=== PATIENT | male | born 1955 | race Caucasian/White ===

== ENCOUNTER 2022-10-03 19:47 | Inpatient (IN) | payer OTHER, SELFPAY ==
[2022-10-03 19:56] VITALS: BP 156/91; PULSE 114; RESP 16; TEMP 36.4; O2SAT 98; BMI 34.2
--- NOTE | 2022-10-03 20:37 | PC.NURSE ---
RN into room to attempt to retrieve urine sample from pt. Pt tries but is unable to urinate. PSA states that pt has been talking to himself and behaving strangely as if someone were with him. Pt appears anxious at this time and mumbling.
--- NOTE | 2022-10-03 20:58 | ED.C_ITS ---
HPI - Psych General: Chief Complaint: Psychiatric Symptoms Stated Complaint: wants stress unit Time Seen by Provider: 10/03/22 20:15 History of Present Illness: Patient presents to the ER with complaints of wanting admitted to our stress unit. I also wanting his leg wound looked at. Patient admits he is homeless and unable to handle the stressors of his normal daily life. Patient wants to go to the stress unit. Patient denies homicidal or suicidal ideation patient calm and cooperative during his exam. Patient does admit to chronic alcohol use as well as methamphetamine use. Patient admits to using methamphetamines approximately 3 to 4 hours prior to arrival. Review of Systems General: Reports: 10 or more systems reviewed and unremarkable except in HPI and below PFSH ED PFSH: Medical History (Updated 10/04/22 @ 18:13 by Florencio Blunt MD) Coronary artery disease Hypertension (Unknown) Surgical History History of surgery on lower extremity Family History (Updated 10/04/22 @ 18:13 by Florencio Blunt MD) Other Depression Social History Smoking and tobacco status: current every day smoker Physical Exam Const: COMMON NORMALS: no acute distress, average body habitus, patient oriented x3, healthy appearing, alert and well nourished HENMT: COMMON NORMALS: normocephalic, atraumatic, hearing grossly normal bilaterally, external ears normal, Normal external nose present and moist oral mucous membranes HEAD & SCALP: normocephalic and atraumatic NOSE: Normal external nose present EXTERNAL EAR: Yes external ears normal Neck/C-Spine: COMMON NORMALS: full ROM, no lymphadenopathy, supple, no meningeal signs, no JVD and Thyroid normal THYROID: Thyroid normal Chest: COMMONS NORMALS: normal inspection of the chest and normal palpation of entire chest wall Resp: COMMON NORMALS: normal respiratory effort, No retractions, No use of accessory muscles and clear to auscultation bilaterally AUSCULTATION: clear to auscultation bilaterally Cardio: COMMON NORMALS: no JVD, regular rhythm, S1 normal heart sound present, S2 normal heart sound present, No gallops present (Cardio), No clicks present (Cardio), No murmurs present (Cardio) and No rub (Cardio); negative for regular rate (Patient is tachycardic) RATE: abnormal rate (Patient is tachycardic) RHYTHM: regular rhythm HEART SOUNDS: S1 normal heart sound present and S2 normal heart sound present GI: COMMON NORMALS: Normal to inspection, nondistended, normoactive bowel sounds present, Soft to palpation, non-tender, No hepatosplenomegaly present and no masses PALPATION: Yes Soft to palpation and Yes No hepatosplenomegaly present : COMMON NORMALS: Yes no CVA tenderness BLADDER/KIDNEY EXAM: Yes no CVA tenderness Back/Pelvis: COMMON NORMALS: no CVA tenderness Extremity: NARRATIVE EXTREMITY EXAM: Patient has multiple postsurgical healed wounds on his left lower extremity. There is 1 wound in the process of healing on his left medial thigh that has good granulation tissue good serosanguineous discharge no erythema purulent drainage or odor noted. Neuro: COMMON NORMALS: patient oriented x3 SENSORIUM/ORIENTATION: Yes alert MENINGEAL SIGNS: Yes no meningeal signs Course Vital Signs: Vital signs: Vital Signs Temperature 98.2 F 10/04/22 21:36 Pulse Rate 74 10/04/22 21:36 Respiratory Rate 15 10/04/22 21:36 Blood Pressure 111/68 10/04/22 21:36 Pulse Oximetry 94 10/04/22 21:36 Oxygen Delivery Me thod Room Air 10/04/22 21:36 [facility] - Psych Medical Decision Making Patient was checked out to Dr. Abrams at shift change for further workup and treatment. Differential Diagnosis Unlikely acute psychosis, chronic schizophrenia, suicidal ideation, bipolar disorder, depression, drug-induced psychotic disorder or acute anxiety Medical Records I reviewed the patient's medical records. Lab Data I reviewed the patient's lab results. 10/03/22 21:00 10/03/22 21:00 Radiology Impressions Chest X-Ray 10/03/22 21:03 IMPRESSION: Negative for infiltrate. Laboratory Results WBC 13.3 10^3/uL (4.0-10.0) H 10/03/22 21:00 RBC 6.18 10^6/uL (4.1-5.3) H 10/03/22 21:00 Hgb 15.9 g/dL (11.7-16.6) 10/03/22 21:00 Hct 50.2 % (42.0-52.0) 10/03/22 21:00 MCV 81.2 fl (80-94) 10/03/22 21:00 MCH 25.7 pg (28.0-34.0) L 10/03/22 21:00 MCHC 31.7 g/dL (30.0-36.0) 10/03/22 21:00 RDW 15.1 % (12.1-15.1) 10/03/22 21:00 Plt Count 356 10^3/cmm (130-400) 10/03/22 21:00 MPV 9.6 fL (7.4-10.4) 10/03/22 21:00 Neut % (Auto) 64.2 % 10/03/22 21:00 Lymph % (Auto) 23.8 % 10/03/22 21:00 [place] % (Auto) 9.0 % 10/03/22 21:00 Eos % (Auto) 2.1 % 10/03/22 21:00 Baso % (Auto) 0.5 % 10/03/22 21:00 Neut # (Auto) 8.54 10^3/uL (1.8-7.7) H 10/03/22 21:00 Lymph # (Auto) 3.2 10^3/uL (0.8-4.8) 10/03/22 21:00 [place] # (Auto) 1.2 10^3/uL (0.2-0.9) H 10/03/22 21:00 Eos # (Auto) 0.3 10^3/uL (0.0-0.8) 10/03/22 21:00 Baso # (Auto) 0.1 10^3/uL (0.0-0.1) 10/03/22 21:00 Nucleated RBC % (auto) 0 % 10/03/22 21:00 Nucleated RBCs # 0.0 /100WBC 10/03/22 21:00 D-Dimer 0.64 ug/mIFEU (0-0.59) H 10/04/22 09:20 Sodium 139 mmol/L (136-145) 10/03/22 21:00 Potassium 4.7 mmol/L (3.5-5.1) 10/03/22 21:00 Chloride 101 mmol/L (98-107) 10/03/22 21:00 Carbon Dioxide 24 mmol/L (22-29) 10/03/22 21:00 Anion Gap 18.7 (5-19) 10/03/22 21:00 BUN 20 mg/dL (8-23) 10/03/22 21:00 Creatinine 1.8 mg/dL (0.7-1.2) H 10/03/22 21:00 GFR Calculation 37.9 mL/min (90-130) L 10/03/22 21:00 Glucose 126 mg/dL (65-115) H 10/03/22 21:00 POC Glucose 136 mg/dL (70-110) H 10/04/22 18:16 Estimat Average Glucose 128 10/04/22 09:20 Hemoglobin A1c 6.1 % (4.0-6.0) H 10/04/22 09:20 Calculated Osmolality 292 mOsm/kg (285-295) 10/03/22 21:00 Calcium 10.0 mg/dL (8.5-10.5) 10/03/22 21:00 Total Bilirubin 0.2 mg/dL (0.15-1.2) 10/03/22 21:00 AST 19 U/L (0-40) 10/03/22 21:00 ALT 17 U/L (0-41) 10/03/22 21:00 Alkaline Phosphatase 123 U/L (40-130) 10/03/22 21:00 Troponin T Baseline 29 ng/L (0-15) H 10/03/22 21:53 Troponin T 120 Minute 28.25 ng/L (0-15) H 10/03/22 23:48 Delta Troponin T -0.75 ABS# (0-10) L 10/03/22 23:48 C-Reactive Protein 3.7 mg/L (0.0-4.9) 10/04/22 09:20 NT-Pro-B Natriuret Pep 595 pg/mL (0-125) H 10/04/22 09:20 Total Protein 7.4 g/dL (6.6-8.7) 10/03/22 21:00 Albumin 5.0 g/dL (3.5-5.2) 10/03/22 21:00 Globulin 2.4 g/dL (1.3-4.6) 10/03/22 21:00 Procalcitonin 0.05 ng/mL (0-0.5) 10/04/22 09:20 TSH 0.60 uIU/mL (0.27-4.20) 10/04/22 09:20 Urine Color Yellow (Yellow) 10/03/22 22:35 Urine Appearance Hazy (CLEAR) A 10/03/22 22:35 Urine pH 5 (5-7) 10/03/22 22:35 Ur Specific [place] 1.025 (1.005-1.030) 10/03/22 22:35 Urine Protein 3+ (Negative) H 10/03/22 22:35 Urine Glucose (UA) Trace (Normal) H 10/03/22 22:35 Urine Ketones Negative (Negative) 10/03/22 22:35 Urine Blood Neg (Negative) 10/03/22 22:35 Urine Nitrate Negative (Negative) 10/03/22 22:35 Urine Bilirubin Neg (Negative) 10/03/22 22:35 Urine Urobilinogen Norm mg/dL (Negative) 10/03/22 22:35 Ur Leukocyte Esterase Trace (Negative) H 10/03/22 22:35 Urine RBC 0-4 /hpf (0-2) H 10/03/22 22:35 Urine WBC 15-25 /hpf (0-5) H 10/03/22 22:35 Ur Squamous Epith Cells 10-15 /hpf (0-5) H 10/03/22 22:35 Amorphous Sediment Trace /hpf 10/03/22 22:35 Urine Bacteria Trace /hpf (NONE) 10/03/22 22:35 Hyaline Casts 0-4 /lpf H 10/03/22 22:35 Fine Granular Casts 0-4 /lpf H 10/03/22 22:35 Salicylates < 0.3 mg/dL (3-10) L 10/03/22 21:00 Urine Opiates Screen Negative ng/mL (Negative) 10/03/22 22:35 Acetaminophen < 5.0 ug/mL (10-30) L 10/03/22 21:00 Ur Barbiturates Screen Negative ng/mL (Negative) 10/03/22 22:35 Ur Phencyclidine Scrn Negative ng/mL (Negative) 10/03/22 22:35 Ur Amphetamines Screen Positive ng/mL (Negative) H 10/03/22 22:35 U Benzodiazepines Scrn Negative ng/mL (Negative) 10/03/22 22:35 Urine Cocaine Screen Negative ng/mL (Negative) 10/03/22 22:35 U Marijuana (THC) Screen Positive ng/mL (Negative) H 10/03/22 22:35 Ethyl Alcohol < 10 mg/dL (0-10) 10/03/22 21:00 Hepatitis A IgM Ab Non-reactive (Nonreactive) 10/04/22 09:20 Hep Bs Antigen Non-reactive (Nonreactive) 10/04/22 09:20 Hep B Core IgM Ab Non-reactive (Nonreactive) 10/04/22 09:20 Hepatitis C Antibody Reactive (Nonreactive) H 10/04/22 09:20 HIV 1&2 Ab & HIV 1 Ag Non-reactive (Non-Reactiv) 10/04/22 09:20 HIV 1&2 Antibody Non-reactive (Non-Reactiv) 10/04/22 09:20 SARS-CoV-2 Ag (Rapid) negative (Negative) 10/03/22 21:15 EKG Data EKG 1: I personally reviewed and interpreted this EKG as follows: EKG interpretation date: 10/03/22 EKG interpretation time: 21:15 Prior EKG tracings: available for review Interpretation: EKG showed rate 111 beats a minute, TN interval 181, QRS 110, QTc 438, sinus tachycardia with left anterior fascicular block, EKG read by computer showed acute AL with Q waves in 1 aVL V3 through V6. Patient was having no chest pain during this time and admitted to using methamphetamine. Dr. Prado was sent a picture of the EKG and agreed that this did not appear to be acute AL. Discharge Plan Discharge Patient Disposition: Placed in Observation Admit Provider: Florencio Blunt Clinical Impression: Methamphetamine abuse, Depression, Homelessness Coding Level of Care Code ED Exterior Door Installer for Chg Sivan
--- NOTE | 2022-10-03 21:03 | XRR_ITS ---
PROCEDURE INFORMATION: Exam: XR Chest Exam date and time: 10/03/2022 9:17 PM Age: 67 years old Clinical indication: Other: Tachycardia TECHNIQUE: Imaging protocol: Radiologic exam of the chest. Views: 1 view. COMPARISON: CR XR chest 1V [id number] 01/13/2019 9:14 AM FINDINGS: Lungs: Scattered calcified benign granulomas. Pleural spaces: Unremarkable. No pleural effusion. No pneumothorax. Heart/Mediastinum: Unremarkable. No cardiomegaly. Bones/joints: Unremarkable. XR/XR chest 1V portable [id number] IMPRESSION: Negative for infiltrate.
--- NOTE | 2022-10-03 21:03 | ECG_ITS ---
[facility] Test Date: 2022-10-03 Pat Name: Theo Tipton Department: Room: Gender: Male Make Up Operator: : 1955 Requested By: Cristobal Rosenberg Order Number: [id number] Zoe MD: Armaan Camarena M.D. Measurements Intervals [place] Rate: 111 P: 19 [place]: 181 QRS: -77 QRSD: 110 T: 59 QT: 321 QTc: 438 Interpretive Statements SINUS TACHYCARDIA LEFT ANTERIOR FASCICULAR BLOCK [QRS AXIS <= -45, QR IN I, RS IN II] ANTEROLATERAL MYOCARDIAL INFARCTION , AGE INDETERMINATE[40+ ms Q WAVE IN I/aVL/V3-V6] Compared to ECG 01/13/2019 11:09:37 Sinus rhythm no longer present T-wave abnormality no longer present Possible ischemia no longer present Myocardial infarct finding still present Electronically Signed On 10-03-2022 22:58:40 CDT by Armaan Camarena M.D. [id number]
[2022-10-03 21:08] LABS: Basophils # 0.1 10^3/uL (0.0-0.1); Basophils % 0.5 %; Eosinophils # 0.3 10^3/uL (0.0-0.8); Eosinophils % 2.1 %; Hematocrit 50.2 % (42.0-52.0); Hemoglobin 15.9 g/dL (11.7-16.6); Lymphocytes # 3.2 10^3/uL (0.8-4.8); Lymphocytes % 23.8 %; Mean Corpuscular HGB Conc 31.7 g/dL (30.0-36.0); Mean Corpuscular Hemoglobin 25.7 pg (28.0-34.0); Mean Corpuscular Volume 81.2 fl (80-94); Mean Platelet Volume 9.6 fL (7.4-10.4); Monocytes # 1.2 10^3/uL (0.2-0.9); Neutrophils # 8.54 10^3/uL (1.8-7.7); Neutrophils % 64.2 %; Nucleated Red Blood Cells % 0 %; Platelet Count 356 10^3/cmm (130-400); Red Blood Count 6.18 10^6/uL (4.1-5.3); Red Cell Distribution Width 15.1 % (12.1-15.1); White Blood Count 13.3 10^3/uL (4.0-10.0)
--- NOTE | 2022-10-03 21:25 | ECG_ITS ---
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 Measurements Intervals [place] Rate: 101 P: -1 [place]: 176 QRS: -76 QRSD: 125 T: 48 QT: 341 QTc: 442 Interpretive Statements SINUS TACHYCARDIA INFERIOR MYOCARDIAL INFARCTION , OF INDETERMINATE AGE [40+ ms Q WAVE AND/OR ST/T ABNORMALITY IN II/aVF] ANTEROLATERAL MYOCARDIAL INFARCTION ,AGE INDETERMINATE Compared to ECG 10/03/2022 21:15:36 Left anterior fascicular block no longer present Myocardial infarct finding still present Electronically Signed On 10-04-2022 6:57:57 CDT by Armaan Camarena M.D. [id number]
[2022-10-03 21:35] LABS: Alanine Aminotransferase 17 U/L (0-41); Alkaline Phosphatase 123 U/L (40-130); Aspartate Amino Transferase 19 U/L (0-40); Blood Urea Nitrogen 20 mg/dL (8-23); Carbon Dioxide 24 mmol/L (22-29); Chloride 101 mmol/L (98-107); Globulin 2.4 g/dL (1.3-4.6); Glomerular Filtration Rate 37.9 mL/min (90-130); Glucose 126 mg/dL (65-115); Osmolality Calculated 292 mOsm/kg (285-295); Sodium 139 mmol/L (136-145); Thyroid Stimulating Hormone 0.72 uIU/mL (0.27-4.20); Total Bilirubin 0.2 mg/dL (0.15-1.2); Total Protein 7.4 g/dL (6.6-8.7)
[2022-10-03 21:37] LABS: Acetaminophen < 5.0 ug/mL (10-30); Salicylate < 0.3 mg/dL (3-10)
[2022-10-03 21:38] LABS: Alcohol Level < 10 mg/dL (0-10); Anion Gap 18.7 (5-19); Potassium 4.7 mmol/L (3.5-5.1)
[2022-10-03 21:48] LABS: SARS Covid-2 Antigen negative (Negative)
[2022-10-03 22:22] LABS: Troponin(5th) Baseline 29 ng/L (0-15)
[2022-10-03 23:04] LABS: Amphetamines Screen Urine Positive (Negative); Barbiturates Screen Urine Negative (Negative); Benzodiazepines Screen Urine Negative (Negative); Cocaine Screen Urine Negative (Negative); Opiate Screen Urine Negative (Negative); PCP Screen Urine Negative (Negative); THC Screen Urine Positive (Negative)
--- NOTE | 2022-10-03 23:10 | ECG_ITS ---
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 Measurements Intervals [place] Rate: 91 P: 0 [place]: 0 QRS: -82 QRSD: 110 T: 22 QT: 344 QTc: 424 Interpretive Statements SINUS RHYTHM INFERIOR MYOCARDIAL INFARCTION , PROBABLY OLD [40+ ms Q WAVE AND/OR ST/T ABNORMALITY IN II/aVF] ANTEROLATERAL MYOCARDIAL INFARCTION , OF INDETERMINATE AGE [40+ ms Q WAVE IN I/aVL/V3-V6] Compared to ECG 10/03/2022 21:15:36 Supraventricular rhythm now present Sinus tachycardia no longer present Left anterior fascicular block no longer present Myocardial infarct finding still present Electronically Signed On 10-04-2022 7:00:13 CDT by Armaan Camarena M.D. [id number]
[2022-10-03 23:13] LABS: Add Urine Microscopic? YES; Bilirubin Urine Neg (Negative); Blood Urine Neg (Negative); Glucose Urine UA Trace (Normal); Ketones Urine Negative (Negative); Leukocyte Esterase Urine Trace (Negative); Nitrate Urine Negative (Negative); Protein Urine 3+ (Negative); Specific Gravity, Urine 1.025 (1.005-1.030); Urine Appearance Hazy (CLEAR); Urine Color Yellow (Yellow); Urobilinogen Urine Norm (Negative); pH Urine 5 (5-7)
[2022-10-03 23:14] LABS: Amorphous Sediment Urine TRACE /hpf; Bacteria Urine TRACE /hpf; Fine Granular Casts Urine 0-4 /lpf; RBC Urine 0-4 /hpf (0-2); WBC Urine 15-25 /hpf (0-5)
[2022-10-03 23:15] LABS: Add Urine Culture? No; Hyaline Casts Urine 0-4 /lpf
[2022-10-03 23:40] VITALS: BP 170/115; PULSE 97; RESP 16; O2SAT 96
--- NOTE | 2022-10-03 23:41 | PC.NURSE ---
RN into room to assess pt. Pt is currently sitting quietly and calmly facing the sink on the bed. Pt is nodding along and saying yep occasionally with the tv dialogue.
[2022-10-04] VITALS (7 sets, daily range): BP systolic 111–196; BP diastolic 67–115; PULSE 53–100; RESP 15–20; TEMP 36.4–36.9; O2SAT 94–97; BMI 34.2
[2022-10-04 00:16] LABS: Troponin 5 2HR 28.25 ng/L (0-15)
[2022-10-04 00:28] LABS: Troponin 5 2HR Delta -0.75 ABS# (0-10)
[2022-10-04] MEDS: OLANZapine 10 mg ODT PO (01:40)
--- NOTE | 2022-10-04 04:22 | PC.NURSE ---
PT WAS BROUGHT FROM THE ED AFTER REPORT WAS CALLED. AFTER THE ARRIVAL OF THE PT RN CAME BACK TO NPU TO GIVE STAFF PT PAPERWORK. AT THAT TIME ED RN LET STAFF KNOW SHE FORGOT TO MENTION THE LARGE LEG WOUND ON THE PTS THIGH. RN STATED PT WAS UNABLE TO TELL ED DOCTOR WHAT HAPPENED OR WHERE THE WOUND CAME FROM BUT THE WOUND HAD BEEN CLEANED AND DRESSED. AFTER PATIENT WAS ADMITTED THIS PERFORATOR AND SANDRINE John DRESSED PT OUT INTO GREEN SCRUBS. AT THAT TIME I ASKED THE PATIENT ABOUT THE WOUND. PT STATED THEY DID NOT CLEAN WOUND OR CHANGE DRESSING THAT HE HAD PLACED THAT DRESSING ON YESTERDAY. DRESSING WAS FALLING OFF PATIENTS LEG AT THE TIME. PT HAD BILATERAL PITTING EDEMA IN BOTH LOWER EXTREMITIES. PTS BLOOD PRESSURE WAS ALSO HIGH UPON ARRIVAL TO THE UNIT. PTS BLOOD PRESSURE HAD BEEN ELEVATED WHILE IN THE ED. THIS PERFORATOR NOTIFIED TRIMMER LOADER AND DR. MANLEY. DR. MANLEY ORDERED A HOSPITAL CONSULT. AT THAT TIME I CALLED DR. BOBO AND SPOKE WITH HIM OVER THE PHONE. PT UPDATE WAS GIVEN AND HE STATED HE WOULD REVIEW THE PT CHART AND SEE HIM. PT WAS CALM AND COOPERATIVE THROUGH ADMISSION BUT WAS PARANOID ABOUT PEOPLE TALKING ABOUT HIM. PT ALSO ENDORSED AVH.
--- NOTE | 2022-10-04 06:31 | PM.CONSULT ---
Providers/Reason For Consult Consulting Physician/Specialty*: Hospitalist Reason for Consult*: Hypertension and lower extremity edema Attending Physician: Florencio Blunt MD History of Present Illness History of Present Illness Theo Tipton is a 67 year old male with history of coronary disease status post stents in the past, hypertension, diabetes admitted to the Neuropsych Unit for psychiatric symptoms related to his active social stressors, currently he is homeless and he is not able to handle the social stressors. Patient is stating that he is compliant with his medications, he is admitting to use of chronic alcohol and methamphetamine. Hospitalist service was consulted for management of hypertension and lower extremity edema. At the time of my evaluation patient is laying supine No active complaints He is able to mention above HPI At the time of admission EKG showed tachycardia, patient took methamphetamine 4 to 5 hours prior to his admission no signs of PA, left anterior fascicular block Review of Systems Narrative: No fever or lethargy No chills No active chest pain No shortness of breath Chronic skin rash Abdomen soft No vision change Positive leg pain no Back pain No productive cough No diarrhea No allergies Medications/Allergies Home Medications Medication Instructions Recorded Confirmed Last Taken Type No Known Home Medications 10/04/22 10/04/22 Unknown History Allergies Allergy/AdvReac Type Severity Reaction Status Date / Time morphine Allergy Intermediate put me in Verified 11/09/20 10:13 the hospital PFSH Acute PFSH: Medical History Coronary artery disease Hypertension Surgical History History of surgery on lower extremity Vitals/I&O/Wt Last Vital Signs Temp 97.5 F L 10/04/22 01:43 Pulse 97 10/04/22 01:43 Resp 16 10/04/22 01:43 BP 179/110 10/04/22 01:45 Pulse Ox 96 10/04/22 01:43 O2 Del Method Room Air 10/04/22 01:35 Weight last 48 hrs Weight 102.058 kg Weight 102.058 kg Physical Exam Narrative: Patient is laying supine Awake and alert Trace edema around ankles Chronic wound of legs noted Patient is laying supine without any active shortness of breath or chest pain S1, S2 do not appreciate any murmurs Currently on room air doing well Nonfocal neuroexam Data 10/03/22 21:00 10/03/22 21:00 A&P Assessment and plan (1) Methamphetamine abuse: (2) Depression: (3) Homelessness: (4) Hypertension: Plan Hypertensive urgency: I would add lisinopril, metoprolol and amlodipine for blood pressure, monitor heart rate EKG showing left anterior fascicular block This is likely related to use of methamphetamine Requested TSH Drug screen positive for methamphetamine and marijuana Compliance with medication is questionable as patient is homeless Lower extremity edema Clinically patient does not have typical heart failure symptoms he is laying supine without any shortness of breath I requested BNP Will request venous Doppler Requested D-dimer In case his BNP is high he will need an echo Chronic alcohol use: Add thiamine and folic acid Homeless Depression/social anxiety: Management as per psychiatrist Full code Cardiac diet Consult Attestations Medical Necessity Statement: As per psychiatry Diagnoses Methamphetamine abuse F15.10 Depression F32.A Homelessness Z59.00 Hypertension I10
--- NOTE | 2022-10-04 06:32 | USCV_ITS ---
Saeed Theo Age: 67 Gender: M : 1955 Exam Date: 10/04/2022 11:20 Ordering Phys: Julián Beard MD Technologist: JUAN [place] [facility] [place] Indication: H/O DVT. BLE SWELLING HISTORY: Lower extremity swelling. PROCEDURES: Venous duplex imaging was performed in bilateral lower extremities. The following venous structures were evaluated: common femoral vein, profunda vein, proximal portion of the greater saphenous vein, superficial femoral vein, and the popliteal vein. In addition, the posterior tibial and peroneal trunk were evaluated. Serial compression, augmentation maneuvers, and spectral Doppler flow evaluation were performed. FINDINGS: No evidence of DVT seen in any vessel visualized at this time. CONCLUSIONS No evidence of right lower extremity DVT. No evidence of left lower extremity DVT. Alpesh Perdomo MD (Electronically Signed) Final Date: 04 October 2022 12:38 S
[2022-10-04] MEDS: metoprolol tartrate 25 mg Tablet PO ×2 (08:54→21:23)
[2022-10-04] MEDS: amlodipine 10 mg Tablet PO (08:54)
[2022-10-04] MEDS: lisinopril 20 mg Tablet PO (08:54)
[2022-10-04] MEDS: thiamine 100 mg Tablet PO (08:54)
[2022-10-04] MEDS: aspirin 81 mg EC Tablet PO (08:54)
[2022-10-04] MEDS: folic acid 1 mg Tablet PO (08:54)
--- NOTE | 2022-10-04 08:55 | USCV_ITS ---
Saeed Theo Age: 67 Gender: M : 1955 Exam Date: 10/04/2022 11:33 Ordering Phys: Michael Gonzalez MD Technologist: JUAN [place] [facility] [place]ication: SHORTNESS OF BREATH BP: 174 / 94 HR: 50 Rhythm: Sinus Technical Quality: Adequate MEASUREMENTS (Male / Female) Normal Values 2D ECHO LVOT Diameter 2.0 cm LV Ejection Fraction MOD 2C 50.4 % LV Ejection Fraction 2C AL 49.0 % LA Diameter 3.5 cm LA Width 3.0 cm LA Height 5.0 cm RA Width 2.7 cm RA Height 4.6 cm Aorta at Sinotubular Diameter 2.4 cm IVC Diameter 1.9 cm M-MODE Aortic Annulus Diameter 2.6 cm LA Ao Ratio MM 1.3 MV E Point Septal Separation 1.2 cm DOPPLER AV Peak Velocity 140.0 cm/s LVOT Peak Velocity 83.0 cm/s AV Area Cont Eq vti 2.2 cm squared AV Area Cont Eq pk 1.9 cm squared MV Peak Velocity 69.0 cm/s MV Area PHT 2.4 cm squared Mitral E to A Ratio 0.7 MV E' Velocity 27.5 cm/s Mitral E to MV E' Ratio 9.3 Mitral E to LV E' Lateral Ratio 9.6 Mitral E to LV E' Septal Ratio 9.1 TR Peak Velocity 123.2 cm/s TR Peak Gradient 6.1 mmHg TR Mean Velocity 103.6 cm/s TR Mean Gradient 4.5 mmHg TR Velocity Time Integral 34.5 cm TV Peak E Velocity 35.0 cm/s Right Atrial Pressure 3.0 mmHg Pulmonary Artery Systolic Pressu 9.1 mmHg PV Peak Velocity 82.0 cm/s RV Acceleration Time 0.1 s RV Ejection Time 0.3 s RV AcT/ET 0.2 FINDINGS Left Ventricle Normal left ventricular size. Mildly decreased left ventricular systolic function. Left ventricular ejection fraction is estimated at 50-55 %. Mild global hypokinesis. Grade I diastolic dysfunction (abnormal relaxation filling pattern), normal to mildly elevated filling pressures. Right Ventricle Normal right ventricular size and systolic function. RVSP could not be calculated due to incomplete tricuspid regurgitation velocity profile. Right Atrium Normal right atrial size. Left Atrium Normal left atrial size. Mitral Valve Structurally normal mitral valve. No mitral valve stenosis. Aortic Valve Structurally normal trileaflet aortic valve. No aortic valve stenosis. No aortic valve regurgitation. Tricuspid Valve Structurally normal tricuspid valve. No tricuspid valve regurgitation. Pulmonic Valve Structurally normal pulmonic valve. No pulmonary valve stenosis. Trace pulmonary valve regurgitation. Pericardium No pericardial effusion. Aorta Normal size aortic root and proximal ascending aorta. IVC Inferior vena cava not visualized. CONCLUSIONS 1. Normal left ventricular size. Mildly decreased left ventricular systolic function. Left ventricular ejection fraction is estimated at 50-55 %. Mild global hypokinesis. Grade I diastolic dysfunction (abnormal relaxation filling pattern), normal to mildly elevated filling pressures. 2. Normal right ventricular size and systolic function. 3. When compared to previous study dated 03/12/2018 left ventricular systolic function seems to have improved. Shayna Monique MD (Electronically Signed) Final Date: 04 October 2022 15:11 S
[2022-10-04 09:52] LABS: D Dimer 0.64 ug/mIFEU (0-0.59)
[2022-10-04 10:00] LABS: Estmated Average Glucose 128; Hemoglobin A1C 6.1 % (4.0-6.0)
[2022-10-04] MEDS: cloNIDine 0.1 mg Tablet PO (10:18)
[2022-10-04 10:33] LABS: Procalcitonin 0.05 ng/mL (0-0.5)
[2022-10-04 10:34] LABS: NT Pro B Type Natriuretic Pept 595 pg/mL (0-125)
[2022-10-04 10:45] LABS: C Reactive Protein 3.7 mg/L (0.0-4.9)
[2022-10-04 13:15] LABS: Glucose Point of Care 102 mg/dL (70-110)
[2022-10-04 13:55] LABS: Hepatitis A Antibody IgM Non-Reactive (Nonreactive); Hepatitis B Core IgM Non-Reactive (Nonreactive); Hepatitis B Surface Antigen Non-Reactive (Nonreactive)
[2022-10-04 14:22] LABS: Hepatitis C Virus Antibody Reactive (Nonreactive)
[2022-10-04 14:45] LABS: HIV 1 & 2 Antibody Non-Reactive (Non-Reactiv); HIV 1 & 2 Antigen Non-Reactive (Non-Reactiv)
--- NOTE | 2022-10-04 15:23 | PM.PN ---
Subjective Subjective: Patient was seen this morning, nursing staff at bedside, he tells me that he has had CAD, with a couple stents placed, 2 years ago at outside hospital he is not exactly sure which hospital, denies a history of kidney disease, he denies any methamphetamine use, no history of HIV no history of hepatitis C, denies any shortness of breath, no history of heart failure, no history of strokes, he does report lower extremity edema Vitals/I&O/Wt Last Vital Signs Temp 97.5 F L 10/04/22 06:00 Pulse 53 L 10/04/22 14:00 Resp 16 10/04/22 14:00 BP 114/67 10/04/22 14:00 Pulse Ox 94 10/04/22 14:00 O2 Del Method Room Air 10/04/22 06:00 Weight last 48 hrs Weight 102.058 kg Weight 102.058 kg Physical Exam Const: COMMON NORMALS: no acute distress and patient oriented x3 Resp: COMMON NORMALS: normal respiratory effort, No retractions, No use of accessory muscles and clear to auscultation bilaterally AUSCULTATION: clear to auscultation bilaterally Cardio: COMMON NORMALS: regular rate, regular rhythm, S1 normal heart sound present and S2 normal heart sound present RATE: regular rate RHYTHM: regular rhythm HEART SOUNDS: S1 normal heart sound present and S2 normal heart sound present GI: COMMON NORMALS: Normal to inspection, nondistended, normoactive bowel sounds present and non-tender Extremity: NARRATIVE EXTREMITY EXAM: 1+ nonpitting edema Neuro: COMMON NORMALS: patient oriented x3 Psych: COMMON NORMALS: mental status grossly normal Data 10/03/22 21:00 10/03/22 21:00 A&P Assessment and plan (1) Methamphetamine abuse: (2) Depression: (3) Homelessness: (4) Hypertension: (5) NSTEMI (non-ST elevated myocardial infarction): (6) Hepatitis C: (7) CKD (chronic kidney disease): Plan Hypertensive urgency: Continue lisinopril, metoprolol and amlodipine for blood pressure, monitor heart rate EKG showing left anterior fascicular block This is likely related to use of methamphetamine TSH within normal limits Drug screen positive for methamphetamine and marijuana Compliance with medication is questionable as patient is homeless Lower extremity edema Clinically patient does not have typical heart failure symptoms he is laying supine without any shortness of breath BNP slightly elevated Venous ultrasound negative for DVT Will consider diuretics NSTEMI -Baseline troponin 29 -No chest pain complaints -EKG shows Q waves in anterior leads -Cardiac echo 1. Normal left ventricular size.? Mildly decreased left ?ventricular systolic function. Left ventricular ejection ?fraction is estimated at 50-55 %.? Mild global hypokinesis. ?Grade I diastolic dysfunction (abnormal relaxation filling ?pattern), normal to mildly elevated filling pressures. ?2. Normal right ventricular size and systolic function. ?3. When compared to previous study dated 03/12/2018 left ?ventricular systolic function seems to have improved. -Continue aspirin, statin, beta-yolanda -Elevated troponins likely secondary to hypertensive urgency however cannot rule out underlying cardiac etiology, will consider stress testing as outpatient Hepatitis C antibody positive, follow-up RNA CKD, creatinine 1.8, patient has chronic kidney disease, likely second to hypertension Chronic alcohol use: Add thiamine and folic acid Homeless Depression/social anxiety: Management as per psychiatrist Full code Cardiac diet Attestations Medical Necessity Statement*: Patient requires hospitalization for hypertensive urgency, lower extremity edema, NSTEMI, hepatitis C, CKD Coding Level of Care Code Acute Code for g Fwd Diagnoses Methamphetamine abuse F15.10 Depression F32.A Homelessness Z59.00 Hypertension I10 NSTEMI (non-ST elevated myocardial infarction) I21.4 Hepatitis C B19.20 CKD (chronic kidney disease) N18.9
--- NOTE | 2022-10-04 17:58 | W.PM.NPUH&PS ---
Providers/Chief Complaint Admitting Physician: Florencio Blunt MD Chief Complaint: wants stress unit, foot infection HPI NPU History of Present Illness Theo Tipton is a 67 year old male with a history of methamphetamine abuse and depression who presented to the emergency department stating that he wanted his leg examined. The patient was admitted to the psychiatric unit for further evaluation and treatment. He presents completely noncompliant on interview. He was unable to provide any meaningful history as he stated that he was too tired to talk at this time. Patient had acknowledged the use of methamphetamine. He endorsed having been depressed and reported feeling tired with disturbance in sleep and irritable mood. He had reported that he had been without his medications. He had endorsed a past history of depression. He had endorsed a past history of auditory hallucinations. He did endorse some feelings of hopelessness and endorsed that he had bad anxiety. He had also complained of pain issues. Past psychiatric history: He had reported a past history of inpatient hospitalizations and a past history of having been treated on outpatient basis for depression and PTSD along with bipolar disorder. Allergies: Morphine Surgical history: Unknown Medical history: Chronic kidney disease, hepatitis C, NSTEMI, hypertension, COPD Current medications: Amlodipine 10 mg daily, Eliquis, aspirin, spironolactone, oxycodone, atorvastatin Drug and alcohol history: History of methamphetamine use, history of alcohol use chronically. He had reported history of alcohol withdrawal symptoms. Legal history: Unknown Family psychiatric history: Per previous records bipolar disorder depression and schizophrenia Social history: He is homeless and is on disability. Previous records indicate the patient had obtained his GED as he had dropped out of school. He reports having no social supports. He had reported having 8 children from 5 different mothers and reported that he had been living in [place] for approximately 15 to 20 years. Meds NPU Home Medications Medication Instructions Recorded Confirmed Last Taken Type No Known Home Medications 10/04/22 10/04/22 Unknown History Allergies Allergy/AdvReac Type Severity Reaction Status Date / Time morphine Allergy Intermediate put me in Verified 11/09/20 10:13 [facility] PFS NPU PFS: Medical History (Updated 10/04/22 @ 18:13 by Florencio Blunt MD) Coronary artery disease Hypertension (Unknown) Surgical History History of surgery on lower extremity Family History (Updated 10/04/22 @ 18:13 by Florencio Blunt MD) Other Depression Social History Smoking and tobacco status: current every day smoker Mental Status Exam MSE Comments: Patient was lying in bed in difficult to awaken despite repeatedly attempting to awaken him with prompting verbally. He was alert but not oriented to place or time. He is malodorous with a disheveled appearance. His gait was not tested. There was no evidence of any abnormal involuntary motor movements tics or tremors appreciated. His speech was slurred and slowed and decreased in volume. His thought process appeared nonlinear. His thought content showed evidence of vague suicidal ideation with no active plan. He denied any homicidal ideation. He did at times appear to be responding to internal stimuli. His recent and remote memory appears impaired. His insight is feeble. His judgment is impaired. His impulse control appeared limited at best. Vitals/I&O/Wt Last Vital Signs Temp 97.5 F L 10/04/22 06:00 Pulse 53 L 10/04/22 14:00 Resp 16 10/04/22 14:00 BP 114/67 10/04/22 14:00 Pulse Ox 94 10/04/22 14:00 O2 Del Method Room Air 10/04/22 06:00 Weight last 48 hrs Weight 102.058 kg Weight 102.058 kg Data NPU 10/03/22 21:00 10/03/22 21:00 A&P Assessment and plan (1) Psychosis: (2) Depression: (3) Methamphetamine abuse: Plan 67-year-old white male with multiple medical problems admitted with vague suicidal ideation who does appear to be psychotic oral and likely withdrawing off of methamphetamine. He would likely benefit from acute inpatient psychiatric stay at this time. ?1. Encourage individual, group and milieu therapy. ?2.Recommend sober living treatment at the highest level of care to which the patient is willing to commit. 3.Continue q-15 minute checks for safety.? 4 Restart previous medications. Involuntary Hold Information 96 Hour Hold: 96 Hour Involuntary Admission: No Attestations NPU Medical Necessity Statement*: Inpatient hospitalization is medically necessary and deemed to ?be ?the clinically appropriate intervention ?at this time.? We will monitor/initiate medications and make changes as indicated.? The patient will be in the hospital for over 2 midnights.? The patient?s likely length of stay 7-10 days. Coding Level of Care Code Acute Code for Chg Fwd Diagnoses Psychosis F29 Depression F32.A Methamphetamine abuse F15.10
[2022-10-04 18:19] LABS: Glucose Point of Care 136 mg/dL (70-110)
[2022-10-04] MEDS: apixaban 5 mg Tablet PO (21:23)
[2022-10-04] MEDS: trazodone 50 mg Tablet PO (21:23)
[2022-10-04] MEDS: atorvastatin 40 mg Tablet PO (21:23)
[2022-10-04 21:27] LABS: Glucose Point of Care 157 mg/dL (70-110)
--- NOTE | 2022-10-04 23:45 | PC.NURSE ---
PT REQUESTS MEDICATION TO ASSIST HIM WITH SLEEPING. PT WAS GIVEN TRAZODONE 50 MG PO ORDERED. PT HAS BEEN RESTING WITH EYES CLOSED SINCE APPROXIMATELY 2200. NO DISTRESS NOTED.
[2022-10-05 06:00] VITALS: RESP 20
[2022-10-05 08:01] LABS: Glucose Point of Care 119 mg/dL (70-110)
[2022-10-05] MEDS: amlodipine 10 mg Tablet PO (08:12)
[2022-10-05] MEDS: spironolactone 25 mg Tablet 12.5 MG PO (08:12)
[2022-10-05] MEDS: folic acid 1 mg Tablet PO (08:12)
[2022-10-05] MEDS: metoprolol tartrate 25 mg Tablet PO ×2 (08:12→21:32)
[2022-10-05] MEDS: apixaban 5 mg Tablet PO ×2 (08:12→21:32)
[2022-10-05] MEDS: aspirin 81 mg EC Tablet PO (08:12)
[2022-10-05] MEDS: thiamine 100 mg Tablet PO (08:12)
[2022-10-05] MEDS: docusate sodium 100 mg Capsule PO (08:33)
[2022-10-05] MEDS: acetaminophen 325 mg Tablet 650 MG PO (08:33)
[2022-10-05 10:00] LABS: Anion Gap 13.4 (5-19); Blood Urea Nitrogen 24 mg/dL (8-23); Calcium 8.7 mg/dL (8.5-10.5); Carbon Dioxide 26 mmol/L (22-29); Chloride 106 mmol/L (98-107); Glomerular Filtration Rate 43.5 mL/min (90-130); Glucose 186 mg/dL (65-115); Osmolality Calculated 301 mOsm/kg (285-295); Potassium 4.4 mmol/L (3.5-5.1); Sodium 141 mmol/L (136-145)
[2022-10-05 10:46] LABS: NT Pro B Type Natriuretic Pept 123 pg/mL (0-125)
--- NOTE | 2022-10-05 12:02 | P.NPUPN_ITS ---
Subjective NPU Subjective: Patient presented today reportedly more communicative than yesterday. He was mostly difficult to understand but was able to get his point across of having recent drug use that has led to some of the challenges that he is experiencing. He reports that he does identify addiction as a problem and seem to be open to some possible interventions. He continues to be a little groggy and still tr clarke to get his bearings but clearly more functional than he was yesterday. We discussed taking her time and making sure we can assist him with housing as [place] already [place] [employer]. He reports he lost his license about 13 years ago and so he does not drive. He reports that yesterday was a really bad day. Mental Status Exam MSE Comments: This is an obese white male looking slightly older than his stated age in hospital scrubs with limited grooming/poor hygiene and limited eye contact. No abnormal movements except for psychomotor retardation. Cooperative with exam in mild to moderate distress. Speech was more spontaneous than previously reported and fairly normal rate with decreased volume and significant dysarthria. Mood described as a little better, affect subdued. Thought process more organized. Thought content: Patient denied suicidal or homicidal ideation, there are no delusions reported or noted, he denied any auditory or visual hallucinations. Attention and concentration were limited but improving, and memory appeared more reliable but none were formally tested. He was alert and oriented times person and place. Insight and judgment limited but improving and impulse control impaired. Vitals/I&O/Wt Last Vital Signs Temp 98.2 F 10/04/22 21:36 Pulse 74 10/04/22 21:36 Resp 20 H 10/05/22 06:00 BP 111/68 10/04/22 21:36 Pulse Ox 94 10/04/22 21:36 O2 Del Method Room Air 10/04/22 21:36 Weight last 48 hrs Weight 102.058 kg Weight 102.058 kg Data NPU 10/03/22 21:00 10/05/22 09:10 A&P Assessment and plan (1) Psychosis: (2) Depression: (3) Methamphetamine abuse: Plan 67-year-old white male with multiple medical problems admitted with vague suicidal ideation who does appear to be psychotic oral and likely withdrawing off of methamphetamine. He would likely benefit from acute inpatient psychiatric stay at this time. ?1. Encourage individual, group and milieu therapy. ?2.Recommend sober living treatment at the highest level of care to which the patient is willing to commit. 3.Continue q-15 minute checks for safety.? 4 Restart previous medications. Involuntary Hold Information 96 Hour Hold: 96 Hour Involuntary Admission: No Attestations NPU Medical Necessity Statement*: Inpatient hospitalization is medically necessary and deemed to ?be ?the clinically appropriate intervention ?at this time.? We will monitor/initiate medications and make changes as indicated. Likely length of stay 4-6 days. Coding Level of Care Code Acute Code for g Fwd Diagnoses Psychosis F29 Depression F32.A Methamphetamine abuse F15.10
[2022-10-05 12:16] LABS: Glucose Point of Care 131 mg/dL (70-110)
--- NOTE | 2022-10-05 13:46 | PM.PN ---
Subjective Subjective: Patient was seen this morning, he is much more alert and awake, following all commands he reports a history of DVT, for which she had a peripheral angioplasty, he tells he that they sucked out a lot of clots, that is why he is on Eliquis 5 mg twice daily, he has a chronic wound, on his left thigh which they are monitoring he tells me he denies a history of atrial fibrillation, denies any embolization he tells me he was blood clots they were on both sides, but he tells me that on the left side they were blocking his blood flow so he had to have surgery this was in [place], for his open wound, he was following up with his vascular surgeon in [place] but he is moved down to [place], so he has had no follow-up, he has not seen wound care, Vitals/I&O/Wt Last Vital Signs Temp 98.2 F 10/04/22 21:36 Pulse 74 10/04/22 21:36 Resp 20 H 10/05/22 06:00 BP 111/68 10/04/22 21:36 Pulse Ox 94 10/04/22 21:36 O2 Del Method Room Air 10/04/22 21:36 Weight last 48 hrs Weight 102.058 kg Weight 102.058 kg Physical Exam Const: COMMON NORMALS: no acute distress and patient oriented x3 Resp: COMMON NORMALS: normal respiratory effort, No retractions, No use of accessory muscles and clear to auscultation bilaterally AUSCULTATION: clear to auscultation bilaterally Cardio: COMMON NORMALS: regular rate, regular rhythm, S1 normal heart sound present and S2 normal heart sound present RATE: regular rate RHYTHM: regular rhythm HEART SOUNDS: S1 normal heart sound present and S2 normal heart sound present GI: COMMON NORMALS: Normal to inspection, nondistended, normoactive bowel sounds present and non-tender Extremity: COMMON NORMALS: no pedal edema Neuro: COMMON NORMALS: patient oriented x3 Psych: COMMON NORMALS: mental status grossly normal Skin: NARRATIVE SKIN EXAM: Left thigh, surgical site, from vascular surgery, looks clean and dry, measuring 10 cm long 1 cm wide, with good granulation tissue Data 10/03/22 21:00 10/05/22 09:10 A&P Assessment and plan (1) Methamphetamine abuse: (2) Depression: (3) Homelessness: (4) Hypertension: (5) NSTEMI (non-ST elevated myocardial infarction): (6) Hepatitis C: (7) CKD (chronic kidney disease): (8) DVT (deep venous thrombosis): (9) Surgical wound breakdown: Plan Hypertensive urgency: Continue lisinopril, metoprolol and amlodipine for blood pressure, monitor heart rate EKG showing left anterior fascicular block This is likely related to use of methamphetamine TSH within normal limits Drug screen positive for methamphetamine and marijuana Compliance with medication is questionable as patient is homeless Lower extremity edema Clinically patient does not have typical heart failure symptoms he is laying supine without any shortness of breath BNP slightly elevated Venous ultrasound negative for DVT Continue spironolactone History of DVT Continue Eliquis History of peripheral angioplasty with surgical site breakdown -Area looks clean and dry -No evidence of cellulitis -Continue wet-to-dry dressings -Will need to follow-up with wound care as outpatient NSTEMI -Baseline troponin 29 -No chest pain complaints -EKG shows Q waves in anterior leads -Cardiac echo 1. Normal left ventricular size.? Mildly decreased left ?ventricular systolic function. Left ventricular ejection ?fraction is estimated at 50-55 %.? Mild global hypokinesis. ?Grade I diastolic dysfunction (abnormal relaxation filling ?pattern), normal to mildly elevated filling pressures. ?2. Normal right ventricular size and systolic function. ?3. When compared to previous study dated 03/12/2018 left ?ventricular systolic function seems to have improved. -Continue aspirin, statin, beta-yolanda -Elevated troponins likely secondary to hypertensive urgency however cannot rule out underlying cardiac etiology, will consider stress testing as outpatient Hepatitis C antibody positive, follow-up RNA CKD, creatinine 1.6, patient has chronic kidney disease, likely second to hypertension Chronic alcohol use: Add thiamine and folic acid Homeless Depression/social anxiety: Management as per psychiatrist Full code Cardiac diet Attestations Medical Necessity Statement*: Patient requires hospitalization for hypertensive urgency, history of DVT, history of peripheral angioplasty, history of NSTEMI Diagnoses Methamphetamine abuse F15.10 Depression F32.A Homelessness Z59.00 Hypertension I10 NSTEMI (non-ST elevated myocardial infarction) I21.4 Hepatitis C B19.20 CKD (chronic kidney disease) N18.9 DVT (deep venous thrombosis) I82.409 Surgical wound breakdown T81.31XA
[2022-10-05 14:00] VITALS: BP 110/66; PULSE 63; RESP 17; TEMP 36.3; O2SAT 96
[2022-10-05 17:50] LABS: Glucose Point of Care 143 mg/dL (70-110)
[2022-10-05 21:32] VITALS: BP 137/74; PULSE 66; RESP 16; TEMP 37; O2SAT 94
[2022-10-05] MEDS: atorvastatin 40 mg Tablet PO (21:32)
[2022-10-05] MEDS: hyDROXYzine 25 mg Capsule 50 MG PO (21:32)
[2022-10-05] MEDS: trazodone 50 mg Tablet PO (21:32)
[2022-10-05 21:39] LABS: Glucose Point of Care 151 mg/dL (70-110)
[2022-10-05 22:35] LABS: HEP C RNA Viral Load Quant <1.18 NOT DETECTED Log IU/mL (NOT DETECTED); HEP C RNA Viral Load Quant <15 NOT DETECTED IU/mL (NOT DETECTED)
[2022-10-06 06:00] VITALS: BP 143/74; PULSE 63; RESP 15; TEMP 36.7; O2SAT 94
[2022-10-06 08:18] LABS: Glucose Point of Care 111 mg/dL (70-110)
--- NOTE | 2022-10-06 08:27 | PC.NURSE ---
PT IN ROOM, ASSESSMENT COMPLETED. PT APPEARS TO HAVE A FLAT AFFECT AND HAS BEEN WITHDRAWN. PT STATES HE WANTS TO EAT BEFORE THIS RN ASSESSES HIS LEFT THIGH WOUND. DENIES SI/HI AND AVH AT THIS TIME. REPORTS PAIN IN LEFT THIGH 10/05. PT STATES HE DOES NEED ANYTHING YOU CAN GIVE ME FOR ANXIETY AND PAIN. RN INFORMED PT THE MED NURSE WILL PULL HIM TYLENOL AND VISTARIL. PT STATES THAT TYLENOL DOESN'T WORK WORTH A SHIT, RN RECEIVED ORDERS FOR IBUPROFEN 600 MG PO Q 6 HOURS FOR PAIN. PT STATES HE WILL TAKE THE TYLENOL WHILE HE WAITS FOR THE IBUPROFEN ORDER TO START. PT CURRENTLY IN DAY ROOM EATING BREAKFAST. BLOOD GLUCOSE 111 THIS AM.
[2022-10-06] MEDS: thiamine 100 mg Tablet PO (08:47)
[2022-10-06] MEDS: hyDROXYzine 25 mg Capsule 50 MG PO (08:47)
[2022-10-06] MEDS: acetaminophen 325 mg Tablet 650 MG PO ×2 (08:47→17:44)
[2022-10-06] MEDS: amlodipine 10 mg Tablet PO (08:47)
[2022-10-06] MEDS: aspirin 81 mg EC Tablet PO (08:47)
[2022-10-06] MEDS: metoprolol tartrate 25 mg Tablet PO ×2 (08:48→20:02)
[2022-10-06] MEDS: folic acid 1 mg Tablet PO (08:48)
[2022-10-06] MEDS: apixaban 5 mg Tablet PO ×2 (08:48→20:02)
[2022-10-06] MEDS: spironolactone 25 mg Tablet 12.5 MG PO (08:48)
[2022-10-06 08:50] LABS: NT Pro B Type Natriuretic Pept 121 pg/mL (0-125)
--- NOTE | 2022-10-06 08:51 | PC.NURSE ---
Patient reporting anxiety 10/05 r/t being here at the unit. Administered 50mg Vistaril to patient
[2022-10-06 12:03] LABS: Glucose Point of Care 117 mg/dL (70-110)
--- NOTE | 2022-10-06 12:21 | PC.NURSE ---
WOUND TO LEFT INNER THIGH DRESSING CHANGED PER ORDER. DRESSING IS OBSERVED TO HAVE THICK HORTON/GREENISH DRAINAGE PRESENT AND IS ODIFEROUS WHEN DRESSING REMOVED. PT REPORTS 8/10 PAIN IN LEG, MEDICATED PRIOR TO DRESSING CHANGE. PT DOES REPORT HE TAKES OXYCODONE 1 0MG, WHEN RN CALLED [facility] IT WAS REPORTED THE LAST TIME HE RECEIVED OXYCODONE FROM THEM WAS IN JULY 2022, METFORMIN 1000MG WAS DISPENSED IN 2021. PT WAS ASKED AGAIN WHERE WE CAN GET A LIST OF HIS UPDATED MEDICATIONS, HE STATES SOMEWHERE IN [place]. PT WAS INFORMED THAT THIS RN WOULD LOOK INTO IT AND SEE IF THAT PHARMACY COULD BE FOUND. PT VERY APPRECIATIVE.
[2022-10-06 14:00] VITALS: BP 119/76; PULSE 64; RESP 18; TEMP 36.3; O2SAT 95
--- NOTE | 2022-10-06 15:54 | P.NPUPN_ITS ---
Subjective NPU Subjective: Patient presented today reporting that he is getting better slowly but surely. He endorsed the likelihood of staying through the weekend to continue his convalescence. We discussed the hospitalist consult for his medical comorbidities. Staff reports of greater clarity noted firsthand. He appears able to identify the impact of his addiction even if he is somewhat ambivalent about follow-up. We discussed plans for discharge likely the beginning of the week with appropriate aftercare established. Mental Status Exam MSE Comments: This is an obese white male looking slightly older than his stated age in hospital scrubs with limited grooming/poor hygiene and limited eye contact. No abnormal movements except for psychomotor retardation. Cooperative with exam in mild to moderate distress. Speech was more spontaneous than previously reported and fairly normal rate with decreased volume and significant dysarthria. Mood described as a little better, affect subdued. Thought process more organized. Thought content: Patient denied suicidal or homicidal ideation, there are no delusions reported or noted, he denied any auditory or visual hallucinations. Attention and concentration were limited but improving, and memory appeared more reliable but none were formally tested. He was alert and oriented times person and place. Insight and judgment limited but improving and impulse control impaired. Vitals/I&O/Wt Last Vital Signs Temp 97.3 F L 10/06/22 14:00 Pulse 64 10/06/22 14:00 Resp 18 10/06/22 14:00 BP 119/76 10/06/22 14:00 Pulse Ox 95 10/06/22 14:00 O2 Del Method Room Air 10/06/22 14:00 Data NPU 10/03/22 21:00 10/05/22 09:10 A&P Assessment and plan (1) Psychosis: (2) Depression: (3) Methamphetamine abuse: Plan 67-year-old white male with multiple medical problems admitted with vague suicid al ideation who does appear to be psychotic oral and likely withdrawing off of methamphetamine. He would likely benefit from acute inpatient psychiatric stay at this time. ?1. Encourage individual, group and milieu therapy. ?2. Recommend sober living treatment at the highest level of care to which the patient is willing to commit. 3. Continue q-15 minute checks for safety.? 4 Restarted previous medications. 5. Appreciate hospitalist consult. We will follow recommendations as indicated. Involuntary Hold Information 96 Hour Hold: 96 Hour Involuntary Admission: No Attestations NPU Medical Necessity Statement*: Inpatient hospitalization is medically necessary and deemed to ?be ?the clinically appropriate intervention ?at this time.? We will monitor/initiate medications and make changes as indicated. Likely length of stay 3-5 days. Coding Level of Care Code Acute Code for Chg Fwd Diagnoses Psychosis F29 Depression F32.A Methamphetamine abuse F15.10
--- NOTE | 2022-10-06 16:41 | PM.PN ---
Subjective Subjective: Patient was seen this afternoon, he complains of drainage around his surgical site, drainage from the dressing, yellow-green mucousy drainage, no fevers, no chillsHe tells me that he has had surgical site infections on that side before Vitals/I&O/Wt Last Vital Signs Temp 97.3 F L 10/06/22 14:00 Pulse 64 10/06/22 14:00 Resp 18 10/06/22 14:00 BP 119/76 10/06/22 14:00 Pulse Ox 95 10/06/22 14:00 O2 Del Method Room Air 10/06/22 06:00 Physical Exam Const: COMMON NORMALS: no acute distress and patient oriented x3 Resp: COMMON NORMALS: normal respiratory effort, No retractions, No use of accessory muscles and clear to auscultation bilaterally AUSCULTATION: clear to auscultation bilaterally Cardio: COMMON NORMALS: regular rate, regular rhythm, S1 normal heart sound present and S2 normal heart sound present RATE: regular rate RHYTHM: regular rhythm HEART SOUNDS: S1 normal heart sound present and S2 normal heart sound present GI: COMMON NORMALS: Normal to inspection, nondistended, normoactive bowel sounds present and non-tender Extremity: COMMON NORMALS: no pedal edema Neuro: COMMON NORMALS: patient oriented x3 Psych: COMMON NORMALS: mental status grossly normal Skin: NARRATIVE SKIN EXAM: Left thigh, surgical site with bandage on top, has serosanguineous drainage yellow-green, Data 10/03/22 21:00 10/05/22 09:10 A&P Assessment and plan (1) Methamphetamine abuse: (2) Depression: (3) Homelessness: (4) Hypertension: (5) NSTEMI (non-ST elevated myocardial infarction): (6) Hepatitis C: (7) CKD (chronic kidney disease): (8) DVT (deep venous thrombosis): (9) Surgical wound breakdown: (10) Cellulitis: (11) Surgical site infection: Plan Hypertensive urgency: Continue lisinopril, metoprolol and amlodipine for blood pressure, monitor heart rate EKG showing left anterior fascicular block This is likely related to use of methamphetamine TSH within normal limits Drug screen positive for methamphetamine and marijuana Compliance with medication is questionable as patient is homeless Lower extremity edema Clinically patient does not have typical heart failure symptoms he is laying supine without any shortness of breath BNP slightly elevated Venous ultrasound negative for DVT Continue spironolactone History of DVT Continue Eliquis History of peripheral angioplasty with surgical site breakdown, now with concern for surgical site infection and cellulitis -Has yellow-green serosanguineous drainage -Evidence of cellulitis -Continue wet-to-dry dressings -Continue doxycycline and Augmentin -MRSA nares PCR, surgical cultures -Will need to follow-up with wound care as outpatient NSTEMI -Baseline troponin 29 -No chest pain complaints -EKG shows Q waves in anterior leads -Cardiac echo 1. Normal left ventricular size.? Mildly decreased left ?ventricular systolic function. Left ventricular ejection ?fraction is estimated at 50-55 %.? Mild global hypokinesis. ?Grade I diastolic dysfunction (abnormal relaxation filling ?pattern), normal to mildly elevated filling pressures. ?2. Normal right ventricular size and systolic function. ?3. When compared to previous study dated 03/12/2018 left ?ventricular systolic function seems to have improved. -Continue aspirin, statin, beta-yolanda -Elevated troponins likely secondary to hypertensive urgency however cannot rule out underlying cardiac etiology, will consider stress testing as outpatient Hepatitis C antibody positive, RNA negative likely transient infection, advised against IV drug use CKD, creatinine 1.6, patient has chronic kidney disease, likely second to hypertension Chronic alcohol use: Add thiamine and folic acid Homeless Depression/social anxiety: Management as per psychiatrist Full code Cardiac diet Attestations Medical Necessity Statement*: Patient requires hospitalization for surgical site infection with cellulitis requiring antibiotic treatment, wound care Diagnoses Methamphetamine abuse F15.10 Depression F32.A Homelessness Z59.00 Hypertension I10 NSTEMI (non-ST elevated myocardial infarction) I21.4 Hepatitis C B19.20 CKD (chronic kidney disease) N18.9 DVT (deep venous thrombosis) I82.409 Surgical wound breakdown T81.31XA Cellulitis L03.90 Surgical site infection T81.49XA
[2022-10-06] MEDS: doxycycline 100 mg Tablet PO (16:52)
[2022-10-06] MEDS: amoxicillin-clav 875-125 mg Tablet 1 TAB PO (16:53)
[2022-10-06 17:46] LABS: Glucose Point of Care 152 mg/dL (70-110)
--- NOTE | 2022-10-06 17:47 | PC.NURSE ---
NOTIFIED DR. PEREIRA REGARDING PAIN MEDICATION AND RESTARTING METFORMIN. DR. PEREIRA INFORMED THIS RN HE WOULD WRITE AND ORDER FOR TRAMADOL. ALSO WANTED TO HOLD OFF ON STARTING THE METFORMIN DUE TO PTS CREATININE BEING 1.6 ON 10/04/22. DR WILL WRITE THE ORDERS FOR TRAMADOL. PT NOTIFIED OF NEW ORDERS. RN ALSO COLLECTED MRSA NARE SWAB AND WOUND CULTURE TO LEFT THIGH. CULTURE AND SWAB WALKED DOWN TO LAB.
[2022-10-06] MEDS: TRAMadol 50 mg Tablet PO (20:02)
[2022-10-06] MEDS: atorvastatin 40 mg Tablet PO (20:02)
[2022-10-06] MEDS: trazodone 50 mg Tablet PO (20:04)
[2022-10-06 20:52] LABS: Glucose Point of Care 147 mg/dL (70-110)
[2022-10-06 22:00] VITALS: BP 148/86; PULSE 65; RESP 16; O2SAT 94
[2022-10-07 06:00] VITALS: BP 176/77; PULSE 61; RESP 16; O2SAT 92
[2022-10-07 07:30] LABS: Glucose Point of Care 106 mg/dL (70-110)
[2022-10-07] MEDS: amoxicillin-clav 875-125 mg Tablet 1 TAB PO ×2 (08:48→17:15)
[2022-10-07] MEDS: apixaban 5 mg Tablet PO ×2 (08:48→20:14)
[2022-10-07] MEDS: TRAMadol 50 mg Tablet PO ×2 (08:48→17:25)
[2022-10-07] MEDS: spironolactone 25 mg Tablet 12.5 MG PO (08:48)
[2022-10-07] MEDS: amlodipine 10 mg Tablet PO (08:49)
[2022-10-07] MEDS: metoprolol tartrate 25 mg Tablet PO ×2 (08:49→20:14)
[2022-10-07] MEDS: aspirin 81 mg EC Tablet PO (08:49)
[2022-10-07] MEDS: folic acid 1 mg Tablet PO (08:49)
[2022-10-07] MEDS: doxycycline 100 mg Tablet PO ×2 (08:49→17:15)
[2022-10-07] MEDS: thiamine 100 mg Tablet PO (08:49)
[2022-10-07 09:04] LABS: NT Pro B Type Natriuretic Pept 318 pg/mL (0-125)
[2022-10-07] MEDS: chlorthalidone 25 mg Tablet PO (10:51)
[2022-10-07 11:44] LABS: Amphetamines Screen Urine Positive (Negative); Barbiturates Screen Urine Negative (Negative); Benzodiazepines Screen Urine Negative (Negative); Cocaine Screen Urine Negative (Negative); Opiate Screen Urine Negative (Negative); PCP Screen Urine Negative (Negative); THC Screen Urine Positive (Negative)
[2022-10-07 12:29] LABS: Glucose Point of Care 121 mg/dL (70-110)
[2022-10-07 14:00] VITALS: BP 136/73; PULSE 59; RESP 16; TEMP 36.6; O2SAT 96
--- NOTE | 2022-10-07 16:43 | PM.PN ---
Subjective Subjective: Patient was seen this morning, his surgical site was examined with nursing staff present, he has good granulation tissue continues to have serosanguineous drainage on dressing, he denies any fevers, no chills, no cough, no calf pain, no calf swelling Vitals/I&O/Wt Last Vital Signs Temp 98 F 10/07/22 14:00 Pulse 59 L 10/07/22 14:00 Resp 16 10/07/22 14:00 BP 136/73 10/07/22 14:00 Pulse Ox 96 10/07/22 14:00 O2 Del Method Room Air 10/07/22 06:00 Physical Exam Const: COMMON NORMALS: no acute distress and patient oriented x3 Resp: COMMON NORMALS: normal respiratory effort, No retractions, No use of accessory muscles and clear to auscultation bilaterally AUSCULTATION: clear to auscultation bilaterally Cardio: COMMON NORMALS: regular rate, regular rhythm, S1 normal heart sound present and S2 normal heart sound present RATE: regular rate RHYTHM: regular rhythm HEART SOUNDS: S1 normal heart sound present and S2 normal heart sound present GI: COMMON NORMALS: Normal to inspection, nondistended, normoactive bowel sounds present and non-tender Extremity: COMMON NORMALS: no pedal edema Neuro: COMMON NORMALS: patient oriented x3 Psych: COMMON NORMALS: mental status grossly normal Skin: NARRATIVE SKIN EXAM: Surgical site, linear 10 cm long, 2 cm close, good granulation tissues, dressing with serosanguineous drainage Data 10/03/22 21:00 10/05/22 09:10 Micro: Microbiology 10/06/22 17:20 Wound Culture - Preliminary Leg - #1 Gram Negative Rods 10/06/22 17:20 MRSA Culture - Final Nose A&P Assessment and plan (1) Methamphetamine abuse: (2) Depression: (3) Homelessness: (4) Hypertension: (5) NSTEMI (non-ST elevated myocardial infarction): (6) Hepatitis C: (7) CKD (chronic kidney disease): (8) DVT (deep venous thrombosis): (9) Surgical wound breakdown: (10) Cellulitis: (11) Surgical site infection: Plan Hypertensive urgency: Continue lisinopril, metoprolol and amlodipine for blood pressure, monitor heart rate EKG showing left anterior fascicular block This is likely related to use of methamphetamine TSH within normal limits Drug screen positive for methamphetamine and marijuana Compliance with medication is questionable as patient is homeless Lower extremity edema Clinically patient does not have typical heart failure symptoms he is laying supine without any shortness of breath BNP slightly elevated Venous ultrasound negative for DVT Continue spironolactone History of DVT Continue Eliquis History of peripheral angioplasty with surgical site breakdown, now with concern for surgical site infection and cellulitis -Has yellow-green serosanguineous drainage -Evidence of cellulitis -Continue wet-to-dry dressings -Continue doxycycline and Augmentin -MRSA nares PCR, surgical cultures -Will need to follow-up with wound care as outpatient NSTEMI -Baseline troponin 29 -No chest pain complaints -EKG shows Q waves in anterior leads -Cardiac echo 1. Normal left ventricular size.? Mildly decreased left ?ventricular systolic function. Left ventricular ejection ?fraction is estimated at 50-55 %.? Mild global hypokinesis. ?Grade I diastolic dysfunction (abnormal relaxation filling ?pattern), normal to mildly elevated filling pressures. ?2. Normal right ventricular size and systolic function. ?3. When compared to previous study dated 03/12/2018 left ?ventricular systolic function seems to have improved. -Continue aspirin, statin, beta-yolanda -Elevated troponins likely secondary to hypertensive urgency however cannot rule out underlying cardiac etiology, will consider stress testing as outpatient Hepatitis C antibody positive, RNA negative likely transient infection, advised against IV drug use CKD, creatinine 1.6, patient has chronic kidney disease, likely second to hypertension Chronic alcohol use: Add thiamine and folic acid Homeless Depression/social anxiety: Management as per psychiatrist Full code Cardiac diet Attestations Medical Necessity Statement*: Patient requires hospitalization for cellulitis, surgical site breakdown requiring antibiotic Diagnoses Methamphetamine abuse F15.10 Depression F32.A Homelessness Z59.00 Hypertension I10 NSTEMI (non-ST elevated myocardial infarction) I21.4 Hepatitis C B19.20 CKD (chronic kidney disease) N18.9 DVT (deep venous thrombosis) I82.409 Surgical wound breakdown T81.31XA Cellulitis L03.90 Surgical site infection T81.49XA
--- NOTE | 2022-10-07 18:21 | W.PM.NPUPNS ---
Subjective NPU Subjective: Patient presented today continuing to report slow but steady improvement. He continues to have advancing clarity but continues to have ambivalence about his addiction and what to do next. He denied any other issues that agreed that he would work with the social work team on Sunday as we tried to identify appropriate discharge planning. Mental Status Exam MSE Comments: This is an obese white male looking slightly older than his stated age in hospital scrubs with limited grooming/poor hygiene and limited eye contact. No abnormal movements except for psychomotor retardation. Cooperative with exam in mild distress. Speech was more spontaneous than previously reported and fairly normal rate with decreased volume and significant dysarthria. Mood described as a little better, affect subdued. Thought process more organized. Thought content: Patient denied suicidal or homicidal ideation, there are no delusions reported or noted, he denied any auditory or visual hallucinations. Attention and concentration were limited but improving, and memory appeared more reliable but none were formally tested. He was alert and oriented times person and place. Insight and judgment limited but improving and impulse control impaired. Vitals/I&O/Wt Last Vital Signs Temp 98.3 F 10/08/22 06:00 Pulse 67 10/08/22 06:00 Resp 15 10/08/22 06:00 BP 139/78 10/08/22 06:00 Pulse Ox 95 10/08/22 06:00 O2 Del Method Room Air 10/08/22 06:00 Weight last 48 hrs Weight 96.434 kg Data NPU 10/03/22 21:00 10/05/22 09:10 Micro: Microbiology 10/06/22 17:20 Gram Stain - Final Leg - #1 Wound Culture - Preliminary Gram Negative Rods 10/06/22 17:20 MRSA Culture - Final Nose Microbiology 10/06/22 17:20 Leg - #1 Gram Stain - Final 10/06/22 17:20 Leg - #1 Wound Culture - Preliminary Gram Negative Rods 10/06/22 17:20 Nose MRSA Culture - Final A&P Assessment and plan (1) Psychosis: (2) Depression: (3) Methamphetamine abuse: Plan 67-year-old white male with multiple medical problems admitted with vague suicidal ideation who does appear to be psychotic oral and likely withdrawing off of methamphetamine. He would likely benefit from acute inpatient psychiatric stay at this time. ?1. Encourage individual, group and milieu therapy. ?2. Recommend sober living treatment at the highest level of care to which the patient is willing to commit. 3. Continue q-15 minute checks for safety.? 4 Restarted previous medications. 5. Appreciate hospitalist consult. We will follow recommendations as indicated. Involuntary Hold Information 96 Hour Hold: 96 Hour Involuntary Admission: No Attestations NPU Medical Necessity Statement*: Inpatient hospitalization is medically necessary and deemed to ?be ?the clinically appropriate intervention ?at this time.? We will monitor/initiate medications and make changes as indicated. Likely length of stay 3-5 days. Coding Level of Care Code Acute Code for [facility] Fwd Diagnoses Psychosis F29 Depression F32.A Methamphetamine abuse F15.10
[2022-10-07 19:40] LABS: Glucose Point of Care 122 mg/dL (70-110)
[2022-10-07] MEDS: docusate sodium 100 mg Capsule PO (20:13)
[2022-10-07] MEDS: trazodone 50 mg Tablet PO ×2 (20:14→21:50)
[2022-10-07] MEDS: atorvastatin 40 mg Tablet PO (20:14)
[2022-10-07 20:21] VITALS: BP 151/88; PULSE 86; RESP 18; TEMP 36.9; O2SAT 94
[2022-10-07 20:31] LABS: Glucose Point of Care 224 mg/dL (70-110)
[2022-10-08 06:00] VITALS: BP 139/78; PULSE 67; RESP 15; TEMP 36.8; O2SAT 95
[2022-10-08 08:08] LABS: Glucose Point of Care 160 mg/dL (70-110)
[2022-10-08] MEDS: doxycycline 100 mg Tablet PO ×2 (09:05→17:24)
[2022-10-08] MEDS: amlodipine 10 mg Tablet PO (09:05)
[2022-10-08] MEDS: metoprolol tartrate 25 mg Tablet PO ×2 (09:05→19:58)
[2022-10-08] MEDS: apixaban 5 mg Tablet PO ×2 (09:05→19:58)
[2022-10-08] MEDS: thiamine 100 mg Tablet PO (09:05)
[2022-10-08] MEDS: chlorthalidone 25 mg Tablet PO (09:05)
[2022-10-08] MEDS: aspirin 81 mg EC Tablet PO (09:05)
[2022-10-08] MEDS: docusate sodium 100 mg Capsule PO ×2 (09:05→19:57)
[2022-10-08] MEDS: TRAMadol 50 mg Tablet PO ×2 (09:05→17:24)
[2022-10-08] MEDS: spironolactone 25 mg Tablet 12.5 MG PO (09:06)
[2022-10-08] MEDS: folic acid 1 mg Tablet PO (09:06)
[2022-10-08] MEDS: amoxicillin-clav 875-125 mg Tablet 1 TAB PO ×2 (10:03→17:24)
[2022-10-08 12:39] LABS: Glucose Point of Care 120 mg/dL (70-110)
[2022-10-08 14:00] VITALS: BP 116/61; PULSE 65; RESP 18; TEMP 36.4; O2SAT 92
--- NOTE | 2022-10-08 15:58 | P.NPUPN_ITS ---
Subjective NPU Subjective: Patient presented today reporting that he is feeling better day by day. He reports that he does not plan on using again but he seems fairly ambivalent about moving forward with any specific treatment. He endorsed being hopeful that he would be discharged tomorrow. We discussed working with the treatment team tomorrow for appropriate discharge planning which she was agreeable to and that we would consider discharge options then. Mental Status Exam MSE Comments: This is an obese white male looking slightly older than his stated age in hospital scrubs with limited grooming/poor hygiene and limited eye contact. No abnormal movements except for psychomotor retardation. Cooperative with exam in mild distress. Speech was more spontaneous than previously reported and fairly normal rate with decreased volume and significant dysarthria. Mood described as a little better, affect subdued. Thought process more organized. Thought content: Patient denied suicidal or homicidal ideation, there are no delusions reported or noted, he denied any auditory or visual hallucinations. Attention and concentration were limited but improving, and memory appeared more reliable but none were formally tested. He was alert and oriented times person and place. Insight and judgment limited but improving and impulse control impaired. Vitals/I&O/Wt Last Vital Signs Temp 97.5 F L 10/08/22 14:00 Pulse 65 10/08/22 14:00 Resp 18 10/08/22 14:00 BP 116/61 10/08/22 14:00 Pulse Ox 92 10/08/22 14:00 O2 Del Method Room Air 10/08/22 14:00 Weight last 48 hrs Weight 96.434 kg Data NPU 10/03/22 21:00 10/05/22 09:10 Micro: Microbiology 10/06/22 17:20 Gram Stain - Final Leg - #1 Wound Culture - Preliminary Proteus mirabilis Coag positive Staphylococcus Microbiology 10/06/22 17:20 Leg - #1 Gram Stain - Final 10/06/22 17:20 Leg - #1 Wound Culture - Preliminary Proteus mirabilis Coag positive Staphylococcus A&P Assessment and plan (1) Psychosis: (2) Depression: (3) Methamphetamine abuse: Plan 67-year-old white male with multiple medical problems admitted with vague suici maryjane ideation who does appear to be psychotic oral and likely withdrawing off of methamphetamine. He would likely benefit from acute inpatient psychiatric stay at this time. ?1. Encourage individual, group and milieu therapy. ?2. Recommend sober living treatment at the highest level of care to which the patient is willing to commit. 3. Continue q-15 minute checks for safety.? 4 Restarted previous medications. 5. Appreciate hospitalist consult. We will follow recommendations as indicated. Involuntary Hold Information 96 Hour Hold: 96 Hour Involuntary Admission: No Attestations NPU Medical Necessity Statement*: Inpatient hospitalization is medically necessary and deemed to ?be ?the clinically appropriate intervention ?at this time.? We will monitor/initiate medications and make changes as indicated. Likely length of stay 2-4 days. Coding Level of Care Code Acute Code for [facility] Fwd Diagnoses Psychosis F29 Depression F32.A Methamphetamine abuse F15.10
[2022-10-08 17:08] LABS: Glucose Point of Care 141 mg/dL (70-110)
[2022-10-08] MEDS: trazodone 50 mg Tablet PO ×2 (19:57→20:50)
[2022-10-08] MEDS: atorvastatin 40 mg Tablet PO (19:58)
[2022-10-08 20:24] VITALS: BP 145/74; PULSE 68; RESP 18; TEMP 37.1; O2SAT 92
[2022-10-08] MEDS: hyDROXYzine 25 mg Capsule 50 MG PO (20:52)
[2022-10-09 06:00] VITALS: BP 149/86; PULSE 68; RESP 18; TEMP 36.7; O2SAT 94
[2022-10-09] MEDS: doxycycline 100 mg Tablet PO (07:55)
[2022-10-09] MEDS: TRAMadol 50 mg Tablet PO (07:55)
[2022-10-09] MEDS: apixaban 5 mg Tablet PO (07:55)
[2022-10-09] MEDS: metoprolol tartrate 25 mg Tablet PO (07:56)
[2022-10-09] MEDS: amlodipine 10 mg Tablet PO (07:56)
[2022-10-09] MEDS: amoxicillin-clav 875-125 mg Tablet 1 TAB PO (07:56)
[2022-10-09] MEDS: thiamine 100 mg Tablet PO (07:56)
[2022-10-09] MEDS: spironolactone 25 mg Tablet 12.5 MG PO (07:56)
[2022-10-09] MEDS: chlorthalidone 25 mg Tablet PO (07:56)
[2022-10-09] MEDS: aspirin 81 mg EC Tablet PO (07:56)
[2022-10-09] MEDS: folic acid 1 mg Tablet PO (07:57)
[2022-10-09 08:00] LABS: Glucose Point of Care 112 mg/dL (70-110)
[2022-10-09 14:00] VITALS: BP 123/85; PULSE 70; RESP 17; TEMP 36.8; O2SAT 95
[2022-10-09 15:33] VITALS: BP 123/85; PULSE 70; RESP 17; TEMP 36.8; O2SAT 95
--- NOTE | 2022-10-09 16:14 | PC.NURSE ---
DISCHARGE MEDS CALLED INTO [facility], SPOKE TO ELDA GALLAGHER PHARMACIST. DISCHARGE MEDS FOLLOWS: AUGMENTIN 875/125 MG PO BID FOR 7 DAYS DOXYCYCLINE 100 MG PO BID FOR 7 DAYS ELIQUIS 5 MG PO BID LIPITOR 40 MG PO BEDTIME LOPRESSOR 25 MG PO BID NORVASC 10 MG PO DAILY ASPIRIN EC 81 MG PO DAILY THALITONE 25 MG PO DAILY FOLIC ACID 1 MG PO DAILY ALDACTONE 12.5 MG PO DAILY THIAMINE 100 MG PO DAILY ALL MEDS CALLED UNDER DR. MANLEY, 30 DAY SUPPLY WITH REFILL X1
--- NOTE | 2022-10-09 16:44 | W.PM.NPUDCS ---
Diagnoses at Discharge Discharge Diagnosis (1) Psychosis: Status: Resolved (2) Depression: Status: Acute (3) Methamphetamine abuse: Status: Acute Reason for Visit Reason for Visit: wants stress unit, foot infection Brief History: Theo Tipton is a 67 year old male with a history of methamphetamine abuse and depression who presented to the emergency department stating that he wanted his leg examined. The patient was admitted to the psychiatric unit for further evaluation and treatment. He presents completely noncompliant on interview. He was unable to provide any meaningful history as he stated that he was too tired to talk at this time. Patient had acknowledged the use of methamphetamine. He endorsed having been depressed and reported feeling tired with disturbance in sleep and irritable mood. He had reported that he had been without his medications. He had endorsed a past history of depression. He had endorsed a past history of auditory hallucinations. He did endorse some feelings of hopelessness and endorsed that he had bad anxiety. He had also complained of pain issues. Past psychiatric history: He had reported a past history of inpatient hospitalizations and a past history of having been treated on outpatient basis for depression and PTSD along with bipolar disorder. Allergies: Morphine Surgical history: Unknown Medical history: Chronic kidney disease, hepatitis C, NSTEMI, hypertension, COPD Current medications: Amlodipine 10 mg daily, Eliquis, aspirin, spironolactone, oxycodone, atorvastatin Drug and alcohol history: History of methamphetamine use, history of alcohol use chronically. He had reported history of alcohol withdrawal symptoms. Legal history: Unknown Family psychiatric history: Per previous records bipolar disorder depression and schizophrenia Social history: He is homeless and is on disability. Previous records indicate the patient had obtained his GED as he had dropped out of school. He reports having no social supports. He had reported having 8 children from 5 different mothers and reported that he had been living in [place] for approximately 15 to 20 years. Hospital Course Hospital Course He slowly acclimated to the individual, group and milieu therapies provided.? Patient had presented with methamphetamine use leading to altered mental status/psychosis. His medications were restarted as there was significant concern for nonadherence. He was monitored and showed slow but clear improvement the more he distanced himself from the methamphetamine exposure.? He was able to work with the social work team to identify outpatient/aftercare resources for [facility]. He had significant improvement and was able to contract for safety outside of the hospital prior to discharge.? During the hospitalization, patient had routine laboratory studies which were within normal limits except for few outliers.? Additionally there was a general medical evaluation which was also within normal limits and revealed no new acute processes except for those identified by the hospitalist. Any outliers or acute processes were managed by the hospitalist during the stay. At the time of discharge, he denied psychosis or lethality.? Mood and anxiety were well managed.? Patient endorsed a plan to avoid all drugs of abuse and follow-up with the aftercare recommendations of the treatment team.? Patient was evaluated and deemed to be absent credible lethality, and had achieved the maximum benefit from an inpatient hospitalization, so was discharged.?? Involuntary Hold Information 96 Hour Hold: 96 Hour Involuntary Admission: No Mental Status Exam MSE Comments: This is an obese white male looking slightly older than his stated age in hospital scrubs with limited grooming/poor hygiene and limited eye contact. No abnormal movements except for psychomotor retardation. Cooperative with exam in mild distress. Speech was more spontaneous than previously reported and fairly normal rate with decreased volume and significant dysarthria. Mood described as a little better, affect subdued. Thought process more organized. Thought content: Patient denied suicidal or homicidal ideation, there are no delusions reported or noted, he denied any auditory or visual hallucinations. Attention and concentration were limited but improving, and memory appeared more reliable but none were formally tested. He was alert and oriented times person and place. Insight and judgment limited but improving and impulse control impaired. Discharge Data Studies Completed and Pending: Completed Studies During Hospitalization Category Date Time Status XR chest 1V shakir ble [id number] Stat Exams 10/03/22 21:03 [place] [id number] Routin e Ultrasound 10/04/22 06:32 Completed CV. echo complete * [id number] Routine Ultrasound 10/04/22 08:55 Completed Radiology Impressions Chest X-Ray 10/03/22 21:03 IMPRESSION: Negative for infiltrate. Laboratory Results WBC 13.3 10^3/uL (4.0 -10.0) H 10/03/22 21:00 RBC 6.18 10^6/uL (4.1 -5.3) H 10/03/22 21:00 Hgb 15.9 g/dL (11.7-1 6.6) 10/03/22 21:00 Hct 50.2 % (42.0-52.0 ) 10/03/22 21:00 MCV 81.2 fl (80-94) 10/03/22 21:00 MCH 25.7 pg (28.0-34. 0) L 10/03/22 21:00 MCHC 31.7 g/dL (30.0-3 6.0) 10/03/22 21:00 RDW 15.1 % (12.1-15.1 ) 10/03/22 21:00 Plt Count 356 10^3/cmm (130 -400) 10/03/22 21:00 MPV 9.6 fL (7.4-10.4) 10/03/22 21:00 Neut % (Auto) 64.2 % 10/03/22 21:00 Lymph % (Auto) 23.8 % 10/03/22 21:00 [place] % (Auto) 9.0 % 10/03/22 21:00 Eos % (Auto) 2.1 % 10/03/22 21:00 Baso % (Auto) 0.5 % 10/03/22 21:00 Neut # (Auto) 8.54 10^3/uL (1.8 -7.7) H 10/03/22 21:00 Lymph # (Auto) 3.2 10^3/uL (0.8- 4.8) 10/03/22 21:00 [place] # (Auto) 1.2 10^3/uL (0.2- 0.9) H 10/03/22 21:00 Eos # (Auto) 0.3 10^3/uL (0.0- 0.8) 10/03/22 21:00 Baso # (Auto) 0.1 10^3/uL (0.0- 0.1) 10/03/22 21:00 Nucleated RBC % (a uto) 0 % 10/03/22 21:00 Nucleated RBCs # 0.0 /100WBC 10/03/22 21:00 D-Dimer 0.64 ug/mIFEU (0- 0.59) H 10/04/22 09:20 Sodium 141 mmol/L (136-1 45) 10/05/22 09:10 Potassium 4.4 mmol/L (3.5-5 .1) 10/05/22 09:10 Chloride 106 mmol/L (98-10 7) 10/05/22 09:10 Carbon Dioxide 26 mmol/L (22-29) 10/05/22 09:10 Anion Gap 13.4 (5-19) 10/05/22 09:10 BUN 24 mg/dL (8-23) H 10/05/22 09:10 Creatinine 1.6 mg/dL (0.7-1. 2) H 10/05/22 09:10 GFR Calculation 43.5 mL/min (90-1 30) L 10/05/22 09:10 Glucose 186 mg/dL (65-115 ) H 10/05/22 09:10 POC Glucose 112 mg/dL (70-110 ) H 10/09/22 07:57 Estimat Average Gl ucose 128 10/04/22 09:20 Hemoglobin A1c 6.1 % (4.0-6.0) H 10/04/22 09:20 Calculated Osmolal ity 301 mOsm/kg (285- 295) H 10/05/22 09:10 Calcium 8.7 mg/dL (8.5-10 .5) 10/05/22 09:10 Total Bilirubin 0.2 mg/dL (0.15-1 .2) 10/03/22 21:00 AST 19 U/L (0-40) 10/03/22 21:00 ALT 17 U/L (0-41) 10/03/22 21:00 Alkaline Phosphata se 123 U/L (40-130) 10/03/22 21:00 Troponin T Baselin e 29 ng/L (0-15) H 10/03/22 21:53 Troponin T 120 Min [place] 28.25 ng/L (0-15) H 10/03/22 23:48 Delta Troponin T -0.75 ABS# (0-10) L 10/03/22 23:48 C-Reactive Protein 3.7 mg/L (0.0-4.9 ) 10/04/22 09:20 NT-Pro-B Natriuret Pep 318 pg/mL (0-125) H 10/07/22 08:02 Total Protein 7.4 g/dL (6.6-8.7 ) 10/03/22 21:00 Albumin 5.0 g/dL (3.5-5.2 ) 10/03/22 21:00 Globulin 2.4 g/dL (1.3-4.6 ) 10/03/22 21:00 Procalcitonin 0.05 ng/mL (0-0.5 ) 10/04/22 09:20 TSH 0.60 uIU/mL (0.27 -4.20) 10/04/22 09:20 Urine Color Yellow (Yellow) 10/03/22 22:35 Urine Appearance Hazy (CLEAR) A 10/03/22 22:35 Urine pH 5 (5-7) 10/03/22 22:35 Ur Specific Gravit y 1.025 (1.005-1.0 30) 10/03/22 22:35 Urine Protein 3+ (Negative) H 10/03/22 22:35 Urine Glucose (UA) Trace (Normal) H 10/03/22 22:35 Urine Ketones Negative (Negati ve) 10/03/22 22:35 Urine Blood Neg (Negative) 10/03/22 22:35 Urine Nitrate Negative (Negati ve) 10/03/22 22:35 Urine Bilirubin Neg (Negative) 10/03/22 22:35 Urine Urobilinogen Norm mg/dL (Negat derrick) 10/03/22 22:35 Ur Leukocyte Giselle ase Trace (Negative) H 10/03/22 22:35 Urine RBC 0-4 /hpf (0-2) H 10/03/22 22:35 Urine WBC 15-25 /hpf (0-5) H 10/03/22 22:35 Ur Squamous Epith Cells 10-15 /hpf (0-5) H 10/03/22 22:35 Amorphous Sediment Trace /hpf 10/03/22 22:35 Urine Bacteria Trace /hpf (NONE) 10/03/22 22:35 Hyaline Casts 0-4 /lpf H 10/03/22 22:35 Fine Granular Cast s 0-4 /lpf H 10/03/22 22:35 Salicylates < 0.3 mg/dL (3-10 ) L 10/03/22 21:00 Urine Opiates Scre en Negative ng/mL (N egative) 10/07/22 08:25 Acetaminophen < 5.0 ug/mL (10-3 0) L 10/03/22 21:00 Ur Barbiturates Sc reen Negative ng/mL (N egative) 10/07/22 08:25 Ur Phencyclidine S crn Negative ng/mL (N egative) 10/07/22 08:25 Ur Amphetamines Sc reen Positive ng/mL (N egative) H 10/07/22 08:25 U Benzodiazepines Scrn Negative ng/mL (N egative) 10/07/22 08:25 Urine Cocaine Scre en Negative ng/mL (N egative) 10/07/22 08:25 U Marijuana (THC) Screen Positive ng/mL (N egative) H 10/07/22 08:25 Ethyl Alcohol < 10 mg/dL (0-10) 10/03/22 21:00 Hepatitis A IgM Ab Non-reactive (No nreactive) 10/04/22 09:20 Hep Bs Antigen Non-reactive (No nreactive) 10/04/22 09:20 Hep B Core IgM Ab Non-reactive (No nreactive) 10/04/22 09:20 Hepatitis C Antibo dy Reactive (Nonrea ctive) H 10/04/22 09:20 HCV RNA (PCR) IUs/ ml <1.18 not detecte d Log IU/mL (NOT D ETECTED) 10/04/22 14:22 HCV RNA (PCR) IU l og10 <15 not detected IU/mL (NOT DETECTE D) 10/04/22 14:22 HIV 1&2 Ab & HIV 1 Ag Non-reactive (No n-Reactiv) 10/04/22 09:20 HIV 1&2 Antibody Non-reactive (No n-Reactiv) 10/04/22 09:20 SARS-CoV-2 Ag (Rap id) negative (Negati ve) 10/03/22 21:15 Vitals: Last Vital Signs Temp 98.2 F 10/09/22 15:33 Pulse 70 10/09/22 15:33 Resp 17 10/09/22 15:33 BP 123/85 10/09/22 15:33 Pulse Ox 95 10/09/22 15:33 O2 Del Method Room Air 10/08/22 14:00 Discharge Plan Discharge Patient Disposition: Home Condition: Stable Prescriptions: New atorvastatin 40 mg Tablet 40 mg PO BEDTIME 30 Days Qty: 30 1RF chlorthalidone 25 mg Tablet 25 mg PO DAILY 30 Days Qty: 30 1RF aspirin 81 mg Tablet,Delayed Release (Dr/Ec) 81 mg PO DAILY 30 Days Qty: 30 1RF spironolactone 25 mg Tablet 12.5 mg PO DAILY 30 Days Qty: 30 1RF amlodipine 10 mg Tablet 10 mg PO DAILY 30 Days Qty: 30 1RF folic acid 1 mg Tablet 1 mg PO DAILY 30 Days Qty: 30 1RF metoprolol tartrate 25 mg Tablet 25 mg PO BID@0900,2100 30 Days Qty: 60 1RF Vitamin B-1 (mononitrate) 100 mg Tablet 100 mg PO DAILY 30 Days Qty: 30 1RF Eliquis 5 mg Tablet 5 mg PO BID@0900,2100 30 Days Qty: 60 1RF Discharge Orders: Discharge Order (Routine); Ordered 10/09/22 Ordered By: Jas Jenkins Referrals: Harvey Hernandez MD [Physician] - 10/17/22 9:30 am Shayna Monique MD [Physician] - 1-3 days [facility], [Staff Physician] - 1-3 days Discharge Diet: Regular and Cardiac Discharge Activity: Resume usual activity Patient Instructions: Depression (GEN), Methamphetamine Use Disorder (GEN), Help Prevent Suicide (GEN), Opioid Safety Activity Restrictions/Additional Instructions: - For your wound, please follow-up with wound clinic, your wound culture was positive for MRSA, take doxycycline 100 twice daily for 7 days, take Augmentin 875 twice daily for 7 days, Discharge Attestations NPU Time Spent in Discharge Care*: less than 30 min Specific Discharge Activities: Specific discharge activities: educating patient, discussing with child support case officer/social workers/dc planners, documenting/other paperwork and evaluating patient/reviewing data Coding Level of Care Code Acute g DC note Diagnoses Psychosis F29 Depression F32.A Methamphetamine abuse F15.10
--- NOTE | 2022-10-10 09:03 | DCPLANNER ---
IMM completed 10/10/22 @ 0856.
== END 2022-10-09 17:36 | disposition short-term general hospital (02) | DRG 896 ==
LOC: ER 10-04 01:09 → NP 10-04 01:19
PROVIDERS: Emergency Medicine; Family Medicine; Internal Medicine; Psychiatry & Neurology Psychiatry; Admitting Provider Psychiatry & Neurology Psychiatry; Emergency Provider Emergency Medicine; Visit Provider Psychiatry & Neurology Psychiatry
DX: F15.10 Other stimulant abuse, uncomplicated (principal); I21.4 Non-ST elevation (NSTEMI) myocardial infarction; T81.49XA Infection following a procedure, other surgical site, initial encounter; L03.116 Cellulitis of left lower limb; F10.10 Alcohol abuse, uncomplicated; Z59.00 Homelessness unspecified; B19.20 Unspecified viral hepatitis C without hepatic coma; I12.9 Hypertensive chronic kidney disease with stage 1 through stage 4 chronic kidney disease, or unspecified chronic kidney disease; N18.9 Chronic kidney disease, unspecified; Z79.01 Long term (current) use of anticoagulants; F32.A Depression, unspecified; Z86.718 Personal history of other venous thrombosis and embolism; A49.02 Methicillin resistant Staphylococcus aureus infection, unspecified site; A49.8 Other bacterial infections of unspecified site; Z81.8 Family history of other mental and behavioral disorders; F17.200 Nicotine dependence, unspecified, uncomplicated; Z79.82 Long term (current) use of aspirin; Z95.5 Presence of coronary angioplasty implant and graft; I16.0 Hypertensive urgency; F41.8 Other specified anxiety disorders; Z98.62 Peripheral vascular angioplasty status; Y84.0 Cardiac catheterization as the cause of abnormal reaction of the patient, or of later complication, without mention of misadventure at the time of the procedure
CPT/HCPCS: 36415; 36416; 71045; 80048; 80053; 80074; 80306; 80307; 81001; 82962; 83036; 83880; 84145; 84443; 84484; 85025; 85378; 86140; 87070; 87075; 87077; 87186; 87205; 87426; 87522; 87641; 87806; 93005; 93306; 93970; 97165; 99238; 99285; G0378

== ENCOUNTER 2022-11-20 12:28 | Emergency (ER) | payer OTHER, SELFPAY ==
[2022-11-20 12:34] VITALS: BP 128/74; PULSE 71; RESP 18; TEMP 36.4; O2SAT 98; BMI 31.6
--- NOTE | 2022-11-20 14:46 | USR_ITS ---
PROCEDURE INFORMATION: Exam: US Duplex Left Lower Extremity Arteries Or Arterial Bypass Grafts Exam date and time: 11/20/2022 3:19 PM Age: 67 years old Clinical indication: Pain; Leg, lower; Left; Prior surgery; Surgery date: 1-6 months; Surgery type: Lt art graft; Additional info: L foot numb - HX pad TECHNIQUE: Imaging protocol: Left Real-time duplex scan of the arteries or arterial bypass grafts of the left lower extremity with 2-D ragland scale, color Doppler flow and spectral waveform analysis. Images documented and saved. COMPARISON: US renal BI* [id number] 03/12/2018 6:04 AM FINDINGS: There appears to be complete occlusion of the left graft extending from the left iliac region into the infrapopliteal lower leg. A small amount of flow is seen in the posterior tibial artery with monophasic waveform. No other vascular flow is identified in the left lower extremity. US/[place] [id number] IMPRESSION: Extensive arterial occlusion as described above. THIS REPORT CONTAINS FINDINGS THAT MAY BE CRITICAL TO PATIENT CARE. The findings were verbally communicated via telephone conference with JULIAN ISSA at 3:53 PM CDT on 11/20/2022. The findings were acknowledged and understood.
[2022-11-20 14:50] VITALS: PULSE 65
--- NOTE | 2022-11-20 14:50 | W.ED.EXTPRO ---
HPI - Extremity Problem General: Chief complaint: Extremity Injury, Lower Stated complaint: LT foot numb Time Seen by Provider: 11/20/22 14:35 Source: patient Mode of arrival: ambulatory History of Present Illness: 67-year-old male presents emergency room complaining of left lower leg pain and cramping. Is been present for about 18 to 24 hours. Patient has a known history of peripheral artery disease he continues to smoke. Initially complained of left leg pain later in the visit he is complaining of bilateral leg pain. MD Complaint: extremity pain Onset (ago): hour(s) (18-24) Pain Consistency: constant Location: left and lower extremity Quality: aching Radiation: none Relieving factors: nothing Exacerbating factors: nothing Associated symptoms: Deny arthralgias, chest pain, fever(s), myalgias, rash or short of breath Review of Systems Const: Denies: fever(s) ENMT: Denies: throat pain, ear or mastoid pain, nasal discharge or nasal congestion Card: Denies: chest pain Resp: Denies: dyspnea, productive cough or non-productive cough GI: Denies: abdominal pain, nausea or vomiting : Denies: flank pain, dysuria, urinary frequency or urinary urgency Musc: Reports: extremity pain Skin/Breast: Denies: rash PFSH ED PFSH: Medical History Cellulitis Coronary artery disease History of bipolar disorder Hx of schizophrenia Hypertension (Unknown) Hypertensive kidney disease with CKD stage III Surgical History History of surgery on lower extremity Family History Other Depression Social History Smoking and tobacco status: current every day smoker Physical Exam Const: GENERAL APPEARANCE: cooperative and comfortable ORIENTATION/CONSCIOUSNESS: Yes awake, Yes oriented to person, Yes oriented to place and Yes oriented to time HENMT: COMMON NORMALS: normocephalic, atraumatic and hearing grossly normal bilaterally HEAD & SCALP: normocephalic and atraumatic Resp: COMMON NORMALS: normal respiratory effort, No retractions, No use of accessory muscles and clear to auscultation bilaterally AUSCULTATION: clear to auscultation bilaterally Cardio: COMMON NORMALS: regular rate, regular rhythm and No murmurs present (Cardio) RATE: regular rate RHYTHM: regular rhythm GI: COMMON NORMALS: Soft to palpation and No hepatosplenomegaly present AUSCULTATION: Yes normoactive bowel sounds PALPATION: Yes Soft to palpation, No Tenderness to palpation present (GI), No Guarding due to palpation present (GI) and Yes No hepatosplenomegaly present Extremity: OTHER: Left foot cool to the touch no palpable pulses. Right foot warm to touch weak dorsalis pedis pulse unable to palpate posterior tibialis pulse Neuro: SENSORIUM/ORIENTATION: Yes oriented to person, Yes oriented to place and Yes oriented to time Skin: COMMON NORMALS: no rashes or lesions noted GENERAL SKIN EXAM: no rashes or lesions noted Course Vital Signs: Vital signs: Vital Signs Temperature 97.6 F 11/20/22 12:34 Pulse Rate 59 L 11/20/22 18:19 Respiratory Rate 16 11/20/22 18:19 Blood Pressure 129/61 11/20/22 18:19 Pulse Oximetry 96 11/20/22 18:19 Oxygen Delivery Me thod Room Air 11/20/22 18:19 MDM - Extremity (Nontraumatic) Medical Decision Making Ultrasound shows occlusion on the left with significant reduction of flow on the right but there is reconstitution distally. Was started on heparin and transferred to vascular. Patient transferred via [facility] to [facility] discussed with receiving facility. On-call for his vascular physician excepts transfer. Medical Records I reviewed the patient's medical records. Lab Data I reviewed the patient's lab results. 11/20/22 15:05 11/20/22 15:05 Radiology Impressions Duplex Scan Lower Extremity Artery 11/20/22 16:06 IMPRESSION: No stenosis or occlusion. Laboratory Results WBC 8.21 10^3/uL (3.29-11.43) 11/20/22 15:05 RBC 5.24 10^6/uL (3.85-5.65) 11/20/22 15:05 Hgb 13.70 g/dL (11.27-16.99) 11/20/22 15:05 Hct 44.8 % (37-53) 11/20/22 15:05 MCV 85.5 fl (82-101) 11/20/22 15:05 MCH 26.1 pg (27-33) L 11/20/22 15:05 MCHC 30.6 g/dL (30-55) 11/20/22 15:05 RDW 17.2 % (12.1-15.1) H 11/20/22 15:05 Plt Count 268 10^3/cmm (157-399) 11/20/22 15:05 MPV 9.6 fL (7.4-10.4) 11/20/22 15:05 Neut % (Auto) 64.9 % 11/20/22 15:05 Lymph % (Auto) 21.7 % 11/20/22 15:05 [place] % (Auto) 10.4 % 11/20/22 15:05 Eos % (Auto) 1.9 % 11/20/22 15:05 Baso % (Auto) 0.9 % 11/20/22 15:05 Neut # (Auto) 5.33 10^3/uL (1.8-7.7) 11/20/22 15:05 Lymph # (Auto) 1.8 10^3/uL (0.8-4.8) 11/20/22 15:05 [place] # (Auto) 0.9 10^3/uL (0.2-0.9) 11/20/22 15:05 Eos # (Auto) 0.2 10^3/uL (0.0-0.8) 11/20/22 15:05 Baso # (Auto) 0.1 10^3/uL (0.0-0.1) 11/20/22 15:05 Nucleated RBC % (auto) 0 % 11/20/22 15:05 Nucleated RBCs # 0.0 /100WBC 11/20/22 15:05 PT 16.00 SECONDS (12.1-14.9) H 11/20/22 15:05 INR 1.24 (0.8-1.2) H 11/20/22 15:05 APTT 30.7 SECONDS (23.9-36.7) 11/20/22 15:05 Sodium 138 mmol/L (136-145) 11/20/22 15:05 Potassium 3.3 mmol/L (3.5-5.1) L 11/20/22 15:05 Chloride 101 mmol/L (98-107) 11/20/22 15:05 Carbon Dioxide 23 mmol/L (22-29) 11/20/22 15:05 Anion Gap 17.3 (5-19) 11/20/22 15:05 BUN 42 mg/dL (8-23) H 11/20/22 15:05 Creatinine 2.5 mg/dL (0.7-1.2) H 11/20/22 15:05 GFR Calculation 26.0 mL/min (90-130) L 11/20/22 15:05 Glucose 125 mg/dL (65-115) H 11/20/22 15:05 Calculated Osmolality 298 mOsm/kg (285-295) H 11/20/22 15:05 Calcium 8.7 mg/dL (8.5-10.5) 11/20/22 15:05 Total Bilirubin 0.2 mg/dL (0.15-1.2) 11/20/22 15:05 AST 19 U/L (0-40) 11/20/22 15:05 ALT 14 U/L (0-41) 11/20/22 15:05 Alkaline Phosphatase 89 U/L (40-130) 11/20/22 15:05 Total Protein 6.7 g/dL (6.6-8.7) 11/20/22 15:05 Albumin 4.1 g/dL (3.5-5.2) 11/20/22 15:05 Globulin 2.6 g/dL (1.3-4.6) 11/20/22 15:05 All radiology interpretation(s) finalized by discharge Discharge Plan Discharge Patient Disposition: Xfer Short-Term Hosp Clinical Impression: Critical limb ischemia of left lower extremity, Hypertensive kidney disease with CKD stage III, Hypertension, Hepatitis C, Peripheral arterial disease Condition: Stable Coding Level of Care Code ED Receptionist/Telephone Operator for Yehuda Finnegan
[2022-11-20 14:57] VITALS: BP 112/47; PULSE 58; RESP 17; O2SAT 95
[2022-11-20] MEDS: HYDROcodone-acetaminophen 5-325 mg Tablet 1 TAB PO (15:11)
[2022-11-20 15:12] LABS: Basophils # 0.1 10^3/uL (0.0-0.1); Basophils % 0.9 %; Eosinophils # 0.2 10^3/uL (0.0-0.8); Eosinophils % 1.9 %; Hematocrit 44.8 % (37-53); Lymphocytes # 1.8 10^3/uL (0.8-4.8); Lymphocytes % 21.7 %; Mean Corpuscular HGB Conc 30.6 g/dL (30-55); Mean Corpuscular Hemoglobin 26.1 pg (27-33); Mean Corpuscular Volume 85.5 fl (82-101); Mean Platelet Volume 9.6 fL (7.4-10.4); Monocytes # 0.9 10^3/uL (0.2-0.9); Monocytes % 10.4 %; Neutrophils # 5.33 10^3/uL (1.8-7.7); Neutrophils % 64.9 %; Nucleated Red Blood Cells % 0 %; Platelet Count 268 10^3/cmm (157-399); Red Blood Count 5.24 10^6/uL (3.85-5.65); Red Cell Distribution Width 17.2 % (12.1-15.1); White Blood Count 8.21 10^3/uL (3.29-11.43)
[2022-11-20 15:27] LABS: INR 1.24 (0.8-1.2)
--- NOTE | 2022-11-20 15:27 | ECG_ITS ---
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 Measurements Intervals [place] Rate: 63 P: 49 [place]: 234 QRS: -74 QRSD: 147 T: 61 QT: 403 QTc: 416 Interpretive Statements SINUS RHYTHM WITH FIRST DEGREE AV BLOCK INTRAVENTRICULAR CONDUCTION DELAY [130+ ms QRS DURATION] Compared to ECG 10/03/2022 23:10:33 First degree AV block now present Intraventricular conduction delay now present Myocardial infarct finding no longer present Electronically Signed On 11-20-2022 16:14:14 CDT by Armaan Camarena M.D. [id number]
[2022-11-20 15:28] LABS: Partial Thromboplastin Time 30.7 SECONDS (23.9-36.7)
[2022-11-20 15:32] LABS: Alanine Aminotransferase 14 U/L (0-41); Albumin Level 4.1 g/dL (3.5-5.2); Alkaline Phosphatase 89 U/L (40-130); Anion Gap 17.3 (5-19); Aspartate Amino Transferase 19 U/L (0-40); Blood Urea Nitrogen 42 mg/dL (8-23); Calcium 8.7 mg/dL (8.5-10.5); Carbon Dioxide 23 mmol/L (22-29); Chloride 101 mmol/L (98-107); Globulin 2.6 g/dL (1.3-4.6); Glucose 125 mg/dL (65-115); Osmolality Calculated 298 mOsm/kg (285-295); Potassium 3.3 mmol/L (3.5-5.1); Sodium 138 mmol/L (136-145); Total Bilirubin 0.2 mg/dL (0.15-1.2); Total Protein 6.7 g/dL (6.6-8.7)
[2022-11-20] MEDS: sodium chloride 0.9% 1,000 ML 999 ML IV (16:02)
[2022-11-20] MEDS: HYDROmorphone 1 mg/mL INJ 1 mL 0.5 MG IVP (16:03)
[2022-11-20] MEDS: heparin 5,000 unit/mL INJ 1 mL IV (16:04)
--- NOTE | 2022-11-20 16:06 | USR_ITS ---
PROCEDURE INFORMATION: Exam: US Duplex Right Lower Extremity Arteries Or Arterial Bypass Grafts Exam date and time: 11/20/2022 4:27 PM Age: 67 years old Clinical indication: Pain; Leg, lower; Right; Additional info: Pad TECHNIQUE: Imaging protocol: Right Real-time duplex scan of the arteries or arterial bypass grafts of the right lower extremity with 2-D ragland scale, color Doppler flow and spectral waveform analysis. Images documented and saved. COMPARISON: US renal BI* [id number] 03/12/2018 6:04 AM FINDINGS: Right common femoral artery: No occlusion or significant stenosis. Right superficial femoral artery: No occlusion or significant stenosis. Right popliteal artery: No occlusion or significant stenosis. Right calf/foot arteries: No occlusion or significant stenosis in the visualized arteries. Dorsalis pedis artery is patent. PSV measurements range from 81.8 cm/second in the common femoral artery to 13.5 cm/sec in the distal posterior tibial artery. Predominantly monophasic waveforms. Soft tissues: No hematoma or collection. US/[place] [id number] IMPRESSION: No stenosis or occlusion.
[2022-11-20] MEDS: heparin drip 25,000 UNIT/500 ML PREMIX 26.42 UNIT IV (16:15)
--- NOTE | 2022-11-20 18:18 | PC.NURSE ---
report called to Floyd DODSON to Saadia Duval @[phone]
[2022-11-20 18:19] VITALS: BP 129/61; PULSE 59; RESP 16; O2SAT 96
--- NOTE | 2022-11-20 18:43 | PC.NURSE ---
report given to [facility] @[phone]
== END 2022-11-20 19:06 | disposition short-term general hospital (02) ==
PROVIDERS: Emergency Provider Family Medicine
DX: I70.222 Atherosclerosis of native arteries of extremities with rest pain, left leg (principal); I12.9 Hypertensive chronic kidney disease with stage 1 through stage 4 chronic kidney disease, or unspecified chronic kidney disease; N18.30 Chronic kidney disease, stage 3 unspecified; B19.20 Unspecified viral hepatitis C without hepatic coma; I25.10 Atherosclerotic heart disease of native coronary artery without angina pectoris; F17.210 Nicotine dependence, cigarettes, uncomplicated
CPT/HCPCS: 80053; 85025; 85610; 85730; 93005; 93926; 96361; 96374; 96375; 99285; J1170; J1644; J7030

== ENCOUNTER 2022-12-01 07:26 | Inpatient (IN) | payer OTHER, SELFPAY ==
[2022-12-01] VITALS (13 sets, daily range): BP systolic 158–210; BP diastolic 76–109; PULSE 69–96; RESP 14–20; TEMP 36.4–36.8; O2SAT 91–98; BMI 31.6
--- NOTE | 2022-12-01 07:46 | ECG_ITS ---
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 Measurements Intervals [place] Rate: 72 P: 36 [place]: 196 QRS: -56 QRSD: 120 T: 1 QT: 407 QTc: 447 Interpretive Statements SINUS RHYTHM LEFT ANTERIOR FASCICULAR BLOCK [QRS AXIS <= -45, QR IN I, RS IN II] Compared to ECG 11/20/2022 15:38:45 Left anterior fascicular block now present First degree AV block no longer present Intraventricular conduction delay no longer present Electronically Signed On 12-01-2022 13:31:37 CDT by Shayna Monique M.D. [id number]
--- NOTE | 2022-12-01 07:56 | ED_ITS ---
HPI - Extremity Problem General: Chief complaint: Extremity Problem,Nontraumatic Stated complaint: leg pain Time Seen by Provider: 12/01/22 07:38 Source: patient Mode of arrival: EMS History of Present Illness: 67-year-old male presents to the emergency room with complaint of left lower leg pain. He was seen here recently and transferred to [facility] he had a osteomyelitis and peripheral vascular disease. They had advised him he should have a below the knee amputation on the left leg he left AMA. He comes in today complaining of increasingly painful and cold left lower leg he is unable to walk on it he can wiggle his toes a bit but that is about it. He does have some recent incisions including still having some nemesio in the left medial calf from attempts to revascularize but he is not able to tell me any specifics. Several years ago he had a revascularization procedure in [place] as well. Patient is not diabetic but he does smoke Eliquis is listed in his medication list. MD Complaint: extremity pain and cold extremity Onset (ago): day(s) Pain Consistency: constant Location: left and lower extremity Quality: aching Radiation: distal Relieving factors: nothing Associated symptoms: Deny chest pain, fever(s) or rash Review of Systems Const: Denies: fever(s), chills, fatigue or malaise Card: Denies: chest pain Resp: Denies: dyspnea, productive cough or non-productive cough GI: Denies: abdominal pain, nausea or vomiting : Denies: dysuria, urinary frequency or urinary urgency Musc: Reports: extremity pain; Denies: neck pain or back pain Skin/Breast: Denies: rash or pruritus PFSH ED PFSH: Medical History Cellulitis Coronary artery disease History of bipolar disorder Hx of schizophrenia Hyperlipidemia Hypertension (Unknown) Hypertensive kidney disease with CKD stage III Tobacco dependency Surgical History History of surgery on lower extremity Family History Other Depression Social History Smoking and tobacco status: current every day smoker Alcohol intake: never Substance/Drug Use: current Substance/Drug use type: Marijuana Physical Exam Const: GENERAL APPEARANCE: cooperative ORIENTATION/CONSCIOUSNESS: Yes chidi ke, Yes oriented to person, Yes oriented to place and Yes oriented to time HENMT: COMMON NORMALS: normocephalic, atraumatic and hearing grossly normal bilaterally HEAD & SCALP: normocephalic and atraumatic Resp: COMMON NORMALS: normal respiratory effort, No retractions, No use of accessory muscles and clear to auscultation bilaterally AUSCULTATION: clear to auscultation bilaterally Cardio: COMMON NORMALS: regular rate, regular rhythm and No murmurs present (Cardio) RATE: regular rate RHYTHM: regular rhythm GI: COMMON NORMALS: Soft to palpation and No hepatosplenomegaly present AUSCULTATION: Yes normoactive bowel sounds PALPATION: Yes Soft to palpation, No Tenderness to palpation present (GI), No Guarding due to palpation present (GI) and Yes No hepatosplenomegaly present Extremity: LEFT LOWER EXTREMITY: Yes lower leg (pain, cold to the touch) OTHER: Scarring in place on the upper leg medially is old. There are no incisions 1 at the level of the knee extending distally with nemesio in place no sign of infection. Neuro: SENSORIUM/ORIENTATION: Yes oriented to person, Yes oriented to place and Yes oriented to time Skin: COMMON NORMALS: no rashes or lesions noted GENERAL SKIN EXAM: no rashes or lesions noted Course Vital Signs: Vital signs: Vital Signs Temperature 98.2 F 12/01/22 07:34 Pulse Rate 73 12/01/22 09:44 Respiratory Rate 16 12/01/22 09:44 Blood Pressure 197/85 12/01/22 13:34 Pulse Oximetry 98 12/01/22 09:44 Oxygen Delivery Me thod Room Air 12/01/22 09:44 MDM - Extremity (Nontraumatic) Medical Decision Making Old records received from [facility]. Reviewing the records patient had a fem-tib bypass which subsequently occluded and he was advise it had failed and he should have a below the knee amputation. He also told us that he was told he had osteomyelitis. Records confirmed the femoral to bypass did not see mention of osteomyelitis. He does have occlusion of his graft today and a cold foot in his distal lower leg. Discussed Dr. Wayne's vascular surgery on-call he felt that if the patient was comfortable with going forward with amputation we could keep him here but he wanted to try to salvage the leg he would have to be transferred back to [facility]. Discussed with the patient he understands that at this point if he goes back to [facility] they are likely to tell him the same thing that told him recently and he does not wish to pursue that we will admit him for now we did start him on heparin until Dr. Wayne is able to see him also put him on vancomycin we will admit to the hospitalist and consult Dr. Wayne Medical Records I reviewed the patient's medical records. Lab Data I reviewed the patient's lab results. 12/01/22 08:00 12/01/22 08:00 Radiology Impressions Duplex Scan Lower Extremity Artery 12/01/22 08:01 IMPRESSION: There is some similar lack of luminal color flow at the reported bypass graft similar. There are mixed findings in the interval as there is some color Doppler activity demonstrated at the common femoral and popliteal [place] vessels along with incomplete color flow otherwise including the previously visualized infrapopliteal arteries. THIS REPORT CONTAINS FINDINGS THAT MAY BE CRITICAL TO PATIENT CARE. The findings were verbally communicated via telephone conference at 9:07 AM CDT on 12/01/2022 with KHARI WHITEHEAD. The findings were acknowledged and understood. Laboratory Results WBC 11.26 10^3/uL (3.29-11.43) 12/01/22 08:00 RBC 4.25 10^6/uL (3.85-5.65) 12/01/22 08:00 Hgb 11.20 g/dL (11.27-16.99) L 12/01/22 08:00 Hct 35.8 % (37-53) L 12/01/22 08:00 MCV 84.2 fl (82-101) 12/01/22 08:00 MCH 26.4 pg (27-33) L 12/01/22 08:00 MCHC 31.3 g/dL (30-55) 12/01/22 08:00 RDW 16.6 % (12.1-15.1) H 12/01/22 08:00 Plt Count 464 10^3/cmm (157-399) H 12/01/22 08:00 MPV 9.3 fL (7.4-10.4) 12/01/22 08:00 Neut % (Auto) 76.7 % 12/01/22 08:00 Lymph % (Auto) 11.8 % 12/01/22 08:00 [place] % (Auto) 7.9 % 12/01/22 08:00 Eos % (Auto) 2.3 % 12/01/22 08:00 Baso % (Auto) 0.5 % 12/01/22 08:00 Neut # (Auto) 8.63 10^3/uL (1.8-7.7) H 12/01/22 08:00 Lymph # (Auto) 1.3 10^3/uL (0.8-4.8) 12/01/22 08:00 [place] # (Auto) 0.9 10^3/uL (0.2-0.9) 12/01/22 08:00 Eos # (Auto) 0.3 10^3/uL (0.0-0.8) 12/01/22 08:00 Baso # (Auto) 0.1 10^3/uL (0.0-0.1) 12/01/22 08:00 Nucleated RBC % (auto) 0 % 12/01/22 08:00 Nucleated RBCs # 0.0 /100WBC 12/01/22 08:00 PT 14.10 SECONDS (12.1-14.9) 12/01/22 08:00 INR 1.06 (0.8-1.2) 12/01/22 08:00 APTT 30.7 SECONDS (23.9-36.7) 12/01/22 08:00 Sodium 138 mmol/L (136-145) 12/01/22 08:00 Potassium 2.8 mmol/L (3.5-5.1) L* 12/01/22 08:00 Chloride 99 mmol/L (98-107) 12/01/22 08:00 Carbon Dioxide 25 mmol/L (22-29) 12/01/22 08:00 Anion Gap 16.8 (5-19) 12/01/22 08:00 BUN 13 mg/dL (8-23) 12/01/22 08:00 Creatinine 1.4 mg/dL (0.7-1.2) H 12/01/22 08:00 GFR Calculation 50.7 mL/min (90-130) L 12/01/22 08:00 Glucose 135 mg/dL (65-115) H 12/01/22 08:00 Calculated Osmolality 288 mOsm/kg (285-295) 12/01/22 08:00 Lactic Acid 1.5 mmol/L (0.5-2.2) 12/01/22 08:00 Calcium 8.7 mg/dL (8.5-10.5) 12/01/22 08:00 Total Bilirubin 0.4 mg/dL (0.15-1.2) 12/01/22 08:00 AST 28 U/L (0-40) 12/01/22 08:00 ALT 40 U/L (0-41) 12/01/22 08:00 Alkaline Phosphatase 85 U/L (40-130) 12/01/22 08:00 Total Protein 6.6 g/dL (6.6-8.7) 12/01/22 08:00 Albumin 3.6 g/dL (3.5-5.2) 12/01/22 08:00 Globulin 3.0 g/dL (1.3-4.6) 12/01/22 08:00 All radiology interpretation(s) finalized by discharge Discharge Plan Discharge Admit Provider: Boom Monk Condition: Stable Coding Level of Care Code ED Mechanical Research Engineer for Yehuda Finnegan
--- NOTE | 2022-12-01 08:01 | USCV_ITS ---
Theo Tipton Age: 67 Gender: M : 1955 Exam Date: 12/01/2022 08:38 Ordering Phys: Khari Whitehead DO Technologist: CT Exam Location[place] [facility] [place]ication: PROCEDURES: Venous duplex imaging was performed in only the left lower extremity. In addition, the posterior tibial and peroneal trunk were evaluated. FINDINGS: PT CANNOT HANDLE COMPRESSION, NO DVT NOTED CONCLUSIONS No evidence of left lower extremity DVT. Alpesh Perdomo MD (Electronically Signed) Final Date: 01 December 2022 09:14 S
--- NOTE | 2022-12-01 08:01 | USR_ITS ---
PROCEDURE INFORMATION: Exam: US Duplex Left Lower Extremity Arteries Or Arterial Bypass Grafts Exam date and time: 12/01/2022 8:26 AM Age: 67 years old Clinical indication: Pain; Leg, upper and leg, lower; Left; Prior surgery; Surgery date: <1 month; Surgery type: Arterial graft; Additional info: Ischemic leg. History of arterial and graft occlusion.No history of trauma or recent surgery is provided. TECHNIQUE: Imaging protocol: Left Real-time duplex scan of the arteries or arterial bypass grafts of the left lower extremity with 2-D ragland scale, color Doppler flow and spectral waveform analysis. Images documented and saved. 378image(s) are provided. COMPARISON: [place] [id number] 11/20/2022 3:19 PM FINDINGS: Left common femoral artery: Left common femoral artery demonstrates some interval color flow at 57 cm/s with monophasic waveform. Left superficial femoral artery: The left superficial artery demonstrates no significant color flow similar overall. Left popliteal artery: The left popliteal artery demonstrates some interval color flow activity at 83 cm/s with monophasic turbulent waveform. Left calf/foot arteries: The left infrapopliteal arteries demonstrate no significant interval color flow or waveform activity. Other findings: Focused imaging at the femoropopliteal reported graft demonstrates similar interval lack of internal color Doppler activity. No other significant interval changes are appreciated. US/[place] [id number] IMPRESSION: There is some similar lack of luminal color flow at the reported bypass graft similar. There are mixed findings in the interval as there is some color Doppler activity demonstrated at the common femoral and popliteal [place] vessels along with incomplete color flow otherwise including the previously visualized infrapopliteal arteries. THIS REPORT CONTAINS FINDINGS THAT MAY BE CRITICAL TO PATIENT CARE. The findings were verbally communicated via telephone conference at 9:07 AM CDT on 12/01/2022 with JULIAN ISSA. The findings were acknowledged and understood.
[2022-12-01 08:09] LABS: Basophils # 0.1 10^3/uL (0.0-0.1); Basophils % 0.5 %; Eosinophils # 0.3 10^3/uL (0.0-0.8); Eosinophils % 2.3 %; Hematocrit 35.8 % (37-53); Lymphocytes # 1.3 10^3/uL (0.8-4.8); Lymphocytes % 11.8 %; Mean Corpuscular HGB Conc 31.3 g/dL (30-55); Mean Corpuscular Hemoglobin 26.4 pg (27-33); Mean Corpuscular Volume 84.2 fl (82-101); Mean Platelet Volume 9.3 fL (7.4-10.4); Monocytes # 0.9 10^3/uL (0.2-0.9); Monocytes % 7.9 %; Neutrophils # 8.63 10^3/uL (1.8-7.7); Neutrophils % 76.7 %; Nucleated Red Blood Cells % 0 %; Platelet Count 464 10^3/cmm (157-399); Red Blood Count 4.25 10^6/uL (3.85-5.65); Red Cell Distribution Width 16.6 % (12.1-15.1); White Blood Count 11.26 10^3/uL (3.29-11.43)
--- NOTE | 2022-12-01 08:20 | PC.NURSE ---
I faxed a signed medical record request to [facility] in [place], [place] per the doctors request. Fax was sent for those records at 08:12 am.
[2022-12-01 08:29] LABS: Lactic Sepsis W/Reflex 1.5 mmol/L (0.5-2.2)
[2022-12-01 08:30] LABS: Alanine Aminotransferase 40 U/L (0-41); Albumin Level 3.6 g/dL (3.5-5.2); Alkaline Phosphatase 85 U/L (40-130); Anion Gap 16.8 (5-19); Aspartate Amino Transferase 28 U/L (0-40); Blood Urea Nitrogen 13 mg/dL (8-23); Calcium 8.7 mg/dL (8.5-10.5); Carbon Dioxide 25 mmol/L (22-29); Chloride 99 mmol/L (98-107); Glomerular Filtration Rate 50.7 mL/min (90-130); Glucose 135 mg/dL (65-115); Osmolality Calculated 288 mOsm/kg (285-295); Sodium 138 mmol/L (136-145); Total Bilirubin 0.4 mg/dL (0.15-1.2); Total Protein 6.6 g/dL (6.6-8.7)
[2022-12-01 08:31] LABS: Potassium 2.8 mmol/L (3.5-5.1)
--- NOTE | 2022-12-01 08:33 | PC.PHAR ---
Addendum entered by She Mckeon 12/01/22 12:02: PT UNABLE TO VERIFY HOME MEDICATIONS- MEDICATIONS VERIFIED USING HOME MED LIST FROM [facility] LAST ADMITTING FAC[facility] Addendum entered by She Mckeon 12/01/22 09:10: [facility]- HAVE CALLED THREE OTHER [facility] LOOKING FOR PTS MED LIST- PT STATES HE FILLES WITH [facility] , [facility] HAS NOT FILLED FOR THIS PT SINCE DECEMBER 2021- PT ALSO STS HE FILLED LAST AT [facility] [phone] - WAITING ON A CALL FROM THEM Original Note: [facility]- FAXED AT 8:15 AM
[2022-12-01] MEDS: vancomycin 1,000 MG in sodium chloride 0.9% 250 ML 250 MG IV (09:24)
[2022-12-01] MEDS: potassium chloride premix 100 ML 25 MEQ IV ×2 (09:26→17:21)
[2022-12-01 10:59] LABS: INR 1.06 (0.8-1.2)
[2022-12-01 11:00] LABS: Partial Thromboplastin Time 30.7 SECONDS (23.9-36.7)
[2022-12-01] MEDS: heparin 5,000 unit/mL INJ 1 mL IV (11:12)
[2022-12-01] MEDS: heparin drip 25,000 UNIT/500 ML PREMIX 26.42 UNIT IV (11:16)
[2022-12-01] MEDS: diphenhydrAMINE 50 mg/mL SDV 1mL 25 MG IVP (12:50)
[2022-12-01] MEDS: morphine 4 mg/mL SDV 1 mL IVP ×2 (12:51→21:48)
--- NOTE | 2022-12-01 13:13 | PM.HP ---
Providers/Chief Complaint Admitting Physician: Boom Monk MD Chief Complaint: leg pain History of Present Illness Theo Tipton is a 67 year old male with peripheral vascular disease, diabetes, coronary disease, tobacco dependency who presents to the hospital with pain in his left leg. He was recently hospitalized earlier this month in [place] at [facility] and had a tib-fib bypass done. He has had multiple surgeries on his left leg for peripheral vascular disease. This failed, and it was recommended that he have a below the knee amputation. He went AGAINST MEDICAL ADVICE during that hospital stay, represented to the emergency department but did not stay the same day he went AGAINST MEDICAL ADVICE. He presents here for an opinion and definitive treatment. He is now open to the idea of getting an amputation. Possibly some chills, but no documented fever. Denies any significant drainage from the leg. No chest discomfort or shortness of breath. Review of Systems General: Reports: 10 or more systems reviewed and unremarkable except in HPI and below Card: Denies: chest pain Resp: Denies: dyspnea GI: Denies: abdominal pain Medications/Allergies Home Medications Medication Instructions Recorded Confirmed Last Taken Type atorvastatin 40 mg tablet 40 mg PO BEDTIME 30 days #30 tabs 10/09/22 12/01/22 Unknown Rx furosemide 20 mg tablet 20 mg PO DAILY 12/01/22 12/01/22 Unknown History lisinopril 10 mg tablet 10 mg PO DAILY 12/01/22 12/01/22 Unknown History metformin 500 mg tablet 500 mg PO BID 12/01/22 12/01/22 Unknown History rivaroxaban 15 mg tablet (Xarelto) 15 mg PO DAILY 12/01/22 12/01/22 Unknown History trazodone 100 mg tablet 100 mg PO DAILY 12/01/22 12/01/22 Unknown History Allergies Allergy/AdvReac Type Severity Reaction Status Date / Time morphine Allergy Intermediate put me in Verified 12/01/22 07:42 the hospital PFSH Acute PFSH: Medical History (Updated 12/01/22 @ 13:21 by Boom Monk MD) Cellulitis Coronary artery disease History of bipolar disorder Hx of schizophrenia Hyperlipidemia Hypertension (Unknown) Hypertensive kidney disease with CKD stage III Tobacco dependency Surgical History History of surgery on lower extremity Family History Other Depression Social History (Updated 12/01/22 @ 13:16 by Boom Monk MD) Smoking and tobacco status: current every day smoker Alcohol intake: never Substance/Drug Use: current Substance/Drug use type: Marijuana Vitals/I&O/Wt Last Vital Signs Temp 98.2 F 12/01/22 07:34 Pulse 73 12/01/22 09:44 Resp 16 12/01/22 09:44 BP 190/84 12/01/22 10:41 Pulse Ox 98 12/01/22 09:44 O2 Del Method Room Air 12/01/22 09:44 Weight last 48 hrs Weight 94.347 kg Physical Exam Narrative: General exam is a white male, reporting his left leg hurts. HEENT: Atraumatic and normocephalic. Oropharynx clear. Neck is supple no lymphadenopathy thyromegaly Cardiovascular regular rate and rhythm without murmur Lungs clear no wheezing or crackles Abdomen is soft. Nontender. exams deferred Extremities no cyanosis clubbing or edema of his right leg. His left with swelling. Incision site noted medially with nemesio. No significant erythema or drainage. Distal foot cool to the touch with impaired cap refill greater than 2 seconds dusky and cyanotic. Data 12/01/22 08:00 12/01/22 08:00 Other Labs: Blood cultures were obtained LFTs normal Lactic acid 1.5 Calcium and albumin are normal Venous duplex negative for DVT although limited exam Arterial duplex with no flow in his graft. EKG with sinus rhythm, left axis deviation, left anterior fascicular block by my read Echocardiogram in September demonstrated an EF of 50 to 55% 1/4 diastolic dysfunction I reviewed external records from his last hospital stay at [facility]. Micro: Microbiology 12/01/22 08:30 Blood Culture - Preliminary Blood SPECIMEN COLLECTED 12/01/22 08:00 Blood Culture - Preliminary Blood SPECIMEN COLLECTED A&P Assessment and plan (1) Critical limb ischemia of left lower extremity: Patient with critical limb ischemia, failed graft, with previous recommendations from outside hospital for below the knee amputation. Continue vancomycin IV for concern of possible infection. Vancomycin levels, close follow-up of renal function Heparin drip Vascular surgery consultation Patient is amenable to amputation if needed (2) Hypokalemia: Being supplemented IV in the emergency department Recheck potassium tomorrow (3) Coronary artery disease: Initiate low-dose aspirin. Continue statin. (4) Diabetes mellitus type 2 in nonobese: Consistent carb diet Sliding scale insulin Plan History of chronic kidney disease. Avoid renal toxic medication. Other medical problems as outlined in past medical history Full code Heparin will suffice for DVT prophylaxis Attestations Medical Necessity Statement*: Will require greater than 2 midnight stay for evaluation and treatment of critical limb ischemia, likely need for amputation Diagnoses Critical limb ischemia of left lower extremity I70.222 Hypokalemia E87.6 Coronary artery disease I25.10 Diabetes mellitus type 2 in nonobese E11.9 Time Spent (min) 46
--- NOTE | 2022-12-01 15:24 | P.CONIM_ITS ---
Providers/Reason For Consult Consulting Physician/Specialty*: Dr. Wayne/cardiothoracic surgery Reason for Consult*: Ongoing progressive ischemia left lower extremity status post multiple interventions at outside facility. Requesting Physician: Dr. Monk Attending Physician: Boom Monk MD History of Present Illness History of Present Illness Theo Tipton is a 67 year old male whom I been consulted concerning ongoing ischemia to the left lower extremity. He has a long history of peripheral vascular disease with initial surgical interventions beginning about a year ago in [place]. He had several interventions since that time and most recently what appears to be a femoral to distal bypass below the knee. He still has nemesio in place along the medial aspect of his left lower extremity. His left foot is cold up to the ankle with early discoloration though no shannan gangrene. He has mostly anesthetic to the foot and has substantial difficulty moving his great toe. He cannot move his other toes. Duplex ultrasound performed during his presentation to the emergency department today revealed absence of flow consistent with an occluded graft. He was seen by his surgical team in [place] last week and it was recommended that he consider amputation though he refused and apparently left AMA from that hospitalization. He presents today with ongoing pain and after brief conversation is agreeable to amputation. We did offer to consider transfer back to [place] for attempted further interventions though he declined. At my recommendation, we placed him on a heparin infusion to determine whether we can improve his distal flow though it appears this will most probably not be successful. He has substantial discomfort to the lower extremity though this is under control with analgesia. He has a long prior history of tobacco use. Review of Systems Const: Denies: fever(s), chills or fatigue Card: Denies: chest pain or palpitations Resp: Denies: dyspnea or productive cough GI: Denies: abdominal pain, nausea or vomiting Musc: Reports: extremity pain (Left lower extremity consistent with ongoing ischemia) Neuro: Reports: other (He is anesthetic to the left foot with minimal movement of the left great t) Psych: Denies: anxiety or depression Medications/Allergies Home Medications Medication Instructions Recorded Confirmed Last Taken Type atorvastatin 40 mg tablet 40 mg PO BEDTIME 30 days #30 tabs 10/09/22 12/01/22 Unknown Rx furosemide 20 mg tablet 20 mg PO DAILY 12/01/22 12/01/22 Unknown History lisinopril 10 mg tablet 10 mg PO DAILY 12/01/22 12/01/22 Unknown History metformin 500 mg tablet 500 mg PO BID 12/01/22 12/01/22 Unknown History rivaroxaban 15 mg tablet (Xarelto) 15 mg PO DAILY 12/01/22 12/01/22 Unknown History trazodone 100 mg tablet 100 mg PO DAILY 12/01/22 12/01/22 Unknown History Allergies Allergy/AdvReac Type Severity Reaction Status Date / Time morphine Allergy Intermediate put me in Verified 12/01/22 07:42 the hospital Current Medications Generic Name Dose Route Start Last Admin Trade Name Freq PRN Reason Stop Dose Admin Heparin Sodium (Porcine) 0 unit 12/01/22 10:29 12/01/22 11:12 Heparin 5,000 Unit/Ml Inj 1 Ml IV 12/01/22 23:59 4,700 unit PRN PRN Administration Heparin weight-base protocol Protocol Potassium Chloride 100 mls @ 25 mls/hr 12/01/22 09:00 12/01/22 13:28 K-Bud IV 12/01/22 16:59 Infused Q4H KARINA Infusion Heparin Sodium/Sodium Chloride 25,000 unit in 500 mls @ 0 mls/hr 12/01/22 10:30 12/01/22 11:16 Heparin Drip IV 14 unit/kg/hr .Q0M KARINA 26.42 mls/hr Administration Protocol Per Protocol PFSH Acute PFSH: Medical History Cellulitis Coronary artery disease History of bipolar disorder Hx of schizophrenia Hyperlipidemia Hypertension (Unknown) Hypertensive kidney disease with CKD stage III Tobacco dependency Surgical History History of surgery on lower extremity Family History Other Depression Social History Smoking and tobacco status: current every day smoker Alcohol intake: never Substance/Drug Use: current Substance/Drug use type: Marijuana Vitals/I&O/Wt Last Vital Signs Temp 97.6 F 12/01/22 15:02 Pulse 69 12/01/22 15:02 Resp 19 H 12/01/22 15:02 BP 192/77 12/01/22 15:02 Pulse Ox 98 12/01/22 15:02 O2 Del Method Room Air 12/01/22 15:02 12/01/22 12/01/22 12/01/22 06:59 14:59 22:59 Intake Total 350 / 350 Balance 350 / 350 Weight last 48 hrs Weight 208 lb Physical Exam Const: COMMON NORMALS: average body habitus, patient oriented x3 and alert OTHER: Moderate discomfort left lower extremity HENMT: COMMON NORMALS: normocephalic, atraumatic, hearing grossly normal bi laterally, external ears normal and Normal external nose present HEAD & SCALP: normocephalic and atraumatic NOSE: Normal external nose present EXTERNAL EAR: Yes external ears normal Eye: COMMON NORMALS: EOMs intact bilaterally Neck/C-Spine: COMMON NORMALS: full ROM, no lymphadenopathy and No carotid bruits Chest: COMMONS NORMALS: normal palpation of entire chest wall Resp: COMMON NORMALS: clear to auscultation bilaterally AUSCULTATION: clear to auscultation bilaterally Cardio: COMMON NORMALS: regular rate, regular rhythm, S1 normal heart sound present, No murmurs present (Cardio) and No rub (Cardio) RATE: regular rate RHYTHM: regular rhythm HEART SOUNDS: S1 normal heart sound present OTHER: No palpable pulses below the left groin distally. GI: COMMON NORMALS: Normal to inspection, nondistended, normoactive bowel sounds present Extremity: NARRATIVE EXTREMITY EXAM: Surgical nemesio in place on the proximal medial aspect of the left calf region consistent with recent surgical bypass. Discrete skin temperature change in distal left lower extremity just above the ankle extending down through the foot with early violaceous changes to the left foot. No shannan gangrenous tissue loss. Anesthetic through much of the left foot with minimal movement of the left great toe Neuro: COMMON NORMALS: patient oriented x3; negative for no sensory deficits noted SENSORIUM/ORIENTATION: Yes alert Data 12/01/22 08:00 12/01/22 08:00 Micro: Microbiology 12/01/22 08:30 Blood Culture - Preliminary Blood SPECIMEN COLLECTED 12/01/22 08:00 Blood Culture - Preliminary Blood SPECIMEN COLLECTED A&P Assessment and plan (1) Critical limb ischemia of left lower extremity: Critical limb ischemia of the left lower extremity status post multiple interventions with most recent recommendation from his vascular team in [place] for amputation. Mr. Tipton left AMA following that encounter but presents back to the emergency department today with worsening left lower extremity pain and after conversations and evaluation confirming minimal distal flow, he is now agreeable to amputation. I discussed very frankly with him that we would attempt to perform this below the knee though I cannot confirm that this would heal particular the like that we will have to cross a surgical incision line to perform this amputation. As well, this may require revision either acutely at the time of the original procedure or later to an above-knee amputation if we find evidence for failure to heal related to either ongoing infection or continued ischemia at the level of the amputation. Continue postoperative pain was also frankly discussed. General risk of the surgery such as , stroke, heart attack, major bleeding, infection, failure to heal, need for further procedures, and postoperative pain were very frankly discussed. He appears to have a clear understanding of this having been previously recommended for amputation last week from [place]. Appropriate consents will be provided for review and signature. I will continue heparin until midnight to hopefully allow for improved distal perfusion to the level of the planned amputation site with increased chances for appropriate healing. I would like to thank my hospitalist colleagues for their oversight and expertise. Consult Attestations Medical Necessity Statement: Critical limb ischemia left lower extremity with ongoing ischemic pain status post multiple interventions. Coding Level of Care Code Acute Code for Yehuda Finnegan Diagnoses Critical limb ischemia of left lower extremity I70.222
[2022-12-01] MEDS: amlodipine 10 mg Tablet PO (15:41)
[2022-12-01] MEDS: hyDRALAzine 20 mg/mL INJ 1 mL IVP (15:41)
[2022-12-01] MEDS: sodium chloride 0.9% 1,000 ML 75 ML IV (15:43)
[2022-12-01 16:41] LABS: Glucose Point of Care 123 mg/dL (70-110)
[2022-12-01] MEDS: docusate sodium 100 mg Capsule PO (17:00)
[2022-12-01] MEDS: oxyCODONE 5 mg IR Tab/Cap PO (19:30)
[2022-12-01] MEDS: trazodone 100 mg Tablet PO (20:36)
[2022-12-01] MEDS: atorvastatin 40 mg Tablet PO (20:36)
[2022-12-01] MEDS: metoprolol tartrate 25 mg Tablet PO (20:36)
[2022-12-01 20:51] LABS: Glucose Point of Care 124 mg/dL (70-110)
[2022-12-01 22:48] LABS: Partial Thromboplastin Time 20.1 SECONDS (23.9-36.7)
[2022-12-02] VITALS (23 sets, daily range): BP systolic 110–181; BP diastolic 60–81; PULSE 55–95; RESP 12–18; TEMP 36.3–37.8; O2SAT 90–98
[2022-12-02 00:05] LABS: Add Urine Culture? No; Add Urine Microscopic? YES; Bilirubin Urine Neg (Negative); Blood Urine Neg (Negative); Glucose Urine UA Norm (Normal); Ketones Urine Negative (Negative); Leukocyte Esterase Urine Negative (Negative); Nitrate Urine Negative (Negative); Protein Urine 1+ (Negative); Specific Gravity, Urine 1.005 (1.005-1.030); Urine Appearance Clear (CLEAR); Urine Color Yellow (Yellow); Urobilinogen Urine 4 mg/dL (Negative); WBC Urine RARE /hpf (0-5); pH Urine 7 (5-7)
[2022-12-02] MEDS: vancomycin 1,250 MG/250 ML PIGGYBACK 200 MG IV (02:21)
[2022-12-02] MEDS: oxyCODONE 5 mg IR Tab/Cap PO ×2 (02:42→17:16)
[2022-12-02 05:26] LABS: Basophils # 0.1 10^3/uL (0.0-0.1); Basophils % 0.5 %; Eosinophils # 0.3 10^3/uL (0.0-0.8); Eosinophils % 2.7 %; Hematocrit 31.7 % (37-53); Lymphocytes # 1.6 10^3/uL (0.8-4.8); Lymphocytes % 14.4 %; Mean Corpuscular Hemoglobin 26.1 pg (27-33); Mean Corpuscular Volume 87.1 fl (82-101); Mean Platelet Volume 9.4 fL (7.4-10.4); Monocytes % 8.8 %; Neutrophils # 8.17 10^3/uL (1.8-7.7); Neutrophils % 72.9 %; Nucleated Red Blood Cells % 0 %; Platelet Count 417 10^3/cmm (157-399); Red Blood Count 3.64 10^6/uL (3.85-5.65); Red Cell Distribution Width 16.6 % (12.1-15.1)
--- NOTE | 2022-12-02 05:48 | PM.PN ---
Subjective Subjective: Mr. Tipton did get some rest last night with use of analgesics. He still complains of left leg pain this morning though does not appear to be any worse than yesterday. His leg is warm to about the ankle. There appears to be no substantial skin changes since my original exam yesterday afternoon. I again discussed consideration for amputation and he wishes to proceed. He understands the disability that this may create in relation to ambulation and the need for rehabilitation and prosthetics. He stated understanding. Heparin infusion was discontinued at midnight in preparation for planned amputation this morning. Vitals/I&O/Wt Last Vital Signs Temp 98.1 F 12/02/22 03:18 Pulse 80 12/02/22 03:18 Resp 15 12/02/22 03:18 BP 181/78 12/02/22 03:18 Pulse Ox 94 12/02/22 03:18 O2 Del Method Room Air 12/02/22 03:18 12/01/22 12/01/22 12/02/22 14:59 22:59 06:59 Intake Total 350 / 350 1200 / 1550 596.907 / 2146.907 Output Total 1775 / 1775 500 / 2275 Balance 350 / 350 -575 / -225 96.907 / -128.093 Weight last 48 hrs Weight 208 lb Physical Exam Extremity: NARRATIVE EXTREMITY EXAM: Left leg is cool from the ankle distally. There is some small amount of drainage from the very lower portion of the leg with a bit bandage in place. The incision just below the knee remains intact with some ecchymosis and early skin edge necrosis beneath the nemesio. There is no drainage from this incision however. Data 12/02/22 04:11 12/01/22 08:00 Micro: Microbiology 12/01/22 08:30 Blood Culture - Preliminary Blood SPECIMEN COLLECTED 12/01/22 08:00 Blood Culture - Preliminary Blood SPECIMEN COLLECTED A&P Assessment and plan (1) Critical limb ischemia of left lower extremity: Mr. Tipton continues to have discomfort with the left lower extremity with known occlusion of his previous surgical graft. While his pain is modestly improved, he has been receiving analgesics and does wish to proceed with amputation. He is aware from previous discussions with the surgical team in [place], that no further reconstruction options are available. I again discussed amputations to include below the knee with the possibility of [id number] and he stated understanding. Proper consent was provided for review and signature. He is keenly aware of the disability created from amputation and the need for rehabilitation as well as future prosthesis. Related to his recent surgery and localized skin necrosis at a previous surgical wound site which will be at the level of amputation in order to preserve the knee, he has an increased risk for wound breakdown requiring continued care with the likelihood that his primary closure may fail. This may require further outpatient treatments including utilization of our [facility] wound care services center. He stated understanding of this. He currently lives in [place] but states he will be moving to the [facility]. We will plan to proceed with amputation, hopefully below the knee this morning. Attestations Medical Necessity Statement*: Ongoing critical limb ischemia with continued pain despite surgical revascularization with subsequent graft failure. Coding Level of Care Code Acute Code for Yehuda Fwd Diagnoses Critical limb ischemia of left lower extremity I70.222
[2022-12-02 06:02] LABS: Alanine Aminotransferase 29 U/L (0-41); Albumin Level 2.8 g/dL (3.5-5.2); Alkaline Phosphatase 72 U/L (40-130); Blood Urea Nitrogen 12 mg/dL (8-23); Calcium 8.2 mg/dL (8.5-10.5); Carbon Dioxide 22 mmol/L (22-29); Chloride 102 mmol/L (98-107); Globulin 2.3 g/dL (1.3-4.6); Glomerular Filtration Rate 74.8 mL/min (90-130); Glucose 106 mg/dL (65-115); Magnesium 1.9 mg/dL (1.7-2.3); Osmolality Calculated 280 mOsm/kg (285-295); Sodium 135 mmol/L (136-145); Total Bilirubin 0.3 mg/dL (0.15-1.2); Total Protein 5.1 g/dL (6.6-8.7)
[2022-12-02 06:04] LABS: Anion Gap 14.8 (5-19); Aspartate Amino Transferase 23 U/L (0-40); Potassium 3.8 mmol/L (3.5-5.1)
--- NOTE | 2022-12-02 06:32 | ANES.PREANE2 ---
Pre-Anesthetic Assessment Height/Weight: Height 1.73 m Weight 94.347 kg Temp Pulse Resp BP Pulse Ox O2 Del Method 98.1 F 62 15 181/78 94 Room Air 12/02/22 03:18 12/02/22 05:50 12/02/22 03:18 12/02/22 03:18 12/02/22 03:18 12/02/22 03:18 Operation Date: 12/02/22 07:00 Proposed Procedures p BKA (Below Knee Amputation)(Left) - Rodriguez Wayne MD Familial anesthetic complications: none Was Beta Ezequiel taken within 24 hours: N/A Was Clonidine taken within 24 hours: N/A Last intake: Intake Last Liquid Date 12/02/22 Last Liquid Time 00:00 Last Solid Date 12/01/22 Last Solid Time 23:45 Social Tobacco and No alcohol Exam alert, oriented x 3, clear to auscultation bilaterally and regular rate & rhythm Airway Mallampati: Class III Dentition: full CV/HEM Coronary Artery Disease, Deep Vein Thrombosis, Hypertension and Myocardial Infarction EF 50 to 55% Chronic Renal Insufficiency Hepatic Hepatitis C Metabolic Diabetes Mellitus Neuropsych Meth abuse, homeless Anesthetic Plan ASA status: 4 Anesthesia: General and Regional (specify below) Risk of > 500 ml blood loss (7ml/kg in children): No Medications/Allergies Home Medications Medication Instructions Recorded Confirmed Last Taken Type atorvastatin 40 mg tablet 40 mg PO BEDTIME 30 days #30 tabs 10/09/22 12/01/22 Unknown Rx furosemide 20 mg tablet 20 mg PO DAILY 12/01/22 12/01/22 Unknown History lisinopril 10 mg tablet 10 mg PO DAILY 12/01/22 12/01/22 Unknown History metformin 500 mg tablet 500 mg PO BID 12/01/22 12/01/22 Unknown History rivaroxaban 15 mg tablet (Xarelto) 15 mg PO DAILY 12/01/22 12/01/22 Unknown History trazodone 100 mg tablet 100 mg PO DAILY 12/01/22 12/01/22 Unknown History Allergies Allergy/AdvReac Type Severity Reaction Status Date / Time morphine Allergy Intermediate put me in Verified 12/01/22 07:42 the hospital Current Medications Generic Name Dose Route Start Last Admin Trade Name Freq PRN Reason Stop Dose Admin Atorvastatin Calcium 40 mg 12/01/22 21:00 12/01/22 20:36 Atorvastatin 40 Mg Tablet PO 40 mg BEDTIME KARINA Administration Docusate Sodium 100 mg 12/01/22 18:00 12/01/22 17:00 Docusate Sodium 100 Mg Capsule PO 100 mg BID KARINA Administration Heparin Sodium/Sodium Chloride 25,000 unit in 500 mls @ 0 mls/hr 12/01/22 10:30 12/02/22 00:12 Heparin Drip IV 0 unit/kg/hr .Q0M KARINA 0 mls/hr Titration Protocol Per Protocol Sodium Chloride 1,000 mls @ 75 mls/hr 12/01/22 14:44 12/02/22 05:57 Sodium Chloride 0.9% IV Infused .[id number] KARINA Infusion Vancomycin/PEG/NADA/Lysine/Water 1,250 mg in 250 mls @ 200 mls/hr 12/02/22 03:00 12/02/22 03:36 Vancocin IV Infused Q18H KARINA Infusion Insulin Human Lispro 0 unit 12/01/22 18:00 12/01/22 20:44 Insulin Lispro 100 Unit/1 Ml SUBCUT Not Given WM&BEDTIME KARINA Protocol Metoprolol Tartrate 25 mg 12/01/22 21:00 12/01/22 20:36 Metoprolol Tartrate 25 Mg Tablet PO 25 mg BID@0900,2100 KARINA Administration Morphine Sulfate 4 mg 12/01/22 14:44 12/01/22 21:48 Morphine 4 Mg/Ml Sdv 1 Ml IVP 4 mg Q4H PRN Administration SEVERE PAIN Oxycodone HCl 5 mg 12/01/22 14:44 12/02/22 02:42 Oxycodone 5 Mg Ir Tab/Cap PO 5 mg Q6H PRN Administration SEVERE PAIN Trazodone HCl 100 mg 12/01/22 21:00 12/01/22 20:36 Trazodone 100 Mg Tablet PO 100 mg BEDTIME KARINA Administration PFSH Anesthesia Medical History Cellulitis Coronary artery disease History of bipolar disorder Hx of schizophrenia Hyperlipidemia Hypertension (Unknown) Hypertensive kidney disease with CKD stage III Tobacco dependency Surgical History History of surgery on lower extremity Family History Other Depression Social History Smoking and tobacco status: current every day smoker Alcohol intake: never Substance/Drug Use: current Substance/Drug use type: Marijuana Data Anesthesia 12/02/22 04:11 12/02/22 04:11 Short CBC 12/01/22 12/02/22 Range/Units 08:00 04:11 WBC 11.26 11.20 (3.29-11.43) 10^3/uL Hgb 11.20 L 9.50 L (11.27-16.99) g/dL Hct 35.8 L 31.7 L (37-53) % MCV 84.2 87.1 (82-101) fl Plt Count 464 H 417 H (157-399) 10^3/cmm Neut % (Auto) 76.7 72.9 % Neut # (Auto) 8.63 H 8.17 H (1.8-7.7) 10^3/uL BMP 12/01/22 12/02/22 08:00 04:11 Sodium 138 135 L Potassium 2.8 L* 3.8 Chloride 99 102 Carbon Dioxide 25 22 BUN 13 12 Creatinine 1.4 H 1.0 Glucose 135 H 106 Calcium 8.7 8.2 L Liver Function 12/01/22 12/02/22 Range/Units 08:00 04:11 Total Bilirubin 0.4 0.3 (0.15-1.2) mg/dL AST 28 23 (0-40) U/L ALT 40 29 (0-41) U/L Alkaline Phosphatase 85 72 (40-130) U/L Albumin 3.6 2.8 L (3.5-5.2) g/dL Urine 12/01/22 Range/Units 23:30 Urine Color Yellow (Yellow) Urine Appearance Clear (CLEAR) Urine pH 7 (5-7) Ur Specific [place] 1.005 (1.005-1.030) Urine Protein 1+ H (Negative) Urine Glucose (UA) Norm (Normal) Urine Ketones Negative (Negative) Urine Nitrate Negative (Negative) Urine Bilirubin Neg (Negative) Ur Leukocyte Esterase Negative (Negative) Urine RBC None (0-2) /hpf Urine WBC Rare (0-5) /hpf Blood Bank 12/01/22 15:30 Blood Type A Positive Rho(D) Type Positive Antibody Screen Negative Coags 12/01/22 12/01/22 08:00 22:25 PT 14.10 INR 1.06 APTT 30.7 20.1 L Microbiology 12/01/22 08:30 Blood Culture - Preliminary Blood SPECIMEN COLLECTED 12/01/22 08:00 Blood Culture - Preliminary Blood SPECIMEN COLLECTED Cardiac Studies: Echocardiogram 10/04/22
--- NOTE | 2022-12-02 06:58 | ANES.PROC ---
Anesthesia Procedures Procedure/Date: 12/02/22 Nerve Block ^: Nerve Block 1: Main Anesthesia: general anesthesia Time Out Performed: Yes Consent: requested by attending/covering physician, from patient, from other, risks and benefits reviewed and patient agrees to proceed Nerve block location: popliteal (L) Anesthesia monitors applied: pulse oximetry, EKG, BP cuff and oxygen Nerve block position: supine Anesthetic Used: ropivicaine 0.5% (20 ml) and with decadron (3 mg) Ultrasound used to: recognize landmarks Nerve Stimulator Used?: No Interscalene/Femoral BLK: 4 stimuplex 21 g needle used for position and inplane approach, visualize local anesthetic spread and no vascular puncture identified Injection: neg aspiration of heme Patient Tolerated Procedure: well Complications: none Nerve Block 2: Main Anesthesia: general anesthesia Time Out Performed: Yes Consent: requested by attending/covering physician, from patient, from other, risks and benefits reviewed and patient agrees to proceed Nerve block location: adductor canal (L) Anesthesia monitors applied: pulse oximetry, EKG, BP cuff and oxygen Nerve block position: supine Anesthetic Used: ropivicaine 0.5% (10 ml) and with decadron (1 mg) Ultrasound used to: recognize landmarks Nerve Stimulator Used?: No Interscalene/Femoral BLK: 4 stimuplex 21 g needle used for position and inplane approach, visualize local anesthetic spread and no vascular puncture identified Injection: neg aspiration of heme Patient Tolerated Procedure: well Complications: none
[2022-12-02] MEDS: vancomycin 1,000 MG SDV 1000 MG IRRIGATION (08:21)
--- NOTE | 2022-12-02 09:52 | PM.OP ---
Operative Report Date of procedure: December 02, 2022 Pre-op diagnosis: Critical ischemia left lower extremity Post-op diagnosis: same Procedure done: Left below-knee amputation Specimens removed/disposition: Left leg Surgeon: Rodriguez Wayne Surgeon: Rodriguez Wayne MD Anesthesia: General and Nerve Block Condition: stable Disposition: PACU Brief History: Mr. Tipton is a 67-year-old gentleman whose had previous multiple interventions for peripheral vascular disease to his left lower extremity. He most recently had a distal bypass performed with subsequent graft closure. During evaluation last week in [place] he was recommended that he undergo left leg amputation due to ongoing ischemia and persistent pain. At that time he left AGAINST MEDICAL ADVICE and then subsidy presented to the emergency department at [facility]. He has a cool left leg to distal calf region with only movement of his left great toe. I discussed options to consider formal amputation and he now is in agreement. I informed him we would attempt left below-knee amputation though above-knee amputation may be required. He stated understanding. Details of risk of procedure were carefully reviewed appropriate consents have been reviewed and signed. Procedure: Mr. Tipton' entire left lower extremity was sterilely prepped and draped after having been appropriately marked. Timeout was completed by the OR staff and confirmed by all present. A previous medial incision in the proximal calf at the level of the previous attempted distal bypass dehisced officially with removal of nemesio prior to prepping. Marking pen was utilized to determine our lines of transection to include a generous posterior flap. #10 scalpel blade was utilized to incise the skin circumferentially along the previously placed planned line of transection. Saphenous vein was controlled medially and secured prior to division. This was continued down to the tibia where periosteal elevator was utilized to strip periosteum proximally. This was done circumferentially. Next, transection of the tibia was performed utilizing powered saw. Anterior surface of the tibia was beveled utilizing saw and rasp Scalpel blade was utilized continue further transection of musculature and fascia down to the fibula, which was also isolated and periosteum elevated proximally. Again, powered saw was utilized to perform transection proximally. Amputation was then completed utilizing amputation knife. 2 [place]-Roberto grafts which were occluded were noted medially and while we do not have the former operative reports, I suspect these are from 2 different previous attempts at distal bypass. Areas of bleeding were controlled utilizing careful case of cautery or suture ligature. Remaining bulk of musculature on the posterior flap was beveled to allow for appropriate closure with elevation to the anterior transection line. Wound was then irrigated with antibiotic solution and hemostasis confirmed. A large Hemovac drain was placed and secured. Fascia was reapproximated with interrupted 0 Vicryl suture. Subcutaneous layer was reapproximated with interrupted 2-0 Vicryl suture. Skin was then reapproximated utilizing surgical skin nemesio. Xeroform gauze was applied followed by appropriate padded dressings. Knee was placed in an immobilizer. Given his recent interventions, as well as partial dehiscence of the medial incision from the prior surgery, I think there is a high potential that he will result in at least dehiscence of portions of his BKA and require further therapies, possibly including further debridement or revision or potential negative pressure therapy.
--- NOTE | 2022-12-02 10:15 | ANE.PACU2 ---
Inpatient post-anesthesia follow up: Airway intact: Yes Vital signs: Temperature 98.1 F Pulse Rate 65 Respiratory Rate 12 Blood Pressure 133/67 Pulse Oximetry 92 Oxygen Delivery Me thod [ Room Air Current Rate & Del henri] Oxygen Delivery Me thod Nasal Cannula Oxygen Flow Rate 3 Fraction of Inspir ed Oxygen Hydration adequate: Yes Nausea and vomiting: No Pain level: 1 Mental status: Baseline
[2022-12-02] MEDS: sodium chloride 0.9% 1,000 ML 75 ML IV (10:55)
[2022-12-02] MEDS: metoprolol tartrate 25 mg Tablet PO (10:55)
[2022-12-02] MEDS: lisinopril 10 mg Tablet PO (10:55)
[2022-12-02] MEDS: docusate sodium 100 mg Capsule PO ×2 (10:56→17:16)
[2022-12-02] MEDS: aspirin 81 mg EC Tablet PO (10:56)
--- NOTE | 2022-12-02 11:06 | PC.NURSE ---
patient returned to room from pacu at 1025. patient arousable, but drowsy. vitals WNL.
[2022-12-02 11:41] LABS: Glucose Point of Care 192 mg/dL (70-110)
[2022-12-02] MEDS: insulin lispro 100 unit/1 mL SUBCUT ×3 (11:47→21:11)
--- NOTE | 2022-12-02 15:22 | PM.PN ---
Subjective Subjective: s/p Left below-knee amputation today. no immediate perioperative complications. Pain is currently well controlled. DC'd heparin drip. Medications: Reviewed: Yes Vitals/I&O/Wt Last Vital Signs Temp 97.9 F 12/02/22 12:55 Pulse 57 L 12/02/22 12:55 Resp 18 12/02/22 12:55 BP 124/64 12/02/22 12:55 Pulse Ox 90 12/02/22 12:55 O2 Del Method Nasal Cannula 12/02/22 12:55 O2 Flow Rate 3 12/02/22 10:11 12/02/22 12/02/22 12/02/22 06:59 14:59 22:59 Intake Total 1596.907 / 3146.907 730 / 730 Output Total 500 / 2275 50 / 50 Balance 1096.907 / 871.907 680 / 680 Weight last 48 hrs Weight 94.347 kg Physical Exam Narrative: General: No acute distress, AO x3 HEENT: PERRLA, pupils bilaterally equal and reactive, pallors not present Chest: Normal vesicular breath sounds, no added sounds, equal good air entry bilaterally CVS: S1-S2 regular, no murmurs, no tachycardia, no gallops, no rubs Abdomen: Soft, nontender, no organomegaly, bowel sounds present Neuro: No focal deficits, no facial deformity, AO x3, power 5/5 in all limbs Data 12/02/22 04:11 12/02/22 04:11 Micro: Microbiology 12/01/22 08:30 Blood Culture - Preliminary Blood NEGATIVE TO DATE 12/01/22 08:00 Blood Culture - Preliminary Blood NEGATIVE TO DATE A&P Assessment and plan (1) Critical limb ischemia of left lower extremity: Patient with critical limb ischemia, failed graft, with previous recommendations from outside hospital for below the knee amputation. Continue vancomycin IV for concern of possible infection. Vancomycin levels, close follow-up of renal function Heparin drip to d/c today Vascular surgery consultation s/p amputation today Pain is currently well controlled (2) Hypokalemia: Being supplemented IV (3) Coronary artery disease: continue low-dose aspirin. Continue statin. (4) Diabetes mellitus type 2 in nonobese: Consistent carb diet Sliding scale insulin Plan History of chronic kidney disease. Avoid renal toxic medication. Other medical problems as outlined in past medical history Reduce metoprolol dose to 12.5 BID given bradycardia with HR 50s Full code Heparin 5000 q12h Attestations Medical Necessity Statement*: s/p BKA today, post op care, pain management, adjust medications Coding Level of Care Code Acute Code for Chg Fwd Moderate MDM includes number and complexity of problems actively addressed during encounter, amount and/or complexity of data reviewed/ordered and described risk of complication, morbidity or mortality of management as documented Diagnoses Critical limb ischemia of left lower extremity I70.222 Hypokalemia E87.6 Coronary artery disease I25.10 Diabetes mellitus type 2 in nonobese E11.9
[2022-12-02] MEDS: vancomycin 1,000 MG in sodium chloride 0.9% 250 ML 250 MG IV (15:56)
[2022-12-02 16:39] LABS: Glucose Point of Care 166 mg/dL (70-110)
[2022-12-02] MEDS: heparin 5,000 unit/mL INJ 1 mL 5000 UNIT SUBCUT (18:31)
--- NOTE | 2022-12-02 20:48 | PC.NURSE ---
per previous shift, pt has not had urine output, pt attempted 2 times in this shift, bladder scanned and noted to have 740, call placed to Dr. Gonzalez, order to insert farmer recieved, 16 Fr farmer inserted using sterile technique, pt tolerated fairly, output of 800 in farmer.
[2022-12-02 20:59] LABS: Glucose Point of Care 216 mg/dL (70-110)
[2022-12-02] MEDS: trazodone 100 mg Tablet PO (21:04)
[2022-12-02] MEDS: metoprolol tartrate 25 mg Tablet 12.5 MG PO (21:05)
[2022-12-02] MEDS: atorvastatin 40 mg Tablet PO (21:05)
[2022-12-02] MEDS: morphine 4 mg/mL SDV 1 mL 2 MG IVP (21:40)
[2022-12-03] VITALS (14 sets, daily range): BP systolic 121–166; BP diastolic 65–72; PULSE 62–79; RESP 16–20; TEMP 36.6–36.8; O2SAT 92–100
[2022-12-03] MEDS: sodium chloride 0.9% 1,000 ML 75 ML IV ×2 (00:21→12:57)
[2022-12-03] MEDS: vancomycin 1,000 MG in sodium chloride 0.9% 250 ML 250 MG IV ×2 (02:25→18:15)
[2022-12-03] MEDS: oxyCODONE 5 mg IR Tab/Cap PO ×4 (02:27→19:50)
[2022-12-03 04:58] LABS: Basophils % 0.1 %; Hematocrit 27.3 % (37-53); Lymphocytes # 1.2 10^3/uL (0.8-4.8); Lymphocytes % 6.5 %; Mean Corpuscular HGB Conc 29.7 g/dL (30-55); Mean Corpuscular Hemoglobin 26.3 pg (27-33); Mean Corpuscular Volume 88.6 fl (82-101); Mean Platelet Volume 9.6 fL (7.4-10.4); Monocytes % 5.1 %; Neutrophils # 16.67 10^3/uL (1.8-7.7); Neutrophils % 87.5 %; Nucleated Red Blood Cells % 0 %; Platelet Count 394 10^3/cmm (157-399); Red Blood Count 3.08 10^6/uL (3.85-5.65); Red Cell Distribution Width 16.8 % (12.1-15.1); White Blood Count 19.05 10^3/uL (3.29-11.43)
[2022-12-03 05:21] LABS: Alanine Aminotransferase 21 U/L (0-41); Albumin Level 2.6 g/dL (3.5-5.2); Alkaline Phosphatase 64 U/L (40-130); Anion Gap 13.6 (5-19); Aspartate Amino Transferase 25 U/L (0-40); Blood Urea Nitrogen 17 mg/dL (8-23); Calcium 7.8 mg/dL (8.5-10.5); Carbon Dioxide 21 mmol/L (22-29); Chloride 107 mmol/L (98-107); Glucose 166 mg/dL (65-115); Osmolality Calculated 289 mOsm/kg (285-295); Potassium 4.6 mmol/L (3.5-5.1); Sodium 137 mmol/L (136-145); Total Bilirubin 0.2 mg/dL (0.15-1.2); Total Protein 4.6 g/dL (6.6-8.7)
[2022-12-03] MEDS: heparin 5,000 unit/mL INJ 1 mL 5000 UNIT SUBCUT (06:10)
[2022-12-03 06:31] LABS: Glucose Point of Care 192 mg/dL (70-110)
[2022-12-03] MEDS: morphine 4 mg/mL SDV 1 mL 2 MG IVP (07:41)
[2022-12-03] MEDS: insulin lispro 100 unit/1 mL SUBCUT ×3 (07:43→20:52)
[2022-12-03] MEDS: docusate sodium 100 mg Capsule PO ×2 (09:50→17:06)
[2022-12-03] MEDS: aspirin 81 mg EC Tablet PO (09:50)
[2022-12-03] MEDS: metoprolol tartrate 25 mg Tablet 12.5 MG PO ×2 (09:50→20:52)
[2022-12-03] MEDS: lisinopril 10 mg Tablet PO (09:50)
--- NOTE | 2022-12-03 11:28 | PM.PN ---
Subjective Subjective: Postop day #1 status post left below-knee amputation. Hemovac drain output 80 cc since surgery. Postop pain appears to be under good control. Mr. Tipton stated he rested comfortably last night. Vitals/I&O/Wt Last Vital Signs Temp 97.9 F 12/03/22 07:57 Pulse 66 12/03/22 07:57 Resp 18 12/03/22 07:57 BP 149/65 12/03/22 07:57 Pulse Ox 94 12/03/22 07:57 O2 Del Method Nasal Cannula 12/03/22 03:50 O2 Flow Rate 3 12/02/22 10:11 12/02/22 12/03/22 12/03/22 22:59 06:59 14:59 Intake Total 1470 / 2200 1250 / 3450 360 / 360 Output Total 860 / 910 270 / 1180 Balance 610 / 1290 980 / 2270 360 / 360 Physical Exam Extremity: NARRATIVE EXTREMITY EXAM: Surgical dressing remains in place along with Hemovac drain. Output 80 cc since surgery. Urinary Catheter Management: Wade: Cath Placed During This Visit: yes Reason for Continuing Indwelling Catheter: Acute Urinary Retention or Obstruction Urinary Catheter Date of Insertion: 12/02/22 Urinary Catheter Time of Insertion: 20:38 Data 12/03/22 04:29 12/03/22 04:29 Micro: Microbiology 12/01/22 08:30 Blood Culture - Preliminary Blood NEGATIVE TO DATE 12/01/22 08:00 Blood Culture - Preliminary Blood NEGATIVE TO DATE A&P Assessment and plan (1) Status post below-knee amputation of left lower extremity: Postop day #1 status post left BKA for critical limb ischemia no unreconstructable. Postop discomfort under good control. Plan: I will leave the surgical dressings in place at least another 24 hours and reassess tomorrow. Will leave Hemovac drain in place. Patient may get out of bed with assist to chair. Attestations Medical Necessity Statement*: Status post left BKA secondary to critical limb ischemia with nonreconstructable PAD Coding Level of Care Code Acute Code for Chg Fwd Diagnoses Status post below-knee amputation of left lower extremity Z89.512
[2022-12-03 11:42] LABS: Glucose Point of Care 127 mg/dL (70-110)
[2022-12-03] MEDS: TRAMadol 50 mg Tablet PO (13:23)
--- NOTE | 2022-12-03 16:06 | PM.PN ---
Subjective Subjective: Status post BKA yesterday. Leukocytosis to 19,000 today. Suspect this to be postop. No fever. Hemodynamically stable. States that pain is uncontrolled today. Hemoglobin at 8.1 today. Medications: Reviewed: Yes Vitals/I&O/Wt Last Vital Signs Temp 98.0 F 12/03/22 15:11 Pulse 68 12/03/22 15:11 Resp 17 12/03/22 15:11 BP 166/71 12/03/22 15:11 Pulse Ox 100 12/03/22 15:11 O2 Del Method Nasal Cannula 12/03/22 15:11 O2 Flow Rate 3 12/02/22 10:11 12/03/22 12/03/22 12/03/22 06:59 14:59 22:59 Intake Total 1250 / 3450 1545 / 1545 Output Total 270 / 1180 550 / 550 Balance 980 / 2270 1545 / 1545 -550 / 995 Physical Exam Narrative: General: No acute distress, AO x3 HEENT: PERRLA, pupils bilaterally equal and reactive, pallors not present Chest: Normal vesicular breath sounds, no added sounds, equal good air entry bilaterally CVS: S1-S2 regular, no murmurs, no tachycardia, no gallops, no rubs Abdomen: Soft, nontender, no organomegaly, bowel sounds present Neuro: No focal deficits, no facial deformity, AO x3, power 5/5 in all limbs Extremities: s/p BKA Urinary Catheter Management: Wade: Cath Placed During This Visit: yes Reason for Continuing Indwelling Catheter: Acute Urinary Retention or Obstruction Urinary Catheter Date of Insertion: 12/02/22 Urinary Catheter Time of Insertion: 20:38 Data 12/03/22 04:29 12/03/22 04:29 A&P Assessment and plan (1) Critical limb ischemia of left lower extremity: Patient with critical limb ischemia, failed graft, with previous recommendations from outside hospital for below the knee amputation. Status post below-knee amputation on December 02, 2022. Noted to have leukocytosis up to 19,000 today, otherwise clinically stable afebrile, suspect abscess related to postop state. Continue vancomycin IV for concern of possible infection. Vancomycin levels, close follow-up of renal function Heparin drip discontinued on 12/02/2022. Hemoglobin trended down to 8.1 today. Monitor with a.m. labs. If remains stable resume Xarelto. Vascular surgery consultation appreciated Pain is currently uncontrolled. Discontinue morphine. Start Dilaudid 1 mg IV every 4 hours. Continue Toradol as needed as ordered and oxycodone alternating with the Dilaudid. (2) Hypokalemia: Resolved (3) Coronary artery disease: continue low-dose aspirin. Continue statin. (4) Diabetes mellitus type 2 in nonobese: Consistent carb diet Sliding scale insulin (5) Anemia: likely from post op blood loss at 8.1 today monitor with am labs transfuse if less than 7 check iron studies Plan History of chronic kidney disease. Avoid renal toxic medication. Other medical problems as outlined in past medical history Continue metoprolol dosed at to 12.5 BID , heart rate currently in the 60s. Full code Please resume Xarelto tomorrow, will suffice as DVT prophylaxis Attestations Medical Necessity Statement*: pain cotnrol, post op monitoring, resuming a/c with anemia with hb mnitoring Coding Level of Care Code Acute Code for Chg Fwd High MDM includes number and complexity of problems actively addressed during encounter, amount and/or complexity of data reviewed/ordered and described risk of complication, morbidity or mortality of management as documented Diagnoses Critical limb ischemia of left lower extremity I70.222 Hypokalemia E87.6 Coronary artery disease I25.10 Diabetes mellitus type 2 in nonobese E11.9 Anemia D64.9
[2022-12-03] MEDS: HYDROmorphone 1 mg/mL INJ 1 mL IVP ×2 (16:31→22:34)
[2022-12-03] MEDS: amlodipine 5 mg Tablet PO (16:33)
[2022-12-03] MEDS: iron complex forte Capsule 1 EACH PO (17:06)
[2022-12-03 17:16] LABS: Glucose Point of Care 146 mg/dL (70-110)
[2022-12-03] MEDS: ketorolac 30 mg/mL INJ IVP (18:20)
[2022-12-03 20:44] LABS: Glucose Point of Care 153 mg/dL (70-110)
[2022-12-03] MEDS: atorvastatin 40 mg Tablet PO (20:52)
[2022-12-03] MEDS: trazodone 100 mg Tablet PO (20:52)
[2022-12-04] VITALS (17 sets, daily range): BP systolic 147–195; BP diastolic 72–95; PULSE 58–73; RESP 14–20; TEMP 36.5–36.9; O2SAT 96–100
[2022-12-04] MEDS: ketorolac 30 mg/mL INJ IVP ×2 (00:55→11:28)
[2022-12-04] MEDS: oxyCODONE 5 mg IR Tab/Cap PO ×4 (02:17→20:33)
[2022-12-04 02:59] LABS: Alanine Aminotransferase 22 U/L (0-41); Albumin Level 2.7 g/dL (3.5-5.2); Alkaline Phosphatase 63 U/L (40-130); Blood Urea Nitrogen 14 mg/dL (8-23); Calcium 7.8 mg/dL (8.5-10.5); Carbon Dioxide 25 mmol/L (22-29); Chloride 103 mmol/L (98-107); Ferritin 41 ng/mL (30-400); Globulin 2.4 g/dL (1.3-4.6); Glucose 103 mg/dL (65-115); Iron 38 ug/dL (59-158); Osmolality Calculated 279 mOsm/kg (285-295); Sodium 134 mmol/L (136-145); Total Bilirubin 0.2 mg/dL (0.15-1.2); Total Protein 5.1 g/dL (6.6-8.7)
[2022-12-04 03:00] LABS: Anion Gap 10.1 (5-19); Potassium 4.1 mmol/L (3.5-5.1)
[2022-12-04 03:00] LABS: Vancomycin Trough 7.6 ug/mL (10-15)
[2022-12-04 03:01] LABS: Aspartate Amino Transferase 27 U/L (0-40)
[2022-12-04] MEDS: vancomycin 1,000 MG in sodium chloride 0.9% 250 ML 250 MG IV (03:14)
[2022-12-04 03:26] LABS: Basophils # 0.1 10^3/uL (0.0-0.1); Basophils % 0.5 %; Eosinophils # 0.2 10^3/uL (0.0-0.8); Eosinophils % 1.8 %; Hematocrit 22.4 % (37-53); Lymphocytes # 1.9 10^3/uL (0.8-4.8); Lymphocytes % 18.3 %; Mean Corpuscular HGB Conc 31.3 g/dL (30-55); Mean Corpuscular Hemoglobin 26.5 pg (27-33); Mean Corpuscular Volume 84.8 fl (82-101); Mean Platelet Volume 9.3 fL (7.4-10.4); Monocytes # 0.7 10^3/uL (0.2-0.9); Monocytes % 6.3 %; Neutrophils % 71.9 %; Nucleated Red Blood Cells % 0 %; Platelet Count 364 10^3/cmm (157-399); Red Blood Count 2.64 10^6/uL (3.85-5.65); Red Cell Distribution Width 17.1 % (12.1-15.1); White Blood Count 10.57 10^3/uL (3.29-11.43)
[2022-12-04 03:26] LABS: Folate Level > 20.0 ng/mL (4.5-32.2)
--- NOTE | 2022-12-04 06:22 | P.PN_ITS ---
Subjective Subjective: Postop day #2 status post left BKA due to critical ischemia which was not unreconstructable. Low Hemovac drain output. Hemovac drain removed. Surgical dressing changed. Incision line clean, dry, and intact. Vitals/I&O/Wt Last Vital Signs Temp 98.1 F 12/04/22 04:13 Pulse 59 L 12/04/22 04:13 Resp 17 12/04/22 04:13 BP 147/72 12/04/22 04:13 Pulse Ox 97 12/04/22 04:13 O2 Del Method Nasal Cannula 12/03/22 15:11 O2 Flow Rate 3 12/02/22 10:11 12/03/22 12/03/22 12/04/22 14:59 22:59 06:59 Intake Total 1545 / 1545 1452 / 2997 250 / 3247 Output Total 565 / 565 720 / 1285 Balance 1545 / 1545 887 / 2432 -470 / 1962 Physical Exam Extremity: NARRATIVE EXTREMITY EXAM: Left BKA Hemovac drain removed. Incision line remains clean, dry, and intact. Urinary Catheter Management: Wade: Cath Placed During This Visit: yes Reason for Continuing Indwelling Catheter: Acute Urinary Retention or Obstruction Urinary Catheter Date of Insertion: 12/02/22 Urinary Catheter Time of Insertion: 20:38 Data 12/04/22 03:00 12/04/22 02:08 A&P Assessment and plan (1) Status post below-knee amputation of left lower extremity: Postop day #2 status post left BKA due to clinical no unreconstructable ischemia. Surgical dressing has been changed. Hemovac drain removed. There will be a high risk for subsequent infection or dehiscence of at least po rtions of the wound related to some dehiscence from the prior surgical incision preoperatively. This will need to be assessed very carefully. We will plan for daily dressing changes and painting of the incision line with Betadine. Wade catheter can be discontinued. Greatly appreciate expertise and oversight of our hospitalist colleagues. Attestations Medical Necessity Statement*: Status post left BKA due to critical nonreconstructable ischemia. Coding Level of Care Code Acute Code for Chg Fwd Diagnoses Status post below-knee amputation of left lower extremity Z89.512
[2022-12-04 06:50] LABS: Glucose Point of Care 129 mg/dL (70-110)
[2022-12-04] MEDS: lisinopril 10 mg Tablet PO (08:03)
[2022-12-04] MEDS: folic acid 1 mg Tablet PO (08:03)
[2022-12-04] MEDS: metoprolol tartrate 25 mg Tablet 12.5 MG PO ×2 (08:03→20:33)
[2022-12-04] MEDS: amlodipine 5 mg Tablet PO (08:03)
[2022-12-04] MEDS: aspirin 81 mg EC Tablet PO (08:03)
[2022-12-04] MEDS: docusate sodium 100 mg Capsule PO ×2 (08:03→16:48)
[2022-12-04] MEDS: iron complex forte Capsule 1 EACH PO ×2 (08:03→16:48)
--- NOTE | 2022-12-04 09:01 | PC.NURSE ---
Hold morning dose of xerelto for anemia this morning per Dr. Marks
[2022-12-04 11:08] LABS: Glucose Point of Care 137 mg/dL (70-110)
--- NOTE | 2022-12-04 11:11 | PM.PN ---
Subjective Subjective: Patient endorses severe pain. Rates it 10 out of 10. Discussed anemia and he is in agreement with blood transfusion. Denies other new complaints. Denies nausea or emesis. Reports appetite is okay. Medications: Reviewed: Yes Vitals/I&O/Wt Last Vital Signs Temp 97.7 F 12/04/22 08:00 Pulse 66 12/04/22 08:00 Resp 16 12/04/22 08:03 BP 152/72 12/04/22 08:00 Pulse Ox 97 12/04/22 08:00 O2 Del Method Nasal Cannula 12/04/22 08:00 O2 Flow Rate 3 12/02/22 10:11 12/03/22 12/04/22 12/04/22 22:59 06:59 14:59 Intake Total 1452 / 2997 250 / 3247 Output Total 565 / 565 720 / 1285 600 / 600 Balance 887 / 2432 -470 / 1962 -600 / -600 Physical Exam Narrative: General: Patient is awake. Lying in bed. Head: Normocephalic. Atraumatic. EOM intact. Neck: No JVD. Cardiovascular: RRR. No gallops. No murmurs. No peripheral edema. Lungs: Breath sounds diminished bilateral bases, no use of accessory muscles, no crackles or wheezes. Skin: No jaundice. No rashes. Abdomen: Normal bowel sounds, abdomen soft and nontender. Extremities: No cyanosis or clubbing. Musculoskeletal: Status post left BKA. Surgical site is wrapped in surgical bandages. Neurological: Moves all 4 extremities. No myoclonus. Urinary Catheter Management: Wade: Cath Placed During This Visit: yes, but has since been removed by the nurse Reason for Continuing Indwelling Catheter: Decision to DC Catheter Urinary Catheter Date of Insertion: 12/02/22 Urinary Catheter Time of Insertion: 20:38 Date Urinary Catheter Removed: 12/04/22 Time Urinary Catheter Discontinued: 08:11 Data 12/04/22 03:00 12/04/22 02:08 A&P Assessment and plan (1) Critical limb ischemia of left lower extremity: Status post left BKA on 12/02/2022 Surgery following, appreciate recommendations Wound care Multimodal pain control Therapy Will need postacute care Continue empiric vancomycin for now (2) Anemia: Postop anemia Transfuse 1 packed red blood cell Monitor (3) Status post below-knee amputation of left lower extremity: Management as above (4) Diabetes mellitus type 2 in nonobese: Sliding-scale insulin correction (5) DVT (deep venous thrombosis): Home Xarelto on hold, resume next dose (6) Coronary artery disease: Continue statin Continue aspirin Plan DVT prophylaxis: Xarelto CODE STATUS: Full code Attestations Medical Necessity Statement*: Patient requires ongoing hospitalization for wound care, supportive care, and therapy. Coding Level of Care Code Acute Code for [facility] Diagnoses Critical limb ischemia of left lower extremity I70.222 Anemia D64.9 Status post below-knee amputation of left lower extremity Z89.512 Diabetes mellitus type 2 in nonobese E11.9 DVT (deep venous thrombosis) I82.409 Coronary artery disease I25.10
[2022-12-04] MEDS: sodium chloride 0.9% 100 mL Bag 50 ML IV (14:27)
[2022-12-04 15:27] LABS: Vancomycin Trough 8.1 ug/mL (10-15)
[2022-12-04 16:22] LABS: Glucose Point of Care 131 mg/dL (70-110)
[2022-12-04] MEDS: vancomycin 1,500 MG/300 ML PIGGYBACK 200 MG IV (16:45)
[2022-12-04] MEDS: sennosides 8.6 mg Tablet 17.2 MG PO (16:48)
[2022-12-04] MEDS: pantoprazole DR 40 mg Tablet PO (16:48)
[2022-12-04] MEDS: HYDROmorphone 1 mg/mL INJ 1 mL IVP (17:43)
[2022-12-04 20:13] LABS: Glucose Point of Care 165 mg/dL (70-110)
[2022-12-04] MEDS: trazodone 100 mg Tablet PO (20:33)
[2022-12-04] MEDS: atorvastatin 40 mg Tablet PO (20:33)
[2022-12-04] MEDS: insulin lispro 100 unit/1 mL SUBCUT (20:33)
[2022-12-05] VITALS (11 sets, daily range): BP systolic 153–181; BP diastolic 63–84; PULSE 63–90; RESP 16–20; TEMP 36.4–36.9; O2SAT 93–96
[2022-12-05] MEDS: vancomycin 1,500 MG/300 ML PIGGYBACK 250 MG IV (04:13)
[2022-12-05] MEDS: oxyCODONE 5 mg IR Tab/Cap PO ×4 (04:13→20:02)
[2022-12-05 06:04] LABS: Basophils # 0.1 10^3/uL (0.0-0.1); Basophils % 0.7 %; Eosinophils # 0.3 10^3/uL (0.0-0.8); Eosinophils % 2.4 %; Hematocrit 34.2 % (37-53); Lymphocytes # 1.6 10^3/uL (0.8-4.8); Lymphocytes % 14.1 %; Mean Corpuscular HGB Conc 31.3 g/dL (30-55); Mean Corpuscular Volume 86.4 fl (82-101); Mean Platelet Volume 9.1 fL (7.4-10.4); Monocytes # 0.9 10^3/uL (0.2-0.9); Monocytes % 7.4 %; Neutrophils # 8.43 10^3/uL (1.8-7.7); Neutrophils % 73.6 %; Nucleated Red Blood Cells % 0 %; Platelet Count 431 10^3/cmm (157-399); Red Blood Count 3.96 10^6/uL (3.85-5.65); Red Cell Distribution Width 16.4 % (12.1-15.1); White Blood Count 11.46 10^3/uL (3.29-11.43)
[2022-12-05 06:20] LABS: Albumin Level 2.9 g/dL (3.5-5.2); Anion Gap 12.4 (5-19); Blood Urea Nitrogen 13 mg/dL (8-23); Calcium 8.5 mg/dL (8.5-10.5); Carbon Dioxide 26 mmol/L (22-29); Chloride 102 mmol/L (98-107); Glomerular Filtration Rate 74.8 mL/min (90-130); Glucose 126 mg/dL (65-115); Magnesium 1.7 mg/dL (1.7-2.3); Potassium 4.4 mmol/L (3.5-5.1); Sodium 136 mmol/L (136-145)
[2022-12-05 06:25] LABS: Glucose Point of Care 115 mg/dL (70-110)
[2022-12-05] MEDS: HYDROmorphone 1 mg/mL INJ 1 mL IVP (08:26)
--- NOTE | 2022-12-05 09:17 | PM.PN ---
Subjective Subjective: Patient denies fevers, chills, nausea or emesis. Reports appetite is OK. Reports pain at surgical site. Denies other new complaints. Medications: Reviewed: Yes Vitals/I&O/Wt Last Vital Signs Temp 98.5 F 12/05/22 06:58 Pulse 66 12/05/22 06:58 Resp 17 12/05/22 08:26 BP 181/84 12/05/22 06:58 Pulse Ox 93 12/05/22 08:26 O2 Del Method Nasal Cannula 12/05/22 06:58 O2 Flow Rate 3 12/02/22 10:11 12/04/22 12/05/22 12/05/22 22:59 06:59 14:59 Intake Total 1270 / 1510 540 / 2050 240 / 240 Output Total 3350 / 3950 900 / 4850 Balance -2080 / -2440 -360 / -2800 240 / 240 Physical Exam Narrative: General: Patient is awake. Alert. Head: Normocephalic. Atraumatic. EOM intact. Neck: No JVD. Cardiovascular: RRR. No gallops. No murmurs. Lungs: Breath sounds diminished bilateral bases, no use of accessory muscles, no crackles or wheezes. Skin: No jaundice. No rashes. Abdomen: Normal bowel sounds, abdomen soft and nontender. Extremities: No cyanosis or clubbing. Musculoskeletal: Status post left BKA w/ surgical site wrapped in bandages. Neurological: Moves all 4 extremities. No myoclonus. Urinary Catheter Management: Wade: Cath Placed During This Visit: yes, but has since been removed by the nurse Reason for Continuing Indwelling Catheter: Decision to DC Catheter Urinary Catheter Date of Insertion: 12/02/22 Urinary Catheter Time of Insertion: 20:38 Date Urinary Catheter Removed: 12/04/22 Time Urinary Catheter Discontinued: 08:11 Data 12/05/22 05:30 12/05/22 05:30 A&P Assessment and plan (1) Critical limb ischemia of left lower extremity: Status post left BKA on 12/02/2022 Surgery following, appreciate recommendations Wound care Discontinue IV analgesics Adjust oral pain regiment Start gabapentin Continue therapy Will need postacute care (2) Anemia: Improved, status post 1 packed red blood cell (3) Status post below-knee amputation of left lower extremity: Management as above (4) Diabetes mellitus type 2 in nonobese: Sliding-scale insulin correction (5) DVT (deep venous thrombosis): Continue Xarelto (6) Coronary artery disease: Continue statin Continue aspirin Plan DVT prophylaxis: Xarelto CODE STATUS: Full code Attestations Medical Necessity Statement*: Patient requires ongoing hospitalization for wound care, supportive care, and therapy. Coding Level of Care Code Acute Code for g Fwd Diagnoses Critical limb ischemia of left lower extremity I70.222 Anemia D64.9 Status post below-knee amputation of left lower extremity Z89.512 Diabetes mellitus type 2 in nonobese E11.9 DVT (deep venous thrombosis) I82.409 Coronary artery disease I25.10
[2022-12-05] MEDS: lisinopril 10 mg Tablet PO (09:39)
[2022-12-05] MEDS: iron complex forte Capsule 1 EACH PO ×2 (09:40→17:16)
[2022-12-05] MEDS: aspirin 81 mg EC Tablet PO (09:41)
[2022-12-05] MEDS: amlodipine 5 mg Tablet PO (09:41)
[2022-12-05] MEDS: metoprolol tartrate 25 mg Tablet 12.5 MG PO ×2 (09:42→20:02)
[2022-12-05] MEDS: docusate sodium 100 mg Capsule PO ×2 (09:43→17:17)
[2022-12-05] MEDS: sennosides 8.6 mg Tablet 17.2 MG PO ×2 (09:43→17:17)
[2022-12-05] MEDS: pantoprazole DR 40 mg Tablet PO ×2 (09:43→17:17)
[2022-12-05] MEDS: rivaroxaban 10 mg Tablet 15 MG PO (09:46)
--- NOTE | 2022-12-05 10:23 | P.PN_ITS ---
Subjective Subjective: Postop day #3 status post left BKA. Postop discomfort is under good control. Mr. Tipton has been sleeping a great deal. He is receiving evaluations and recommendations by our physical therapy service. Vitals/I&O/Wt Last Vital Signs Temp 98.5 F 12/05/22 06:58 Pulse 90 12/05/22 09:33 Resp 17 12/05/22 08:26 BP 181/84 12/05/22 06:58 Pulse Ox 96 12/05/22 09:33 O2 Del Method Nasal Cannula 12/05/22 09:33 O2 Flow Rate 2 12/05/22 09:33 12/04/22 12/05/22 12/05/22 22:59 06:59 14:59 Intake Total 1270 / 1510 540 / 2050 240 / 240 Output Total 3350 / 3950 900 / 4850 Balance -2080 / -2440 -360 / -2800 240 / 240 Physical Exam Extremity: NARRATIVE EXTREMITY EXAM: Postop dressing for yesterday remains in place. No evidence for strikethrough. Urinary Catheter Management: Wade: Cath Placed During This Visit: yes, but has since been removed by the nurse Reason for Continuing Indwelling Catheter: Decision to DC Catheter Urinary Catheter Date of Insertion: 12/02/22 Urinary Catheter Time of Insertion: 20:38 Date Urinary Catheter Removed: 12/04/22 Time Urinary Catheter Discontinued: 08:11 Data 12/05/22 05:30 12/05/22 05:30 A&P Assessment and plan (1) Status post below-knee amputation of left lower extremity: Postop day #3 status post left below-knee amputation. Recommend daily dressing changes by nursing service with pain of incision line with Betadine and recovering. Continue postop management and disposition as directed by our hospitalist colleagues. Attestations Medical Necessity Statement*: Status post left BKA due to critical limb ischemia with an non-reconstructable P AD Coding Level of Care Code Acute Code for Chg Fwd Diagnoses Status post below-knee amputation of left lower extremity Z89.512
[2022-12-05 11:10] LABS: Glucose Point of Care 132 mg/dL (70-110)
[2022-12-05] MEDS: acetaminophen 500 mg Tablet 1000 MG PO (15:16)
[2022-12-05] MEDS: gabapentin 100 mg Capsule PO ×2 (15:17→20:02)
[2022-12-05 15:58] LABS: Glucose Point of Care 139 mg/dL (70-110)
[2022-12-05] MEDS: trazodone 100 mg Tablet PO (20:02)
[2022-12-05] MEDS: atorvastatin 40 mg Tablet PO (20:02)
[2022-12-05] MEDS: insulin lispro 100 unit/1 mL SUBCUT (20:02)
[2022-12-05 20:04] LABS: Glucose Point of Care 147 mg/dL (70-110)
[2022-12-06] VITALS (10 sets, daily range): BP systolic 145–175; BP diastolic 70–84; PULSE 55–72; RESP 18; TEMP 36.4–36.8; O2SAT 92–96
[2022-12-06 04:59] LABS: Basophils # 0.1 10^3/uL (0.0-0.1); Basophils % 0.7 %; Eosinophils # 0.3 10^3/uL (0.0-0.8); Eosinophils % 2.5 %; Hematocrit 34.2 % (37-53); Lymphocytes # 1.8 10^3/uL (0.8-4.8); Lymphocytes % 16.9 %; Mean Corpuscular HGB Conc 31.3 g/dL (30-55); Mean Corpuscular Hemoglobin 26.8 pg (27-33); Mean Corpuscular Volume 85.5 fl (82-101); Monocytes # 0.8 10^3/uL (0.2-0.9); Monocytes % 7.3 %; Neutrophils # 7.41 10^3/uL (1.8-7.7); Neutrophils % 71.5 %; Nucleated Red Blood Cells % 0.2 %; Platelet Count 421 10^3/cmm (157-399); White Blood Count 10.36 10^3/uL (3.29-11.43)
[2022-12-06 05:21] LABS: Albumin Level 3.1 g/dL (3.5-5.2); Anion Gap 11.6 (5-19); Blood Urea Nitrogen 13 mg/dL (8-23); Calcium 8.5 mg/dL (8.5-10.5); Carbon Dioxide 26 mmol/L (22-29); Chloride 103 mmol/L (98-107); Glucose 112 mg/dL (65-115); Magnesium 1.7 mg/dL (1.7-2.3); Phosphorus 3.5 mg/dL (2.5-4.5); Potassium 4.6 mmol/L (3.5-5.1); Sodium 136 mmol/L (136-145)
[2022-12-06 06:53] LABS: Glucose Point of Care 109 mg/dL (70-110)
[2022-12-06] MEDS: sennosides 8.6 mg Tablet 17.2 MG PO ×2 (09:13→17:10)
[2022-12-06] MEDS: aspirin 81 mg EC Tablet PO (09:13)
[2022-12-06] MEDS: amlodipine 5 mg Tablet PO (09:13)
[2022-12-06] MEDS: gabapentin 100 mg Capsule PO (09:13)
[2022-12-06] MEDS: iron complex forte Capsule 1 EACH PO ×2 (09:13→17:09)
[2022-12-06] MEDS: rivaroxaban 10 mg Tablet 15 MG PO (09:13)
[2022-12-06] MEDS: docusate sodium 100 mg Capsule PO ×2 (09:13→17:09)
[2022-12-06] MEDS: pantoprazole DR 40 mg Tablet PO ×2 (09:13→17:09)
[2022-12-06] MEDS: oxyCODONE 5 mg IR Tab/Cap PO ×4 (09:14→20:29)
[2022-12-06] MEDS: metoprolol tartrate 25 mg Tablet 12.5 MG PO ×2 (09:15→20:29)
[2022-12-06] MEDS: meloxicam 7.5 mg tablet PO (09:15)
[2022-12-06] MEDS: folic acid 1 mg Tablet PO (09:15)
[2022-12-06] MEDS: lisinopril 10 mg Tablet PO (09:15)
[2022-12-06 11:11] LABS: Glucose Point of Care 110 mg/dL (70-110)
--- NOTE | 2022-12-06 11:11 | PM.PN ---
Subjective Subjective: Patient rates his pain 8 out of 10. He is unsure if the initiation of gabapentin improved his pain control. Denies fevers, chills, nausea or emesis. He reports his appetite is okay. Working with therapy. Medications: Reviewed: Yes Vitals/I&O/Wt Last Vital Signs Temp 98.2 F 12/06/22 07:09 Pulse 72 12/06/22 07:09 Resp 18 12/06/22 09:14 BP 158/76 12/06/22 07:09 Pulse Ox 94 12/06/22 09:14 O2 Del Method Room Air 12/06/22 07:09 O2 Flow Rate 2 12/05/22 09:33 12/05/22 12/06/22 12/06/22 22:59 06:59 14:59 Intake Total 240 / 720 482 / 482 Output Total 700 / 1000 500 / 1500 400 / 400 Balance -460 / -280 -500 / -780 82 / 82 Physical Exam Narrative: General: Patient is awake. Alert. Conversational. Head: Normocephalic. Atraumatic. EOM intact. Neck: No JVD. Cardiovascular: RRR. No gallops. No murmurs. Lungs: Breath sounds diminished bilateral bases, no use of accessory muscles, no crackles or wheezes. Skin: No jaundice. No rashes. Abdomen: Normal bowel sounds, abdomen soft and nontender. Extremities: No cyanosis or clubbing. Musculoskeletal: Status post left BKA w/ surgical site wrapped in Edward bandages. Neurological: Moves all 4 extremities. No myoclonus. Urinary Catheter Management: Wade: Cath Placed During This Visit: yes, but has since been removed by the nurse Reason for Continuing Indwelling Catheter: Decision to DC Catheter Urinary Catheter Date of Insertion: 12/02/22 Urinary Catheter Time of Insertion: 20:38 Date Urinary Catheter Removed: 12/04/22 Time Urinary Catheter Discontinued: 08:11 Data 12/06/22 04:51 12/06/22 04:51 Micro: Microbiology 12/01/22 08:30 Blood Culture - Final Blood NO GROWTH AFTER 5 DAYS 12/01/22 08:00 Blood Culture - Final Blood NO GROWTH AFTER 5 DAYS A&P Assessment and plan (1) Critical limb ischemia of left lower extremity: Status post left BKA on 12/02/2022 Surgery following, appreciate recommendations Continue routine wound care Increase gabapentin dosing Continue scheduled Tylenol Oxycodone for breakthrough pain Continue bowel regiment Continue therapy Will need postacute care (2) Anemia: Improved, status post 1 packed red blood cell Continue iron supplementation (3) Status post below-knee amputation of left lower extremity: Management as above (4) Diabetes mellitus type 2 in nonobese: Sliding-scale insulin correction (5) DVT (deep venous thrombosis): Continue Xarelto (6) Coronary artery disease: Continue statin Continue aspirin Plan DVT prophylaxis: Xarelto CODE STATUS: Full code Attestations Medical Necessity Statement*: Patient requires ongoing hospitalization for wound care, supportive care, and therapy. Coding Level of Care Code Acute Code for [facility] Fwd Diagnoses Critical limb ischemia of left lower extremity I70.222 Anemia D64.9 Status post below-knee amputation of left lower extremity Z89.512 Diabetes mellitus type 2 in nonobese E11.9 DVT (deep venous thrombosis) I82.409 Coronary artery disease I25.10
--- NOTE | 2022-12-06 12:03 | PC.SOCIAL ---
IMM Updated Updated pt on IMM. No questions voiced. Provided pt copy. Initialed, dated, & timed copy in chart.
[2022-12-06] MEDS: gabapentin 300 mg Capsule PO ×2 (14:05→20:29)
[2022-12-06] MEDS: acetaminophen 500 mg Tablet 1000 MG PO (14:05)
[2022-12-06] MEDS: TRAMadol 50 mg Tablet PO (14:06)
[2022-12-06 16:31] LABS: Glucose Point of Care 120 mg/dL (70-110)
[2022-12-06 20:00] LABS: Glucose Point of Care 161 mg/dL (70-110)
[2022-12-06] MEDS: atorvastatin 40 mg Tablet PO (20:28)
[2022-12-06] MEDS: trazodone 100 mg Tablet PO (20:29)
[2022-12-06] MEDS: insulin lispro 100 unit/1 mL SUBCUT (20:29)
[2022-12-07] VITALS (10 sets, daily range): BP systolic 145–160; BP diastolic 69–88; PULSE 64–83; RESP 18; TEMP 36.4–37; O2SAT 93–95
[2022-12-07] MEDS: oxyCODONE 5 mg IR Tab/Cap PO (04:00)
[2022-12-07 06:19] LABS: Glucose Point of Care 99 mg/dL (70-110)
[2022-12-07] MEDS: psyllium powder Pkt 1 PACKET PO (08:33)
[2022-12-07] MEDS: meloxicam 7.5 mg tablet PO (08:34)
[2022-12-07] MEDS: iron complex forte Capsule 1 EACH PO ×2 (08:34→17:19)
[2022-12-07] MEDS: sennosides 8.6 mg Tablet 17.2 MG PO ×2 (08:34→17:19)
[2022-12-07] MEDS: metoprolol tartrate 25 mg Tablet 12.5 MG PO ×2 (08:34→20:29)
[2022-12-07] MEDS: docusate sodium 100 mg Capsule PO ×2 (08:34→17:19)
[2022-12-07] MEDS: rivaroxaban 10 mg Tablet 15 MG PO (08:35)
[2022-12-07] MEDS: lisinopril 10 mg Tablet PO (08:36)
[2022-12-07] MEDS: pantoprazole DR 40 mg Tablet PO ×2 (08:36→17:19)
[2022-12-07] MEDS: folic acid 1 mg Tablet PO (08:36)
[2022-12-07] MEDS: aspirin 81 mg EC Tablet PO (08:36)
[2022-12-07] MEDS: gabapentin 300 mg Capsule PO ×3 (08:36→20:29)
[2022-12-07] MEDS: amlodipine 5 mg Tablet PO (08:36)
[2022-12-07] MEDS: oxyCODONE 5 mg IR Tab/Cap 10 MG PO ×3 (08:38→19:23)
--- NOTE | 2022-12-07 09:15 | PC.NURSE ---
Dr. Wayne rounded with patient and provided verbal order for new wound care d/t junction of two incisions to medial knee having increased moisture and sponginess upon assessment. Verbal order placed as ordered by Dr. Wayne. Wound care performed as ordered, patient denies increased pain or discomfort during dressing change. Reviewed type of dressings used and indications for use. He verbalizes understanding and denies questions/concerns. Updated Shaneka Mead RN and Pop Mota RN of status and new orders.
--- NOTE | 2022-12-07 09:59 | PM.PN ---
Subjective Subjective: Patient is awake and alert. Reports he was able to make it to the bathroom using the walker but this caused him severe pain. He reports otherwise his pain control has improved. Denies fevers, chills, chest pain, or shortness of breath. Edward wrap now off surgical site. Medications: Reviewed: Yes Vitals/I&O/Wt Last Vital Signs Temp 98.1 F 12/07/22 07:54 Pulse 83 12/07/22 07:54 Resp 18 12/07/22 08:38 BP 151/83 12/07/22 07:54 Pulse Ox 93 12/07/22 07:54 O2 Del Method Room Air 12/07/22 07:54 O2 Flow Rate 2 12/05/22 09:33 12/06/22 12/07/22 12/07/22 22:59 06:59 14:59 Intake Total 960 / 1922 480 / 2402 Output Total 600 / 1200 600 / 1800 400 / 400 Balance 360 / 722 -120 / 602 -400 / -400 Physical Exam Narrative: General: Patient is awake. Alert. Conversational. Head: Normocephalic. Atraumatic. EOM intact. Neck: No JVD. Cardiovascular: RRR. No gallops. No murmurs. Lungs: Breath sounds diminished bilateral bases, no use of accessory muscles, no crackles or wheezes. Skin: No jaundice. No rashes. Abdomen: Normal bowel sounds, abdomen soft and nontender. Extremities: No cyanosis or clubbing. Musculoskeletal: Status post left BKA w/ surgical site covered w/ bandage w/ minimal breakthrough Neurological: Moves all 4 extremities. No myoclonus. Urinary Catheter Management: Wade: Cath Placed During This Visit: yes, but has since been removed by the nurse Reason for Continuing Indwelling Catheter: Decision to DC Catheter Urinary Catheter Date of Insertion: 12/02/22 Urinary Catheter Time of Insertion: 20:38 Date Urinary Catheter Removed: 12/04/22 Time Urinary Catheter Discontinued: 08:11 Data 12/06/22 04:51 12/06/22 04:51 Micro: Microbiology 12/01/22 08:30 Blood Culture - Final Blood NO GROWTH AFTER 5 DAYS 12/01/22 08:00 Blood Culture - Final Blood NO GROWTH AFTER 5 DAYS A&P Assessment and plan (1) Critical limb ischemia of left lower extremity: Status post left BKA on 12/02/2022 Routine wound care Continue gabapentin Continue oxycodone PRN Continue scheduled Tylenol Continue bowel regiment Continue therapy (2) Anemia: HGB stable, monitor PRN (3) Status post below-knee amputation of left lower extremity: Management as above (4) Diabetes mellitus type 2 in nonobese: Sliding-scale insulin correction (5) DVT (deep venous thrombosis): Continue Xarelto (6) Coronary artery disease: Continue statin Continue aspirin Plan DVT prophylaxis: Xarelto CODE STATUS: Full code Attestations Medical Necessity Statement*: Patient requires ongoing hospitalization for wound care, supportive care, and therapy. Coding Level of Care Code Acute Code for [facility] Fwd Diagnoses Critical limb ischemia of left lower extremity I70.222 Anemia D64.9 Status post below-knee amputation of left lower extremity Z89.512 Diabetes mellitus type 2 in nonobese E11.9 DVT (deep venous thrombosis) I82.409 Coronary artery disease I25.10
[2022-12-07 11:44] LABS: Glucose Point of Care 136 mg/dL (70-110)
[2022-12-07] MEDS: acetaminophen 500 mg Tablet 1000 MG PO ×2 (16:16→22:47)
[2022-12-07 17:07] LABS: Glucose Point of Care 107 mg/dL (70-110)
[2022-12-07 20:12] LABS: Glucose Point of Care 164 mg/dL (70-110)
[2022-12-07] MEDS: trazodone 100 mg Tablet PO (20:29)
[2022-12-07] MEDS: atorvastatin 40 mg Tablet PO (20:29)
[2022-12-07] MEDS: insulin lispro 100 unit/1 mL SUBCUT (21:00)
[2022-12-07] MEDS: TRAMadol 50 mg Tablet PO (21:04)
[2022-12-08] VITALS (7 sets, daily range): BP systolic 136–169; BP diastolic 70–82; PULSE 57–66; RESP 16–18; TEMP 36.4–37; O2SAT 93–96
[2022-12-08] MEDS: acetaminophen 500 mg Tablet 1000 MG PO ×2 (06:13→17:06)
[2022-12-08 06:19] LABS: Glucose Point of Care 110 mg/dL (70-110)
[2022-12-08] MEDS: rivaroxaban 10 mg Tablet 15 MG PO (08:21)
[2022-12-08] MEDS: aspirin 81 mg EC Tablet PO (08:22)
[2022-12-08] MEDS: sennosides 8.6 mg Tablet 17.2 MG PO ×2 (08:23→17:06)
[2022-12-08] MEDS: oxyCODONE 5 mg IR Tab/Cap 10 MG PO ×4 (08:23→20:23)
[2022-12-08] MEDS: gabapentin 300 mg Capsule PO ×3 (08:25→20:24)
[2022-12-08] MEDS: docusate sodium 100 mg Capsule PO ×2 (08:26→17:07)
[2022-12-08] MEDS: metoprolol tartrate 25 mg Tablet 12.5 MG PO ×2 (08:26→20:23)
[2022-12-08] MEDS: amlodipine 5 mg Tablet PO (08:26)
[2022-12-08] MEDS: pantoprazole DR 40 mg Tablet PO ×2 (08:29→17:07)
[2022-12-08] MEDS: meloxicam 7.5 mg tablet PO (08:29)
[2022-12-08] MEDS: iron complex forte Capsule 1 EACH PO ×2 (08:29→17:07)
[2022-12-08] MEDS: lisinopril 10 mg Tablet PO (08:30)
[2022-12-08] MEDS: folic acid 1 mg Tablet PO (08:30)
--- NOTE | 2022-12-08 10:09 | PM.PN ---
Subjective Subjective: Patient reports pain is adequately controlled on current medications. Denies fevers, chills, nausea or emesis. Medications: Reviewed: Yes Vitals/I&O/Wt Last Vital Signs Temp 97.5 F L 12/08/22 07:57 Pulse 57 L 12/08/22 07:57 Resp 18 12/08/22 08:23 BP 169/82 12/08/22 07:57 Pulse Ox 93 12/08/22 07:57 O2 Del Method Room Air 12/08/22 07:57 O2 Flow Rate 2 12/05/22 09:33 12/07/22 12/08/22 12/08/22 22:59 06:59 14:59 Intake Total 360 / 840 240 / 1080 480 / 480 Output Total 300 / 1000 600 / 1600 350 / 350 Balance 60 / -160 -360 / -520 130 / 130 Physical Exam Narrative: General: Patient is awake. Alert. Lying in bed. Head: Normocephalic. Atraumatic. EOM intact. Neck: No JVD. Cardiovascular: RRR. No gallops. No murmurs. Lungs: Breath sounds diminished bilateral bases, no use of accessory muscles, no crackles or wheezes. Skin: No jaundice. No rashes. Abdomen: Normal bowel sounds, abdomen soft and nontender. Extremities: No cyanosis or clubbing. Musculoskeletal: Status post left BKA w/ surgical site covered. Neurological: Moves all 4 extremities. No myoclonus. Urinary Catheter Management: Wade: Cath Placed During This Visit: yes, but has since been removed by the nurse Reason for Continuing Indwelling Catheter: Decision to DC Catheter Urinary Catheter Date of Insertion: 12/02/22 Urinary Catheter Time of Insertion: 20:38 Date Urinary Catheter Removed: 12/04/22 Time Urinary Catheter Discontinued: 08:11 Data 12/06/22 04:51 12/06/22 04:51 A&P Assessment and plan (1) Critical limb ischemia of left lower extremity: Status post left BKA on 12/02/2022 Continue wound care, patient unable to perform Continue gabapentin Continue oxycodone PRN Continue scheduled Tylenol Continue bowel regiment Continue therapy (2) Anemia: HGB stable, monitor PRN (3) Status post below-knee amputation of left lower extremity: Management as above (4) Diabetes mellitus type 2 in nonobese: Stop insulin Start home metformin (5) DVT (deep venous thrombosis): Continue Xarelto (6) Coronary artery disease: Continue statin Continue aspirin Plan DVT prophylaxis: Xarelto CODE STATUS: Full code Attestations Medical Necessity Statement*: Patient requires ongoing hospitalization for wound care, supportive care, and therapy. Coding Level of Care Code Acute Code for [facility] Diagnoses Critical limb ischemia of left lower extremity I70.222 Anemia D64.9 Status post below-knee amputation of left lower extremity Z89.512 Diabetes mellitus type 2 in nonobese E11.9 DVT (deep venous thrombosis) I82.409 Coronary artery disease I25.10
[2022-12-08] MEDS: TRAMadol 50 mg Tablet PO ×2 (10:14→20:25)
--- NOTE | 2022-12-08 11:11 | PC.SOCIAL ---
IMM Updated Updated pt on IMM. No questions voiced. Provided pt a copy. Initialed, dated , & timed copy in chart.
[2022-12-08 11:30] LABS: Glucose Point of Care 109 mg/dL (70-110)
[2022-12-08 16:39] LABS: Glucose Point of Care 107 mg/dL (70-110)
[2022-12-08] MEDS: metformin 500 mg Tablet PO (17:06)
[2022-12-08] MEDS: atorvastatin 40 mg Tablet PO (20:24)
[2022-12-08] MEDS: trazodone 100 mg Tablet PO (20:25)
[2022-12-09] VITALS (12 sets, daily range): BP systolic 110–162; BP diastolic 63–75; PULSE 58–85; RESP 16–18; TEMP 36.3–36.7; O2SAT 92–97
[2022-12-09] MEDS: oxyCODONE 5 mg IR Tab/Cap 10 MG PO ×5 (01:05→20:36)
[2022-12-09] MEDS: acetaminophen 500 mg Tablet 1000 MG PO ×3 (06:58→23:17)
[2022-12-09] MEDS: rivaroxaban 10 mg Tablet 15 MG PO (08:36)
[2022-12-09] MEDS: gabapentin 300 mg Capsule PO ×3 (08:37→20:34)
[2022-12-09] MEDS: duloxetine 60 mg Capsule PO (08:37)
[2022-12-09] MEDS: amlodipine 5 mg Tablet PO (08:37)
[2022-12-09] MEDS: iron complex forte Capsule 1 EACH PO (08:37)
[2022-12-09] MEDS: aspirin 81 mg EC Tablet PO (08:37)
[2022-12-09] MEDS: pantoprazole DR 40 mg Tablet PO ×2 (08:37→17:25)
[2022-12-09] MEDS: folic acid 1 mg Tablet PO (08:37)
[2022-12-09] MEDS: docusate sodium 100 mg Capsule PO ×2 (08:37→17:25)
[2022-12-09] MEDS: sennosides 8.6 mg Tablet 17.2 MG PO ×2 (08:38→17:25)
[2022-12-09] MEDS: metformin 500 mg Tablet PO ×2 (08:38→17:25)
[2022-12-09] MEDS: lisinopril 10 mg Tablet PO (08:38)
--- NOTE | 2022-12-09 08:43 | PM.PN ---
Subjective Subjective: Patient reports constipation has improved with bowel movement yesterday. Reports pain is adequately controlled on current regimen. Denies other new complaints. Denies nausea, headaches, chest pain or shortness of breath. Medications: Reviewed: Yes Vitals/I&O/Wt Last Vital Signs Temp 97.5 F L 12/09/22 07:50 Pulse 85 12/09/22 07:50 Resp 18 12/09/22 07:50 BP 110/69 12/09/22 07:50 Pulse Ox 97 12/09/22 07:50 O2 Del Method Room Air 12/09/22 07:50 O2 Flow Rate 2 12/05/22 09:33 12/08/22 12/09/22 12/09/22 22:59 06:59 14:59 Output Total 625 / 975 325 / 1300 Balance -625 / 225 -325 / -100 Physical Exam Narrative: General: Patient is awake. Alert. Conversational. Pleasant. Head: Normocephalic. Atraumatic. EOM intact. Neck: No JVD. Cardiovascular: RRR. No gallops. No murmurs. Lungs: Breath sounds diminished bilateral bases, no use of accessory muscles, no crackles or wheezes. Skin: No jaundice. No rashes. Abdomen: Normal bowel sounds, abdomen soft and nontender. Extremities: No cyanosis or clubbing. Musculoskeletal: Status post left BKA w/ surgical site covered. Neurological: Moves all 4 extremities. No myoclonus. Urinary Catheter Management: Wade: Cath Placed During This Visit: yes, but has since been removed by the nurse Reason for Continuing Indwelling Catheter: Decision to DC Catheter Urinary Catheter Date of Insertion: 12/02/22 Urinary Catheter Time of Insertion: 20:38 Date Urinary Catheter Removed: 12/04/22 Time Urinary Catheter Discontinued: 08:11 Data 12/06/22 04:51 12/06/22 04:51 A&P Assessment and plan (1) Critical limb ischemia of left lower extremity: Status post left BKA on 12/02/2022 Continue wound care, patient unable to perform Continue gabapentin Continue oxycodone PRN Continue scheduled Tylenol Continue bowel regiment Continue therapy (2) Anemia: HGB stable, monitor PRN (3) Status post below-knee amputation of left lower extremity: Management as above (4) Diabetes mellitus type 2 in nonobese: Continue metformin (5) DVT (deep venous thrombosis): Continue Xarelto (6) Coronary artery disease: Continue statin Continue aspirin (7) Depression: Start Cymbalta Plan DVT prophylaxis: Xarelto CODE STATUS: Full code Attestations Medical Necessity Statement*: Patient requires ongoing hospitalization for wound care, supportive care, and therapy. Coding Level of Care Code Acute Code for [facility] Diagnoses Critical limb ischemia of left lower extremity I70.222 Anemia D64.9 Status post below-knee amputation of left lower extremity Z89.512 Diabetes mellitus type 2 in nonobese E11.9 DVT (deep venous thrombosis) I82.409 Coronary artery disease I25.10 Depression F32.A
[2022-12-09] MEDS: metoprolol tartrate 25 mg Tablet 12.5 MG PO ×2 (10:07→20:35)
[2022-12-09 11:01] LABS: Glucose Point of Care 111 mg/dL (70-110)
[2022-12-09] MEDS: chlorhexidine gluconate 4% Btl 118 mL 1 APPLIC TOPICAL (12:11)
[2022-12-09 16:55] LABS: Glucose Point of Care 126 mg/dL (70-110)
[2022-12-09] MEDS: atorvastatin 40 mg Tablet PO (20:33)
[2022-12-09] MEDS: trazodone 100 mg Tablet 150 MG PO (20:34)
[2022-12-09 20:46] LABS: Glucose Point of Care 108 mg/dL (70-110)
[2022-12-10] VITALS (12 sets, daily range): BP systolic 116–176; BP diastolic 69–77; PULSE 60–92; RESP 16–18; TEMP 36.3–36.8; O2SAT 91–94
[2022-12-10 05:19] LABS: Basophils # 0.1 10^3/uL (0.0-0.1); Basophils % 0.9 %; Eosinophils # 0.3 10^3/uL (0.0-0.8); Eosinophils % 3.5 %; Hematocrit 35.4 % (37-53); Lymphocytes # 1.8 10^3/uL (0.8-4.8); Lymphocytes % 20.2 %; Mean Corpuscular HGB Conc 31.1 g/dL (30-55); Mean Corpuscular Hemoglobin 27.2 pg (27-33); Mean Corpuscular Volume 87.6 fl (82-101); Monocytes % 10.8 %; Neutrophils # 5.63 10^3/uL (1.8-7.7); Neutrophils % 63.9 %; Nucleated Red Blood Cells % 0 %; Platelet Count 416 10^3/cmm (157-399); Red Blood Count 4.04 10^6/uL (3.85-5.65); Red Cell Distribution Width 15.9 % (12.1-15.1); White Blood Count 8.81 10^3/uL (3.29-11.43)
[2022-12-10 05:56] LABS: Albumin Level 3.3 g/dL (3.5-5.2); Anion Gap 12.7 (5-19); Blood Urea Nitrogen 17 mg/dL (8-23); Calcium 8.7 mg/dL (8.5-10.5); Carbon Dioxide 25 mmol/L (22-29); Chloride 97 mmol/L (98-107); Glomerular Filtration Rate 60.6 mL/min (90-130); Glucose 102 mg/dL (65-115); Potassium 4.7 mmol/L (3.5-5.1); Sodium 130 mmol/L (136-145)
[2022-12-10] MEDS: acetaminophen 500 mg Tablet 1000 MG PO ×3 (06:23→23:13)
[2022-12-10] MEDS: oxyCODONE 5 mg IR Tab/Cap 10 MG PO ×5 (06:23→20:58)
[2022-12-10 06:45] LABS: Glucose Point of Care 114 mg/dL (70-110)
[2022-12-10] MEDS: metformin 500 mg Tablet PO ×2 (08:13→17:40)
[2022-12-10] MEDS: sennosides 8.6 mg Tablet 17.2 MG PO ×2 (08:14→17:39)
[2022-12-10] MEDS: aspirin 81 mg EC Tablet PO (08:14)
[2022-12-10] MEDS: rivaroxaban 10 mg Tablet 15 MG PO (08:14)
[2022-12-10] MEDS: duloxetine 60 mg Capsule PO (08:14)
[2022-12-10] MEDS: gabapentin 300 mg Capsule PO ×3 (08:14→20:56)
[2022-12-10] MEDS: docusate sodium 100 mg Capsule PO ×2 (08:14→17:39)
[2022-12-10] MEDS: folic acid 1 mg Tablet PO (08:15)
[2022-12-10] MEDS: pantoprazole DR 40 mg Tablet PO ×2 (08:15→17:39)
[2022-12-10] MEDS: lisinopril 10 mg Tablet PO (08:15)
[2022-12-10] MEDS: amlodipine 5 mg Tablet PO (08:19)
[2022-12-10] MEDS: metoprolol tartrate 25 mg Tablet 12.5 MG PO ×2 (08:21→20:57)
--- NOTE | 2022-12-10 12:17 | PM.PN ---
Subjective Subjective: Patient denies any new complaints. Reports pain is controlled and moving bowel fine. Denies fevers, chills, nausea or emesis. Medications: Reviewed: Yes Vitals/I&O/Wt Last Vital Signs Temp 98.1 F 12/10/22 11:52 Pulse 66 12/10/22 11:52 Resp 17 12/10/22 11:52 BP 176/72 12/10/22 11:52 Pulse Ox 94 12/10/22 11:52 O2 Del Method Room Air 12/10/22 11:52 O2 Flow Rate 2 12/05/22 09:33 12/09/22 12/10/22 12/10/22 22:59 06:59 14:59 Intake Total 600 / 1320 480 / 480 Output Total 500 / 950 200 / 1150 300 / 300 Balance 100 / 370 -200 / 170 180 / 180 Physical Exam Narrative: General: Patient is awake and alert. Pleasant. Head: Normocephalic. Atraumatic. EOM intact. Neck: No JVD. Cardiovascular: RRR. No gallops. No murmurs. Lungs: Good air movement. No wheezing. No rales. No crackles. Skin: No jaundice. No rashes. Abdomen: Normal bowel sounds, abdomen soft and nontender. Extremities: No cyanosis or clubbing. Musculoskeletal: Status post left BKA w/ surgical site covered w/ JOSUE wrapping. Neurological: Moves all 4 extremities. No myoclonus. Urinary Catheter Management: Wade: Cath Placed During This Visit: yes, but has since been removed by the nurse Reason for Continuing Indwelling Catheter: Decision to DC Catheter Urinary Catheter Date of Insertion: 12/02/22 Urinary Catheter Time of Insertion: 20:38 Date Urinary Catheter Removed: 12/04/22 Time Urinary Catheter Discontinued: 08:11 Data 12/10/22 04:52 12/10/22 04:52 A&P Assessment and plan (1) Critical limb ischemia of left lower extremity: Status post left BKA on 12/02/2022 Continue wound care, patient unable to perform Continue gabapentin Continue oxycodone PRN Continue scheduled Tylenol Continue bowel regiment Continue therapy Seeking disposition, CM evaluating SNF as well as other options, f/u discussion on Sunday (2) Anemia: HGB stable with check this morning showing continued improvement Monitor PRN (3) Status post below-knee amputation of left lower extremity: Management as above (4) Diabetes mellitus type 2 in nonobese: Continue metformin (5) DVT (deep venous thrombosis): Continue Xarelto (6) Coronary artery disease: Continue statin Continue aspirin (7) Depression: Continue Cymbalta Plan DVT prophylaxis: Xarelto CODE STATUS: Full code Attestations Medical Necessity Statement*: Patient requires ongoing hospitalization for wound care, supportive care, safe placement, and therapy. Coding [facility] Critical limb ischemia of left lower extremity I70.222 Anemia D64.9 Status post below-knee amputation of left lower extremity Z89.512 Diabetes mellitus type 2 in nonobese E11.9 DVT (deep venous thrombosis) I82.409 Coronary artery disease I25.10 Depression F32.A
[2022-12-10] MEDS: chlorhexidine gluconate 4% Btl 118 mL 1 APPLIC TOPICAL (14:32)
[2022-12-10] MEDS: ALPRAZolam 0.5 mg Tablet PO (15:09)
[2022-12-10] MEDS: atorvastatin 40 mg Tablet PO (20:56)
[2022-12-10] MEDS: trazodone 100 mg Tablet 150 MG PO (20:57)
[2022-12-11] VITALS (11 sets, daily range): BP systolic 112–164; BP diastolic 62–77; PULSE 57–93; RESP 14–18; TEMP 36.4–36.8; O2SAT 91–96
[2022-12-11] MEDS: oxyCODONE 5 mg IR Tab/Cap 10 MG PO ×4 (05:39→20:24)
[2022-12-11] MEDS: acetaminophen 500 mg Tablet 1000 MG PO ×2 (07:12→15:58)
[2022-12-11] MEDS: lisinopril 10 mg Tablet PO (07:47)
[2022-12-11] MEDS: sennosides 8.6 mg Tablet 17.2 MG PO ×2 (07:47→17:53)
[2022-12-11] MEDS: folic acid 1 mg Tablet PO (07:48)
[2022-12-11] MEDS: docusate sodium 100 mg Capsule PO ×2 (07:48→17:53)
[2022-12-11] MEDS: gabapentin 300 mg Capsule PO ×3 (07:48→20:19)
[2022-12-11] MEDS: metoprolol tartrate 25 mg Tablet 12.5 MG PO ×2 (07:48→20:20)
[2022-12-11] MEDS: pantoprazole DR 40 mg Tablet PO ×2 (07:49→17:53)
[2022-12-11] MEDS: metformin 500 mg Tablet PO ×2 (07:49→17:53)
[2022-12-11] MEDS: iron complex forte Capsule 1 EACH PO (07:49)
[2022-12-11] MEDS: amlodipine 5 mg Tablet PO (07:49)
[2022-12-11] MEDS: rivaroxaban 10 mg Tablet 15 MG PO (07:50)
[2022-12-11] MEDS: duloxetine 60 mg Capsule PO (07:50)
[2022-12-11] MEDS: aspirin 81 mg EC Tablet PO (08:15)
[2022-12-11] MEDS: ALPRAZolam 0.5 mg Tablet PO ×2 (12:47→21:47)
[2022-12-11] MEDS: chlorhexidine gluconate 4% Btl 118 mL 1 APPLIC TOPICAL (14:16)
--- NOTE | 2022-12-11 14:54 | P.PN_ITS ---
Subjective Subjective: No new complaints today. States pain is well controlled. Complains of anxiety, requesting medication for the same. Medications: Reviewed: Yes Vitals/I&O/Wt Last Vital Signs Temp 97.6 F 12/11/22 12:00 Pulse 62 12/11/22 12:00 Resp 17 12/11/22 12:00 BP 138/74 12/11/22 12:00 Pulse Ox 94 12/11/22 12:00 O2 Del Method Room Air 12/11/22 12:00 O2 Flow Rate 2 12/05/22 09:33 12/10/22 12/11/22 12/11/22 22:59 06:59 14:59 Intake Total 480 / 1440 840 / 840 Output Total 200 / 850 950 / 1800 1050 / 1050 Balance 280 / 590 -950 / -360 -210 / -210 Physical Exam Narrative: General: No acute distress, AO x3 HEENT: PERRLA, pupils bilaterally equal and reactive, pallors not present Chest: Normal vesicular breath sounds, no added sounds, equal good air entry bilaterally CVS: S1-S2 regular, no murmurs, no tachycardia, no gallops, no rubs Abdomen: Soft, nontender, no organomegaly, bowel sounds present Neuro: No focal deficits, no facial deformity, AO x3, power 5/5 in all limbs Extremities: s/p BKA Urinary Catheter Management: Wade: Cath Placed During This Visit: yes, but has since been removed by the nurse Reason for Continuing Indwelling Catheter: Decision to DC Catheter Urinary Catheter Date of Insertion: 12/02/22 Urinary Catheter Time of Insertion: 20:38 Date Urinary Catheter Removed: 12/04/22 Time Urinary Catheter Discontinued: 08:11 Data 12/10/22 04:52 12/10/22 04:52 A&P Assessment and plan (1) Critical limb ischemia of left lower extremity: Patient with critical limb ischemia, failed graft Status post below-knee amputation on December 02, 2022. Pain is currently uncontrolled with current regimen. (2) Hypokalemia: Resolved (3) Coronary artery disease: continue low-dose aspirin. Continue statin. (4) Diabetes mellitus type 2 in nonobese: Consistent carb diet Sliding scale insulin (5) Anemia: likely from post op blood loss Currently stable while continuing Xarelto. Plan History of chronic kidney disease. Avoid renal toxic medication. Disposition: Awaiting appropriate disposition planning. Patient lives alone at baseline. Needs at least daily wound care for his new stump and assistance with ambulation. Reports anxiety with prolonged hospital stay. Start Xanax 0.5 mg twice daily as needed. Full code DVT prophylaxis: Xarelto. Attestations Medical Necessity Statement*: Appropriate disposition planning is ongoing, need for daily wound care. Coding Level of Care Code Acute Code for [facility] Diagnoses Critical limb ischemia of left lower extremity I70.222 Hypokalemia E87.6 Coronary artery disease I25.10 Diabetes mellitus type 2 in nonobese E11.9 Anemia D64.9
--- NOTE | 2022-12-11 16:03 | SUR.PREOP ---
IMM Update pg 2 of IMM updated and reviewed w/ patient. Copy provided and copy dated, initialed and placed in chart.
[2022-12-11 16:44] LABS: SARS Covid-2 Antigen negative (Negative)
[2022-12-11] MEDS: trazodone 100 mg Tablet 150 MG PO (20:19)
[2022-12-11] MEDS: atorvastatin 40 mg Tablet PO (20:20)
--- NOTE | 2022-12-12 00:03 | PC.NURSE ---
Pt requested oxycodone and alprazolam to help him sleep. Nurse administered. Patient comfortable.
[2022-12-12 03:37] VITALS: RESP 20; O2SAT 96
[2022-12-12] MEDS: oxyCODONE 5 mg IR Tab/Cap 10 MG PO ×2 (03:37→12:54)
[2022-12-12 03:40] VITALS: BP 145/75; PULSE 59; RESP 16; TEMP 36.4; O2SAT 93
[2022-12-12] MEDS: metformin 500 mg Tablet PO (07:06)
[2022-12-12] MEDS: acetaminophen 500 mg Tablet 1000 MG PO (07:06)
[2022-12-12 07:23] VITALS: BP 126/75; PULSE 62; RESP 17; TEMP 36.4; O2SAT 92
[2022-12-12] MEDS: aspirin 81 mg EC Tablet PO (08:57)
[2022-12-12] MEDS: duloxetine 60 mg Capsule PO (08:57)
[2022-12-12] MEDS: amlodipine 5 mg Tablet PO (08:57)
[2022-12-12] MEDS: gabapentin 300 mg Capsule PO (08:57)
[2022-12-12] MEDS: rivaroxaban 10 mg Tablet 15 MG PO (08:57)
[2022-12-12] MEDS: pantoprazole DR 40 mg Tablet PO (08:57)
[2022-12-12] MEDS: docusate sodium 100 mg Capsule PO (08:57)
[2022-12-12] MEDS: folic acid 1 mg Tablet PO (08:57)
[2022-12-12] MEDS: lisinopril 10 mg Tablet PO (08:57)
[2022-12-12] MEDS: sennosides 8.6 mg Tablet 17.2 MG PO (08:58)
--- NOTE | 2022-12-12 10:05 | PM.DCS ---
Discharge Providers Date of Admission: 12/01/22 14:44 Date of Discharge: December 12, 2022 Attending Provider at Admission: Boom Monk MD Attending Provider at Discharge: Gi David MD Diagnoses at Discharge Discharge Diagnosis (1) Critical limb ischemia of left lower extremity: Status: Acute (2) Hypokalemia: Status: Inactive (3) Coronary artery disease: Status: Acute (4) Diabetes mellitus type 2 in nonobese: Status: Acute (5) Anemia: Status: Acute Reason for Visit Reason for Visit: leg pain Brief History: Theo Tipton is a 67 year old male who has a long history of peripheral vascular disease with initial surgical interventions beginning about a year ago in [place].? He had several interventions since that time and most recently what appears to be a femoral to distal bypass below the knee.? He still had nemesio in place along the medial aspect of his left lower extremity.? His left foot was cold up to the ankle with early discoloration though no shannan gangrene. ?He was seen by his surgical team in [place] last week and it was recommended that he consider amputation though he refused and apparently left AMA from that hospitalization.He presented on 12/01 with ongoing pain and was agreeable to amputation now. Hospital course as below: Hospital Course Hospital Course (1) Critical limb ischemia of left lower extremity, failed graft: Status post left BKA on 12/02/2022 He remained admitted for post operative wound care since patient unable to perform by himself He received gabapentin, oxycodone PRN, scheduled Tylenol for pain management Pain is curently well controlled Continue physical therapy He is being transitioned to SNF at discharge as this is likely to be the safest disposition. he lives alone and currently unable to perform wound care himself, unable to drive to get wound care services, need for ongoing therapy post amputation. (2) Anemia: HGB stable at 11 on last check on 12/10, improved from ;lowest 8.1 on 12/03 likely post op blood loss no ongoing bleeding while on anticoagulation (3) Status post below-knee amputation of left lower extremity: Management as above (4) Diabetes mellitus type 2 in nonobese: Continue metformin (5) DVT (deep venous thrombosis): Continue Xarelto (6) Coronary artery disease: Continue statin Continue aspirin (7) Depression: Continue Cymbalta prn xanax added for breakthrough anxiety Physical Exam Narrative: General: No acute distress, AO x3 HEENT: PERRLA, pupils bilaterally equal and reactive, pallors not present Chest: Normal vesicular breath sounds, no added sounds, equal good air entry bilaterally CVS: S1-S2 regular, no murmurs, no tachycardia, no gallops, no rubs Abdomen: Soft, nontender, no organomegaly, bowel sounds present Neuro: No focal deficits, no facial deformity, AO x3, power 5/5 in all limbs Urinary Catheter Management: Wade: Cath Placed During This Visit: yes, but has since been removed by the nurse Reason for Continuing Indwelling Catheter: Decision to DC Catheter Urinary Catheter Date of Insertion: 12/02/22 Urinary Catheter Time of Insertion: 20:38 Date Urinary Catheter Removed: 12/04/22 Time Urinary Catheter Discontinued: 08:11 Discharge Data Studies Completed and Pending Completed Studies During Hospitalization Category Date Time Status Pathology: Surgical [PTH] Routine Pth 12/02/22 08:33 Completed US arterial duplex lower extremity LT [CV arterial Ultrasound 12/01/22 08:01 [place] [address]] Stat US venous duplex lower extremity LT [CV venous duplex Ultrasound 12/01/22 08:01 [place] [address]] Stat Radiology Impressions Duplex Scan Lower Extremity Artery 12/01/22 08:01 IMPRESSION: There is some similar lack of luminal color flow at the reported bypass graft similar. There are mixed findings in the interval as there is some color Doppler activity demonstrated at the common femoral and popliteal [place] vessels along with incomplete color flow otherwise including the previously visualized infrapopliteal arteries. THIS REPORT CONTAINS FINDINGS THAT MAY BE CRITICAL TO PATIENT CARE. The findings were verbally communicated via telephone conference at 9:07 AM CDT on 12/01/2022 with JULIAN ISSA. The findings were acknowledged and understood. Laboratory Results WBC 8.81 10^3/uL (3.29-11.43) 12/10/22 04:52 Corrected WBC Cancelled 12/04/22 02:08 RBC 4.04 10^6/uL (3.85-5.65) 12/10/22 04:52 Hgb 11.00 g/dL (11.27-16.99) L 12/10/22 04:52 Hct 35.4 % (37-53) L 12/10/22 04:52 MCV 87.6 fl (82-101) 12/10/22 04:52 MCH 27.2 pg (27-33) 12/10/22 04:52 MCHC 31.1 g/dL (30-55) 12/10/22 04:52 RDW 15.9 % (12.1-15.1) H 12/10/22 04:52 Plt Count 416 10^3/cmm (157-399) H 12/10/22 04:52 MPV 9.0 fL (7.4-10.4) 12/10/22 04:52 Gran % Cancelled 12/04/22 02:08 Neut % (Auto) 63.9 % 12/10/22 04:52 Lymph % (Auto) 20.2 % 12/10/22 04:52 [place]anan % (Auto) 10.8 % 12/10/22 04:52 Eos % (Auto) 3.5 % 12/10/22 04:52 Baso % (Auto) 0.9 % 12/10/22 04:52 Neut # (Auto) 5.63 10^3/uL (1.8-7.7) 12/10/22 04:52 Lymph # (Auto) 1.8 10^3/uL (0.8-4.8) 12/10/22 04:52 [place]anan # (Auto) 1.0 10^3/uL (0.2-0.9) H 12/10/22 04:52 Eos # (Auto) 0.3 10^3/uL (0.0-0.8) 12/10/22 04:52 Baso # (Auto) 0.1 10^3/uL (0.0-0.1) 12/10/22 04:52 Absolute Gran (auto) Cancelled 12/04/22 02:08 Nucleated RBC % (auto) 0 % 12/10/22 04:52 Nucleated RBCs # 0.0 /100WBC 12/10/22 04:52 PT 14.10 SECONDS (12.1-14.9) 12/01/22 08:00 INR 1.06 (0.8-1.2) 12/01/22 08:00 APTT 20.1 SECONDS (23.9-36.7) L 12/01/22 22:25 Sodium 130 mmol/L (136-145) L 12/10/22 04:52 Potassium 4.7 mmol/L (3.5-5.1) 12/10/22 04:52 Chloride 97 mmol/L (98-107) L 12/10/22 04:52 Carbon Dioxide 25 mmol/L (22-29) 12/10/22 04:52 Anion Gap 12.7 (5-19) 12/10/22 04:52 BUN 17 mg/dL (8-23) 12/10/22 04:52 Creatinine 1.2 mg/dL (0.7-1.2) 12/10/22 04:52 GFR Calculation 60.6 mL/min (90-130) L 12/10/22 04:52 Glucose 102 mg/dL (65-115) 12/10/22 04:52 POC Glucose 114 mg/dL (70-110) H 12/10/22 06:42 Calculated Osmolality 279 mOsm/kg (285-295) L 12/04/22 02:08 Lactic Acid 1.5 mmol/L (0.5-2.2) 12/01/22 08:00 Calcium 8.7 mg/dL (8.5-10.5) 12/10/22 04:52 Phosphorus 4.0 mg/dL (2.5-4.5) 12/10/22 04:52 Magnesium 2.0 mg/dL (1.7-2.3) 12/10/22 04:52 Iron 38 ug/dL (59-158) L 12/04/22 02:08 Ferritin 41 ng/mL (30-400) 12/04/22 02:08 Total Bilirubin 0.2 mg/dL (0.15-1.2) 12/04/22 02:08 AST 27 U/L (0-40) 12/04/22 02:08 ALT 22 U/L (0-41) 12/04/22 02:08 Alkaline Phosphatase 63 U/L (40-130) 12/04/22 02:08 Total Protein 5.1 g/dL (6.6-8.7) L 12/04/22 02:08 Albumin 3.3 g/dL (3.5-5.2) L 12/10/22 04:52 Globulin 2.4 g/dL (1.3-4.6) 12/04/22 02:08 Folate > 20.0 ng/mL (4.5-32.2) 12/04/22 02:08 Urine Color Yellow (Yellow) 12/01/22 23:30 Urine Appearance Clear (CLEAR) 12/01/22 23:30 Urine pH 7 (5-7) 12/01/22 23:30 Ur Specific [place] 1.005 (1.005-1.030) 12/01/22 23:30 Urine Protein 1+ (Negative) H 12/01/22 23:30 Urine Glucose (UA) Norm (Normal) 12/01/22 23:30 Urine Ketones Negative (Negative) 12/01/22 23:30 Urine Blood Neg (Negative) 12/01/22 23:30 Urine Nitrate Negative (Negative) 12/01/22 23:30 Urine Bilirubin Neg (Negative) 12/01/22 23:30 Urine Urobilinogen 4 mg/dL (Negative) H 12/01/22 23:30 Ur Leukocyte Esterase Negative (Negative) 12/01/22 23:30 Urine RBC None /hpf (0-2) 12/01/22 23:30 Urine WBC Rare /hpf (0-5) 12/01/22 23:30 Ur Squamous Epith Cells None /hpf (0-5) 12/01/22 23:30 Amorphous Sediment Not Reportable 12/01/22 23:30 Urine Bacteria None /hpf (NONE) 12/01/22 23:30 Vancomycin Trough 8.1 ug/mL (10-15) L 12/04/22 14:20 SARS-CoV-2 Ag (Rapid) negative (Negative) 12/11/22 15:57 Blood Type A Positive 12/01/22 15:30 Rho(D) Type Positive 12/01/22 15:30 Antibody Screen Negative 12/01/22 15:30 Crossmatch See Detail 12/01/22 15:30 Vitals Last Vital Signs Temp 97.5 F L 12/12/22 07:23 Pulse 62 12/12/22 07:23 Resp 17 12/12/22 07:23 BP 126/75 12/12/22 07:23 Pulse Ox 92 12/12/22 07:23 O2 Del Method Room Air 12/12/22 03:40 O2 Flow Rate 2 12/05/22 09:33 Discharge Plan Discharge Patient Disposition: Xfer SNF Condition: Stable Prescriptions: New alprazolam 0.5 mg Tablet 0.5 mg PO BID PRN (Reason: Anxiety) 5 Days Qty: 10 0RF oxycodone 5 mg Tablet 10 mg PO Q6H PRN (Reason: Severe Pain) 5 Days Qty: 20 0RF aspirin 81 mg Tablet,Delayed Release (Dr/Ec) 81 mg PO DAILY 30 Days Qty: 30 0RF amlodipine 5 mg Tablet 5 mg PO DAILY 30 Days Qty: 30 0RF acetaminophen 500 mg Tablet 650 mg PO Q6H PRN (Reason: pain,fever) 30 Days Qty: 156 0RF metoprolol tartrate 25 mg Tablet 12.5 mg PO BID@0900,2100 30 Days Qty: 30 0RF pantoprazole 40 mg Tablet,Delayed Release (Dr/Ec) 40 mg PO BID 30 Days Qty: 60 0RF gabapentin 300 mg Capsule 300 mg PO TID 30 Days Qty: 90 0RF duloxetine 60 mg Capsule,Delayed Release(Dr/Ec) 60 mg PO DAILY 30 Days Qty: 30 0RF Ferrex 150 Forte 150-25-1 mg-mcg-mg Capsule 1 ea PO EVERY OTHER DAY 30 Days Qty: 15 0RF Continued atorvastatin 40 mg Tablet 40 mg PO BEDTIME 30 Days Qty: 30 1RF metformin 500 mg Tablet 500 mg PO BID trazodone 100 mg Tablet 100 mg PO DAILY lisinopril 10 mg Tablet 10 mg PO DAILY Xarelto 15 mg Tablet 15 mg PO DAILY Rx Instructions: must administer with evening meal Discontinued furosemide 20 mg Tablet 20 mg PO DAILY Discharge Orders: Discharge Order (Routine); Ordered 12/12/22 Ordered By: Gi David Referrals: [facility] [Outside] Discharge Diet: Usual diet Discharge Activity: Resume usual activity Patient Instructions: Opioid Safety Discharge Attestations Time Spent in Discharge Care*: greater than 30 min Quality Metrics Clinical Quality Measures [ No reported AMI, CVA or VTE this stay] Coding Level of Care Code Acute Code for [facility] Fwd Diagnoses Critical limb ischemia of left lower extremity I70.222 Hypokalemia E87.6 Coronary artery disease I25.10 Diabetes mellitus type 2 in nonobese E11.9 Anemia D64.9
[2022-12-12 12:00] VITALS: BP 126/66; PULSE 67; RESP 17; TEMP 36.4; O2SAT 93
--- NOTE | 2022-12-12 12:33 | PC.NURSE ---
This nurse gave report to She at [facility] via phone at [phone].
[2022-12-12 12:54] VITALS: RESP 18
== END 2022-12-12 13:06 | disposition skilled nursing facility (03) | DRG 240 ==
LOC: ER 07:56 → MEDSURG 13:41
PROVIDERS: Internal Medicine; Thoracic Surgery (Cardiothoracic Vascular Surgery); Admitting Provider Internal Medicine; Emergency Provider Family Medicine; Visit Provider Student in an Organized Health Care Education/Training Program
PROC: 3E0T3BZ Introduction of Anesthetic Agent into Peripheral Nerves and Plexi, Percutaneous Approach (ICD-10-PCS; CPT 27880; principal; 2022-12-02 07:00)
DX: E11.51 Type 2 diabetes mellitus with diabetic peripheral angiopathy without gangrene (principal); D62 Acute posthemorrhagic anemia; E87.6 Hypokalemia; I25.10 Atherosclerotic heart disease of native coronary artery without angina pectoris; Z98.890 Other specified postprocedural states; Z86.718 Personal history of other venous thrombosis and embolism; F25.0 Schizoaffective disorder, bipolar type; Z79.84 Long term (current) use of oral hypoglycemic drugs; Z79.891 Long term (current) use of opiate analgesic; Z79.01 Long term (current) use of anticoagulants; I12.9 Hypertensive chronic kidney disease with stage 1 through stage 4 chronic kidney disease, or unspecified chronic kidney disease; E11.22 Type 2 diabetes mellitus with diabetic chronic kidney disease; N18.30 Chronic kidney disease, stage 3 unspecified; F17.200 Nicotine dependence, unspecified, uncomplicated; F12.90 Cannabis use, unspecified, uncomplicated; Z11.52 Encounter for screening for COVID-19; F41.9 Anxiety disorder, unspecified; I70.322 Atherosclerosis of unspecified type of bypass graft(s) of the extremities with rest pain, left leg
CPT/HCPCS: 36415; 36416; 36430; 51702; 80053; 80069; 80202; 81001; 81003; 82728; 82746; 82962; 83540; 83605; 83735; 85025; 85610; 85730; 86850; 86900; 86920; 87040; 87426; 88307; 88311; 93005; 93926; 93971; 96365; 96366; 96367; 96372; 96375; 97110; 97116; 97161; 97530; 99285; J0330; J0360; J1100; J1170; J1200; J1644; J1815; J1885; J2270; J2371; J2405; J2704; J2710; J2795; J3010; J3370; J3480; J3490; J7030; J7050; P9040

== ENCOUNTER 2023-01-23 21:42 | Emergency (ER) | payer OTHER, SELFPAY ==
[2023-01-23 21:48] VITALS: BP 194/88; PULSE 96; RESP 18; TEMP 36.3; O2SAT 98
[2023-01-23 22:11] LABS: Basophils # 0.1 10^3/uL (0.0-0.1); Basophils % 0.7 %; Eosinophils # 0.2 10^3/uL (0.0-0.8); Eosinophils % 2.5 %; Hematocrit 44.7 % (37-53); Lymphocytes # 1.6 10^3/uL (0.8-4.8); Lymphocytes % 17.3 %; Mean Corpuscular HGB Conc 30.4 g/dL (30-55); Mean Corpuscular Hemoglobin 25.3 pg (27-33); Mean Corpuscular Volume 83.2 fl (82-101); Mean Platelet Volume 9.6 fL (7.4-10.4); Monocytes # 0.6 10^3/uL (0.2-0.9); Monocytes % 6.3 %; Neutrophils % 72.8 %; Nucleated Red Blood Cells % 0 %; Platelet Count 295 10^3/cmm (157-399); Red Blood Count 5.37 10^6/uL (3.85-5.65); Red Cell Distribution Width 14.2 % (12.1-15.1); White Blood Count 9.35 10^3/uL (3.29-11.43)
--- NOTE | 2023-01-23 22:18 | W.ED.WOUNDLC ---
HPI - Wound/Laceration General: Chief Complaint: Wound/Laceration Stated Complaint: leg amputation infection Time Seen by Provider: 01/23/23 22:18 History of Present Illness: 67-year-old male patient comes in today with a dye he said wound to the left lower extremity. Patient has a below-knee amputation. Patient reports about 4 to 5 weeks ago he had landed on the wound and the wound opened up. Patient did not seek treatment at that time and has been dealing with at home. Patient was encouraged to come in for evaluation of the wound in the emergency room tonight by his friends. Patient reports no objective fever. Patient does have occasional chills. Patient reports some phantom limb pain. Patient has a history of diabetes which she takes metformin for, peripheral Frasca disease, hyperlipidemia, and high blood pressure. Associated symptoms: Denies fever(s), nausea or vomiting Review of Systems General: Reports: 10 or more systems reviewed and unremarkable except in HPI and below Const: Denies: fever(s) Card: Denies: chest pain Resp: Denies: dyspnea GI: Denies: nausea or vomiting : Denies: difficulty urinating Musc: Reports: extremity pain Skin/Breast: Reports: non-healing lesions PFS ED PFSH: Medical History (Updated 01/23/23 @ 22:28 by KODAK Colindres) Hyperlipidemia Tobacco dependency Hx of schizophrenia History of bipolar disorder Hypertensive kidney disease with CKD stage III Surgical site infection Hepatitis C NSTEMI (non-ST elevated myocardial infarction) Coronary artery disease Homelessness Methamphetamine abuse Surgical History (Updated 12/03/22 @ 11:29 by Rodriguez Wayne MD) History of surgery on lower extremity Family History Other Depression Social History Smoking and tobacco/nicotine status: current every day tobacco/nicotine user Alcohol intake: never Substance/Drug Use: current Physical Exam Const: COMMON NORMALS: alert HENMT: COMMON NORMALS: normocephalic HEAD & SCALP: normocephalic Neck/C-Spine: COMMON NORMALS: full ROM Resp: COMMON NORMALS: normal respiratory effort Cardio: COMMON NORMALS: regular rate RATE: regular rate Back/Pelvis: COMMON NORMALS: thoracic and lumbar spine normal to inspection Extremity: LEFT LOWER EXTREMITY: Yes lower leg (8 cm wound noted to the stump of the left leg.) OTHER: 1-1/2 cm ulcer noted to the medial incision line of the stump. Neuro: SENSORIUM/ORIENTATION: Yes alert Skin: WOUNDS: Yes amputation site Course Vital Signs: Vital signs: Vital Signs Temperature 97.4 F L 01/23/23 21:48 Pulse Rate 96 01/23/23 21:48 Respiratory Rate 18 01/23/23 21:48 Blood Pressure 194/88 01/23/23 21:48 Pulse Oximetry 98 01/23/23 21:48 Oxygen Delivery Me thod Room Air 01/23/23 21:48 MDM - Wound/Laceration Medical Decision Making 67-year-old male patient comes in today with complaints of chronic wound to the stump of his left lower leg. Patient reports he was encouraged to come in to have the wound evaluated in the ER for concerns of infection. Patient reports breaking the wound opened about 4 to 5 weeks ago when he tripped landing on the stump. Patient had recently had the lower leg amputated due to vascular disease. Patient reports no fever. Wound edges are pink. Patient has quite a bit of purulent drainage, there is some dark tissue within the wound but most of the tissue appears pink and granulating. Differential diagnosis includes wound infection, chronic wound ulcer, osteomyelitis. Reviewed exam with Dr. Greer he agreed with plan to recommend patient follow-up with wound care management for further evaluation and treatment of the wound. Patient will be started on Augmentin for bacterial coverage. Reviewed with patient recommendation for wet-to-dry dressings. Strongly encourage clean the wound daily with some soap and water, then covering with a wet-to-dry dressing. Patient reported understanding and agreed to plan. Lab Data 01/23/23 22:00 Laboratory Results WBC 9.35 10^3/uL (3.29-11.43) 01/23/23 22:00 RBC 5.37 10^6/uL (3.85-5.65) 01/23/23 22:00 Hgb 13.60 g/dL (11.27-16.99) 01/23/23 22:00 Hct 44.7 % (37-53) 01/23/23 22:00 MCV 83.2 fl (82-101) 01/23/23 22:00 MCH 25.3 pg (27-33) L 11/28/23 22:00 MCHC 30.4 g/dL (30-55) 01/23/23 22:00 RDW 14.2 % (12.1-15.1) 01/23/23 22:00 Plt Count 295 10^3/cmm (157-399) 01/23/23 22:00 MPV 9.6 fL (7.4-10.4) 01/23/23 22:00 Neut % (Auto) 72.8 % 01/23/23 22:00 Lymph % (Auto) 17.3 % 01/23/23 22:00 [place] % (Auto) 6.3 % 01/23/23 22:00 Eos % (Auto) 2.5 % 01/23/23 22:00 Baso % (Auto) 0.7 % 01/23/23 22:00 Neut # (Auto) 6.80 10^3/uL (1.8-7.7) 01/23/23 22:00 Lymph # (Auto) 1.6 10^3/uL (0.8-4.8) 01/23/23 22:00 [place] # (Auto) 0.6 10^3/uL (0.2-0.9) 01/23/23 22:00 Eos # (Auto) 0.2 10^3/uL (0.0-0.8) 01/23/23 22:00 Baso # (Auto) 0.1 10^3/uL (0.0-0.1) 01/23/23 22:00 Nucleated RBC % (auto) 0 % 01/23/23 22:00 Nucleated RBCs # 0.0 /100WBC 01/23/23 22:00 No radiology studies performed this visit Discharge Plan Discharge Patient Disposition: Home Clinical Impression: Chronic wound of extremity Condition: Stable Prescriptions: New amoxicillin-pot clavulanate 875-125 mg tablet 1 tab PO Q8H Qty: 20 0RF hydrocodone-acetaminophen 5-325 mg tablet 1 tab PO Q8H PRN (Reason: pain (scale score 7-10)) Qty: 10 0RF No Action atorvastatin 40 mg Tablet 40 mg PO BEDTIME 30 Days Qty: 30 1RF metformin 500 mg Tablet 500 mg PO BID trazodone 100 mg Tablet 100 mg PO DAILY lisinopril 10 mg Tablet 10 mg PO DAILY Xarelto 15 mg Tablet 15 mg PO DAILY Rx Instructions: must administer with evening meal Discharge Orders: Discharge ED (Routine); Ordered 01/23/23 Ordered By: Rodriguez Morin Discharge Diet: Usual diet Discharge Activity: Increase activity as tolerated Patient Instructions: Wound Dehiscence (ED), Opioid Safety Activity Restrictions/Additional Instructions: Clean wound daily with mild soap and water, cover with a damp dressing going from wet to dry. Change dressing daily. Follow-up with clinical documentation specialist for further evaluation and treatment. Take antibiotics as directed. Use acetaminophen and ibuprofen to control pain. Use hydrocodone for severe pain. Return to ER for worsening symptoms such as increasing redness, fever greater than 100.4, or new concerns. Coding Level of Care Code ED Shredding Floor Equipment Operator for Yehuda Finnegan
[2023-01-23] MEDS: amoxicillin-clav 875-125 mg Tablet 1 TAB PO (22:35)
[2023-01-23] MEDS: HYDROcodone-acetaminophen 5-325 mg Tablet 1 TAB PO (22:35)
[2023-01-23 22:59] VITALS: BP 194/88; PULSE 96; RESP 18; TEMP 36.3; O2SAT 98
--- NOTE | 2023-01-24 09:10 | DCPLANNER ---
Message sent to wound care for a follow up on a chronic wound-surgical stump
== END 2023-01-23 23:00 | disposition home or self-care (01) ==
PROVIDERS: Emergency Medicine; Emergency Provider Nurse Practitioner Family
DX: T81.89XA Other complications of procedures, not elsewhere classified, initial encounter (principal); Z89.512 Acquired absence of left leg below knee; E78.5 Hyperlipidemia, unspecified; I12.9 Hypertensive chronic kidney disease with stage 1 through stage 4 chronic kidney disease, or unspecified chronic kidney disease; N18.30 Chronic kidney disease, stage 3 unspecified; Z86.19 Personal history of other infectious and parasitic diseases; I25.2 Old myocardial infarction; I25.10 Atherosclerotic heart disease of native coronary artery without angina pectoris; Z72.0 Tobacco use
CPT/HCPCS: 85025; 99283

== ENCOUNTER → 2023-01-30 09:02 | Outpatient (BNVA) | payer MEDICARE, MEDICAID, SELFPAY | PROVIDERS: Visit Provider Nurse Practitioner Family | DX: T87.81 Dehiscence of amputation stump (principal); Y83.8 Other surgical procedures as the cause of abnormal reaction of the patient, or of later complication, without mention of misadventure at the time of the procedure; Z89.512 Acquired absence of left leg below knee; I96 Gangrene, not elsewhere classified | CPT/HCPCS: 11042; 11045; 99213 ==

== ENCOUNTER → 2023-02-06 10:03 | Outpatient (BNVA) | payer MEDICARE, MEDICAID, SELFPAY | PROVIDERS: Visit Provider Nurse Practitioner Family | DX: I96 Gangrene, not elsewhere classified (principal); T87.81 Dehiscence of amputation stump; Y83.8 Other surgical procedures as the cause of abnormal reaction of the patient, or of later complication, without mention of misadventure at the time of the procedure; Z89.512 Acquired absence of left leg below knee | CPT/HCPCS: 11042; 11045; 99213; A6446 ==

== ENCOUNTER 2023-02-12 00:27 | Emergency (ER) | payer OTHER, SELFPAY ==
[2023-02-12] VITALS (7 sets, daily range): BP systolic 178–214; BP diastolic 81–103; PULSE 81–91; RESP 18; TEMP 36.8; O2SAT 94–97; BMI 31.6
--- NOTE | 2023-02-12 01:14 | ED_ITS ---
HPI - Extremity Problem 2 General: Chief complaint: Extremity Problem,Nontraumatic Stated complaint: thinks amputation stump is infected Time Seen by Provider: 02/12/23 00:33 History of Present Illness: 67-year-old male patient who is status p ost below the knee amputation on 12/02 from this facility. He has had a chronic dehiscence of his wound, and has been under wound care for quite some time. He presents with an increase in pain and swelling of his left lower extremity stump. He is concerned it is infected. He does state that he has not been able to get his medication, as it evidently has gone to a PO Box at the post office, which he does not have access to. Associated symptoms: Deny chest pain or fever(s) Review of Systems 2 Const: Denies: fever(s), chills or body aches Card: Denies: chest pain or palpitations Resp: Denies: dyspnea, productive cough, non-productive cough or wheezing GI: Denies: abdominal pain, nausea, vomiting, diarrhea or hematochezia PFSH ED 2 PFSH: Medical History (Updated 02/12/23 @ 04:28 by Mike Goyal DO) Hyperlipidemia Tobacco dependency Hx of schizophrenia History of bipolar disorder Hypertensive kidney disease with CKD stage III Surgical site infection Hepatitis C NSTEMI (non-ST elevated myocardial infarction) Coronary artery disease Homelessness Methamphetamine abuse Surgical History (Updated 02/12/23 @ 04:28 by Mike Goyal DO) History of surgery on lower extremity Family History Other Depression Social History Smoking and tobacco/nicotine status: current every day tobacco/nicotine user Alcohol intake: never Substance/Drug Use: current Physical Exam 2 Const: COMMON NORMALS: no acute distress GENERAL APPEARANCE: cooperative; not ill appearing and not frail appearing HENMT: COMMON NORMALS: normocephalic, atraumatic and Normal external nose present HEAD & SCALP: normocephalic and atraumatic FACE & SINUS: normal facial exam and face symmetric NOSE: Normal external nose present Eye: COMMON NORMALS: Equal, round and reactive pupils present and EOMs intact bilaterally PUPIL: Yes Equal, round and reactive pupils present Neck/C-Spine: GENERAL: Yes trachea midline Chest: CHEST: Yes Symmetrical chest wall rise Resp: COMMON NORMALS: normal respiratory effort, No retractions and No use of accessory muscles Cardio: COMMON NORMALS: regular rate and regular rhythm RATE: regular rate RHYTHM: regular rhythm GI: COMMON NORMALS: Normal to inspection, nondistended, normoactive bowel sounds present Extremity: NARRATIVE EXTREMITY EXAM: Exam of the left lower extremity reveals below knee amputation wound dehiscence with granulation tissue present. No overt cellulitis. There is some soft tissue edema. There's mild knee joint swelling. No streaking redness. Neuro: LAUREN COMA SCALE: document GCS findings [place] coma scale eye opening: Spontaneous [place] coma scale verbal response: Orientated Lauren coma scale motor response: Obey commands [place] coma scale total score: 15 S ENSORY EXAM: Yes extremities (intact) Psych: COMMON NORMALS: speech normal SPEECH: Yes normal speech Course 2 Vital Signs: Vital signs: Vital Signs Temperature 98.2 F 02/12/23 00:31 Pulse Rate 86 02/12/23 05:35 Respiratory Rate 18 02/12/23 00:31 Blood Pressure 188/81 02/12/23 05:35 Pulse Oximetry 94 02/12/23 05:35 Oxygen Delivery Me thod Room Air 02/12/23 04:30 MDM - Extremity (Nontraumatic) Medical Decision Making Blood pressure is improving. The patient is afebrile. X-ray reveals no Bony desturction. CBC is normal. blood sugar is 153, the rest of his BMP is normal. lactic acid is 1.4. He'll be allowed discharged. to be covered with antibiotics until his next wound care visit. His wound actually looks quite good. His prescriptions were refilled for chronic medications. Lab Data 02/12/23 03:09 02/12/23 03:09 Radiology Impressions Femur X-Ray 02/12/23 01:21 IMPRESSION: [id number] amputation of the proximal left tibia and fibula with smooth amputation margins. No cortical irregularity or medullary lucency to suggest osteomyelitis. However, if there is continued clinical concern for osteomyelitis a left lower extremity MRI may be of benefit. Laboratory Results WBC 9.63 10^3/uL (3.29-11.43) 02/12/23 03:09 RBC 5.12 10^6/uL (3.85-5.65) 02/12/23 03:09 Hgb 12.50 g/dL (11.27-16.99) 02/12/23 03:09 Hct 42.5 % (37-53) 02/12/23 03:09 MCV 83.0 fl (82-101) 02/12/23 03:09 MCH 24.4 pg (27-33) L 02/12/23 03:09 MCHC 29.4 g/dL (30-55) L 02/12/23 03:09 RDW 14.7 % (12.1-15.1) 02/12/23 03:09 Plt Count 251 10^3/cmm (157-399) 02/12/23 03:09 MPV 10.4 fL (7.4-10.4) 02/12/23 03:09 Neut % (Auto) 64.0 % 02/12/23 03:09 Lymph % (Auto) 20.9 % 02/12/23 03:09 [place] % (Auto) 9.9 % 02/12/23 03:09 Eos % (Auto) 4.0 % 02/12/23 03:09 Baso % (Auto) 0.7 % 02/12/23 03:09 Neut # (Auto) 6.16 10^3/uL (1.8-7.7) 02/12/23 03:09 Lymph # (Auto) 2.0 10^3/uL (0.8-4.8) 02/12/23 03:09 [place] # (Auto) 1.0 10^3/uL (0.2-0.9) H 02/12/23 03:09 Eos # (Auto) 0.4 10^3/uL (0.0-0.8) 02/12/23 03:09 Baso # (Auto) 0.1 10^3/uL (0.0-0.1) 02/12/23 03:09 Nucleated RBC % (auto) 0 % 02/12/23 03:09 Nucleated RBCs # 0.0 /100WBC 02/12/23 03:09 ESR 36 mm/hr (0-10) H 02/12/23 03:09 Sodium 137 mmol/L (136-145) 02/12/23 03:09 Potassium 3.5 mmol/L (3.5-5.1) 02/12/23 03:09 Chloride 103 mmol/L (98-107) 02/12/23 03:09 Carbon Dioxide 24 mmol/L (22-29) 02/12/23 03:09 Anion Gap 13.5 (5-19) 02/12/23 03:09 BUN 16 mg/dL (8-23) 02/12/23 03:09 Creatinine 1.1 mg/dL (0.7-1.2) 02/12/23 03:09 GFR Calculation 67.0 mL/min (90-130) L 02/12/23 03:09 Glucose 153 mg/dL (65-115) H 02/12/23 03:09 Calculated Osmolality 288 mOsm/kg (285-295) 02/12/23 03:09 Lactic Acid 1.4 mmol/L (0.5-2.2) 02/12/23 03:09 Calcium 8.9 mg/dL (8.5-10.5) 02/12/23 03:09 Total Bilirubin 0.2 mg/dL (0.15-1.2) 02/12/23 03:09 AST 18 U/L (0-40) 02/12/23 03:09 ALT 11 U/L (0-41) 02/12/23 03:09 Alkaline Phosphatase 115 U/L (40-130) 02/12/23 03:09 C-Reactive Protein 31.4 mg/L (0.0-4.9) H 02/12/23 03:09 Total Protein 6.6 g/dL (6.6-8.7) 02/12/23 03:09 Albumin 3.7 g/dL (3.5-5.2) 02/12/23 03:09 Globulin 2.9 g/dL (1.3-4.6) 02/12/23 03:09 All radiology interpretation(s) finalized by discharge Discharge Plan Discharge Patient Disposition: Home Clinical Impression: Status post below-knee amputation of left lower extremity, Cellulitis Condition: Stable Prescriptions: New levofloxacin 500 mg tablet 500 mg PO DAILY 10 Days Qty: 10 0RF Continued atorvastatin 40 mg Tablet 40 mg PO BEDTIME 30 Days Qty: 30 1RF metformin 500 mg Tablet 500 mg PO BID Qty: 60 0RF hydrocodone-acetaminophen 5-325 mg tablet 1 tab PO Q8H PRN (Reason: pain (scale score 7-10)) Qty: 10 0RF trazodone 100 mg Tablet 100 mg PO DAILY Qty: 30 0RF lisinopril 10 mg Tablet 10 mg PO DAILY Qty: 30 0RF Dakin's Solution 0.5 % solution 1 applic topical BID Qty: 473 0RF Rx Instructions: Apply wet to dry with gauze twice daily to left leg wound. Xarelto 15 mg Tablet 15 mg PO DAILY Qty: 30 0RF Rx Instructions: must administer with evening meal Discontinued amoxicillin-pot clavulanate 875-125 mg tablet 1 tab PO Q8H Qty: 20 0RF Discharge Orders: Discharge ED (Routine); Ordered 02/12/23 Ordered By: Mike Goyal Patient Instructions: Cellulitis (ED), Opioid Safety, Pain Management Activity Restrictions/Additional Instructions: Medications as directed. Follow-up with wound care as scheduled. Return for fever despite 2-3 doses of antibiotics, any other concerning symptoms. Coding Level of Care Code ED Admission Nurse Coordinator for Yehuda Finnegan
--- NOTE | 2023-02-12 01:21 | XRR_ITS ---
PROCEDURE INFORMATION: Exam: XR Left Femur Exam date and time: 02/12/2023 1:27 AM Age: 67 years old Clinical indication: Swelling, leg or foot; Knee and thigh; Left; Prior surgery; Surgery date: 1-6 months; Surgery type: Amputation 2022. Vascular stent; Patient HX: Patient C/O pain with diffuse swelling of lower leg around stump. Open wound to anterior side of stump. ; Additional info: Left thigh pain and swelling TECHNIQUE: Imaging protocol: Radiologic exam of the left femur. Views: 2 views. COMPARISON: [place] [id number] 12/01/2022 8:26 AM FINDINGS: Bones/joints: [id number] amputation of the proximal left tibia and fibula with smooth amputation margins. Soft tissues: Unremarkable. Vasculature: Atherosclerotic disease. XR/XR femur LT min 2V* [id number] IMPRESSION: [id number] amputation of the proximal left tibia and fibula with smooth amputation margins. No cortical irregularity or medullary lucency to suggest osteomyelitis. However, if there is continued clinical concern for osteomyelitis a left lower extremity MRI may be of benefit.
[2023-02-12] MEDS: oxyCODONE-APAP 5-325 mg Tablet 2 TAB PO (02:13)
[2023-02-12] MEDS: cloNIDine 0.1 mg Tablet PO (02:13)
[2023-02-12 03:47] LABS: Basophils # 0.1 10^3/uL (0.0-0.1); Basophils % 0.7 %; Eosinophils # 0.4 10^3/uL (0.0-0.8); Hematocrit 42.5 % (37-53); Lymphocytes % 20.9 %; Mean Corpuscular HGB Conc 29.4 g/dL (30-55); Mean Corpuscular Hemoglobin 24.4 pg (27-33); Mean Platelet Volume 10.4 fL (7.4-10.4); Monocytes % 9.9 %; Neutrophils # 6.16 10^3/uL (1.8-7.7); Nucleated Red Blood Cells % 0 %; Platelet Count 251 10^3/cmm (157-399); Red Blood Count 5.12 10^6/uL (3.85-5.65); Red Cell Distribution Width 14.7 % (12.1-15.1); White Blood Count 9.63 10^3/uL (3.29-11.43)
[2023-02-12 03:49] LABS: Lactic Sepsis W/Reflex 1.4 mmol/L (0.5-2.2)
[2023-02-12 03:50] LABS: Alanine Aminotransferase 11 U/L (0-41); Albumin Level 3.7 g/dL (3.5-5.2); Alkaline Phosphatase 115 U/L (40-130); Aspartate Amino Transferase 18 U/L (0-40); Blood Urea Nitrogen 16 mg/dL (8-23); C Reactive Protein 31.4 mg/L (0.0-4.9); Calcium 8.9 mg/dL (8.5-10.5); Carbon Dioxide 24 mmol/L (22-29); Chloride 103 mmol/L (98-107); Globulin 2.9 g/dL (1.3-4.6); Glucose 153 mg/dL (65-115); Osmolality Calculated 288 mOsm/kg (285-295); Sodium 137 mmol/L (136-145); Total Bilirubin 0.2 mg/dL (0.15-1.2); Total Protein 6.6 g/dL (6.6-8.7)
[2023-02-12 03:52] LABS: Anion Gap 13.5 (5-19); Potassium 3.5 mmol/L (3.5-5.1)
[2023-02-12 03:54] LABS: Slide Review Slide Review Perform
[2023-02-12 03:55] LABS: Erythrocyte Sedimentation Rate 36 mm/hr (0-10)
--- NOTE | 2023-02-12 05:48 | PC.NURSE ---
pt wound dressing pt left lower extremety stump dressed in telfa, abd and kerlix then wrapped with foam tape.
== END 2023-02-12 05:49 | disposition home or self-care (01) ==
PROVIDERS: Emergency Provider Emergency Medicine
DX: L03.116 Cellulitis of left lower limb (principal); Z89.512 Acquired absence of left leg below knee; Z72.0 Tobacco use; E78.5 Hyperlipidemia, unspecified; I12.9 Hypertensive chronic kidney disease with stage 1 through stage 4 chronic kidney disease, or unspecified chronic kidney disease; N18.30 Chronic kidney disease, stage 3 unspecified; Z86.19 Personal history of other infectious and parasitic diseases; I25.2 Old myocardial infarction; I25.10 Atherosclerotic heart disease of native coronary artery without angina pectoris
CPT/HCPCS: 36415; 73552; 80053; 83605; 85025; 85651; 86140; 99284

== ENCOUNTER 2023-07-16 00:40 | Inpatient (IN) | payer OTHER, SELFPAY ==
[2023-07-16] VITALS (23 sets, daily range): BP systolic 125–199; BP diastolic 77–139; PULSE 67–104; RESP 13–25; TEMP 36.5–36.7; O2SAT 90–100; BMI 34.2
--- NOTE | 2023-07-16 00:45 | ECG_ITS ---
[facility] Test Date: 2023-07-16 Pat Name: Theo Tipton Department: Room: Gender: Male Side Splitter: : 1955 Requested By: Mike Catherine Order Number: [id number] Zoe MD: Armaan Camarena M.D. Measurements Intervals Ethel Rate: 92 P: 0 PA: 0 QRS: -43 QRSD: 101 T: -16 QT: 357 QTc: 444 Interpretive Statements ATRIAL FLUTTER INFERIOR MYOCARDIAL INFARCTION , OF INDETERMINATE AGE [40+ ms Q WAVE AND/OR ST/T ABNORMALITY IN II/aVF] Compared to ECG 12/01/2022 10:57:57 Myocardial infarct finding now present Sinus rhythm no longer present Left anterior fascicular block no longer present Electronically Signed On 07-16-2023 12:52:22 CDT by Armaan Camarena M.D. [email or web address]
--- NOTE | 2023-07-16 01:25 | XRR_ITS ---
PROCEDURE INFORMATION: Exam: XR Chest Exam date and time: 07/16/2023 1:31 AM Age: 68 years old Clinical indication: Shortness of breath; Patient HX: C/O SOB TECHNIQUE: Imaging protocol: Radiologic exam of the chest. Views: 1 view. COMPARISON: CR XR chest 1V portable [id number] 10/03/2022 9:17 PM FINDINGS: Lungs: Consolidation in the left lung base medially. Pleural spaces: Small right-sided pleural effusion. Heart/Mediastinum: Unremarkable. No cardiomegaly. Bones/joints: Unremarkable. XR/XR chest 1V portable [id number] IMPRESSION: 1. Consolidation in the left lung base medially. 2. Small right-sided pleural effusion.
--- NOTE | 2023-07-16 01:27 | XRR_ITS ---
PROCEDURE INFORMATION: Exam: XR Left Femur Exam date and time: 07/16/2023 1:31 AM Age: 68 years old Clinical indication: Swelling, leg or foot; Prior surgery; Surgery date: 6+ months; Surgery type: Below knee amputation. Vascular stent; Patient HX: Patient C/O of pain to stump of left leg. There is redness and swelling with multiple ulcerations to stump. ; Additional info: Pain and swelling p amputation TECHNIQUE: Imaging protocol: Radiologic exam of the left femur. Views: 2 views. COMPARISON: CR XR femur LT min 2V* [id number] 02/12/2023 1:27 AM FINDINGS: Bones/joints: Amputation of the proximal left tibia and fibula with smooth margins and no cortical irregularities. Soft tissues: Unremarkable. Vasculature: Vascular stents in place. XR/XR femur LT min 2V* [id number] IMPRESSION: Amputation of the proximal left tibia and fibula with smooth margins and no cortical irregularities.
--- NOTE | 2023-07-16 01:30 | ED_ITS ---
HPI - Chest Pain 2 General: Chief Complaint: Chest Pain Stated Complaint: chest pain Time Seen by Provider: 07/16/23 00:54 History of Present Illness: 68-year-old male with a history of atria l fibrillation, uncontrolled diabetes, peripheral vascular disease with LE amputation on the left. He states that he has been out of his medications for a month or so. He has been increasingly short of breath since that time. He was very short of breath and experiencing some chest pressure this morning, so he called an ambulance. He is not normally on oxygen, and oxygen saturations were low on EMS arrival. He presents on 6 L of oxygen. Pressures to the left side of his chest and radiates into his left arm. He has not been coughing. He is afraid that his left stump is infected, and he has a chronic ulcer to the right medial leg that he is afraid is infected as well. Associated symptoms: Reports dyspnea, fever(s), nausea and palpitations; Deny abdominal pain or vomiting Review of Systems 2 Const: Reports: fever(s) and chills; Denies: body aches Eyes: Denies: change in vision Card: Reports: chest pain and palpitations Resp: Reports: dyspnea and non-productive cough; Denies: productive cough or wheezing GI: Reports: nausea; Denies: abdominal pain, vomiting, diarrhea or hematochezia Skin/Breast: Reports: rash, erythema, skin tenderness and non-healing lesions Neuro: Denies: headache(s), weakness in extremities, dizziness or confusion PFSH ED 2 PFSH: Medical History (Updated 07/16/23 @ 03:42 by Mike Goyal DO) Hypertension (Unknown) Hyperlipidemia Tobacco dependency Hx of schizophrenia History of bipolar disorder Hypertensive kidney disease with CKD stage III Surgical site infection Hepatitis C NSTEMI (non-ST elevated myocardial infarction) Coronary artery disease Homelessness Methamphetamine abuse Surgical History History of surgery on lower extremity Family History Other Depression Social History Smoking and tobacco/nicotine status: current every day tobacco/nicotine user Alcohol intake: never Substance/Drug Use: current Physical Exam 2 Const: GENERAL APPEARANCE: cooperative and ill appearing HENMT: COMMON NORMALS: normocephalic, atraumatic and Normal external nose present HEAD & SCALP: normocephalic and atraumatic FACE & SINUS: normal facial exam and face symmetric NOSE: Normal external nose present Eye: COMMON NORMALS: Equal, round and reactive pupils present and EOMs intact bilaterally PUPIL: Yes Equal, round and reactive pupils present Neck/C-Spine: GENERAL: Yes trachea midline Chest: CHEST: Yes Symmetrical chest wall rise Resp: EFFORT & INSPECTION: Yes tachypneic and Yes labored AUSCULTATION: d iminished lung sounds Cardio: COMMON NORMALS: regular rate RATE: regular rate and tachycardic RHYTHM: abnormal rhythm irregularly irregular GI: COMMON NORMALS: Normal to inspection, nondistended, normoactive bowel sounds present Extremity: COMMON NORMALS: no pedal edema NARRATIVE EXTREMITY EXAM: Left LE amputation, shows an ulceration of the stump. There is mild surrounding redness. Some drainage. Some odor. Exam of the right lower extremity reveals cellulitis surrounding a chronic ulcer to the right medial leg just proximal to the ankle. Neuro: LAUREN COMA SCALE: document GCS findings [place] coma scale eye opening: Spontaneous [place] coma scale verbal response: Orientated Lauren coma scale motor response: Obey commands [place] coma scale total score: 15 S ENSORY EXAM: Yes extremities (intact) Psych: COMMON NORMALS: speech normal SPEECH: Yes normal speech Skin: COMMON NORMALS: no rashes or lesions noted GENERAL SKIN EXAM: no rashes or lesions noted Course 2 Vital Signs: Vital signs: Vital Signs Temperature 98.1 F 07/16/23 00:41 Pulse Rate 85 07/16/23 03:30 Respiratory Rate 20 H 07/16/23 03:30 Blood Pressure 167/95 07/16/23 03:30 Pulse Oximetry 96 07/16/23 03:30 Oxygen Delivery Me thod Nasal Cannula 07/16/23 03:30 Oxygen Flow Rate 4 07/16/23 03:30 MDM - Chest Pain Medical Decision Making Patient not normally on oxygen. Now on 4 L. Saturations are 92%. He is breathing a bit better. He is hypertensive. He is given Lasix, metoprolol, and now Nitropaste. His CBC is normal. His creatinine is 1.3. Chest x-ray shows a consolidation in left lower lung. His BNP is significantly elevated. His lactic acid is normal. His troponin is elevated above his previous baselines as well. Second troponin is pending. EKG shows no acute ST wave changes, although there is atrial fibrillation. Rate appears controlled. He is given Rocephin and Zithromax after blood cultures. Treating heart failure as well. He will go to [facility]. Hospitalist will see the patient Lab Data 07/16/23 00:45 07/16/23 00:45 Radiology Impressions Chest X-Ray 07/16/23 01:25 IMPRESSION: 1. Consolidation in the left lung base medially. 2. Small right-sided pleural effusion. Femur X-Ray 07/16/23 01:27 IMPRESSION: Amputation of the proximal left tibia and fibula with smooth margins and no cortical irregularities. Ankle X-Ray 07/16/23 01:37 IMPRESSION: 1. Cortical irregularity along the superior margin of the anterior process of the calcaneus which may represent a fracture. 2. No cortical irregularity along the medial malleolus. Laboratory Results WBC 10.92 10^3/uL (3.29-11.43) 07/16/23 00:45 RBC 4.83 10^6/uL (3.85-5.65) 07/16/23 00:45 Hgb 11.60 g/dL (11.27-16.99) 07/16/23 00:45 Hct 38.3 % (37-53) 07/16/23 00:45 MCV 79.3 fl (82-101) L 07/16/23 00:45 MCH 24.0 pg (27-33) L 07/16/23 00:45 MCHC 30.3 g/dL (30-55) 07/16/23 00:45 RDW 15.8 % (12.1-15.1) H 07/16/23 00:45 Plt Count 352 10^3/cmm (157-399) 07/16/23 00:45 MPV 10.4 fL (7.4-10.4) 07/16/23 00:45 Neut % (Auto) 70.8 % 07/16/23 00:45 Lymph % (Auto) 18.1 % 07/16/23 00:45 [place] % (Auto) 7.0 % 07/16/23 00:45 Eos % (Auto) 3.1 % 07/16/23 00:45 Baso % (Auto) 0.8 % 07/16/23 00:45 Neut # (Auto) 7.73 10^3/uL (1.8-7.7) H 07/16/23 00:45 Lymph # (Auto) 2.0 10^3/uL (0.8-4.8) 07/16/23 00:45 [place] # (Auto) 0.8 10^3/uL (0.2-0.9) 07/16/23 00:45 Eos # (Auto) 0.3 10^3/uL (0.0-0.8) 07/16/23 00:45 Baso # (Auto) 0.1 10^3/uL (0.0-0.1) 07/16/23 00:45 Nucleated RBC % (auto) 0 % 07/16/23 00:45 Nucleated RBCs # 0.0 /100WBC 07/16/23 00:45 PT 14.10 SECONDS (12.1-14.9) 07/16/23 00:45 INR 1.06 (0.8-1.2) 07/16/23 00:45 APTT 35.8 SECONDS (23.9-36.7) 07/16/23 00:45 Sodium 141 mmol/L (136-145) 07/16/23 00:45 Potassium 3.5 mmol/L (3.5-5.1) 07/16/23 00:45 Chloride 105 mmol/L (98-107) 07/16/23 00:45 Carbon Dioxide 23 mmol/L (22-29) 07/16/23 00:45 Anion Gap 16.5 (5-19) 07/16/23 00:45 BUN 18 mg/dL (8-23) 07/16/23 00:45 Creatinine 1.3 mg/dL (0.7-1.2) H 07/16/23 00:45 GFR Calculation 55.1 mL/min (90-130) L 07/16/23 00:45 Glucose 104 mg/dL (65-115) 07/16/23 00:45 Calculated Osmolality 294 mOsm/kg (285-295) 07/16/23 00:45 Lactic Acid 1.3 mmol/L (0.5-2.2) 07/16/23 00:45 Calcium 9.0 mg/dL (8.5-10.5) 07/16/23 00:45 Total Bilirubin 0.3 mg/dL (0.15-1.2) 07/16/23 00:45 AST 12 U/L (0-40) 07/16/23 00:45 ALT 13 U/L (0-41) 07/16/23 00:45 Alkaline Phosphatase 104 U/L (40-130) 07/16/23 00:45 Troponin T Baseline 79 ng/L (0-15) H 07/16/23 00:45 NT-Pro-B Natriuret Pep 5425 pg/mL (0-125) H 07/16/23 00:45 Total Protein 6.7 g/dL (6.6-8.7) 07/16/23 00:45 Albumin 3.6 g/dL (3.5-5.2) 07/16/23 00:45 Globulin 3.1 g/dL (1.3-4.6) 07/16/23 00:45 Urine Color Yellow (Yellow) 07/16/23 03:21 Urine Appearance Clear (CLEAR) 07/16/23 03:21 Urine pH 5 (5-7) 07/16/23 03:21 Ur Specific [place] 1.015 (1.005-1.030) 07/16/23 03:21 Urine Protein 3+ (Negative) H 07/16/23 03:21 Urine Glucose (UA) Norm (Normal) 07/16/23 03:21 Urine Ketones Negative (Negative) 07/16/23 03:21 Urine Blood Neg (Negative) 07/16/23 03:21 Urine Nitrate Negative (Negative) 07/16/23 03:21 Urine Bilirubin Neg (Negative) 07/16/23 03:21 Urine Urobilinogen Neg mg/dL (Negative) 07/16/23 03:21 Ur Leukocyte Esterase Negative (Negative) 07/16/23 03:21 Urine RBC 0-4 /hpf (0-2) H 07/16/23 03:21 Urine WBC 0-4 /hpf (0-5) H 07/16/23 03:21 Ur Squamous Epith Cells 5-10 /hpf (0-5) H 07/16/23 03:21 Amorphous Sediment Trace /hpf 07/16/23 03:21 Urine Bacteria Trace /hpf (NONE) 07/16/23 03:21 Hyaline Casts 0-4 /lpf H 07/16/23 03:21 Coarse Granular Casts 0-4 /lpf H 07/16/23 03:21 Urine Mucus 1+ /hpf 07/16/23 03:21 All radiology interpretation(s) finalized by discharge Discharge Plan Discharge Patient Disposition: Admitted As Inpatient Admit Provider: Romelia Villatoro Clinical Impression: Chest pain, Pneumonia, Congestive heart failure, Acute hypoxemic respiratory failure Condition: Serious Coding Level of Care Code ED Hammer Fitter for Yehuda Finnegan
[2023-07-16 01:34] LABS: Basophils # 0.1 10^3/uL (0.0-0.1); Basophils % 0.8 %; Eosinophils # 0.3 10^3/uL (0.0-0.8); Eosinophils % 3.1 %; Hematocrit 38.3 % (37-53); Lymphocytes % 18.1 %; Mean Corpuscular HGB Conc 30.3 g/dL (30-55); Mean Corpuscular Volume 79.3 fl (82-101); Mean Platelet Volume 10.4 fL (7.4-10.4); Monocytes # 0.8 10^3/uL (0.2-0.9); Neutrophils # 7.73 10^3/uL (1.8-7.7); Neutrophils % 70.8 %; Nucleated Red Blood Cells % 0 %; Platelet Count 352 10^3/cmm (157-399); Red Blood Count 4.83 10^6/uL (3.85-5.65); Red Cell Distribution Width 15.8 % (12.1-15.1); White Blood Count 10.92 10^3/uL (3.29-11.43)
--- NOTE | 2023-07-16 01:37 | XRR_ITS ---
PROCEDURE INFORMATION: Exam: XR Right Ankle Exam date and time: 07/16/2023 1:39 AM Age: 68 years old Clinical indication: Swelling, leg or foot; Right; Patient HX: C/O RT ankle pain with swelling. Patient has bandaged open wound to medial malleolus. ; Additional info: Ankle pain and swelling TECHNIQUE: Imaging protocol: Radiologic exam of the right ankle. Views: 1 or 2 views. COMPARISON: CT angio abd aorta runof [id number] 12/13/2018 4:35 PM FINDINGS: Bones/joints: Cortical irregularity along the superior margin of the anterior process of the calcaneus which may represent a fracture. No cortical irregularity along the medial malleolus. Soft tissues: Normal. XR/XR ankle RT 2V [id number] IMPRESSION: 1. Cortical irregularity along the superior margin of the anterior process of the calcaneus which may represent a fracture. 2. No cortical irregularity along the medial malleolus.
[2023-07-16 01:45] LABS: INR 1.06 (0.8-1.2)
[2023-07-16 01:46] LABS: Partial Thromboplastin Time 35.8 SECONDS (23.9-36.7)
[2023-07-16] MEDS: ipratropium-albuterol 3 mL Neb INHALATION ×3 (01:51→20:59)
[2023-07-16] MEDS: ondansetron 2 mg/ML SDV 2 mL 4 MG IVP (01:52)
[2023-07-16] MEDS: fentaNYL 50 mcg/mL INJ 2mL IVP ×2 (01:53→03:43)
[2023-07-16] MEDS: metoprolol tartrate 1 mg/1 mL SDV 5 mL 5 MG IVP (01:54)
[2023-07-16 01:55] LABS: Lactic Sepsis W/Reflex 1.3 mmol/L (0.5-2.2)
[2023-07-16 01:56] LABS: Troponin(5th) Baseline 79 ng/L (0-15)
[2023-07-16] MEDS: FUROsemide 10 mg/mL SDV 10mL 80 MG IVP (01:58)
[2023-07-16 02:06] LABS: Alanine Aminotransferase 13 U/L (0-41); Albumin Level 3.6 g/dL (3.5-5.2); Alkaline Phosphatase 104 U/L (40-130); Anion Gap 16.5 (5-19); Aspartate Amino Transferase 12 U/L (0-40); Blood Urea Nitrogen 18 mg/dL (8-23); Carbon Dioxide 23 mmol/L (22-29); Chloride 105 mmol/L (98-107); Creatinine Clr Calc Pharmacy 63.8463; Globulin 3.1 g/dL (1.3-4.6); Glomerular Filtration Rate 55.1 mL/min (90-130); Glucose 104 mg/dL (65-115); NT Pro B Type Natriuretic Pept 5425 pg/mL (0-125); Osmolality Calculated 294 mOsm/kg (285-295); Potassium 3.5 mmol/L (3.5-5.1); Sodium 141 mmol/L (136-145); Total Bilirubin 0.3 mg/dL (0.15-1.2); Total Protein 6.7 g/dL (6.6-8.7)
--- NOTE | 2023-07-16 03:19 | ECG_ITS ---
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 Measurements Intervals [place] Rate: 92 P: 0 WV: 0 QRS: -41 QRSD: 101 T: 13 QT: 385 QTc: 476 Interpretive Statements ATRIAL FIBRILLATION INFERIOR MYOCARDIAL INFARCTION , OF INDETERMINATE AGE [40+ ms Q WAVE AND/OR ST/T ABNORMALITY IN II/aVF] Compared to ECG 07/16/2023 00:45:44 Ventricular premature complex(es) now present Aberrant conduction of supraventricular beat(s) now present Myocardial infarct finding still present Electronically Signed On 07-16-2023 12:55:32 CDT by Armaan Camarena M.D. [id number]
--- NOTE | 2023-07-16 03:25 | P.HP_ITS ---
Providers/Chief Complaint 2 Chief Complaint: chest pain History of Present Illness Theo Tipton is a 68 year old male has past medical history of peripheral vascular disease with surgical interventions done in the past. Patient is status post left BKA November 2022 and was admitted in the past for postoperative care since patient was not able to care for himself. He was discharged to SNF. Does have a history of atrial fibrillation, postop blood loss anemia, uncontrolled diabetes mellitus type 2, DVT now on Xarelto, coronary artery disease, depression who presented to the hospital today for complaint of shortness of breath. He states he has not taken any of his medications for the last 1 month. This morning he developed worsening shortness of breath and also experienced some chest pressure this morning therefore called ambulance. He was brought to the hospital via EMS. Hypoxic on arrival. Not on any oxygen at home however requiring 6 L in the hospital. Did complain of some pressure to left side of his chest radiating down his left arm. Patient coughing however not expectorating any sputum. Patient has concerns that his left stump and his chronic ulcer to right leg are both infected. Denies abdominal pain, nausea, vomiting, diarrhea. Denies a fever. On arrival to ER blood pressure 174/102, respiratory 25, pulse 100, temperature 98.1, saturating 93% 6 L nasal cannula. BNP elevated at 5300. Creatinine 1.30, initial troponin 79, repeat troponin pending at this time UA pending. chest x-ray shows consolidation in the left lung base medially, small right- sided pleural effusion. Femur x-ray bilateral: No cortical irregularity to suggest osteomyelitis Ankle x-ray: Cortical irregularity along the superior margin of anterior process of the calcaneus which may represent a fracture. Patient given ceftriaxone azithromycin, 80 Lasix, metoprolol 5 x 1 in ER. Nitropaste 2 inches placed secondary to elevated blood pressure. Patient now denies chest pain. Medications/Allergies Home Medications Medication Instructions Recorded Confirmed Last Taken Type atorvastatin 40 mg tablet 40 mg PO BEDTIME 30 days #30 tabs 02/12/23 Unknown Rx hydrocodone 5 mg-acetaminophen 325 1 tab PO Q8H PRN pain (scale score 02/12/23 Unknown Rx mg tablet 7-10) #10 tabs lisinopril 10 mg tablet 10 mg PO DAILY #30 tabs 02/12/23 Unknown Rx metformin 500 mg tablet 500 mg PO BID #60 tabs 02/12/23 Unknown Rx rivaroxaban 15 mg tablet (Xarelto) 15 mg PO DAILY #30 tabs 02/12/23 Unknown Rx sodium hypochlorite 0.5 % solution 1 applic topical BID right leg 02/12/23 Unknown Rx (Dakin's Solution) wound #473 mL trazodone 100 mg tablet 100 mg PO DAILY #30 tabs 02/12/23 Unknown Rx Allergies Allergy/AdvReac Type Severity Reaction Status Date / Time morphine Allergy Intermediate put me in Verified 01/23/23 21:56 the hospital PFSH Acute 2 PFSH: Medical History (Updated 07/16/23 @ 03:42 by Mike Goyal DO) Hypertension (Unknown) Hyperlipidemia Tobacco dependency Hx of schizophrenia History of bipolar disorder Hypertensive kidney disease with CKD stage III Surgical site infection Hepatitis C NSTEMI (non-ST elevated myocardial infarction) Coronary artery disease Homelessness Methamphetamine abuse Surgical History History of surgery on lower extremity Family History Other Depression Social History Smoking and tobacco/nicotine status: current every day tobacco/nicotine user Alcohol intake: never Substance/Drug Use: current Vitals/I&O/Wt Last Vital Signs Temp 98.1 F 07/16/23 00:41 Pulse 77 07/16/23 02:08 Resp 25 H 07/16/23 02:08 BP 170/116 07/16/23 02:08 Pulse Ox 91 07/16/23 02:08 O2 Del Method Nasal Cannula 07/16/23 02:08 O2 Flow Rate 4 07/16/23 01:58 Weight last 48 hrs Weight 102.058 kg Physical Exam 2 Narrative: General: Alert oriented x3, patient seen laying in bed on 6 L nasal cannula saturating 93%. HEENT: Normocephalic, atraumatic, EOMI, no conversational dyspnea. Cardio: Regular rate rhythm, normal S1-S2 Respiratory: Crackles at left base, otherwise clear to auscultation at this time no wheezes no rhonchi. GI: Abdomen soft, nontender, nondistended, bowel sounds + Extremities: 1+ bilateral lower extremity edema Data 07/16/23 00:45 07/16/23 00:45 Micro: Microbiology 07/16/23 02:59 Blood Culture - Preliminary Blood SPECIMEN COLLECTED A&P Assessment and plan (1) Coronary artery disease: (2) DVT (deep venous thrombosis): (3) Diabetes mellitus type 2 in nonobese: (4) Status post below-knee amputation of left lower extremity: (5) Chest pain: (6) Hypertensive kidney disease with CKD stage III: (7) Peripheral arterial disease: (8) Hypertension: (9) Chronic wound of extremity: (10) MONIQUE (acute kidney injury): (11) Cardiorenal syndrome: Plan #Acute on chronic diastolic congestive heart failure #Left lower lobe pneumonia #MONIQUE #Possible stump infection #Atrial fibrillation, rate controlled #Status post left BKA #History of coronary artery disease #History of DVT, chronically on Xarelto #Uncontrolled diabetes mellitus #Noncompliance to medications ? Continue atorvastatin, Xarelto ? Amlodipine 10 daily ? Will not restart home lisinopril secondary to MONIQUE ? Hold nephrotoxic medications ? Patient probably cardiorenal syndrome secondary to fluid overload. I expect creatinine to improve with diuresis. Hold off on adding IV fluids. ? Placed on Lasix 40 IV daily ? First troponin 79, 72.21, 6-hour troponin pending at this time ? Check echocardiogram. There was evidence of diastolic heart failure from prior echo September 2022. ? Sputum Culture, Blood Cultures, UA Pending, Check Procalcitonin, Check TSH, Hemoglobin A1c, Lactic Acid ? Placed on Ceftriaxone, Azithromycin ? DuoNeb Every 6 Hours As Needed ? Chest Pain is reproducible to palpation. There is more of a pleuritic chest pain. He says it hurts every time he takes a deep breath and also hurts when he moves his arms. Baseline troponin 79. He secondary to demand ischemia. ? Check serial EKGs ? Bilateral femur and ankle x-rays do not show any evidence of osteomyelitis. Will check CRP, ESR ? Patient will need meds to beds at discharge. Full code DVT prophylaxis: Patient on Xarelto Attestations 2 Medical Necessity Statement*: Greater than 2 midnight stay for management of heart failure, left lower lobe pneumonia, MONIQUE Diagnoses Coronary artery disease I25.10 DVT (deep venous thrombosis) I82.409 Diabetes mellitus type 2 in nonobese E11.9 Status post below-knee amputation of left lower extremity Z89.512 Chest pain R07.9 Hypertensive kidney disease with CKD stage III I12.9; N18.30 Peripheral arterial disease I73.9 Hypertension I10 Chronic wound of extremity MONIQUE (acute kidney injury) N17.9 Cardiorenal syndrome I13.10
[2023-07-16] MEDS: nitroglycerin 1 gm/inch oint Pkt 2 INCH TOPICAL (03:32)
[2023-07-16] MEDS: cefTRIAXone 1,000 MG in sodium chloride 0.9% (plus) 50 ML 100 MG IV (03:32)
[2023-07-16 03:34] LABS: Add Urine Microscopic? YES; Amorphous Sediment Urine TRACE /hpf; Bacteria Urine TRACE /hpf; Bilirubin Urine Neg (Negative); Blood Urine Neg (Negative); Coarse Granular Casts Urine 0-4 /lpf; Glucose Urine UA Norm (Normal); Hyaline Casts Urine 0-4 /lpf; Ketones Urine Negative (Negative); Leukocyte Esterase Urine Negative (Negative); Mucus Urine 1+ /hpf; Nitrate Urine Negative (Negative); Protein Urine 3+ (Negative); RBC Urine 0-4 /hpf (0-2); Specific Gravity, Urine 1.015 (1.005-1.030); Urine Appearance Clear (CLEAR); Urine Color Yellow (Yellow); Urobilinogen Urine Neg (Negative); WBC Urine 0-4 /hpf (0-5); pH Urine 5 (5-7)
[2023-07-16] MEDS: azithromycin 500 MG in sodium chloride 0.9% 250 ML 250 MG IV (03:46)
[2023-07-16 03:50] LABS: Troponin 5 2HR 72.21 ng/L (0-15)
[2023-07-16 03:51] LABS: Troponin 5 2HR Delta -6.79 ABS# (0-10)
--- NOTE | 2023-07-16 03:52 | USCV_ITS ---
Theo Tipton Age: 68 Gender: M : 1955 Exam Date: 07/16/2023 18:22 Ordering Phys: Romelia Villatoro MD Technologist: LINK [place] [facility] [place]ication: history of atrial fibrillation, uncontrolled DM, PVD s/p LT BKA, c/o SOB BP: 156 / 90 HR: 83 Rhythm: Atrial fibrillation Technical Quality: Adequate MEASUREMENTS (Male / Female) Normal Values 2D ECHO LV Diastolic Diameter PLAX 5.0 cm 4.2 - 5.9 / 3.9 - 5.3 cm IVS Diastolic Thickness 2.7 cm 0.6 - 1.0 / 0.6 - 0.9 cm IVS Systolic Thickness 2.6 cm LVPW Diastolic Thickness 1.8 cm 0.6 - 1.0 / 0.6 - 0.9 cm LVPW Systolic Thickness 2.2 cm LVOT Diameter 1.7 cm LV Ejection Fraction 2D Teich 41.2 % LV Ejection Fraction MOD 2C 32.7 % LV Ejection Fraction 2C AL 33.1 % LA Diameter 4.0 cm Aorta at Sinotubular Diameter 2.4 cm IVC Diameter 2.1 cm M-MODE LA Ao Ratio MM 1.4 AV Cusp Separation MM 1.4 cm DOPPLER AV Peak Velocity 194.0 cm/s LVOT Peak Velocity 97.0 cm/s AV Area Cont Eq vti 1.2 cm squared AV Area Cont Eq pk 1.2 cm squared MV Peak Velocity 133.0 cm/s MV Area PHT 4.9 cm squared Mitral E to A Ratio 311.0 TV Peak Velocity 278.7 cm/s TR Peak Velocity 320.0 cm/s TR Peak Gradient 41.0 mmHg TV Peak E Velocity 88.0 cm/s Right Atrial Pressure 3.0 mmHg Pulmonary Artery Systolic Pressu 44.0 mmHg PV Peak Velocity 155.0 cm/s FINDINGS Left Ventricle Diffuse hypokinesia of the left ventricle with ejection fraction of 41% Right Ventricle Mild diffuse hypokinesia of the right ventricle with a slightly diminished ejection fraction Right Atrium The right atrium is normal in size. Left Atrium Mildly increased left atrial size. Mitral Valve Moderate to moderately severe mitral valve regurgitation. Aortic Valve Thickened aortic valve with restricted mobility.trace aortic valve regurgitation. Tricuspid Valve Trace to mild tricuspid valve regurgitation. Pulmonic Valve Thickened pulmonic valve. Pericardium Normal pericardium without effusion. Aorta Normal ascending aorta dimension. IVC Normal IVC dimension with <50% respiratory change of the inferior vena cava. CONCLUSIONS Diffuse hypokinesia of the left ventricle with ejection fraction of 41%. Mild diffuse hypokinesia of the right ventricle with a slightly diminished ejection fraction Mildly increased left atrial size. Moderate to moderately severe mitral valve regurgitation. Thickened aortic valve with restricted mobility.moderate low gradient aortic valve stenosis, valve area 1.2 cm squared Trace aortic valve regurgitation. Trace to mild tricuspid valve regurgitation. Estimated pulmonary artery peak systolic pressure 44 mmHg Thickened pulmonic valve. There is no pericardial effusion. Compared to the study from 10/04/2022, there is a decline in the ejection fraction from 50-55% to 41%. The mitral regurgitation appears to be new Dr Tyrone King MD [facility] (Electronically Signed) Final Date: 17 Jul 2023 09:19 S
[2023-07-16 04:35] LABS: Erythrocyte Sedimentation Rate 33 mm/hr (0-10)
[2023-07-16 04:50] LABS: Magnesium 1.9 mg/dL (1.7-2.3)
[2023-07-16 04:52] LABS: Estmated Average Glucose 114; Hemoglobin A1C 5.6 % (4.0-6.0)
[2023-07-16 05:00] LABS: Procalcitonin 0.06 ng/mL (0-0.5)
[2023-07-16] MEDS: FUROsemide 10 mg/mL SDV 4mL 40 MG IVP (05:08)
[2023-07-16] MEDS: acetaminophen 325 mg Tablet 650 MG PO ×2 (05:09→21:24)
[2023-07-16 05:11] LABS: C Reactive Protein 97.1 mg/L (0.0-4.9)
[2023-07-16 06:29] LABS: Glucose Point of Care 105 mg/dL (70-110)
--- NOTE | 2023-07-16 07:26 | ECG_ITS ---
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 Measurements Intervals [place] Rate: 90 P: 0 TN: 0 QRS: -55 QRSD: 133 T: 69 QT: 410 QTc: 503 Interpretive Statements ATRIAL FLUTTER INTRAVENTRICULAR CONDUCTION DELAY [130+ ms QRS DURATION] PROBABLE LATERAL MYOCARDIAL INFARCTION , OF INDETERMINATE AGE [35 ms Q WAVE IN I/aVL/V5/V6] Compared to ECG 07/16/2023 03:19:09 Intraventricular conduction delay now present Atrial fibrillation no longer present Ventricular premature complex(es) no longer present Aberrant conduction of supraventricular beat(s) no longer present Myocardial infarct finding still present Electronically Signed On 07-16-2023 12:54:57 CDT by Armaan Camarena M.D. [email or web address] holmes countySolarVista Mediasumma [facility].[employer]/store/OM/[id number]
--- NOTE | 2023-07-16 08:00 | USCV_ITS ---
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
--- NOTE | 2023-07-16 08:00 | USR_ITS ---
PROCEDURE INFORMATION: Exam: US Duplex Right Lower Extremity Veins, Limited Exam date and time: 07/16/2023 4:34 PM Age: 68 years old Clinical indication: Pain; Leg, lower; Right; Additional info: Edema TECHNIQUE: Imaging protocol: Real-time duplex ultrasound of the right extremity with 2-D ragland scale, color Doppler flow and spectral waveform analysis including responses to compression and other maneuvers (when performed) with image documentation. Limited exam was focused on the right lower extremity veins. COMPARISON: CT angio abd aorta runof [id number] 12/13/2018 4:35 PM FINDINGS: Right deep veins: Unremarkable. The common femoral, femoral, proximal profunda femoral, popliteal, posterior tibial and peroneal veins are patent without thrombus. Normal Doppler waveforms. Normal compressibility and/or augmentation response. Superficial veins: Greater saphenous vein at the saphenofemoral junction is patent without thrombus. Soft tissues: Unremarkable. US/[place] [id number] IMPRESSION: No sonographic evidence of deep vein thrombosis.
[2023-07-16 08:02] LABS: Lactic Sepsis W/Reflex 0.8 mmol/L (0.5-2.2)
[2023-07-16 08:06] LABS: Troponin 5 6HR 65.71 ng/L (0-15)
--- NOTE | 2023-07-16 08:06 | W.PM.EVENTAC ---
Event Note Event Note: Patient seen and examined. Taking over care from salesforce trainer. Right lower extremity is swollen. Will check VICKY, venous duplex. Concern for right calcaneal fracture. Will consult podiatry. Secondary to drainage from his left amputation site and wound to there, will discontinue Zithromax and change to doxycycline. He is still short of breath. Change his DuoNeb to every 6 hours scheduled and add budesonide. As there is a potential for procedures during this hospital stay, will discontinue his Xarelto and change him to full dose Lovenox.
[2023-07-16 08:11] LABS: Troponin 5 6HR Delta -13.29 ng/L (0-12)
[2023-07-16] MEDS: enoxaparin 100 mg/mL Syringe SUBCUT ×2 (08:36→20:48)
[2023-07-16] MEDS: doxycycline 100 mg Tablet PO ×2 (08:37→17:22)
[2023-07-16] MEDS: aspirin 81 mg EC Tablet PO (08:37)
[2023-07-16] MEDS: pantoprazole DR 40 mg Tablet PO (08:37)
[2023-07-16] MEDS: trazodone 100 mg Tablet PO (08:38)
[2023-07-16] MEDS: HYDROmorphone 1 mg/mL INJ 1 mL 0.5 MG IVP ×3 (08:45→21:24)
--- NOTE | 2023-07-16 08:50 | CT_ITS ---
WS: [id number] CT RIGHT FOOT, NONCONTRAST HISTORY: possible calcaneal fracture Technique: All CT scans at [facility] use at least one of these dose optimization techniques: automated exposure control; mA and/or kV adjustment per patient size (includes targeted exams where dose is matched to clinical indication); or iterative reconstruction. DLP: 143.04 mGy.cm COMPARISON: Ankle radiograph 07/16/2023 No calcaneal fracture is identified. There is irregularity along the anterior process of the calcaneu s but appears degenerative. There are a few small subchondral cysts along the calcaneus. Small planta r spur. Enthesopathy at the Achilles tendon. Distal tibia and fibula are intact. There is some motion artifact involving the toes. No malalignment or fracture identified. Mild soft tissue edema around the metatarsals. CT/CT foot RT wo con* [id number] IMPRESSION: 1. No calcaneal fracture. Cortical irregularity along the anterior calcaneal p rocess is degenerative. 2. Small calcaneal spur. 3. Mild edema surrounding the midfoot.
--- NOTE | 2023-07-16 08:53 | PC.PHAR ---
PT IS [facility]- FAXING FOR MEDICATION LIST 8:52M 07/16/23
--- NOTE | 2023-07-16 09:11 | PM.CONSULT ---
Providers/Reason For Consult Consulting Physician/Specialty*: Xavier Salinas D.P.M. Reason for Consult*: Diabetic ulcer right medial ankle and possible calcaneal fracture Attending Physician: Boom Monk MD History of Present Illness History of Present Illness Theo Tipton is a 68 year old male who presented to the emergency department today's with a chief complaint of shortness of breath. Has not been taking any of his prescribed medications for approximately 1 month. History of left below-knee amputation with stump dehiscence. History of peripheral arterial disease with revascularization in 2022 per patient report. I was consulted for evaluation of possible right calcaneal fracture and wound at the right medial malleolus. Patient denies any trauma to the right foot, x-ray of the right ankle due to swelling of the right lower extremity revealed a cortical irregularity at the anterior process of the calcaneus superiorly this is subtle and required further imaging for further evaluation. Review of Systems General: Reports: 10 or more systems reviewed and unremarkable except in HPI and below Const: Denies: fever(s) or chills Eyes: Denies: change in vision Card: Denies: chest pain or palpitations Resp: Denies: dyspnea or productive cough GI: Denies: abdominal pain, nausea or vomiting : Denies: flank pain Musc: Reports: extremity swelling, joint stiffness and deformity Skin/Breast: Reports: erythema, sores, changes in skin color, dry skin, nail changes and change in hair Neuro: Reports: numbness in extremities, sensory changes and difficulty walking Psych: Denies: suicidal ideation Endo: Denies: change in body appearance Ru/Lymph: Denies: tender lymph nodes Medications/Allergies Home Medications Medication Instructions Recorded Confirmed Last Taken Type trazodone 100 mg tablet 100 mg PO DAILY #30 tabs 02/12/23 07/16/23 1 Month Ago Rx ~06/16/23 acetaminophen 500 mg tablet 1,000 mg PO QID PRN Pain 07/16/23 07/16/23 Unknown History albuterol sulfate 90 mcg/actuation 1 inh inhalation QID PRN COPD 07/16/23 07/16/23 Unknown History aerosol inhaler apixaban 5 mg tablet (Eliquis) 5 mg PO BID 07/16/23 07/16/23 1 Month Ago History ~06/16/23 atorvastatin 80 mg tablet 80 mg PO BEDTIME 07/16/23 07/16/23 1 Month Ago History ~06/16/23 carvedilol 25 mg tablet 12.5 mg PO BID 07/16/23 07/16/23 1 Month Ago History ~06/16/23 cholecalciferol (vitamin D3) 25 25 mcg PO DAILY 07/16/23 07/16/23 1 Month Ago History mcg (1,000 unit) tablet ~06/16/23 clindamycin HCl 300 mg capsule 300 mg PO TID 07/16/23 07/16/23 Unknown History (Cleocin HCl) clopidogrel 75 mg tablet 75 mg PO DAILY 07/16/23 07/16/23 1 Month Ago History ~06/16/23 furosemide 40 mg tablet 40 mg PO QAM 07/16/23 07/16/23 1 Month Ago History ~06/16/23 lisinopril 20 mg tablet 10 mg PO DAILY 07/16/23 07/16/23 1 Month Ago History ~06/16/23 metformin 500 mg tablet,extended 1,000 mg PO DAILY 07/16/23 07/16/23 1 Month Ago History release 24 hr ~06/16/23 nitroglycerin 0.4 mg sublingual 0.4 mg sublingual Q5M PRN Chest 07/16/23 07/16/23 Unknown History tablet Pain tiotropium bromide 2.5 2 puff inhalation DAILY 07/16/23 07/16/23 1 Month Ago History mcg/actuation mist for inhalation ~06/16/23 Allergies Allergy/AdvReac Type Severity Reaction Status Date / Time morphine Allergy Intermediate put me in Verified 01/23/23 21:56 the hospital Current Medications Generic Name Dose Route Start Last Admin Trade Name Freq PRN Reason Stop Dose Admin Acetaminophen 650 mg 07/16/23 03:38 07/16/23 05:09 Acetaminophen 325 Mg Tablet PO 650 mg Q6H PRN Administration Mild/Mod Pain Or Temp >/= 101 Albuterol/Ipratropium 3 ml 07/16/23 08:15 07/16/23 08:22 Ipratropium-Albuterol 3 Ml Neb INHALATION Not Given Q6H.RESP KARINA Aspirin 81 mg 07/16/23 09:00 07/16/23 08:37 Aspirin 81 Mg Ec Tablet PO 81 mg DAILY KARINA Administration Doxycycline Monohydrate 100 mg 07/16/23 09:00 07/16/23 08:37 Doxycycline 100 Mg Tablet PO 100 mg BID KARINA Administration Protocol Enoxaparin Sodium 100 mg 07/16/23 08:15 07/16/23 08:36 Enoxaparin 100 Mg/Ml Syringe 1 mg/kg (100 mg) 100 mg SUBCUT Administration Q12H [facility] Furosemide 40 mg 07/16/23 03:52 07/16/23 05:08 Furosemide 10 Mg/Ml Sdv 4ml IVP 40 mg Q24H KARINA Administration Hydromorphone HCl 0.5 mg 07/16/23 08:03 07/16/23 08:45 Hydromorphone 1 Mg/Ml Inj 1 Ml IVP 0.5 mg Q4H PRN Administration MODERATE TO SEVERE PAIN Insulin Human Lispro 0 unit 07/16/23 08:00 07/16/23 08:03 Insulin Lispro 100 Unit/1 Ml SUBCUT Not Given WM&BEDTIME [facility] Protocol Pantoprazole Sodium 40 mg 07/16/23 09:00 07/16/23 08:[address] 40 Mg Tablet PO 40 mg DAILY KARINA Administration Trazodone HCl 100 mg 07/16/23 09:00 07/16/23 08:38 Trazodone 100 Mg Tablet PO 100 mg DAILY KARINA Administration PFSH Acute PFSH: Medical History (Updated 07/16/23 @ 17:37 by Xavier Salinas DPM) Hypertension (Unknown) Hyperlipidemia Tobacco dependency Hx of schizophrenia History of bipolar disorder Hypertensive kidney disease with CKD stage III Surgical site infection Hepatitis C NSTEMI (non-ST elevated myocardial infarction) Coronary artery disease Homelessness Methamphetamine abuse Surgical History History of surgery on lower extremity Family History Other Depression Social History Smoking and tobacco/nicotine status: current every day tobacco/nicotine user Alcohol intake: never Substance/Drug Use: current Vitals/I&O/Wt Last Vital Signs Temp 97.7 F 07/16/23 07:03 Pulse 85 07/16/23 08:20 Resp 21 H 07/16/23 08:45 BP 131/81 07/16/23 07:03 Pulse Ox 95 07/16/23 08:20 O2 Del Method Nasal Cannula 07/16/23 08:20 O2 Flow Rate 3 07/16/23 08:20 07/15/23 07/16/23 07/16/23 22:59 06:59 14:59 Intake Total 300 / 300 240 / 240 Output Total 300 / 300 900 / 900 Balance 0 / 0 -660 / -660 Weight last 48 hrs Weight 228 lb Weight 228 lb 3.2 oz Weight 225 lb Physical Exam Narrative: GENERAL: Patient is alert and oriented ?3 and in no acute distress. The following is a focused right lower extremity exam. VASCULAR: Dorsalis pedis diminished right foot. Posterior tibial artery is diminished right foot. Capillary refill time less than 5 seconds to the distal hallux, right foot. Decreased pedal hair growth right lower extremity. Pitting edema to the right lower extremity. NEUROLOGICAL: Protective sensation intact 0/10 sites, tested with Challis Camila monofilament to bilateral feet. DERMATOLOGICAL: Grade 2 wound medial malleolus right ankle exposed to fat layer measures 2.3 cm x 2.1 cm x 0.2 cm without purulent drainage or proximal lymphangitic streaking, does not probe to bone or tendon, no undermining appreciated. MUSCULOSKELETAL: History of left below-knee amputation. No crepitus on palpation of adjacent soft tissue to the right medial malleolus wound. Able to wiggle toes on command. Data 07/16/23 00:45 07/16/23 00:45 Micro: Microbiology 07/16/23 03:28 Blood Culture - Preliminary Blood SPECIMEN COLLECTED 07/16/23 02:59 Blood Culture - Preliminary Blood SPECIMEN COLLECTED Other data: Patient: Theo Tipton Unit #: [id number] : 1955 Age/Sex: 68 / M ADM Date: 07/16/23 Loc: U Room/Bed: [facility] Attending Dr: Boom Monk MD Ordering Provider/Ordering MD: Boom Monk MD Date of Service: 07/16/23 Procedure(s): CT foot RT wo con* [id number] Accession Number(s): [id number] Report Number: [id number] WS: [id number] CT RIGHT FOOT, NONCONTRAST HISTORY: possible calcaneal fracture Technique: All CT scans at [facility] use at least one of these dose optimization techniques: automated exposure control; mA and/or kV adjustment per patient size (includes targeted exams where dose is matched to clinical indication); or iterative reconstruction. DLP: 143.04 mGy.cm COMPARISON: Ankle radiograph 07/16/2023 No calcaneal fracture is identified. There is irregularity along the anterior process of the calcaneus but appears degenerative. There are a few small subchondral cysts along the calcaneus. Small plantar spur. Enthesopathy at the Achilles tendon. Distal tibia and fibula are intact. There is some motion artifact involving the toes. No malalignment or fracture identified. Mild soft tissue edema around the metatarsals. CT/CT foot RT wo con* [id number] IMPRESSION: 1. No calcaneal fracture. Cortical irregularity along the anterior calcaneal process is degenerative. 2. Small calcaneal spur. 3. Mild edema surrounding the midfoot. Dictated By: Sherry Sahni DO A&P Assessment and plan (1) Non-pressure chronic ulcer of right ankle with fat layer exposed: (2) Diabetic peripheral neuropathy associated with type 2 diabetes mellitus: Plan 68-year-old man diabetic male with Ward grade 2 ulcer right medial malleolus without acute signs of infection. No acute osseous injury on CT scan right foot to indicate calcaneal fracture. No pain to palpation and no history of trauma to the right foot. Irregularity at the anterior process of the calcaneus on lateral right ankle x-ray is likely secondary to artifact. Patient's wound at the medial malleolus is clinically stable, no indications for surgical debridement during his hospitalization. Recommend follow-up at wound care clinic outpatient after his hospitalization. Currently being dressed with silver alginate and silicone bordered foam dressing change once daily during this hospitalization. Consult Attestations Medical Necessity Statement: Diabetic ulcer, right ankle Coding Level of Care Code Acute Code for [facility] Fwd Diagnoses Non-pressure chronic ulcer of right ankle with fat layer exposed L97.312 Diabetic peripheral neuropathy associated with type 2 diabetes mellitus E11.42
--- NOTE | 2023-07-16 09:42 | PC.NURSE ---
Patient requested that a do not disturb sign be placed outside room because he wants to sleep. Nurse placed a STOP, see nurse before entering sign outside door.
--- NOTE | 2023-07-16 11:04 | PC.PT ---
PT eval attempted in AM. Spoke with nursing patient has requested to not be disturbed. Physician note from this AM states possible calcaneous fracture and consult with podiatry placed.
[2023-07-16 11:44] LABS: Glucose Point of Care 139 mg/dL (70-110)
[2023-07-16 16:23] LABS: Glucose Point of Care 177 mg/dL (70-110)
[2023-07-16] MEDS: insulin lispro 100 unit/1 mL SUBCUT ×2 (18:39→20:49)
[2023-07-16 20:42] LABS: Glucose Point of Care 163 mg/dL (70-110)
[2023-07-16] MEDS: trazodone 50 mg Tablet PO (20:49)
[2023-07-16] MEDS: atorvastatin 40 mg Tablet PO (20:49)
[2023-07-16] MEDS: budesonide 0.5 mg/2 mL Neb INHALATION (20:59)
[2023-07-17] VITALS (14 sets, daily range): BP systolic 122–178; BP diastolic 72–112; PULSE 70–100; RESP 15–28; TEMP 36.3–36.8; O2SAT 87–100
[2023-07-17] MEDS: cefTRIAXone 1,000 MG in sodium chloride 0.9% (plus) 50 ML 100 MG IV (03:26)
[2023-07-17] MEDS: FUROsemide 10 mg/mL SDV 4mL 40 MG IVP ×2 (03:26→14:02)
[2023-07-17] MEDS: HYDROmorphone 1 mg/mL INJ 1 mL 0.5 MG IVP ×3 (03:26→20:33)
[2023-07-17 04:30] LABS: Basophils # 0.1 10^3/uL (0.0-0.1); Eosinophils # 0.4 10^3/uL (0.0-0.8); Eosinophils % 3.9 %; Hematocrit 33.3 % (37-53); Lymphocytes # 1.8 10^3/uL (0.8-4.8); Lymphocytes % 20.4 %; Mean Corpuscular HGB Conc 29.7 g/dL (30-55); Mean Corpuscular Hemoglobin 24.2 pg (27-33); Mean Corpuscular Volume 81.4 fl (82-101); Mean Platelet Volume 10.4 fL (7.4-10.4); Monocytes # 0.7 10^3/uL (0.2-0.9); Monocytes % 8.1 %; Neutrophils # 5.88 10^3/uL (1.8-7.7); Neutrophils % 66.2 %; Nucleated Red Blood Cells % 0 %; Platelet Count 306 10^3/cmm (157-399); Red Blood Count 4.09 10^6/uL (3.85-5.65); Red Cell Distribution Width 15.7 % (12.1-15.1); White Blood Count 8.89 10^3/uL (3.29-11.43)
[2023-07-17 04:52] LABS: Blood Urea Nitrogen 19 mg/dL (8-23); Calcium 8.6 mg/dL (8.5-10.5); Carbon Dioxide 25 mmol/L (22-29); Chloride 104 mmol/L (98-107); Glomerular Filtration Rate 55.1 mL/min (90-130); Glucose 108 mg/dL (65-115); Osmolality Calculated 295 mOsm/kg (285-295); Sodium 141 mmol/L (136-145)
[2023-07-17 04:54] LABS: Creatinine Clr Calc Pharmacy 64.2709; Magnesium 1.8 mg/dL (1.7-2.3)
[2023-07-17 06:15] LABS: Glucose Point of Care 108 mg/dL (70-110)
--- NOTE | 2023-07-17 07:22 | ECG_ITS ---
[facility] Test Date: 2023-07-18 Pat Name: Theo Tipton Department: Room: 103 Gender: Male Shipper And Receiving: Rika MaldonadoJohn : 1955 Requested By: Boom John Order Number: [id number] Zoe MD: Tyrone King M.D. Interpretive Statements NAME OF STUDY: LEXISCAN SESTAMIBI STRESS TEST INDICATION: Chest Pain, PROCEDURE: At the baseline, the EKG revealed atrial flutter with a ventricular rate of 68 bpm. The baseline heart was 68 bpm with a blood pressue of 132/110 mm of Hg Lexiscan was infused over a period of 20 seconds. A total of 0.4 milligrams of Lexiscan was infused. The stress phase was continued for a total of 5 minutes. Heart rate at the end of the stress phase was 80 bpm with a blood pressure 154/97 mm of Hg. The EKG at the peak infusion revealed no significant changes. Sestamibi was injected 20 seconds after the Lexiscan infusion. Heart rate at the end of the recovery phase was 85 bpm with a blood pressure of 157/108 mm of Hg. CONCLUSION: 1. No significant EKG changes with the LexiScan infusion 2. No LexiScan induced chest pain or cardiac arrhythmia 3. Normal blood pressure and heart rate response 4. Sestamibi/sestamibi perfusion scan pending; see separate report. Electronically Signed On 07-23-2023 18:37:03 CDT by Tyrone King M.D. [id number]
--- NOTE | 2023-07-17 07:26 | P.PN_ITS ---
Subjective 2 Subjective: Feels bad. Some nausea. Does not feel as much chest discomfort now. A little less short of breath but still requiring oxygen. Still coughing quite a bit. Vitals/I&O/Wt Last Vital Signs Temp 97.5 F L 07/17/23 03:41 Pulse 94 07/17/23 04:47 Resp 17 07/17/23 03:41 BP 178/112 07/17/23 03:41 Pulse Ox 91 07/17/23 03:41 O2 Del Method Nasal Cannula 07/17/23 03:41 O2 Flow Rate 3 07/16/23 21:00 07/16/23 07/17/23 07/17/23 22:59 06:59 14:59 Intake Total 240 / 720 50 / 770 Output Total 0 / 900 1124 / 2024 Balance 240 / -180 -1075 / -1255 Weight last 48 hrs Weight 104.78 kg Weight 103.419 kg Weight 103.51 kg Weight 102.058 kg Physical Exam 2 Narrative: General exam no distress Neck is supple Cardiovascular irregular, irregular without murmur Lungs clear but with diminished breath sounds at the bases Abdomen is soft Right lower extremity with 1+ edema. Medial ulcer unchanged. On the left his amputation site ulcer is unchanged. Data 07/17/23 04:00 07/17/23 04:00 Other Labs: Echocardiogram is taken but result pending Micro: Microbiology 07/16/23 03:28 Blood Culture - Preliminary Blood NEGATIVE TO DATE 07/16/23 02:59 Blood Culture - Preliminary Blood NEGATIVE TO DATE A&P Assessment and plan (1) Congestive heart failure: Patient with evidence of acute diastolic heart failure Echocardiogram pending Continue diuresis with Lasix 40 mg IV every 24 hours. He is diuresed 1500 cc since admission Wean oxygen as tolerated Blood pressures are higher. Initiate treatment. He did have complaints of chest discomfort on arrival. He is currently becoming better compensated and can likely undergo a nuclear stress test tomorrow. Will order. CBC, BMP, magnesium in the morning secondary to Need for continued diuresis with IV Lasix. (2) Pneumonia: Concern of pneumonia on x-ray Rocephin and Zithromax started on admission Continue Rocephin, switched to doxycycline yesterday secondary to chronic wounds on his left stump and right ankle. (3) Acute hypoxemic respiratory failure: Wean oxygen as tolerated Likely COPD as well but no evidence of exacerbation. DuoNeb and budesonide started. Will need outpatient follow-up. Wean oxygen as tolerated (4) DVT (deep venous thrombosis): Past history of DVT Anticoagulation restarted, but switched to Lovenox as there is a possibility of procedure. If none occurs, will switch back to Eliquis on discharge. (5) MONIQUE (acute kidney injury): Mild elevation in creatinine consistent with acute kidney injury on underlying chronic kidney disease Continue to monitor closely (6) Atrial fibrillation: A-fib/flutter. Rate is drifting up Addition of metoprolol 25 mg twice daily Await echo Continue full dose anticoagulation This may be a new diagnosis for the patient. I do not see it in his past medical history. I do not see it on his prior EKGs. Current plan is for good rate control, continued anticoagulation, cardiology follow-up as an outpatient. (7) Noncompliance: Discussed importance of compliance with medication Will need follow-up with wound care clinic, cardiology, and will need a primary care provider Plan Significant hypertension. Add losartan Coronary artery disease. Received a drug-eluting stent 2017, LAD Metoprolol will be added as well. Attestations 2 Medical Necessity Statement*: Requires continued hospitalization for further diuresis secondary to acute diastolic heart failure, and exploration of chest discomfort with nuclear stress test that can now be done as he is better compensated. Diagnoses Congestive heart failure I50.9 Pneumonia J18.9 Acute hypoxemic respiratory failure J96.01 DVT (deep venous thrombosis) I82.409 MONIQUE (acute kidney injury) N17.9 Atrial fibrillation I48.91 Noncompliance Z91.199 Time Spent (min) 29
[2023-07-17] MEDS: budesonide 0.5 mg/2 mL Neb INHALATION ×2 (07:37→20:56)
[2023-07-17] MEDS: ipratropium-albuterol 3 mL Neb INHALATION ×3 (07:38→20:55)
[2023-07-17] MEDS: aspirin 81 mg EC Tablet PO (09:13)
[2023-07-17] MEDS: enoxaparin 100 mg/mL Syringe SUBCUT ×2 (09:13→20:35)
[2023-07-17] MEDS: clopidogrel 75 mg Tablet PO (09:13)
[2023-07-17] MEDS: losartan 50 mg Tablet 25 MG PO (09:13)
[2023-07-17] MEDS: pantoprazole DR 40 mg Tablet PO (09:13)
[2023-07-17] MEDS: metoprolol tartrate 25 mg Tablet PO (09:13)
[2023-07-17] MEDS: doxycycline 100 mg Tablet PO ×2 (09:13→18:37)
--- NOTE | 2023-07-17 09:14 | PC.CHAP ---
Pastoral Care Encounter/Spiritual Assessment Type of Contact [] Declined assistant prosecuting attorney visit [] Patient/Family/Request visit [] Outpatient visit [] Follow-up visit [] Physician referral [] Code/Alert [] Routine visit [] Staff referral [] Actively dying [] Patient sleeping [] Family support [] [] Out of room [] Palliative care [] [] Receiving care in room [] Pre-surgical visit [] Trauma [] Long length of stay [] ICU visit [x] Other:No visit. Nurses request. Relational/Emotional Strength [] Patient feels connected with others/family/visitors/staff [] Distress [] Loneliness/isolation [] Abandonment Spirituality of Patient [] Person of Kaylyn [] Attends Christian of their Kaylyn [] Believes in Prayer [] Reads Bible or Presybeterian materials [] There are Spiritual issues to be addressed Technician Preventative Medicine Interventions [] Prayer [] Active listening [] Non-anxious presence [] Spiritual/emotional support [] Crisis/trauma care [] Spiritual counseling [] Bereavement support [] Provided bereavement packet [] Provided Bible/devotional materials [] Provided toy/stuffed animal, coloring book to patient or family member [] Provided Communion [] Anointing/[place] [] Salvation [] Completed spiritual assessment [] Other: Impact on Illness or Injury [] Angry [] Fearful [] Anxious [] Often cries [] Exhaustion [] Unable to work [] Unable to attend denominational [] Unable to walk/stand [] Unable to read [] Unable to drive [] Unable to eat/drink [] Unable to sleep [] Unable to be with family [] Patient intubated [] Other: Summary Time spent with patient
[2023-07-17] MEDS: acetaminophen 325 mg Tablet 650 MG PO (09:40)
--- NOTE | 2023-07-17 10:51 | PC.PT ---
Pt requesting to not be disturbed by PT at this time. He reportedly is trying to rest/sleep.
[2023-07-17 11:59] LABS: Glucose Point of Care 155 mg/dL (70-110)
--- NOTE | 2023-07-17 13:38 | ECG_ITS ---
[facility] Test Date: 2023-07-17 Pat Name: Theo Tipton Department: Room: 103 Gender: Male Content Strategy Lead: : 1955 Requested By: Boom John Order Number: [id number] Zoe MD: Tyrone King M.D. Measurements Intervals [place] Rate: 62 P: 0 PA: 0 QRS: -40 QRSD: 122 T: 15 QT: 433 QTc: 441 Interpretive Statements ATRIAL FLUTTER/TACHYCARDIA WITH ABERRANT CONDUCTION OR VENTRICULAR PREMATURE COMPLEXES LEFT AXIS DEVIATION [QRS AXIS < -30] PROBABLE LATERAL MYOCARDIAL INFARCTION , PROBABLY OLD [35 ms Q WAVE IN I/aVL/V5/V6] Compared to ECG 07/16/2023 08:08:36 Ventricular premature complex(es) now present Aberrant conduction of supraventricular beat(s) now present Left-axis deviation now present Intraventricular conduction delay no longer present Myocardial infarct finding still present Electronically Signed On 07-18-2023 0:23:58 CDT by Tyrone King M.D. [id number]
[2023-07-17 13:53] LABS: Glucose Point of Care 140 mg/dL (70-110)
--- NOTE | 2023-07-17 13:56 | CTR_ITS ---
PROCEDURE INFORMATION: Exam: CT Chest Without Contrast; Diagnostic Exam date and time: 07/17/2023 9:19 PM Age: 68 years old Clinical indication: Dyspnea; Additional info: Dyspnea, pleural effusion TECHNIQUE: Imaging protocol: Diagnostic computed tomography of the chest without contrast. Radiation optimization: All CT scans at this facility use at least one of these dose optimization techniques: automated exposure control; mA and/or kV adjustment per patient size (includes targeted exams where dose is matched to clinical indication); or iterative reconstruction. COMPARISON: CR (CHEST, ) 07/16/2023 1:31 AM RADIATION DOSE METRICS: Total DLP (mGy-cm): 784 FINDINGS: Lungs: Multiple punctate calcified lung granulomas bilaterally. Mild paraseptal bullous emphysema especially in the right lung apex. Mild interlobular septal thickening in the dependent lungs. Pleural spaces: Moderate bilateral pleural effusions with subjacent compressive atelectasis. Midline patent central airways. [id number]-[id number] diffuse bronchial wall thickening. Heart: Mild cardiomegaly. Moderate coronary calcification. Trace pericardial effusion. Lymph nodes: 2.1 cm precarinal paratracheal lymph node (series 3, image 20), stable from 12/11/2018. A few punctate calcified hilar granulomas are noted. Mildly enlarged left hilar lymph nodes up to 0.6 cm. Vasculature: Unremarkable. No aortic aneurysm. Bones/joints: Moderate multilevel degenerative endplate spurring throughout the thoracic spine. Soft tissues: Incidentally noted 5.6 x 2.3 cm right posterior upper chest wall intermuscular lipoma. CT/CT chest wo con [id number] IMPRESSION: 1. Mild cardiomegaly and moderate pleural effusions compatible with CHF or volume overload. 2. Mild bibasilar consolidation likely predominantly compressive atelectasis, with or without pneumonia in the appropriate clinical setting 3. Mild emphysema. Diffuse bronchial wall thickening due to airways disease or bronchitis. COMMENTS: The presence of pulmonary emphysema on CT is an independent risk factor for lung cancer. In the absence of a history or active diagnosis of lung cancer, it is recommended that this patient with emphysema be evaluated for enrollment in a low dose CT lung cancer screening program.
[2023-07-17 16:35] LABS: Glucose Point of Care 160 mg/dL (70-110)
--- NOTE | 2023-07-17 17:12 | P.CONIM_ITS ---
Providers/Reason For Consult 2 Consulting Physician/Specialty*: KHADIJAH King MD/etiology Reason for Consult*: Patient with chest pain Requesting Physician: Dr. Puga Attending Physician: Boom Monk MD History of Present Illness History of Present Illness Theo Tipton is a 68 year old male with a history of atherosclerotic heart disease, nonischemic cardiomyopathy, congestive heart failure, paroxysmal atrial fibrillation and multiple other medical problems is admitted to the hospital through the emergency room where he presented with complaints of shortness of breath and chest pain. He was found to be in atrial flutter with intermittent rapid ventricular rate. His echocardiogram revealed an LV ejection fraction around 40%, seems to be a significant drop from the previous echocardiogram. Cardiology consult is requested for further cardiac evaluation recommendations. This patient extremely poor historian. According to him, he ran out of all his medications a month ago. He was kicked out of his rental place sometime recently. According to him, he has no place to stay and also have no vehicle. He is known to be noncompliant with medications. 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 He started having chest pain and shortness of breath 4 days ago. He is known to have COPD/reactive airway disease. When his shortness of breath get worse, he started having chest pain also. Denies any fever or chills. He has a infected stump in the left side. Also has a nonhealing ulcer in the right ankle. He was not able to take care of these ulcers at home. He had a below-knee amputation on the left side in November of last year, here at [facility]. He had multiple peripheral intervention in [facility]. Details are not available. He has a history of nonischemic cardiomyopathy and intermittent atrial fibrillation. His LV ejection fraction was around 30% in 2018. He had a high- grade lesion in the proximal LAD at that time. He underwent PCI of the LAD lesion by Dr. Prado. He had a mild disease in the other vessels. The LV ejection fraction has gradually improved. It was around 50 to 55% in September of last year. Patient used to be addicted to methamphetamine. According to him, he quit this 2 years ago. Currently uses marijuana and cigarettes. He cannot tell how much he is smoking. Denies any alcohol abuse. Family history is not known. Apparently he is an estranged from the family Patient is known to be poorly compliant with medications and follow-ups. Review of Systems 2 Narrative: CONSTITUTIONAL: No fever or chills. EYES: No blurring of vision or other visual disturbances lately. ENT: No hoarseness of voice, auditory disturbances or sore throat. CARDIOVASCULAR: As mentioned above. RESPIRATORY: Shortness of breath as mentioned above GASTROINTESTINAL: No hematemesis or melena. GENITOURINARY: No dysuria or hematuria. INTEGUMENTARY: No skin rashes or history of skin cancer. NEURO: No transient ischemic attacks or amaurosis. PSYCHIATRIC: Depressive illness HEMATOLOGIC: No bleeding disorders or significant anemia. ENDOCRINE: No history of polyuria or polydipsia. MUSCULOSKELETAL: No recent joint pain or swelling. ALLERGY/IMMUNOLOGY: As mentioned above. Medications/Allergies Home Medications Medication Instructions Recorded Confirmed Last Taken Type trazodone 100 mg tablet 100 mg PO DAILY #30 tabs 02/12/23 07/16/23 1 Month Ago Rx ~06/16/23 acetaminophen 500 mg tablet 1,000 mg PO QID PRN Pain 07/16/23 07/16/23 Unknown History albuterol sulfate 90 mcg/actuation 1 inh inhalation QID PRN COPD 07/16/23 07/16/23 Unknown History aerosol inhaler apixaban 5 mg tablet (Eliquis) 5 mg PO BID 07/16/23 07/16/23 1 Month Ago History ~06/16/23 atorvastatin 80 mg tablet 80 mg PO BEDTIME 07/16/23 07/16/23 1 Month Ago History ~06/16/23 carvedilol 25 mg tablet 12.5 mg PO BID 07/16/23 07/16/23 1 Month Ago History ~06/16/23 cholecalciferol (vitamin D3) 25 25 mcg PO DAILY 07/16/23 07/16/23 1 Month Ago History mcg (1,000 unit) tablet ~06/16/23 clindamycin HCl 300 mg capsule 300 mg PO TID 07/16/23 07/16/23 Unknown History (Cleocin HCl) clopidogrel 75 mg tablet 75 mg PO DAILY 07/16/23 07/16/23 1 Month Ago History ~06/16/23 furosemide 40 mg tablet 40 mg PO QAM 07/16/23 07/16/23 1 Month Ago History ~06/16/23 lisinopril 20 mg tablet 10 mg PO DAILY 07/16/23 07/16/23 1 Month Ago History ~06/16/23 metformin 500 mg tablet,extended 1,000 mg PO DAILY 07/16/23 07/16/23 1 Month Ago History release 24 hr ~06/16/23 nitroglycerin 0.4 mg sublingual 0.4 mg sublingual Q5M PRN Chest 07/16/23 07/16/23 Unknown History tablet Pain tiotropium bromide 2.5 2 puff inhalation DAILY 07/16/23 07/16/23 1 Month Ago History mcg/actuation mist for inhalation ~06/16/23 Allergies Allergy/AdvReac Type Severity Reaction Status Date / Time morphine Allergy Intermediate put me in Verified 01/23/23 21:56 the hospital Current Medications Generic Name Dose Route Start Last Admin Trade Name Freq PRN Reason Stop Dose Admin Acetaminophen 650 mg 07/16/23 03:38 07/17/23 09:40 Acetaminophen 325 Mg Tablet PO 650 mg Q6H PRN Administration Mild/Mod Pain Or Temp >/= 101 Albuterol/Ipratropium 3 ml 07/16/23 08:15 07/17/23 13:01 Ipratropium-Albuterol 3 Ml Neb INHALATION 3 ml Q6H.RESP KARINA Administration Aspirin 81 mg 07/16/23 09:00 07/17/23 09:13 Aspirin 81 Mg Ec Tablet PO 81 mg DAILY KARINA Administration Atorvastatin Calcium 40 mg 07/16/23 21:00 07/16/23 20:49 Atorvastatin 40 Mg Tablet PO 40 mg BEDTIME KARINA Administration Budesonide 0.5 mg 07/16/23 20:00 07/17/23 07:37 Budesonide 0.5 Mg/2 Ml Neb INHALATION 0.5 mg BID.RESPIRATORY KARINA Administration Clopidogrel Bisulfate 75 mg 07/17/23 09:00 07/17/23 09:13 Clopidogrel 75 Mg Tablet PO 75 mg DAILY KARINA Administration Doxycycline Monohydrate 100 mg 07/16/23 09:00 07/17/23 09:13 Doxycycline 100 Mg Tablet PO 100 mg BID KARINA Administration Protocol Enoxaparin Sodium 100 mg 07/16/23 08:15 07/17/23 09:13 Enoxaparin 100 Mg/Ml Syringe 1 mg/kg (100 mg) 100 mg SUBCUT Administration Q12H KARINA Furosemide 40 mg 07/17/23 15:00 07/17/23 14:02 Furosemide 10 Mg/Ml Sdv 4ml IVP 40 mg Q12H KARINA Administration Hydromorphone HCl 0.5 mg 07/16/23 08:03 07/17/23 09:41 Hydromorphone 1 Mg/Ml Inj 1 Ml IVP 0.5 mg Q4H PRN Administration MODERATE TO SEVERE PAIN Ceftriaxone Sodium 1,000 mg/ 50 mls @ 100 mls/hr 07/17/23 04:00 07/17/23 04:32 Sodium Chloride IV Infused Q24H COUNTS INCLUDE 234 BEDS AT THE [facility] Infusion Protocol Insulin Human Lispro 0 unit 07/16/23 08:00 07/17/23 13:47 Insulin Lispro 100 Unit/1 Ml SUBCUT Not Given WM&BEDTIME KARINA Protocol Losartan Potassium 25 mg 07/17/23 09:00 07/17/23 09:13 Losartan 50 Mg Tablet PO 25 mg DAILY KARINA Administration Pantoprazole Sodium 40 mg 07/16/23 09:00 07/17/23 09:[address] 40 Mg Tablet PO 40 mg DAILY KARINA Administration PFSH Acute 2 PFSH: Medical History Hypertension (Unknown) Hyperlipidemia Tobacco dependency Hx of schizophrenia History of bipolar disorder Hypertensive kidney disease with CKD stage III Surgical site infection Hepatitis C NSTEMI (non-ST elevated myocardial infarction) Coronary artery disease Homelessness Methamphetamine abuse Surgical History History of surgery on lower extremity Family History Other Depression Social History Smoking and tobacco/nicotine status: current every day tobacco/nicotine user Alcohol intake: never Substance/Drug Use: current Vitals/I&O/Wt Last Vital Signs Temp 98.2 F 07/17/23 16:00 Pulse 76 07/17/23 16:00 Resp 20 H 07/17/23 16:00 BP 122/72 07/17/23 16:00 Pulse Ox 95 07/17/23 16:00 O2 Del Method High Flow Nasal Cannula 07/17/23 16:00 O2 Flow Rate 4 07/17/23 07:38 07/17/23 07/17/23 07/17/23 06:59 14:59 22:59 Intake Total 50 / 770 696 / 696 Output Total 1125 / 2025 760 / 760 600 / 1360 Balance -1075 / -1255 -64 / -64 -600 / -664 Weight last 48 hrs Weight 231 lb Weight 228 lb Weight 228 lb 3.2 oz Weight 225 lb Physical Exam 2 Narrative: GENERAL: The patient is alert and oriented times three. Not in any acute distress. HEENT: No significant pallor, icterus or lymphadenopathy.Oral cavity: There are no mucous membrane lesions. NECK: Trachea appears to be central. No masses noted. No JVD or thyromegaly appreciated. RESPIRATORY: Chest is symmetrical. No intercostals muscle retraction or any accessory muscle activation. There is no chest wall tenderness. Breath sounds are heard bilaterally. Bilateral expiratory wheezing. No evidence of consolidation. BREASTS: Deferred. HEART: The heart sounds are normal. No S3 or S4. Ejection systolic murmur grade 3 or 6 in the aortic area. No diastolic murmurs. No pericardial rub ABDOMEN: No vessel pulsations or distention. No tenderness. No organomegaly appreciated. Bowel sounds are normally heard. : Deferred. RECTAL: Deferred. LYMPHATIC: No lymphadenopathy noted in the neck. EXTREMITIES: Below-knee amputation on the left side. The stump is bandaged. 1- 2+ of the right lower extremity. And nonhealing ulcer in the right ankle which is bandaged. MUSCULOSKELETAL: No acute joint deformities or swelling SKIN: There are no significant rashes or ecchymosis NEUROPSYCHIATRIC: The patient is alert and oriented x3. Appears to be in a good mood. No tremors or rigidity noted. Data 07/17/23 04:00 07/17/23 04:00 Other Labs: Current Medications Laboratory Last Values WBC 8.89 10^3/uL (3.29-11.43) 07/17/23 04:00 RBC 4.09 10^6/uL (3.85-5.65) 07/17/23 04:00 Hgb 9.90 g/dL (11.27-16.99) L 07/17/23 04:00 Hct 33.3 % (37-53) L 07/17/23 04:00 MCV 81.4 fl (82-101) L 07/17/23 04:00 MCH 24.2 pg (27-33) L 07/17/23 04:00 MCHC 29.7 g/dL (30-55) L 07/17/23 04:00 RDW 15.7 % (12.1-15.1) H 07/17/23 04:00 Plt Count 306 10^3/cmm (157-399) 07/17/23 04:00 MPV 10.4 fL (7.4-10.4) 07/17/23 04:00 Neut % (Auto) 66.2 % 07/17/23 04:00 Lymph % (Auto) 20.4 % 07/17/23 04:00 [place] % (Auto) 8.1 % 07/17/23 04:00 Eos % (Auto) 3.9 % 07/17/23 04:00 Baso % (Auto) 1.0 % 07/17/23 04:00 Neut # (Auto) 5.88 10^3/uL (1.8-7.7) 07/17/23 04:00 Lymph # (Auto) 1.8 10^3/uL (0.8-4.8) 07/17/23 04:00 [place] # (Auto) 0.7 10^3/uL (0.2-0.9) 07/17/23 04:00 Eos # (Auto) 0.4 10^3/uL (0.0-0.8) 07/17/23 04:00 Baso # (Auto) 0.1 10^3/uL (0.0-0.1) 07/17/23 04:00 Nucleated RBC % (auto) 0 % 07/17/23 04:00 Nucleated RBCs # 0.0 /100WBC 07/17/23 04:00 ESR 33 mm/hr (0-10) H 07/16/23 00:45 PT 14.10 SECONDS (12.1-14.9) 07/16/23 00:45 INR 1.06 (0.8-1.2) 07/16/23 00:45 APTT 35.8 SECONDS (23.9-36.7) 07/16/23 00:45 Sodium 141 mmol/L (136-145) 07/17/23 04:00 Potassium 4.0 mmol/L (3.5-5.1) 07/17/23 04:00 Chloride 104 mmol/L (98-107) 07/17/23 04:00 Carbon Dioxide 25 mmol/L (22-29) 07/17/23 04:00 Anion Gap 16.0 (5-19) 07/17/23 04:00 BUN 19 mg/dL (8-23) 07/17/23 04:00 Creatinine 1.3 mg/dL (0.7-1.2) H 07/17/23 04:00 GFR Calculation 55.1 mL/min (90-130) L 07/17/23 04:00 Glucose 108 mg/dL (65-115) 07/17/23 04:00 POC Glucose 160 mg/dL (70-110) H 07/17/23 16:29 Estimat Average Glucose 114 07/16/23 00:45 Hemoglobin A1c 5.6 % (4.0-6.0) 07/16/23 00:45 Calculated Osmolality 295 mOsm/kg (285-295) 07/17/23 04:00 Lactic Acid 0.8 mmol/L (0.5-2.2) 07/16/23 07:20 Calcium 8.6 mg/dL (8.5-10.5) 07/17/23 04:00 Magnesium 1.8 mg/dL (1.7-2.3) 07/17/23 04:00 Total Bilirubin 0.3 mg/dL (0.15-1.2) 07/16/23 00:45 AST 12 U/L (0-40) 07/16/23 00:45 ALT 13 U/L (0-41) 07/16/23 00:45 Alkaline Phosphatase 104 U/L (40-130) 07/16/23 00:45 Troponin T Baseline 79 ng/L (0-15) H 07/16/23 00:45 Troponin T 120 Minute 72.21 ng/L (0-15) H 07/16/23 03:28 Delta Troponin T -6.79 ABS# (0-10) L 07/16/23 03:28 Troponin T Hi Sens 6Hr 65.71 ng/L (0-15) H 07/16/23 07:20 Troponin T Hi Sens 6Hr Delta -13.29 ng/L (0-12) L 07/16/23 07:20 C-Reactive Protein 97.1 mg/L (0.0-4.9) H 07/16/23 00:45 NT-Pro-B Natriuret Pep 5425 pg/mL (0-125) H 07/16/23 00:45 Total Protein 6.7 g/dL (6.6-8.7) 07/16/23 00:45 Albumin 3.6 g/dL (3.5-5.2) 07/16/23 00:45 Globulin 3.1 g/dL (1.3-4.6) 07/16/23 00:45 Procalcitonin 0.06 ng/mL (0-0.5) 07/16/23 00:45 TSH 1.60 uIU/mL (0.27-4.20) 07/16/23 00:45 Urine Color Yellow (Yellow) 07/16/23 03:21 Urine Appearance Clear (CLEAR) 07/16/23 03:21 Urine pH 5 (5-7) 07/16/23 03:21 Ur Specific [place] 1.015 (1.005-1.030) 07/16/23 03:21 Urine Protein 3+ (Negative) H 07/16/23 03:21 Urine Glucose (UA) Norm (Normal) 07/16/23 03:21 Urine Ketones Negative (Negative) 07/16/23 03:21 Urine Blood Neg (Negative) 07/16/23 03:21 Urine Nitrate Negative (Negative) 07/16/23 03:21 Urine Bilirubin Neg (Negative) 07/16/23 03:21 Urine Urobilinogen Neg mg/dL (Negative) 07/16/23 03:21 Ur Leukocyte Esterase Negative (Negative) 07/16/23 03:21 Urine RBC 0-4 /hpf (0-2) H 07/16/23 03:21 Urine WBC 0-4 /hpf (0-5) H 07/16/23 03:21 Ur Squamous Epith Cells 5-10 /hpf (0-5) H 05/20/24 03:21 Amorphous Sediment Trace /hpf 07/16/23 03:21 Urine Bacteria Trace /hpf (NONE) 07/16/23 03:21 Hyaline Casts 0-4 /lpf H 07/16/23 03:21 Coarse Granular Casts 0-4 /lpf H 07/16/23 03:21 Urine Mucus 1+ /hpf 07/16/23 03:21 Micro: Microbiology 07/16/23 03:28 Blood Culture - Preliminary Blood NEGATIVE TO DATE 07/16/23 02:59 Blood Culture - Preliminary Blood NEGATIVE TO DATE Other data: EKG shows Atrial flutter/fibrillation with a ventricular rate of 62 bpm. Diffuse nonspecific T wave changes. Left axis deviation. Echocardiogram from today Diffuse hypokinesia of the left ventricle with ejection fraction of 41%. Mild diffuse hypokinesia of the right ventricle with a slightly diminished ejection fraction Mildly increased left atrial size. Moderate to moderately severe mitral valve regurgitation. Thickened aortic valve with restricted mobility.moderate low gradient aortic valve stenosis, valve area 1.2 cm squared Trace aortic valve regurgitation. Trace to mild tricuspid valve regurgitation. Estimated pulmonary artery peak systolic pressure 44 mmHg Thickened pulmonic valve. There is no pericardial effusion. Compared to the study from 10/04/2022, there is a decline in the ejection fraction from 50-55% to 41%. The mitral regurgitation appears to be new Cardiac catheterization t done on 06/15/2017 LMCA: Normal. LAD: Single stenosis.85% proximal stenosis Lesion on Prox LAD: Proximal subsection.85% stenosis 11 mm length reduced to 0%. Pre procedure ALBERT III flow was noted. Post Procedure ALBERT III flow was present. The guidewire cross was successful.Good runoff was present.The lesion was diagnosed as a low risk lesion.The lesion was diffuse and concentric.The lesion showed with smooth contour and mild angulation.Culprit lesion. Treatment results:Interventional treatment was successful. Devices used - MDT R IRAJ 2.75X15 RISHI. 1 inflation(s) to a max pressure of: 15 ivone. LCx: Diffuse irregularity. RCA: Diffuse irregularity. A&P Assessment and plan (1) Atherosclerotic heart disease of [place] coronary artery with other forms of angina pectoris: Patient had the PCI of the proximal LAD in 2017. Since then, he had myocardial Perfusion imaging x 2-in August 2017 and another 1 in November 2018. These were essentially unremarkable. This patient is poorly compliant to medications and follow-up. Possibility of restenosis of the LAD lesion or progression of disease in the other vessels are consideration. His chest symptoms are somewhat atypical. To further evaluate his coronary status, a Myocardial perfusion imaging would be appropriate. (2) Diabetes mellitus type 2 in nonobese: Aggressive management of the diabetes would be appropriate. (3) MONIQUE (acute kidney injury): Seems to the patient may have a chronic kidney disease. Need to be closely monitored. (4) Atrial fibrillation: Patient has a history of? DVT. He may benefit from long-term oral anticoagulation. For the time being, he may be treated with IV heparin. Qualifiers: Atrial fibrillation type: persistent (not longstanding) Qualified Code(s): I48.19 - Other persistent atrial fibrillation (5) Status post below-knee amputation of left lower extremity: Patient seems to have a nonhealing ulcer on the stump. (6) Cardiomyopathy: This patient has a history of nonischemic cardiomyopathy. His ejection fraction has been fluctuating. The EF was around 50 to 55% last year. Currently it is in the 40s. It could be related to the arrhythmia/ischemia. Qualifiers: Cardiomyopathy type: other Qualified Code(s): I42.8 - Other cardiomyopathies Plan Patient is restarted on his medication. He may be kept on the current medication. A Myocardial perfusion imaging would be appropriate. Based on the perfusion scan results, further recommendations will be made. Importance of compliance to medications and follow-up were discussed with the patient. He also strongly advised to quit smoking. Thank for the opportunity to eval this patient and make these recommendations Coding Level of Care Code 87821 Diagnoses Atherosclerotic heart disease of [place] coronary artery with other forms of angina pectoris I25.118 Diabetes mellitus type 2 in nonobese E11.9 MONIQUE (acute kidney injury) N17.9 Persistent atrial fibrillation I48.19 Atrial fibrillation type: persistent (not longstanding) Status post below-knee amputation of left lower extremity Z89.512 Other cardiomyopathy I42.8 Cardiomyopathy type: other
[2023-07-17] MEDS: insulin lispro 100 unit/1 mL SUBCUT (18:37)
[2023-07-17] MEDS: trazodone 100 mg Tablet PO (20:32)
[2023-07-17] MEDS: atorvastatin 40 mg Tablet PO (20:32)
[2023-07-17] MEDS: metoprolol tartrate 25 mg Tablet 12.5 MG PO (20:32)
[2023-07-17 20:40] LABS: Glucose Point of Care 124 mg/dL (70-110)
[2023-07-17] MEDS: HYDROcodone-acetaminophen 5-325 mg Tablet 1 TAB PO (23:57)
[2023-07-18] VITALS (16 sets, daily range): BP systolic 145–188; BP diastolic 75–108; PULSE 71–103; RESP 17–26; TEMP 36.6–36.8; O2SAT 92–98
[2023-07-18] MEDS: HYDROmorphone 1 mg/mL INJ 1 mL 0.5 MG IVP ×3 (02:38→20:30)
[2023-07-18] MEDS: FUROsemide 10 mg/mL SDV 4mL 40 MG IVP (03:47)
[2023-07-18] MEDS: cefTRIAXone 1,000 MG in sodium chloride 0.9% (plus) 50 ML 100 MG IV (03:47)
[2023-07-18 05:02] LABS: Basophils # 0.1 10^3/uL (0.0-0.1); Eosinophils # 0.3 10^3/uL (0.0-0.8); Eosinophils % 3.5 %; Hematocrit 34.4 % (37-53); Lymphocytes # 1.8 10^3/uL (0.8-4.8); Mean Corpuscular HGB Conc 29.4 g/dL (30-55); Mean Corpuscular Volume 81.7 fl (82-101); Mean Platelet Volume 10.4 fL (7.4-10.4); Monocytes # 0.7 10^3/uL (0.2-0.9); Monocytes % 7.9 %; Neutrophils # 5.93 10^3/uL (1.8-7.7); Neutrophils % 67.1 %; Nucleated Red Blood Cells % 0 %; Platelet Count 319 10^3/cmm (157-399); Red Blood Count 4.21 10^6/uL (3.85-5.65); Red Cell Distribution Width 15.6 % (12.1-15.1); White Blood Count 8.84 10^3/uL (3.29-11.43)
[2023-07-18 05:20] LABS: Anion Gap 16.5 (5-19); Blood Urea Nitrogen 18 mg/dL (8-23); Calcium 8.5 mg/dL (8.5-10.5); Carbon Dioxide 27 mmol/L (22-29); Chloride 103 mmol/L (98-107); Creatinine Clr Calc Pharmacy 70.2399; Glomerular Filtration Rate 60.4 mL/min (90-130); Glucose 126 mg/dL (65-115); Osmolality Calculated 297 mOsm/kg (285-295); Potassium 4.5 mmol/L (3.5-5.1); Sodium 142 mmol/L (136-145)
[2023-07-18 06:32] LABS: Glucose Point of Care 114 mg/dL (70-110)
--- NOTE | 2023-07-18 07:00 | NMCV_ITS ---
NM sukumar perf SPECT r/s* [id number] Theo Tipton Age: 68 Gender: M : 1955 Exam Date: 07/18/2023 06:35 Ordering Phys: Boom Monk MD Technologist: AILEEN Florence Exam Location: [facility] Indications: SOB, CP STRESS TEST Please see separate stress test report in [facility] for full findings IMAGE PROTOCOL Rest/Stress 1 Lexiscan Day Radiopharmaceutical Dose (mCi) Administration Site Administered by Rest: Tc-99m 10.7 IV AILEEN Florence Sestamibi Stress:Tc-99m 32.8 IV AILEEN Florence Sestamibi Rest: 18-Jul-2023 60 Discovery 630 Stress: 18-Jul-2023 30 Discovery 630 0.4mg Lexiscan. Supine position only as patient was unable to lay prone. SPECT RESULTS Technical Quality: Good Raw Data Analysis: Normal Image Corrections: No attenuation or motion correction applied Summed Stress Score: 12 Summed Rest Score: 12 Summed Difference Score: 2 PERFUSION FINDINGS Moderate area of moderate to severely decreased tracer uptake involving the mid and apical inferior, mid inferolateral, apical lateral and LV apex. Minimal reversibility was noted in the inferior region. FUNCTIONAL RESULTS (calculated via Gated SPECT) Stress Image LV EF (%): 36 Stress EDV (mL):210 TID: 1.13 Stress ESV (mL):135 FUNCTIONAL FINDINGS: Segmental wall motion analysis revealed diffuse hypokinesia of the left ventricle with an ejection fraction of 36%. Moderately dilated LV cavity with an end-systolic volume of 135 ml IMPRESSIONS 1. Myocardial perfusion imaging revealing moderate area of moderate to severely decreased persistent tracer uptake involving the inferior, inferolateral and apical regions with minimal reversibility in the inferior region suggesting myocardial scarring in the distribution of the right coronary artery/circumflex artery with a very small area of minimal emmanuel-infarction ischemia. 2. Moderately diminished ejection fraction of 36%. 3. Segmental wall motion analysis revealing diffuse hypokinesia of the left ventricle. 4. Moderately dilated LV cavity with an end-systolic volume of 135 mL Compared to the study from 12/13/2018, the ejection fraction has improved from 24% to 36%. The area of minimal ischemia appears to be new Dr Tyrone King MD FACC (Electronically Signed) Final Date: 18 Jul 2023 09:05 S
[2023-07-18] MEDS: regadenoson 0.4 Mg/5 ml Syringe 0.400000000000000022 MG IVP (07:17)
[2023-07-18] MEDS: aminophylline 25 mg/mL SDV 10 mL IVP ×2 (07:26→07:31)
[2023-07-18] MEDS: clopidogrel 75 mg Tablet PO (08:48)
[2023-07-18] MEDS: losartan 50 mg Tablet 25 MG PO (08:48)
[2023-07-18] MEDS: pantoprazole DR 40 mg Tablet PO (08:48)
[2023-07-18] MEDS: metoprolol tartrate 25 mg Tablet 12.5 MG PO ×2 (08:48→20:30)
[2023-07-18] MEDS: enoxaparin 100 mg/mL Syringe SUBCUT (08:48)
[2023-07-18] MEDS: aspirin 81 mg EC Tablet PO (08:48)
[2023-07-18] MEDS: doxycycline 100 mg Tablet PO ×2 (08:48→17:43)
--- NOTE | 2023-07-18 10:00 | P.PN_ITS ---
Subjective 2 Subjective: Still feeling significantly short of breath. No chest pain overnight. Nuclear stress test was obtained this morning. Medications: Reviewed: Yes Vitals/I&O/Wt Last Vital Signs Temp 98.2 F 07/18/23 09:16 Pulse 103 H 07/18/23 09:16 Resp 17 07/18/23 09:16 BP 170/81 07/18/23 09:16 Pulse Ox 92 07/18/23 09:16 O2 Del Method Nasal Cannula 07/18/23 09:16 O2 Flow Rate 3 07/18/23 08:00 07/17/23 07/18/23 07/18/23 22:59 06:59 14:59 Intake Total 840 / 1536 450 / 1986 360 / 360 Output Total 1500 / 2260 1050 / 3310 400 / 400 Balance -660 / -724 -600 / -1324 -40 / -40 Weight last 48 hrs Weight 105.233 kg Weight 104.78 kg Physical Exam 2 Narrative: General exam no distress Neck is supple Cardiovascular irregular, irregular without murmur Lungs clear but with diminished breath sounds at the bases Abdomen is soft Right lower extremity with 1+ edema. Medial ulcer unchanged. On the left his amputation site ulcer is unchanged. Edema is unchanged Data 07/18/23 04:49 07/18/23 04:49 Other Labs: CT chest done yesterday for dyspnea demonstrates mild to moderate pleural effusions bilaterally A&P Assessment and plan (1) Congestive heart failure: Patient with evidence of acute diastolic heart failure Echocardiogram pending Increase Lasix to 60 mg IV every 12 hours. Diuresis overall is not adequate for discharge home at this time. Wean oxygen as tolerated Continue beta-yolanda, ARB CBC, BMP, magnesium in the morning secondary to Need for continued diuresis with IV Lasix. Nuclear stress test demonstrates increased uptake inferior inferolateral and apical regions with minimal reversibility. EF around 36%. Diffuse hypokinesis of the ventricle. Echocardiogram demonstrated EF around 40%, moderate to moderately severe mitral regurgitation (2) Pneumonia: Concern of pneumonia on x-ray Rocephin and Zithromax started on admission Continue Rocephin, switched to doxycycline yesterday secondary to chronic wounds on his left stump and right ankle. (3) Acute hypoxemic respiratory failure: Wean oxygen as tolerated Likely COPD as well but no evidence of exacerbation. DuoNeb and budesonide started. Will need outpatient follow-up. Wean oxygen as tolerated (4) DVT (deep venous thrombosis): Past history of DVT Change anticoagulation back to Eliquis. Procedure unlikely during this hospital stay. (5) MONIQUE (acute kidney injury): Mild elevation in creatinine consistent with acute kidney injury on underlying chronic kidney disease Continue to monitor closely (6) Atrial fibrillation: A-fib/flutter. Rate is drifting up Rate controlled. Continue metoprolol 12.5 mg twice daily Continue full dose anticoagulation This may be a new diagnosis for the patient. I do not see it in his past medical history. I do not see it on his prior EKGs. Current plan is for good rate control, continued anticoagulation, cardiology follow-up as an outpatient. Qualifiers: Atrial fibrillation type: persistent (not longstanding) Qualified Code(s): I48.19 - Other persistent atrial fibrillation (7) Noncompliance: Discussed importance of compliance with medication Will need follow-up with wound care clinic, cardiology, and will need a primary care provider Plan Significant hypertension. Add losartan. Metoprolol added. Continue Lasix. Adjust medication further if does not decrease with further diuresis. Coronary artery disease. Received a drug-eluting stent 2018, LAD. Continue statin, aspirin, Plavix, beta-yolanda Full code Eliquis will suffice for DVT prophylaxis Attestations 2 Medical Necessity Statement*: Needs continued hospital stay for further diuresis secondary to acute heart failure in this patient who is still requiring oxygen with need for further diuresis. Diagnoses Congestive heart failure I50.9 Pneumonia J18.9 Acute hypoxemic respiratory failure J96.01 DVT (deep venous thrombosis) I82.409 MONIQUE (acute kidney injury) N17.9 Persistent atrial fibrillation I48.19 Atrial fibrillation type: persistent (not longstanding) Noncompliance Z91.199 Time Spent (min) 24
--- NOTE | 2023-07-18 10:37 | PC.SOCIAL ---
IMM Update Pg. 2 of IMM updated and reviewed with patient, who verbalized understanding. Copy provided.
[2023-07-18 12:10] LABS: Glucose Point of Care 111 mg/dL (70-110)
[2023-07-18 12:25] LABS: Methicillin-Resist S.aureu PCR NOT DETECTED (NOT DETECTED)
[2023-07-18] MEDS: ipratropium-albuterol 3 mL Neb INHALATION (13:35)
--- NOTE | 2023-07-18 16:27 | PC.NURSE ---
Shift Note Frequent safety and comfort rounds continue. Orders and/or nursing care completed as indicated. Patient monitored for response to intervention and treatment(s). Education provided includes medications,signs and symptoms, call light use, community resources, plans for discharge. 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 Will continue to monitor.
[2023-07-18 17:08] LABS: Glucose Point of Care 149 mg/dL (70-110)
[2023-07-18] MEDS: FUROsemide 10 mg/mL SDV 4mL 60 MG IVP (17:42)
[2023-07-18] MEDS: insulin lispro 100 unit/1 mL SUBCUT (17:43)
--- NOTE | 2023-07-18 18:04 | P.PN_ITS ---
Subjective 2 Subjective: Patient had the Myocardial perfusion imaging today. He was found to have moderate area of moderately severely decreased tracer uptake involving the inferior, inferolateral and apical regions with small area of slight reversibility in the inferior wall region, suggesting myocardial scarring in the distribution of the right coronary artery with right circumflex artery with a small area of emmanuel-infarction ischemia. Medications: Medication Review Details: Current Medications Acetaminophen (Acetaminophen 325 Mg Tablet) 650 mg PO Q6H PRN PRN Reason: Mild/Mod Pain Or Temp >/= 101 Last Admin: 07/17/23 09:40 Dose: 650 mg Hydrocodone Bitart/Acetaminophen (Hydrocodone-Acetaminophen 5-325 Mg Tablet) 1 tab PO Q4H PRN PRN Reason: MODERATE PAIN Last Admin: 07/17/23 23:57 Dose: 1 tab Albuterol/Ipratropium (Ipratropium-Albuterol 3 Ml Neb) 3 ml INHALATION Q6H.RESP KARINA Last Admin: 07/18/23 13:35 Dose: 3 ml Aminophylline (Aminophylline 25 Mg/Ml Sdv 10 Ml) 25 mg IVP Q2M PRN PRN Reason: see dose instructions Stop: 07/19/23 06:28 Last Admin: 07/18/23 07:31 Dose: 25 mg Apixaban (Apixaban 5 Mg Tablet) 5 mg PO BID@0900,2100 [facility] Aspirin (Aspirin 81 Mg Ec Tablet) 81 mg PO DAILY KARINA Last Admin: 07/18/23 08:48 Dose: 81 mg Atorvastatin Calcium (Atorvastatin 40 Mg Tablet) 40 mg PO BEDTIME KARINA Last Admin: 07/17/23 20:32 Dose: 40 mg Budesonide (Budesonide 0.5 Mg/2 Ml Neb) 0.5 mg INHALATION BID.RESPIRATORY KARINA Last Admin: 07/18/23 09:32 Dose: Not Given Clopidogrel Bisulfate (Clopidogrel 75 Mg Tablet) 75 mg PO DAILY KARINA Last Admin: 07/18/23 08:48 Dose: 75 mg Doxycycline Monohydrate (Doxycycline 100 Mg Tablet) 100 mg PO BID KARINA; Protocol Last Admin: 07/18/23 17:43 Dose: 100 mg Furosemide (Furosemide 10 Mg/Ml Sdv 4ml) 60 mg IVP Q12H KARINA Last Admin: 07/18/23 17:42 Dose: 60 mg Hydromorphone HCl (Hydromorphone 1 Mg/Ml Inj 1 Ml) 0.5 mg IVP Q4H PRN PRN Reason: MODERATE TO SEVERE PAIN Last Admin: 07/18/23 11:20 Dose: 0.5 mg Ceftriaxone Sodium 1,000 mg/ (Sodium Chloride) 50 mls @ 100 mls/hr IV Q24H [facility]; Protocol Last Infusion: 07/18/23 05:00 Dose: Infused Dextrose (D10w) 250 mls @ 1,000 mls/hr IV PRN PRN; Protocol PRN Reason: Adult Acute Hypoglycemia Nursing Protocol Dextrose (D10w) 125 mls @ 750 mls/hr IV PRN PRN; Protocol PRN Reason: Adult Acute Hypoglycemia Nursing Protocol Dextrose (D5w) 500 mls @ 0 mls/hr IV ONCE PRN; Protocol PRN Reason: Adult Acute Hypoglycemia Prot Insulin Human Lispro (Insulin Lispro 100 Unit/1 Ml) 0 unit SUBCUT WM&BEDTIME [facility]; Protocol Last Admin: 07/18/23 17:43 Dose: 2 unit Losartan Potassium (Losartan 50 Mg Tablet) 25 mg PO DAILY [facility] Last Admin: 07/18/23 08:48 Dose: 25 mg Metoprolol Tartrate (Metoprolol Tartrate 25 Mg Tablet) 12.5 mg PO BID@0900,2100 [facility] Last Admin: 07/18/23 08:48 Dose: 12.5 mg Nitroglycerin (Nitroglycerin 0.4 Mg Sublingual Tablet) 0.4 mg SUBLINGUAL Q5M PRN PRN Reason: CHEST PAIN Stop: 07/19/23 06:28 Ondansetron HCl (Ondansetron 2 Mg/Ml Sdv 2 Ml) 4 mg IVP Q8H PRN PRN Reason: vomiting, or N/V if npo Ondansetron HCl (Ondansetron 2 Mg/Ml Sdv 2 Ml) 4 mg IVP Q2M PRN PRN Reason: NAUSEA Pantoprazole Sodium (Pantoprazole Dr 40 Mg Tablet) 40 mg PO DAILY [facility] Last Admin: 07/18/23 08:48 Dose: 40 mg Trazodone HCl (Trazodone 100 Mg Tablet) 100 mg PO BEDTIME [facility] Last Admin: 07/17/23 20:32 Dose: 100 mg Vitals/I&O/Wt Last Vital Signs Temp 98.2 F 07/18/23 16:00 Pulse 95 07/18/23 16:00 Resp 26 H 07/18/23 16:00 BP 175/93 07/18/23 16:00 Pulse Ox 94 07/18/23 16:00 O2 Del Method Nasal Cannula 07/18/23 16:00 O2 Flow Rate 2 07/18/23 13:46 07/18/23 07/18/23 07/18/23 06:59 14:59 22:59 Intake Total 450 / 1986 720 / 720 Output Total 1050 / 3310 400 / 400 Balance -600 / -1324 320 / 320 Weight last 48 hrs Weight 232 lb Weight 231 lb Physical Exam 2 Narrative: GENERAL: The patient is alert and oriented times three. Not in any acute distress. HEENT: No significant pallor, icterus or lymphadenopathy.Oral cavity: There are no mucous membrane lesions. NECK: Trachea appears to be central. No masses noted. No JVD or thyromegaly appreciated. RESPIRATORY: Chest is symmetrical. No intercostals muscle retraction or any accessory muscle activation. There is no chest wall tenderness. Breath sounds are heard bilaterally. Bilateral expiratory wheezing. No evidence of consolidation. BREASTS: Deferred. HEART: The heart sounds are normal. No S3 or S4. Ejection systolic murmur grade 3 or 6 in the aortic area. No diastolic murmurs. No pericardial rub ABDOMEN: No vessel pulsations or distention. No tenderness. No organomegaly appreciated. Bowel sounds are normally heard. : Deferred. RECTAL: Deferred. LYMPHATIC: No lymphadenopathy noted in the neck. EXTREMITIES: Below-knee amputation on the left side. The stump is bandaged. 1- 2+ of the right lower extremity. And nonhealing ulcer in the right ankle which is bandaged. MUSCULOSKELETAL: No acute joint deformities or swelling SKIN: There are no significant rashes or ecchymosis NEUROPSYCHIATRIC: The patient is alert and oriented x3. Appears to be in a good mood. No tremors or rigidity noted. Data 07/18/23 04:49 07/18/23 04:49 Other Labs: Laboratory Last Values WBC 8.84 10^3/uL (3.29-11.43) 07/18/23 04:49 RBC 4.21 10^6/uL (3.85-5.65) 07/18/23 04:49 Hgb 10.10 g/dL (11.27-16.99) L 07/18/23 04:49 Hct 34.4 % (37-53) L 07/18/23 04:49 MCV 81.7 fl (82-101) L 07/18/23 04:49 MCH 24.0 pg (27-33) L 07/18/23 04:49 MCHC 29.4 g/dL (30-55) L 07/18/23 04:49 RDW 15.6 % (12.1-15.1) H 07/18/23 04:49 Plt Count 319 10^3/cmm (157-399) 07/18/23 04:49 MPV 10.4 fL (7.4-10.4) 07/18/23 04:49 Neut % (Auto) 67.1 % 07/18/23 04:49 Lymph % (Auto) 20.0 % 07/18/23 04:49 [place] % (Auto) 7.9 % 07/18/23 04:49 Eos % (Auto) 3.5 % 07/18/23 04:49 Baso % (Auto) 1.0 % 07/18/23 04:49 Neut # (Auto) 5.93 10^3/uL (1.8-7.7) 07/18/23 04:49 Lymph # (Auto) 1.8 10^3/uL (0.8-4.8) 07/18/23 04:49 [place] # (Auto) 0.7 10^3/uL (0.2-0.9) 07/18/23 04:49 Eos # (Auto) 0.3 10^3/uL (0.0-0.8) 07/18/23 04:49 Baso # (Auto) 0.1 10^3/uL (0.0-0.1) 07/18/23 04:49 Nucleated RBC % (auto) 0 % 07/18/23 04:49 Nucleated RBCs # 0.0 /100WBC 07/18/23 04:49 ESR 33 mm/hr (0-10) H 07/16/23 00:45 PT 14.10 SECONDS (12.1-14.9) 07/16/23 00:45 INR 1.06 (0.8-1.2) 07/16/23 00:45 APTT 35.8 SECONDS (23.9-36.7) 07/16/23 00:45 Sodium 142 mmol/L (136-145) 07/18/23 04:49 Potassium 4.5 mmol/L (3.5-5.1) 07/18/23 04:49 Chloride 103 mmol/L (98-107) 07/18/23 04:49 Carbon Dioxide 27 mmol/L (22-29) 07/18/23 04:49 Anion Gap 16.5 (5-19) 07/18/23 04:49 BUN 18 mg/dL (8-23) 07/18/23 04:49 Creatinine 1.2 mg/dL (0.7-1.2) 07/18/23 04:49 GFR Calculation 60.4 mL/min (90-130) L 07/18/23 04:49 Glucose 126 mg/dL (65-115) H 07/18/23 04:49 POC Glucose 149 mg/dL (70-110) H 07/18/23 16:21 Estimat Average Glucose 114 07/16/23 00:45 Hemoglobin A1c 5.6 % (4.0-6.0) 07/16/23 00:45 Calculated Osmolality 297 mOsm/kg (285-295) H 07/18/23 04:49 Lactic Acid 0.8 mmol/L (0.5-2.2) 07/16/23 07:20 Calcium 8.5 mg/dL (8.5-10.5) 07/18/23 04:49 Magnesium 2.0 mg/dL (1.7-2.3) 07/18/23 04:49 Total Bilirubin 0.3 mg/dL (0.15-1.2) 07/16/23 00:45 AST 12 U/L (0-40) 07/16/23 00:45 ALT 13 U/L (0-41) 07/16/23 00:45 Alkaline Phosphatase 104 U/L (40-130) 07/16/23 00:45 Troponin T Baseline 79 ng/L (0-15) H 07/16/23 00:45 Troponin T 120 Minute 72.21 ng/L (0-15) H 07/16/23 03:28 Delta Troponin T -6.79 ABS# (0-10) L 07/16/23 03:28 Troponin T Hi Sens 6Hr 65.71 ng/L (0-15) H 07/16/23 07:20 Troponin T Hi Sens 6Hr Delta -13.29 ng/L (0-12) L 07/16/23 07:20 C-Reactive Protein 97.1 mg/L (0.0-4.9) H 07/16/23 00:45 NT-Pro-B Natriuret Pep 5425 pg/mL (0-125) H 07/16/23 00:45 Total Protein 6.7 g/dL (6.6-8.7) 07/16/23 00:45 Albumin 3.6 g/dL (3.5-5.2) 07/16/23 00:45 Globulin 3.1 g/dL (1.3-4.6) 07/16/23 00:45 Procalcitonin 0.06 ng/mL (0-0.5) 07/16/23 00:45 TSH 1.60 uIU/mL (0.27-4.20) 07/16/23 00:45 Urine Color Yellow (Yellow) 07/16/23 03:21 Urine Appearance Clear (CLEAR) 07/16/23 03:21 Urine pH 5 (5-7) 07/16/23 03:21 Ur Specific [place] 1.015 (1.005-1.030) 07/16/23 03:21 Urine Protein 3+ (Negative) H 07/16/23 03:21 Urine Glucose (UA) Norm (Normal) 07/16/23 03:21 Urine Ketones Negative (Negative) 07/16/23 03:21 Urine Blood Neg (Negative) 07/16/23 03:21 Urine Nitrate Negative (Negative) 07/16/23 03:21 Urine Bilirubin Neg (Negative) 07/16/23 03:21 Urine Urobilinogen Neg mg/dL (Negative) 07/16/23 03:21 Ur Leukocyte Esterase Negative (Negative) 07/16/23 03:21 Urine RBC 0-4 /hpf (0-2) H 07/16/23 03:21 Urine WBC 0-4 /hpf (0-5) H 07/16/23 03:21 Ur Squamous Epith Cells 5-10 /hpf (0-5) H 07/16/23 03:21 Amorphous Sediment Trace /hpf 07/16/23 03:21 Urine Bacteria Trace /hpf (NONE) 07/16/23 03:21 Hyaline Casts 0-4 /lpf H 07/16/23 03:21 Coarse Granular Casts 0-4 /lpf H 07/16/23 03:21 Urine Mucus 1+ /hpf 07/16/23 03:21 MRSA (PCR) Not detected (NOT DETECTED) 07/16/23 08:40 A&P Assessment and plan (1) Atherosclerotic heart disease of [place] coronary artery with other forms of angina pectoris: Patient had the PCI of the proximal LAD in 2017. Since then, he had myocardial Perfusion imaging x 2-in August 2017 and another 1 in November 2018. These were essentially unremarkable. This patient is poorly compliant to medications and follow-up. Possibility of restenosis of the LAD lesion or progression of disease in the other vessels are consideration. His chest symptoms are somewhat atypical. To further evaluate his coronary status, a Myocardial perfusion imaging would be appropriate. Based on the above myocardial perfusion imaging findings, it might be appropriate to optimize medical treatment. Patient is noncompliant to medication could be a major contributing factor for his symptoms. His social economic situation also has a significant role. It might be appropriate to involve the social science teacher for further management of his care. (2) Diabetes mellitus type 2 in nonobese: Aggressive management of the diabetes would be appropriate. (3) MONIQUE (acute kidney injury): Seems to the patient may have a chronic kidney disease. Need to be closely monitored. (4) Atrial fibrillation: Patient has a history of? DVT. He may benefit from long-term oral anticoagulation. For the time being, he may be treated with IV heparin. If he has no more chest pain, we may change the heparin to oral anticoagulant Qualifiers: Atrial fibrillation type: persistent (not longstanding) Qualified Code(s): I48.19 - Other persistent atrial fibrillation (5) Status post below-knee amputation of left lower extremity: Patient seems to have a nonhealing ulcer of the stump. (6) Cardiomyopathy: It might be appropriate to consider Entresto, if the patient can afford this medication Qualifiers: Cardiomyopathy type: other Qualified Code(s): I42.8 - Other cardiomyopathies Plan May continue on the current medications for the time being. Will try to optimize the anginal medications. I may add isosorbide mononitrate to the current medical regimen Other medications may be continued Consider social service consult Attestations 2 Medical Necessity Statement*: Deferred to the primary Coding Level of Care Code 40414 Diagnoses Atherosclerotic heart disease of [place] coronary artery with other forms of angina pectoris I25.118 Diabetes mellitus type 2 in nonobese E11.9 MONIQUE (acute kidney injury) N17.9 Persistent atrial fibrillation I48.19 Atrial fibrillation type: persistent (not longstanding) Status post below-knee amputation of left lower extremity Z89.512 Other cardiomyopathy I42.8 Cardiomyopathy type: other
[2023-07-18 20:17] LABS: Glucose Point of Care 120 mg/dL (70-110)
[2023-07-18] MEDS: trazodone 100 mg Tablet PO (20:29)
[2023-07-18] MEDS: apixaban 5 mg Tablet PO (20:29)
[2023-07-18] MEDS: atorvastatin 40 mg Tablet PO (20:30)
[2023-07-19] VITALS (14 sets, daily range): BP systolic 135–176; BP diastolic 83–94; PULSE 65–89; RESP 14–28; TEMP 36.6–37.1; O2SAT 92–100
[2023-07-19] MEDS: HYDROcodone-acetaminophen 5-325 mg Tablet 1 TAB PO ×3 (00:02→19:14)
[2023-07-19] MEDS: ipratropium-albuterol 3 mL Neb INHALATION ×2 (03:20→09:17)
[2023-07-19] MEDS: HYDROmorphone 1 mg/mL INJ 1 mL 0.5 MG IVP (03:30)
[2023-07-19] MEDS: FUROsemide 10 mg/mL SDV 4mL 60 MG IVP ×2 (04:15→17:58)
[2023-07-19] MEDS: cefTRIAXone 1,000 MG in sodium chloride 0.9% (plus) 50 ML 100 MG IV (04:16)
[2023-07-19 05:13] LABS: Basophils # 0.1 10^3/uL (0.0-0.1); Basophils % 0.7 %; Eosinophils # 0.3 10^3/uL (0.0-0.8); Hematocrit 35.7 % (37-53); Lymphocytes # 1.5 10^3/uL (0.8-4.8); Lymphocytes % 15.8 %; Mean Corpuscular HGB Conc 29.1 g/dL (30-55); Mean Corpuscular Hemoglobin 23.9 pg (27-33); Mean Corpuscular Volume 81.9 fl (82-101); Mean Platelet Volume 10.4 fL (7.4-10.4); Monocytes # 0.8 10^3/uL (0.2-0.9); Monocytes % 8.2 %; Neutrophils # 6.71 10^3/uL (1.8-7.7); Nucleated Red Blood Cells % 0 %; Platelet Count 346 10^3/cmm (157-399); Red Blood Count 4.36 10^6/uL (3.85-5.65); Red Cell Distribution Width 15.4 % (12.1-15.1); White Blood Count 9.34 10^3/uL (3.29-11.43)
[2023-07-19 05:45] LABS: Anion Gap 13.3 (5-19); Blood Urea Nitrogen 16 mg/dL (8-23); Calcium 8.4 mg/dL (8.5-10.5); Carbon Dioxide 31 mmol/L (22-29); Chloride 103 mmol/L (98-107); Creatinine Clr Calc Pharmacy 75.8522; Glomerular Filtration Rate 66.8 mL/min (90-130); Glucose 132 mg/dL (65-115); Magnesium 1.8 mg/dL (1.7-2.3); Osmolality Calculated 299 mOsm/kg (285-295); Potassium 4.3 mmol/L (3.5-5.1); Sodium 143 mmol/L (136-145)
[2023-07-19 06:29] LABS: Glucose Point of Care 124 mg/dL (70-110)
[2023-07-19] MEDS: losartan 50 mg Tablet PO (08:01)
[2023-07-19] MEDS: doxycycline 100 mg Tablet PO ×2 (08:01→17:58)
[2023-07-19] MEDS: clopidogrel 75 mg Tablet PO (08:02)
[2023-07-19] MEDS: metoprolol tartrate 25 mg Tablet 12.5 MG PO ×2 (08:02→20:03)
[2023-07-19] MEDS: isosorbide mononitrate ER 30 mg Tablet PO (08:02)
[2023-07-19] MEDS: apixaban 5 mg Tablet PO ×2 (08:02→20:03)
[2023-07-19] MEDS: aspirin 81 mg EC Tablet PO (08:02)
[2023-07-19] MEDS: pantoprazole DR 40 mg Tablet PO (08:03)
--- NOTE | 2023-07-19 08:10 | PC.NURSE ---
Patient complains of pain in right medial ankle. Rates pain 7/10 on numeric scale. Hydrocodone 5-325 PRN medication pulled from [facility] and administered to patient at 0802am. Nurse will continue to monitor.
[2023-07-19] MEDS: budesonide 0.5 mg/2 mL Neb INHALATION (09:17)
--- NOTE | 2023-07-19 09:32 | PM.PN ---
Subjective Subjective: Patient continues to remain stable. Still has some amount of shortness of breath with activities. No orthopnea PND. Medications: Medication Review Details: Current Medications Acetaminophen (Acetaminophen 325 Mg Tablet) 650 mg PO Q6H PRN PRN Reason: Mild/Mod Pain Or Temp >/= 101 Last Admin: 07/17/23 09:40 Dose: 650 mg Hydrocodone Bitart/Acetaminophen (Hydrocodone-Acetaminophen 5-325 Mg Tablet) 1 tab PO Q4H PRN PRN Reason: MODERATE PAIN Last Admin: 07/19/23 08:02 Dose: 1 tab Albuterol/Ipratropium (Ipratropium-Albuterol 3 Ml Neb) 3 ml INHALATION Q6H.RESP KARINA Last Admin: 07/19/23 09:17 Dose: 3 ml Apixaban (Apixaban 5 Mg Tablet) 5 mg PO BID@0900,2100 KARINA Last Admin: 07/19/23 08:02 Dose: 5 mg Aspirin (Aspirin 81 Mg Ec Tablet) 81 mg PO DAILY KARINA Last Admin: 07/19/23 08:02 Dose: 81 mg Atorvastatin Calcium (Atorvastatin 40 Mg Tablet) 40 mg PO BEDTIME KARINA Last Admin: 07/18/23 20:30 Dose: 40 mg Budesonide (Budesonide 0.5 Mg/2 Ml Neb) 0.5 mg INHALATION BID.RESPIRATORY KARINA Last Admin: 07/19/23 09:17 Dose: 0.5 mg Clopidogrel Bisulfate (Clopidogrel 75 Mg Tablet) 75 mg PO DAILY KARINA Last Admin: 07/19/23 08:02 Dose: 75 mg Doxycycline Monohydrate (Doxycycline 100 Mg Tablet) 100 mg PO BID KARINA; Protocol Last Admin: 07/19/23 08:01 Dose: 100 mg Furosemide (Furosemide 10 Mg/Ml Sdv 4ml) 60 mg IVP Q12H KARINA Last Admin: 07/19/23 04:15 Dose: 60 mg Hydromorphone HCl (Hydromorphone 1 Mg/Ml Inj 1 Ml) 0.5 mg IVP Q4H PRN PRN Reason: MODERATE TO SEVERE PAIN Last Admin: 07/19/23 03:30 Dose: 0.5 mg Ceftriaxone Sodium 1,000 mg/ (Sodium Chloride) 50 mls @ 100 mls/hr IV Q24H KARINA; Protocol Last Infusion: 07/19/23 04:46 Dose: Infused Dextrose (D10w) 250 mls @ 1,000 mls/hr IV PRN PRN; Protocol PRN Reason: Adult Acute Hypoglycemia Nursing Protocol Dextrose (D10w) 125 mls @ 750 mls/hr IV PRN PRN; Protocol PRN Reason: Adult Acute Hypoglycemia Nursing Protocol Dextrose (D5w) 500 mls @ 0 mls/hr IV ONCE PRN; Protocol PRN Reason: Adult Acute Hypoglycemia Prot Insulin Human Lispro (Insulin Lispro 100 Unit/1 Ml) 0 unit SUBCUT WM&BEDTIME [facility]; Protocol Last Admin: 07/19/23 07:16 Dose: Not Given Isosorbide Mononitrate (Isosorbide Mononitrate Er 30 Mg Tablet) 30 mg PO DAILY [facility] Last Admin: 07/19/23 08:02 Dose: 30 mg Isosorbide Mononitrate (Isosorbide Mononitrate Er 30 Mg Tablet) 30 mg PO NOW [facility] Losartan Potassium (Losartan 50 Mg Tablet) 50 mg PO DAILY [facility] Last Admin: 07/19/23 08:01 Dose: 50 mg Metoprolol Tartrate (Metoprolol Tartrate 25 Mg Tablet) 12.5 mg PO BID@0900,2100 [facility] Last Admin: 07/19/23 08:02 Dose: 12.5 mg Ondansetron HCl (Ondansetron 2 Mg/Ml Sdv 2 Ml) 4 mg IVP Q8H PRN PRN Reason: vomiting, or N/V if npo Ondansetron HCl (Ondansetron 2 Mg/Ml Sdv 2 Ml) 4 mg IVP Q2M PRN PRN Reason: NAUSEA Pantoprazole Sodium (Pantoprazole Dr 40 Mg Tablet) 40 mg PO DAILY [facility] Last Admin: 07/19/23 08:03 Dose: 40 mg Trazodone HCl (Trazodone 100 Mg Tablet) 100 mg PO BEDTIME [facility] Last Admin: 07/18/23 20:29 Dose: 100 mg Vitals/I&O/Wt Last Vital Signs Temp 97.9 F 07/19/23 07:18 Pulse 65 07/19/23 09:20 Resp 16 07/19/23 09:20 BP 135/92 07/19/23 08:01 Pulse Ox 96 07/19/23 09:20 O2 Del Method Nasal Cannula 07/19/23 09:20 O2 Flow Rate 2 07/19/23 09:20 07/18/23 07/19/23 07/19/23 22:59 06:59 14:59 Intake Total 360 / 1080 50 / 1130 480 / 480 Output Total 1900 / 2300 2250 / 4550 650 / 650 Balance -1540 / -1220 -2200 / -3420 -170 / -170 Weight last 48 hrs Weight 227 lb 6 oz Weight 232 lb Physical Exam Narrative: GENERAL: The patient is alert and oriented times three. Not in any acute distress. HEENT: No significant pallor, icterus or lymphadenopathy.Oral cavity: There are no mucous membrane lesions. NECK: Trachea appears to be central. No masses noted. No JVD or thyromegaly appreciated. RESPIRATORY: Chest is symmetrical. No intercostals muscle retraction or any accessory muscle activation. There is no chest wall tenderness. Breath sounds are heard bilaterally. No rales or rhonchi. No evidence of consolidation. BREASTS: Deferred. HEART: The heart sounds are normal. No S3 or S4. Ejection systolic murmur grade 3 or 6 in the aortic area. No diastolic murmurs. No pericardial rub ABDOMEN: No vessel pulsations or distention. No tenderness. No organomegaly appreciated. Bowel sounds are normally heard. : Deferred. RECTAL: Deferred. LYMPHATIC: No lymphadenopathy noted in the neck. EXTREMITIES: Below-knee amputation on the left side. The stump is bandaged. 1-2+ of the right lower extremity. And nonhealing ulcer in the right ankle which is bandaged. MUSCULOSKELETAL: No acute joint deformities or swelling SKIN: There are no significant rashes or ecchymosis NEUROPSYCHIATRIC: The patient is alert and oriented x3. Appears to be in a good mood. No tremors or rigidity noted. Data 07/19/23 04:27 07/19/23 04:27 Other data: Echocardiogram on 07/16/2023 Diffuse hypokinesia of the left ventricle with ejection fraction of 41%. Mild diffuse hypokinesia of the right ventricle with a slightly diminished ejection fraction Mildly increased left atrial size. Moderate to moderately severe mitral valve regurgitation. Thickened aortic valve with restricted mobility.moderate low gradient aortic valve stenosis, valve area 1.2 cm squared Trace aortic valve regurgitation. Trace to mild tricuspid valve regurgitation. Estimated pulmonary artery peak systolic pressure 44 mmHg Thickened pulmonic valve. There is no pericardial effusion. Compared to the study from 10/04/2022, there is a decline in the ejection fraction from 50-55% to 41%. The mitral regurgitation appears to be new A&P Assessment and plan (1) Atherosclerotic heart disease of [place] coronary artery with other forms of angina pectoris: Patient had the PCI of the proximal LAD in 2018. Since then, he had myocardial Perfusion imaging x 2-in August 2017 and another 1 in November 2018. These were essentially unremarkable. This patient is poorly compliant to medications and follow-up. Possibility of restenosis of the LAD lesion or progression of disease in the other vessels are consideration. His chest symptoms are somewhat atypical. To further evaluate his coronary status, a Myocardial perfusion imaging would be appropriate. Based on the above myocardial perfusion imaging findings, it might be appropriate to optimize medical treatment. Patient is noncompliant to medication could be a major contributing factor for his symptoms. His social economic situation also has a significant role. It might be appropriate to involve the social service liaison for further management of his care. Currently the patient is pain-free. May continue on the current management. (2) Diabetes mellitus type 2 in nonobese: Aggressive management of the diabetes would be appropriate. Management as per the primary (3) MONIQUE (acute kidney injury): Seems to the patient may have a chronic kidney disease. Kidney function seems to be stable. (4) Atrial fibrillation: May continue on the current medication. Qualifiers: Atrial fibrillation type: persistent (not longstanding) Qualified Code(s): I48.19 - Other persistent atrial fibrillation (5) Status post below-knee amputation of left lower extremity: Patient seems to have a nonhealing ulcer of the stump. (6) Cardiomyopathy: It might be appropriate to consider Entresto, if the patient can afford this medication Qualifiers: Cardiomyopathy type: other Qualified Code(s): I42.8 - Other cardiomyopathies Plan Patient seems to be tolerating the medication so far well. May continue on the current management. Disposition as per the primary Attestations Medical Necessity Statement*: Deferred to the primary Coding Level of Care Code 80149 Diagnoses Atherosclerotic heart disease of [place] coronary artery with other forms of angina pectoris I25.118 Diabetes mellitus type 2 in nonobese E11.9 MONIQUE (acute kidney injury) N17.9 Persistent atrial fibrillation I48.19 Atrial fibrillation type: persistent (not longstanding) Status post below-knee amputation of left lower extremity Z89.512 Other cardiomyopathy I42.8 Cardiomyopathy type: other
--- NOTE | 2023-07-19 10:24 | P.PN_ITS ---
Subjective 2 Subjective: Theo reports he still feels somewhat short of breath. Denies any chest discomfort currently. No issues with any medication. He is trying to find a place to live. Medications: Reviewed: Yes Vitals/I&O/Wt Last Vital Signs Temp 97.9 F 07/19/23 07:18 Pulse 70 07/19/23 09:34 Resp 16 07/19/23 09:20 BP 135/92 07/19/23 08:01 Pulse Ox 96 07/19/23 09:20 O2 Del Method Nasal Cannula 07/19/23 09:20 O2 Flow Rate 2 07/19/23 09:20 07/18/23 07/19/23 07/19/23 22:59 06:59 14:59 Intake Total 360 / 1080 50 / 1130 480 / 480 Output Total 1900 / 2300 2250 / 4550 650 / 650 Balance -1540 / -1220 -2200 / -3420 -170 / -170 Weight last 48 hrs Weight 103.136 kg Weight 105.233 kg Physical Exam 2 Narrative: General exam no distress. 3500 cc negative Neck is supple Cardiovascular irregular, irregular without murmur Lungs clear but with diminished breath sounds at the bases Abdomen is soft Right lower extremity with 1+ edema. Medial ulcer unchanged. On the left his amputation site ulcer is unchanged. Edema is somewhat improved today but still significant. Data 07/19/23 04:27 07/19/23 04:27 A&P Assessment and plan (1) Congestive heart failure: Patient with evidence of acute diastolic heart failure Echocardiogram demonstrated EF around 40%, diffuse hypokinesia Continue Lasix to 60 mg IV every 12 hours. Overall improving. -6 L as of today Wean oxygen as tolerated Continue beta-yolanda, ARB. ARB recently increased for elevated blood pressure. Blood pressure improved CBC, BMP, magnesium in the morning secondary to Need for continued diuresis with IV Lasix. Nuclear stress test demonstrates increased uptake inferior inferolateral and apical regions with minimal reversibility. EF around 36%. Diffuse hypokinesis of the ventricle. Cardiology recommends medical treatment currently. Echocardiogram demonstrated EF around 40%, moderate to moderately severe mitral regurgitation Appreciate cardiology consultation BMP, CBC, magnesium daily in this patient receiving IV Lasix which is a potentially renal toxic medication. (2) Pneumonia: Concern of pneumonia on x-ray Rocephin and Zithromax started on admission Continue Rocephin, doxycycline (3) Acute hypoxemic respiratory failure: Wean oxygen as tolerated Likely COPD as well but no evidence of exacerbation. DuoNeb and budesonide started. Will need outpatient follow-up. Wean oxygen as tolerated (4) DVT (deep venous thrombosis): Past history of DVT Change anticoagulation back to Eliquis. Procedure unlikely during this hospital stay. (5) MONIQUE (acute kidney injury): Mild elevation in creatinine consistent with acute kidney injury on underlying chronic kidney disease Improved (6) Atrial fibrillation: A-fib/flutter. Rate controlled. Continue metoprolol 12.5 mg twice daily Continue full dose anticoagulation This may be a new diagnosis for the patient. I do not see it in his past medical history. I do not see it on his prior EKGs. Current plan is for good rate control, continued anticoagulation, cardiology follow-up as an outpatient. Qualifiers: Atrial fibrillation type: persistent (not longstanding) Qualified Code(s): I48.19 - Other persistent atrial fibrillation (7) Noncompliance: Discussed importance of compliance with medication Will need follow-up with wound care clinic, cardiology, and will need a primary care provider Plan Significant hypertension. Add losartan. Metoprolol added. Continue Lasix. Adjust medication further if does not decrease with further diuresis. Coronary artery disease. Received a drug-eluting stent 2018, LAD. Continue statin, aspirin, Plavix, beta-yolanda Full code Eliquis will suffice for DVT prophylaxis Hopefully can discharge in the next 1 to 2 days with adequate diuresis. Still requiring 2 L of oxygen. I would like him to be off oxygen at discharge. Attestations 2 Medical Necessity Statement*: Needs continued hospitalization for further diuresis secondary to acute systolic heart failure. Diagnoses Congestive heart failure I50.9 Pneumonia J18.9 Acute hypoxemic respiratory failure J96.01 DVT (deep venous thrombosis) I82.409 MONIQUE (acute kidney injury) N17.9 Persistent atrial fibrillation I48.19 Atrial fibrillation type: persistent (not longstanding) Noncompliance Z91.199 Time Spent (min) 24
[2023-07-19 11:54] LABS: Glucose Point of Care 109 mg/dL (70-110)
--- NOTE | 2023-07-19 11:57 | ECG_ITS ---
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 Measurements Intervals [place] Rate: 80 P: 0 GA: 0 QRS: -37 QRSD: 125 T: 9 QT: 492 QTc: 569 Interpretive Statements ATRIAL FLUTTER LEFT AXIS DEVIATION [QRS AXIS < -30] MINIMAL VOLTAGE CRITERIA FOR LVH, CONSIDER NORMAL VARIANT [MEETS CRITERIA IN ONE OF: R(aVL), S(V1), R(V5), R(V5/V6)+S(V1)] POSSIBLE LATERAL MYOCARDIAL INFARCTION , OF INDETERMINATE AGE [30 ms Q WAVE IN I/aVL/V5/V6] Compared to ECG 07/17/2023 13:38:56 Aberrant conduction of supraventricular beat(s) no longer present Myocardial infarct finding still present Electronically Signed On 07-19-2023 17:09:15 CDT by Armaan Camarena M.D. [email or web address]
--- NOTE | 2023-07-19 12:53 | PC.NURSE ---
Patient had an event where he developed chest pain and tightness. Chest pain did not radiate and was localized to the sub sternal area. Patient had difficulty breathing. EKG was obtained, physician notified. Patient reports that pain is gone but he believes it was related to anxiety. Patient requested anxiety medication. Physician orders xanax 0.5mg PRN Q8h
[2023-07-19] MEDS: ALPRAZolam 0.5 mg Tablet PO ×2 (13:01→21:27)
--- NOTE | 2023-07-19 14:18 | PM.PN ---
Subjective Subjective: Patient seen bedside this afternoon, was resting comfortably when entering the room. Reports that his right ankle dressing actually came off earlier today and is open to air, believes it came off in his sleep. Vitals/I&O/Wt Last Vital Signs Temp 98.8 F 07/19/23 11:12 Pulse 67 07/19/23 13:50 Resp 18 07/19/23 13:50 BP 141/83 07/19/23 11:12 Pulse Ox 100 07/19/23 13:50 O2 Del Method Nasal Cannula 07/19/23 13:50 O2 Flow Rate 2 07/19/23 13:50 07/18/23 07/19/23 07/19/23 22:59 06:59 14:59 Intake Total 360 / 1080 50 / 1130 720 / 720 Output Total 1900 / 2300 2250 / 4550 650 / 650 Balance -1540 / -1220 -2200 / -3420 70 / 70 Weight last 48 hrs Weight 227 lb 6 oz Weight 232 lb Physical Exam Narrative: GENERAL: Patient is alert and oriented ?3 and in no acute distress. The following is a focused right lower extremity exam. VASCULAR: Dorsalis pedis diminished right foot. Posterior tibial artery is diminished right foot. Capillary refill time less than 5 seconds to the distal hallux, right foot. Decreased pedal hair growth right lower extremity. Pitting edema to the right lower extremity. NEUROLOGICAL: Protective sensation intact 0/10 sites, tested with [place] Camila monofilament to bilateral feet. DERMATOLOGICAL: Grade 2 wound medial malleolus right ankle exposed to fat layer measures 2.3 cm x 2.1 cm x 0.2 cm without purulent drainage or proximal lymphangitic streaking, does not probe to bone or tendon, no undermining appreciated. Wound has fibrotic base. MUSCULOSKELETAL: History of left below-knee amputation. No crepitus on palpation of adjacent soft tissue to the right medial malleolus wound. Able to wiggle toes on command. Data 07/19/23 04:27 07/19/23 04:27 Micro: Microbiology 07/19/23 09:32 Gram Stain - Final Sputum - Expectorated Sputum A&P Assessment and plan (1) Non-pressure chronic ulcer of right ankle with fat layer exposed: (2) Diabetic peripheral neuropathy associated with type 2 diabetes mellitus: Plan 68-year-old man diabetic male with Ward grade 2 ulcer right medial malleolus without acute signs of infection. No acute osseous injury on CT scan right foot to indicate calcaneal fracture. No pain to palpation and no history of trauma to the right foot. Irregularity at the anterior process of the calcaneus on lateral right ankle x-ray is likely secondary to artifact. Patient's wound at the medial malleolus is clinically stable, no indications for surgical debridement during his hospitalization. Recommend follow-up at wound care clinic outpatient after his hospitalization. Switch daily dressing to Santyl/collagenase to be applied thickness of a nickel directly to the wound bed with bordered wound dressing. Attestations Medical Necessity Statement*: Right ankle diabetic ulcer Coding Level of Care Code Acute Code for [facility] Fwd Diagnoses Non-pressure chronic ulcer of right ankle with fat layer exposed L97.312 Diabetic peripheral neuropathy associated with type 2 diabetes mellitus E11.42
[2023-07-19 17:25] LABS: Glucose Point of Care 135 mg/dL (70-110)
--- NOTE | 2023-07-19 19:09 | PC.NURSE ---
JIGNA Gore was in the middle of a thoracentesis with another patient and she asked this nurse to pass her 1800 medications for her. I was passing meds to this patient, for whom a hydrocodone was pulled for pain. Nurse went over all medication and punched them out of their blister seal when patient said he would rather have dilaudid. Nurse told patient that Sofía thought hydrocodone was more appropriate at the time. Patient then refused to take the hydrocodone and wanted to wait to talk to Sofía after she was done with the thoracentesis. This nurse returned the pill to the med room and wasted it in the pyxis. The pyxis DID NOT ask nurse to scan the medication (which would have been impossible because it was already punched through the blister pack.) The nurse then showed the pill to the camera in the med room and put the pill in the container with the liquid that destroys pills. Later, anesthesiologist physician nurse Mirela convinced the patient to take the hydrocodone instead of the dilaudid and the hydrocodone was pulled again. Patient took hydrocodone per JIGNA Dietz.
[2023-07-19] MEDS: trazodone 100 mg Tablet PO (20:03)
[2023-07-19] MEDS: atorvastatin 40 mg Tablet PO (20:03)
[2023-07-19] MEDS: collagenase oint 30 gm 1 APPLIC TOPICAL (20:03)
[2023-07-19 20:32] LABS: Glucose Point of Care 124 mg/dL (70-110)
[2023-07-20] VITALS (15 sets, daily range): BP systolic 133–182; BP diastolic 65–98; PULSE 67–92; RESP 14–23; TEMP 36.6–36.8; O2SAT 93–97
[2023-07-20] MEDS: FUROsemide 10 mg/mL SDV 4mL 60 MG IVP (04:01)
[2023-07-20] MEDS: cefTRIAXone 1,000 MG in sodium chloride 0.9% (plus) 50 ML 100 MG IV (04:02)
[2023-07-20 05:13] LABS: Basophils # 0.1 10^3/uL (0.0-0.1); Basophils % 0.6 %; Eosinophils # 0.3 10^3/uL (0.0-0.8); Hematocrit 38.6 % (37-53); Lymphocytes # 1.6 10^3/uL (0.8-4.8); Lymphocytes % 13.7 %; Mean Corpuscular HGB Conc 29.3 g/dL (30-55); Mean Corpuscular Hemoglobin 23.5 pg (27-33); Mean Corpuscular Volume 80.4 fl (82-101); Mean Platelet Volume 10.5 fL (7.4-10.4); Monocytes # 0.7 10^3/uL (0.2-0.9); Monocytes % 6.1 %; Neutrophils # 8.79 10^3/uL (1.8-7.7); Neutrophils % 76.3 %; Nucleated Red Blood Cells % 0 %; Platelet Count 407 10^3/cmm (157-399); Red Cell Distribution Width 15.3 % (12.1-15.1); White Blood Count 11.52 10^3/uL (3.29-11.43)
[2023-07-20 05:41] LABS: Anion Gap 14.4 (5-19); Blood Urea Nitrogen 18 mg/dL (8-23); Calcium 8.8 mg/dL (8.5-10.5); Carbon Dioxide 31 mmol/L (22-29); Chloride 100 mmol/L (98-107); Glomerular Filtration Rate 55.1 mL/min (90-130); Glucose 128 mg/dL (65-115); Magnesium 1.9 mg/dL (1.7-2.3); Osmolality Calculated 298 mOsm/kg (285-295); Potassium 3.4 mmol/L (3.5-5.1); Sodium 142 mmol/L (136-145)
[2023-07-20 05:47] LABS: Creatinine Clr Calc Pharmacy 63.6519
[2023-07-20 06:46] LABS: Glucose Point of Care 109 mg/dL (70-110)
[2023-07-20] MEDS: budesonide 0.5 mg/2 mL Neb INHALATION (07:35)
[2023-07-20] MEDS: ipratropium-albuterol 3 mL Neb INHALATION ×2 (07:42→15:13)
[2023-07-20] MEDS: HYDROmorphone 1 mg/mL INJ 1 mL 0.5 MG IVP (07:58)
[2023-07-20] MEDS: clopidogrel 75 mg Tablet PO (07:59)
[2023-07-20] MEDS: aspirin 81 mg EC Tablet PO (07:59)
[2023-07-20] MEDS: isosorbide mononitrate ER 30 mg Tablet PO (07:59)
[2023-07-20] MEDS: apixaban 5 mg Tablet PO ×2 (07:59→20:03)
[2023-07-20] MEDS: losartan 50 mg Tablet PO (07:59)
[2023-07-20] MEDS: doxycycline 100 mg Tablet PO ×2 (07:59→17:37)
[2023-07-20] MEDS: pantoprazole DR 40 mg Tablet PO (07:59)
[2023-07-20] MEDS: metoprolol tartrate 25 mg Tablet 12.5 MG PO ×2 (07:59→20:03)
--- NOTE | 2023-07-20 08:21 | PC.NURSE ---
Patient complains of right ankle pain 10. Dilaudid pulled from [facility], 0.5 wasted with JIGNA Simmons. 0.5 administered to patient
[2023-07-20 11:19] LABS: Glucose Point of Care 178 mg/dL (70-110)
--- NOTE | 2023-07-20 11:45 | XRR_ITS ---
PROCEDURE INFORMATION: Exam: XR Chest Exam date and time: 07/20/2023 1:27 PM Age: 68 years old Clinical indication: Shortness of breath; Additional info: Hypoxia, evaluate pleural effusions TECHNIQUE: Imaging protocol: Radiologic exam of the chest. Views: 2 views. COMPARISON: CT chest con [id number] 07/17/2023 9:19 PM FINDINGS: Lungs: Unremarkable. No consolidation or mass. Pleural spaces: There is a small right-sided pleural effusion. Heart/Mediastinum: Mild cardiomegaly is noted. Bones/joints: Unremarkable. XR/XR chest 2V insp/exp [id number] IMPRESSION: Small right-sided pleural effusion. No significant change in the past 3 days.
[2023-07-20] MEDS: insulin lispro 100 unit/1 mL SUBCUT ×3 (12:33→21:00)
[2023-07-20] MEDS: predniSONE 20 mg Tablet 60 MG PO (12:33)
[2023-07-20] MEDS: potassium chloride ER 20 mEq Tablet 40 MEQ PO (12:34)
--- NOTE | 2023-07-20 14:00 | P.PN_ITS ---
Subjective 2 Subjective: The patient is feeling much better. Denies any chest pain. The shortness of breath has significantly improved. Medications: Medication Review Details: Current Medications Acetaminophen (Acetaminophen 325 Mg Tablet) 650 mg PO Q6H PRN PRN Reason: Mild/Mod Pain Or Temp >/= 101 Last Admin: 07/17/23 09:40 Dose: 650 mg Hydrocodone Bitart/Acetaminophen (Hydrocodone-Acetaminophen 5-325 Mg Tablet) 1 tab PO Q4H PRN PRN Reason: MODERATE PAIN Last Admin: 07/19/23 19:14 Dose: 1 tab Albuterol/Ipratropium (Ipratropium-Albuterol 3 Ml Neb) 3 ml INHALATION Q6H.RESP KARINA Last Admin: 07/20/23 11:01 Dose: Not Given Alprazolam (Alprazolam 0.5 Mg Tablet) 0.5 mg PO Q8H PRN PRN Reason: ANXIETY Last Admin: 07/19/23 21:27 Dose: 0.5 mg Apixaban (Apixaban 5 Mg Tablet) 5 mg PO BID@0900,2100 KARINA Last Admin: 07/20/23 07:59 Dose: 5 mg Aspirin (Aspirin 81 Mg Ec Tablet) 81 mg PO DAILY KARINA Last Admin: 07/20/23 07:59 Dose: 81 mg Atorvastatin Calcium (Atorvastatin 40 Mg Tablet) 40 mg PO BEDTIME KARINA Last Admin: 07/19/23 20:03 Dose: 40 mg Budesonide (Budesonide 0.5 Mg/2 Ml Neb) 0.5 mg INHALATION BID.RESPIRATORY KARINA Last Admin: 07/20/23 07:35 Dose: 0.5 mg Clopidogrel Bisulfate (Clopidogrel 75 Mg Tablet) 75 mg PO DAILY KARINA Last Admin: 07/20/23 07:59 Dose: 75 mg Collagenase (Collagenase Oint 30 Gm) 1 applic TOPICAL DAILY KARINA Last Admin: 07/19/23 20:03 Dose: 1 applic Doxycycline Monohydrate (Doxycycline 100 Mg Tablet) 100 mg PO BID [facility]; Protocol Last Admin: 07/20/23 07:59 Dose: 100 mg Furosemide (Furosemide 40 Mg Tablet) 40 mg PO BID@08,16 KARINA Hydromorphone HCl (Hydromorphone 1 Mg/Ml Inj 1 Ml) 0.5 mg IVP Q4H PRN PRN Reason: MODERATE TO SEVERE PAIN Last Admin: 07/20/23 07:58 Dose: 0.5 mg Ceftriaxone Sodium 1,000 mg/ (Sodium Chloride) 50 mls @ 100 mls/hr IV Q24H [facility]; Protocol Last Infusion: 07/20/23 05:04 Dose: Infused Dextrose (D10w) 250 mls @ 1,000 mls/hr IV PRN PRN; Protocol PRN Reason: Adult Acute Hypoglycemia Nursing Protocol Dextrose (D10w) 125 mls @ 750 mls/hr IV PRN PRN; Protocol PRN Reason: Adult Acute Hypoglycemia Nursing Protocol Dextrose (D5w) 500 mls @ 0 mls/hr IV ONCE PRN; Protocol PRN Reason: Adult Acute Hypoglycemia Prot Insulin Human Lispro (Insulin Lispro 100 Unit/1 Ml) 0 unit SUBCUT WM&BEDTIME [facility]; Protocol Last Admin: 07/20/23 12:33 Dose: 2 unit Isosorbide Mononitrate (Isosorbide Mononitrate Er 30 Mg Tablet) 30 mg PO DAILY [facility] Last Admin: 07/20/23 07:59 Dose: 30 mg Isosorbide Mononitrate (Isosorbide Mononitrate Er 30 Mg Tablet) 30 mg PO NOW [facility] Losartan Potassium (Losartan 50 Mg Tablet) 50 mg PO DAILY [facility] Last Admin: 07/20/23 07:59 Dose: 50 mg Metoprolol Tartrate (Metoprolol Tartrate 25 Mg Tablet) 12.5 mg PO BID@0900,2100 [facility] Last Admin: 07/20/23 07:59 Dose: 12.5 mg Ondansetron HCl (Ondansetron 2 Mg/Ml Sdv 2 Ml) 4 mg IVP Q8H PRN PRN Reason: vomiting, or N/V if npo Ondansetron HCl (Ondansetron 2 Mg/Ml Sdv 2 Ml) 4 mg IVP Q2M PRN PRN Reason: NAUSEA Pantoprazole Sodium (Pantoprazole Dr 40 Mg Tablet) 40 mg PO DAILY [facility] Last Admin: 07/20/23 07:59 Dose: 40 mg Prednisone (Prednisone 20 Mg Tablet) 40 mg PO DAILY [facility] Stop: 07/26/23 11:49 Prednisone (Prednisone 20 Mg Tablet) 20 mg PO DAILY [facility] Stop: 07/29/23 08:59 Prednisone (Prednisone 20 Mg Tablet) 60 mg PO DAILY [facility] Stop: 07/23/23 11:49 Last Admin: 07/20/23 12:33 Dose: 60 mg Trazodone HCl (Trazodone 100 Mg Tablet) 100 mg PO BEDTIME KARINA Last Admin: 07/19/23 20:03 Dose: 100 mg Vitals/I&O/Wt Last Vital Signs Temp 98 F 07/20/23 12:00 Pulse 68 07/20/23 12:00 Resp 16 07/20/23 12:00 BP 155/81 07/20/23 12:00 Pulse Ox 96 07/20/23 12:00 O2 Del Method Nasal Cannula 07/20/23 12:00 O2 Flow Rate 2 07/20/23 07:35 07/19/23 07/20/23 07/20/23 22:59 06:59 14:59 Intake Total 710 / 1430 410 / 1840 350 / 350 Output Total 1625 / 2275 950 / 3225 Balance -915 / -845 -540 / -1385 350 / 350 Weight last 48 hrs Weight 223 lb 10 oz Weight 227 lb 6 oz Physical Exam 2 Narrative: GENERAL: The patient is alert and oriented times three. Not in any acute distress. HEENT: No significant pallor, icterus or lymphadenopathy.Oral cavity: There are no mucous membrane lesions. NECK: Trachea appears to be central. No masses noted. No JVD or thyromegaly appreciated. RESPIRATORY: Chest is symmetrical. No intercostals muscle retraction or any accessory muscle activation. There is no chest wall tenderness. Breath sounds are heard bilaterally. No rales or rhonchi. No evidence of consolidation. BREASTS: Deferred. HEART: The heart sounds are normal. No S3 or S4. Ejection systolic murmur grade 3 or 6 in the aortic area. No diastolic murmurs. No pericardial rub ABDOMEN: No vessel pulsations or distention. No tenderness. No organomegaly appreciated. Bowel sounds are normally heard. : Deferred. RECTAL: Deferred. LYMPHATIC: No lymphadenopathy noted in the neck. EXTREMITIES: Below-knee amputation on the left side. The stump is bandaged. Trace edema of the right lower extremity. And nonhealing ulcer in the right ankle which is bandaged. MUSCULOSKELETAL: No acute joint deformities or swelling SKIN: There are no significant rashes or ecchymosis NEUROPSYCHIATRIC: The patient is alert and oriented x3. Appears to be in a good mood. No tremors or rigidity noted. Data 07/20/23 04:20 07/20/23 04:20 Other Labs: Laboratory Last Values WBC 11.52 10^3/uL (3.29-11.43) H 07/20/23 04:20 RBC 4.80 10^6/uL (3.85-5.65) 07/20/23 04:20 Hgb 11.30 g/dL (11.27-16.99) 07/20/23 04:20 Hct 38.6 % (37-53) 07/20/23 04:20 MCV 80.4 fl (82-101) L 07/20/23 04:20 MCH 23.5 pg (27-33) L 07/20/23 04:20 MCHC 29.3 g/dL (30-55) L 07/20/23 04:20 RDW 15.3 % (12.1-15.1) H 07/20/23 04:20 Plt Count 407 10^3/cmm (157-399) H 07/20/23 04:20 MPV 10.5 fL (7.4-10.4) H 07/20/23 04:20 Neut % (Auto) 76.3 % 07/20/23 04:20 Lymph % (Auto) 13.7 % 07/20/23 04:20 [place] % (Auto) 6.1 % 07/20/23 04:20 Eos % (Auto) 3.0 % 07/20/23 04:20 Baso % (Auto) 0.6 % 07/20/23 04:20 Neut # (Auto) 8.79 10^3/uL (1.8-7.7) H 07/20/23 04:20 Lymph # (Auto) 1.6 10^3/uL (0.8-4.8) 07/20/23 04:20 [place] # (Auto) 0.7 10^3/uL (0.2-0.9) 07/20/23 04:20 Eos # (Auto) 0.3 10^3/uL (0.0-0.8) 07/20/23 04:20 Baso # (Auto) 0.1 10^3/uL (0.0-0.1) 07/20/23 04:20 Nucleated RBC % (auto) 0 % 07/20/23 04:20 Nucleated RBCs # 0.0 /100WBC 07/20/23 04:20 ESR 33 mm/hr (0-10) H 07/16/23 00:45 PT 14.10 SECONDS (12.1-14.9) 07/16/23 00:45 INR 1.06 (0.8-1.2) 07/16/23 00:45 APTT 35.8 SECONDS (23.9-36.7) 07/16/23 00:45 Sodium 142 mmol/L (136-145) 07/20/23 04:20 Potassium 3.4 mmol/L (3.5-5.1) L 07/20/23 04:20 Chloride 100 mmol/L (98-107) 07/20/23 04:20 Carbon Dioxide 31 mmol/L (22-29) H 07/20/23 04:20 Anion Gap 14.4 (5-19) 07/20/23 04:20 BUN 18 mg/dL (8-23) 07/20/23 04:20 Creatinine 1.3 mg/dL (0.7-1.2) H 07/20/23 04:20 GFR Calculation 55.1 mL/min (90-130) L 07/20/23 04:20 Glucose 128 mg/dL (65-115) H 07/20/23 04:20 POC Glucose 178 mg/dL (70-110) H 07/20/23 10:58 Estimat Average Glucose 114 07/16/23 00:45 Hemoglobin A1c 5.6 % (4.0-6.0) 07/16/23 00:45 Calculated Osmolality 298 mOsm/kg (285-295) H 07/20/23 04:20 Lactic Acid 0.8 mmol/L (0.5-2.2) 07/16/23 07:20 Calcium 8.8 mg/dL (8.5-10.5) 07/20/23 04:20 Magnesium 1.9 mg/dL (1.7-2.3) 07/20/23 04:20 Total Bilirubin 0.3 mg/dL (0.15-1.2) 07/16/23 00:45 AST 12 U/L (0-40) 07/16/23 00:45 ALT 13 U/L (0-41) 07/16/23 00:45 Alkaline Phosphatase 104 U/L (40-130) 07/16/23 00:45 Troponin T Baseline 79 ng/L (0-15) H 07/16/23 00:45 Troponin T 120 Minute 72.21 ng/L (0-15) H 07/16/23 03:28 Delta Troponin T -6.79 ABS# (0-10) L 07/16/23 03:28 Troponin T Hi Sens 6Hr 65.71 ng/L (0-15) H 07/16/23 07:20 Troponin T Hi Sens 6Hr Delta -13.29 ng/L (0-12) L 07/16/23 07:20 C-Reactive Protein 97.1 mg/L (0.0-4.9) H 07/16/23 00:45 NT-Pro-B Natriuret Pep 5425 pg/mL (0-125) H 07/16/23 00:45 Total Protein 6.7 g/dL (6.6-8.7) 07/16/23 00:45 Albumin 3.6 g/dL (3.5-5.2) 07/16/23 00:45 Globulin 3.1 g/dL (1.3-4.6) 07/16/23 00:45 Procalcitonin 0.06 ng/mL (0-0.5) 07/16/23 00:45 TSH 1.60 uIU/mL (0.27-4.20) 07/16/23 00:45 Urine Color Yellow (Yellow) 07/16/23 03:21 Urine Appearance Clear (CLEAR) 07/16/23 03:21 Urine pH 5 (5-7) 07/16/23 03:21 Ur Specific H[place]er 1.015 (1.005-1.030) 07/16/23 03:21 Urine Protein 3+ (Negative) H 07/16/23 03:21 Urine Glucose (UA) Norm (Normal) 07/16/23 03:21 Urine Ketones Negative (Negative) 07/16/23 03:21 Urine Blood Neg (Negative) 07/16/23 03:21 Urine Nitrate Negative (Negative) 07/16/23 03:21 Urine Bilirubin Neg (Negative) 07/16/23 03:21 Urine Urobilinogen Neg mg/dL (Negative) 07/16/23 03:21 Ur Leukocyte Esterase Negative (Negative) 07/16/23 03:21 Urine RBC 0-4 /hpf (0-2) H 07/16/23 03:21 Urine WBC 0-4 /hpf (0-5) H 07/16/23 03:21 Ur Squamous Epith Cells 5-10 /hpf (0-5) H 07/16/23 03:21 Amorphous Sediment Trace /hpf 07/16/23 03:21 Urine Bacteria Trace /hpf (NONE) 07/16/23 03:21 Hyaline Casts 0-4 /lpf H 07/16/23 03:21 Coarse Granular Casts 0-4 /lpf H 07/16/23 03:21 Urine Mucus 1+ /hpf 07/16/23 03:21 MRSA (PCR) Not detected (NOT DETECTED) 07/16/23 08:40 Micro: Microbiology 07/19/23 09:32 Gram Stain - Final Sputum - Expectorated Sputum A&P Assessment and plan (1) Atherosclerotic heart disease of [place] coronary artery with other forms of angina pectoris: Patient is currently pain-free. Since area of ischemia was found to be very small, it was decided to continue the medical treatment. Patient seems to be tolerating the medication so far well (2) Diabetes mellitus type 2 in nonobese: The blood sugar seems to be getting under control. Management as per the primary. (3) MONIQUE (acute kidney injury): Seems to the patient may have a chronic kidney disease. Kidney function seems to be stable. (4) Atrial fibrillation: Patient is on Eliquis. Tolerating it so far well. May continue on the current medication. Qualifiers: Atrial fibrillation type: persistent (not longstanding) Qualified Code(s): I48.19 - Other persistent atrial fibrillation (5) Status post below-knee amputation of left lower extremity: Patient seems to have a nonhealing ulcer of the stump. (6) Cardiomyopathy: It might be appropriate to consider Entresto, if the patient can afford this medication. For the time being, the losartan may be continued. Qualifiers: Cardiomyopathy type: other Qualified Code(s): I42.8 - Other cardiomyopathies Plan Clinically the patient seems to be stable. Chest pain or shortness of breath significant improvement. Disposition as per the primary/social service Attestations 2 Medical Necessity Statement*: Deferred to the primary Coding Level of Care Code 41936 Diagnoses Atherosclerotic heart disease of [place] coronary artery with other forms of angina pectoris I25.118 Diabetes mellitus type 2 in nonobese E11.9 MONIQUE (acute kidney injury) N17.9 Persistent atrial fibrillation I48.19 Atrial fibrillation type: persistent (not longstanding) Status post below-knee amputation of left lower extremity Z89.512 Other cardiomyopathy I42.8 Cardiomyopathy type: other
[2023-07-20 17:10] LABS: Glucose Point of Care 201 mg/dL (70-110)
[2023-07-20] MEDS: FUROsemide 40 mg Tablet PO (17:37)
--- NOTE | 2023-07-20 17:57 | P.PN_ITS ---
Subjective 2 Subjective: He did not have any overnight events. He is currently on 3 L/min O2. He does not wear oxygen at home. He smokes 1 pack/day of cigarettes. He reports improvement in his shortness of breath but still has a cough. He was net negative 3.4 L yesterday. Medications: Reviewed: Yes Vitals/I&O/Wt Last Vital Signs Temp 98.2 F 07/20/23 15:42 Pulse 88 07/20/23 15:42 Resp 23 H 07/20/23 15:42 BP 133/65 07/20/23 15:42 Pulse Ox 93 07/20/23 15:42 O2 Del Method Nasal Cannula 07/20/23 15:42 O2 Flow Rate 3 07/20/23 14:00 07/20/23 07/20/23 07/20/23 06:59 14:59 22:59 Intake Total 410 / 1840 350 / 350 Output Total 950 / 3225 750 / 750 Balance -540 / -1385 350 / 350 -750 / -400 Weight last 48 hrs Weight 101.435 kg Weight 103.136 kg Physical Exam 2 Narrative: GEN: Alert, no distress, cooperative HEENT: PERRLA, EOMI, normocephalic, atraumatic Neck: Supple Respiratory: Normal effort, speaks in complete sentences, clear to auscultation bilaterally Cardio: No murmur rub or gallop, S1, S2, regular rate and rhythm Abdomen: Soft, nontender, nondistended, normoactive bowel sounds Extremity: Left BKA, no edema Data 07/20/23 04:20 07/20/23 04:20 Micro: Microbiology 07/19/23 09:32 Gram Stain - Final Sputum - Expectorated Sputum Sputum Culture - Preliminary A&P Assessment and plan (1) Atherosclerotic heart disease of [place] coronary artery with other forms of angina pectoris: Chest pain-free Nuclear cardiac stress test on 07/17 showed moderate area of moderate to severely decreased tracer uptake involving the mid and apical inferior, mid inferolateral, apical lateral and LV apex. Minimal reversibility was noted in the inferior region. Continue medical management with Plavix and atorvastatin (2) Diabetes mellitus type 2 in nonobese: Glucose has been controlled Continue metformin Monitor glucose (3) MONIQUE (acute kidney injury): Patient has CKD stage III with baseline creatinine of 1.0-1.2. Monitor creatinine (4) Atrial fibrillation: Continue carvedilol and apixaban Qualifiers: Atrial fibrillation type: persistent (not longstanding) Qualified Code(s): I48.19 - Other persistent atrial fibrillation (5) Status post below-knee amputation of left lower extremity: Patient has a nonhealing ulcer on the stump. Continue wound care (6) Cardiomyopathy: Echocardiogram on 07/15 showed diffuse hypokinesis of the left ventricle with EF of 41%. He also has mild diffuse hypokinesis of the RV. Patient is currently on lisinopril Qualifiers: Cardiomyopathy type: other Qualified Code(s): I42.8 - Other cardiomyopathies (7) Acute systolic CHF (congestive heart failure): He has had good urine output and continues to be net negative. Switch him to oral Lasix this afternoon Continue to monitor renal function Continue carvedilol and lisinopril Consider switching to Entresto in the future Telemetry monitoring Strict I's and O's and daily weights (8) COPD (chronic obstructive pulmonary disease): Patient has COPD with emphysema seen on CT chest He is a chronic smoker smokes 1 pack/day Given his persistent hypoxia I believe that he has a component of COPD exacerbation CT chest on 07/16 showed mild to moderate diffuse bronchial wall thickening He is on ceftriaxone and doxycycline Will start him on a prednisone taper as well Home oxygen evaluation tomorrow Plan Patient continues to improve but is still requiring oxygen. Started him on steroids today for COPD. Counseled him on smoking cessation. Stretches Lasix to p.o. today. Attestations 2 Medical Necessity Statement*: Patient continues to require inpatient hospitalization. He is still requiring oxygen. Anticipate discharge tomorrow. Full code Apixaban for VTE prophylaxis Coding Level of Care Code 85161 Diagnoses Atherosclerotic heart disease of [place] coronary artery with other forms of angina pectoris I25.118 Diabetes mellitus type 2 in nonobese E11.9 MONIQUE (acute kidney injury) N17.9 Persistent atrial fibrillation I48.19 Atrial fibrillation type: persistent (not longstanding) Status post below-knee amputation of left lower extremity Z89.512 Other cardiomyopathy I42.8 Cardiomyopathy type: other Acute systolic CHF (congestive heart failure) I50.21 COPD (chronic obstructive pulmonary disease) J44.9
[2023-07-20] MEDS: trazodone 100 mg Tablet PO (20:03)
[2023-07-20] MEDS: ALPRAZolam 0.5 mg Tablet PO (20:03)
[2023-07-20] MEDS: atorvastatin 40 mg Tablet PO (20:04)
[2023-07-20 20:40] LABS: Glucose Point of Care 234 mg/dL (70-110)
[2023-07-21] VITALS (10 sets, daily range): BP systolic 106–166; BP diastolic 57–79; PULSE 67–85; RESP 16–19; TEMP 36.4–36.9; O2SAT 85–97
[2023-07-21] MEDS: cefTRIAXone 1,000 MG in sodium chloride 0.9% (plus) 50 ML 100 MG IV (03:46)
[2023-07-21 06:32] LABS: Glucose Point of Care 179 mg/dL (70-110)
[2023-07-21] MEDS: ipratropium-albuterol 3 mL Neb INHALATION (07:39)
[2023-07-21] MEDS: budesonide 0.5 mg/2 mL Neb INHALATION (07:39)
[2023-07-21] MEDS: HYDROmorphone 1 mg/mL INJ 1 mL 0.5 MG IVP (07:43)
[2023-07-21] MEDS: predniSONE 20 mg Tablet 60 MG PO (07:45)
[2023-07-21] MEDS: doxycycline 100 mg Tablet PO (07:46)
[2023-07-21] MEDS: apixaban 5 mg Tablet PO (07:46)
[2023-07-21] MEDS: metoprolol tartrate 25 mg Tablet 12.5 MG PO (07:46)
[2023-07-21] MEDS: FUROsemide 40 mg Tablet PO (07:46)
[2023-07-21] MEDS: ALPRAZolam 0.5 mg Tablet PO (07:46)
[2023-07-21] MEDS: losartan 50 mg Tablet PO (07:46)
[2023-07-21] MEDS: isosorbide mononitrate ER 30 mg Tablet PO (07:47)
[2023-07-21] MEDS: clopidogrel 75 mg Tablet PO (07:47)
[2023-07-21] MEDS: aspirin 81 mg EC Tablet PO (07:47)
[2023-07-21] MEDS: pantoprazole DR 40 mg Tablet PO (07:47)
[2023-07-21 07:50] LABS: Albumin Level 3.3 g/dL (3.5-5.2); Blood Urea Nitrogen 21 mg/dL (8-23); Calcium 9.3 mg/dL (8.5-10.5); Carbon Dioxide 28 mmol/L (22-29); Chloride 96 mmol/L (98-107); Creatinine Clr Calc Pharmacy 69.0137; Glomerular Filtration Rate 60.4 mL/min (90-130); Glucose 146 mg/dL (65-115); Magnesium 1.9 mg/dL (1.7-2.3); Phosphorus 3.8 mg/dL (2.5-4.5); Sodium 135 mmol/L (136-145)
--- NOTE | 2023-07-21 10:42 | PM.DCS ---
Discharge Providers Date of Admission: 07/16/23 03:31 Date of Discharge: July 21, 2023 Attending Provider at Admission: Romelia Villatoro MD Attending Provider at Discharge: Maegan Jenkins MD Consults: Cardiology Primary Care Provider: Florin Nur DO Diagnoses at Discharge Discharge Diagnosis (1) Atherosclerotic heart disease of [place] coronary artery with other forms of angina pectoris: Status: Acute (2) Diabetes mellitus type 2 in nonobese: Status: Acute (3) MONIQUE (acute kidney injury): Status: Acute (4) Atrial fibrillation: Status: Acute Qualifiers: Atrial fibrillation type: persistent (not longstanding) Qualified Code(s): I48.19 - Other persistent atrial fibrillation (5) Status post below-knee amputation of left lower extremity: Status: Acute (6) Cardiomyopathy: Status: Acute Qualifiers: Cardiomyopathy type: other Qualified Code(s): I42.8 - Other cardiomyopathies (7) Acute systolic CHF (congestive heart failure): Status: Acute (8) COPD (chronic obstructive pulmonary disease): Status: Acute Reason for Visit Reason for Visit: chest pain Brief History: Please see H&P for full details of presenting condition and initial treatment. Hospital Course Hospital Course This is 68-year-old male with CAD, chronic HFrEF (40%), DM2, CKD stage III, persistent atrial fibrillation, COPD, and tobacco use disorder who was admitted for acute decompensated CHF. Echocardiogram on 07/15 showed diffuse LV hypokinesia with EF of 41%, moderate to moderately severe mitral valve regurgitation, thickened aortic valve with moderate low gradient aortic valve stenosis (valve area 1.2 cm?). He was given IV diuresis and had excellent urine output. He has been transitioned back to oral Lasix. He is on carvedilol and lisinopril. Consider switching to Entresto in the near future if he is available to afford it. He was hypoxic on room air and this persisted despite improvement in his CHF. Chest CT done on 07/16 showed mild to moderate diffuse bronchial thickening. I believe he had a component of COPD exacerbation and he was discharged home on oral prednisone. He receives IV antibiotics during this hospitalization. He qualifies for 3 as per minute O2 with exertion. Home oxygen has been ordered. He is an everyday smoker. He was counseled on smoking cessation. He had mildly elevated troponin. Nuclear cardiac stress test on 5/22 showed moderate area of moderate to severely decreased tracer uptake involving the inferior, inferolateral and apical regions with minimal reversibility in the inferior region suggesting myocardial scarring in the distribution of the RCA/circumflex artery. Continue medical management with Plavix and atorvastatin. He is status post left BKA and has a nonhealing ulcer on the stump. He needs to follow-up with wound care. He has persistent atrial fibrillation and is rate controlled. He is on carvedilol and apixaban. He has CKD stage IIIa with baseline creatinine of 1.0 to 1.2 mg/dL. His creatinine should be monitored. Physical Exam Narrative: GEN: Alert, no distress Neuro: Oriented x 4, no focal neurodeficits HEENT: Normocephalic, atraumatic, PERRLA, EOMI Neck: Supple, no JVD Cardio: S1, S2, irregular rhythm, no tachycardia, no murmur appreciated Lungs: Normal effort, clear to auscultation bilaterally Abdomen: Soft, nontender, nondistended, normal active bowel sounds Extremity: Status post left BKA with nonhealing ulcer at the stump, no edema Skin: No rashes noted Discharge Data Studies Completed and Pending Completed Studies During Hospitalization Category Date Time Status CT chest wo con [id number] Routine Cat Scan 07/17/23 13:[address] foot RT wo con* [id number] Routine Cat Scan 07/16/23 08:50 Completed CXRIE [XR chest 2V insp/exp [id number]] Routine Exams 07/20/23 11:45 Completed Sestamibi Stress Test Request Routine Exams 07/17/23 07:22 Draft XR ankle RT 2V [id number] Stat Exams 07/16/23 01:37 Completed XR chest 1V portable [id number] Stat Exams 07/16/23 01:25 Completed XR femur LT min 2V* [id number] Stat Exams 07/16/23 01:27 Completed NM sukumar perf SPECT r/s* [id number] Routine Nuc Med 07/18/23 07:00 [place] [id number] Routine Ultrasound 07/16/23 08:00 Completed CV. echo complete* [id number] Routine Ultrasound 07/16/23 03:52 Completed US VICKY [CV ankle brachial index [id number]] Routine Ultrasound 07/16/23 08:00 Completed Pending at discharge Category Date Time Status Sputum Culture and Gram Stain Stat Lab 07/19/23 09:32 Results Radiology Impressions Femur X-Ray 07/16/23 01:27 IMPRESSION: Amputation of the proximal left tibia and fibula with smooth margins and no cortical irregularities. Ankle X-Ray 07/16/23 01:37 IMPRESSION: 1. Cortical irregularity along the superior margin of the anterior process of the calcaneus which may represent a fracture. 2. No cortical irregularity along the medial malleolus. Venous Duplex 07/16/23 08:00 IMPRESSION: No sonographic evidence of deep vein thrombosis. Foot CT 07/16/23 08:50 IMPRESSION: 1. No calcaneal fracture. Cortical irregularity along the anterior calcaneal process is degenerative. 2. Small calcaneal spur. 3. Mild edema surrounding the midfoot. Chest CT 07/17/23 13:56 IMPRESSION: 1. Mild cardiomegaly and moderate pleural effusions compatible with CHF or volume overload. 2. Mild bibasilar consolidation likely predominantly compressive atelectasis, with or without pneumonia in the appropriate clinical setting 3. Mild emphysema. Diffuse bronchial wall thickening due to airways disease or bronchitis. COMMENTS: The presence of pulmonary emphysema on CT is an independent risk factor for lung cancer. In the absence of a history or active diagnosis of lung cancer, it is recommended that this patient with emphysema be evaluated for enrollment in a low dose CT lung cancer screening program. Chest X-Ray 07/20/23 11:45 IMPRESSION: Small right-sided pleural effusion. No significant change in the past 3 days. Laboratory Results WBC 11.52 10^3/uL (3.29-11.43) H 07/20/23 04:20 RBC 4.80 10^6/uL (3.85-5.65) 07/20/23 04:20 Hgb 11.30 g/dL (11.27-16.99) 07/20/23 04:20 Hct 38.6 % (37-53) 07/20/23 04:20 MCV 80.4 fl (82-101) L 07/20/23 04:20 MCH 23.5 pg (27-33) L 07/20/23 04:20 MCHC 29.3 g/dL (30-55) L 07/20/23 04:20 RDW 15.3 % (12.1-15.1) H 07/20/23 04:20 Plt Count 407 10^3/cmm (157-399) H 07/20/23 04:20 MPV 10.5 fL (7.4-10.4) H 07/20/23 04:20 Neut % (Auto) 76.3 % 07/20/23 04:20 Lymph % (Auto) 13.7 % 07/20/23 04:20 [place] % (Auto) 6.1 % 07/20/23 04:20 Eos % (Auto) 3.0 % 07/20/23 04:20 Baso % (Auto) 0.6 % 07/20/23 04:20 Neut # (Auto) 8.79 10^3/uL (1.8-7.7) H 07/20/23 04:20 Lymph # (Auto) 1.6 10^3/uL (0.8-4.8) 07/20/23 04:20 [place] # (Auto) 0.7 10^3/uL (0.2-0.9) 07/20/23 04:20 Eos # (Auto) 0.3 10^3/uL (0.0-0.8) 07/20/23 04:20 Baso # (Auto) 0.1 10^3/uL (0.0-0.1) 07/20/23 04:20 Nucleated RBC % (auto) 0 % 07/20/23 04:20 Nucleated RBCs # 0.0 /100WBC 07/20/23 04:20 ESR 33 mm/hr (0-10) H 07/16/23 00:45 PT 14.10 SECONDS (12.1-14.9) 07/16/23 00:45 INR 1.06 (0.8-1.2) 07/16/23 00:45 APTT 35.8 SECONDS (23.9-36.7) 07/16/23 00:45 Sodium 135 mmol/L (136-145) L 07/21/23 07:11 Potassium 4.0 mmol/L (3.5-5.1) 07/21/23 07:11 Chloride 96 mmol/L (98-107) L 07/21/23 07:11 Carbon Dioxide 28 mmol/L (22-29) 07/21/23 07:11 Anion Gap 15.0 (5-19) 07/21/23 07:11 BUN 21 mg/dL (8-23) 07/21/23 07:11 Creatinine 1.2 mg/dL (0.7-1.2) 07/21/23 07:11 GFR Calculation 60.4 mL/min (90-130) L 07/21/23 07:11 Glucose 146 mg/dL (65-115) H 07/21/23 07:11 POC Glucose 179 mg/dL (70-110) H 07/21/23 06:16 Estimat Average Glucose 114 07/16/23 00:45 Hemoglobin A1c 5.6 % (4.0-6.0) 07/16/23 00:45 Calculated Osmolality 298 mOsm/kg (285-295) H 07/20/23 04:20 Lactic Acid 0.8 mmol/L (0.5-2.2) 07/16/23 07:20 Calcium 9.3 mg/dL (8.5-10.5) 07/21/23 07:11 Phosphorus 3.8 mg/dL (2.5-4.5) 07/21/23 07:11 Magnesium 1.9 mg/dL (1.7-2.3) 07/21/23 07:11 Total Bilirubin 0.3 mg/dL (0.15-1.2) 07/16/23 00:45 AST 12 U/L (0-40) 07/16/23 00:45 ALT 13 U/L (0-41) 07/16/23 00:45 Alkaline Phosphatase 104 U/L (40-130) 07/16/23 00:45 Troponin T Baseline 79 ng/L (0-15) H 07/16/23 00:45 Troponin T 120 Minute 72.21 ng/L (0-15) H 07/16/23 03:28 Delta Troponin T -6.79 ABS# (0-10) L 07/16/23 03:28 Troponin T Hi Sens 6Hr 65.71 ng/L (0-15) H 07/16/23 07:20 Troponin T Hi Sens 6Hr Delta -13.29 ng/L (0-12) L 07/16/23 07:20 C-Reactive Protein 97.1 mg/L (0.0-4.9) H 07/16/23 00:45 NT-Pro-B Natriuret Pep 5425 pg/mL (0-125) H 07/16/23 00:45 Total Protein 6.7 g/dL (6.6-8.7) 07/16/23 00:45 Albumin 3.3 g/dL (3.5-5.2) L 07/21/23 07:11 Globulin 3.1 g/dL (1.3-4.6) 07/16/23 00:45 Procalcitonin 0.06 ng/mL (0-0.5) 07/16/23 00:45 TSH 1.60 uIU/mL (0.27-4.20) 07/16/23 00:45 Urine Color Yellow (Yellow) 07/16/23 03:21 Urine Appearance Clear (CLEAR) 07/16/23 03:21 Urine pH 5 (5-7) 07/16/23 03:21 Ur Specific Childs 1.015 (1.005-1.030) 07/16/23 03:21 Urine Protein 3+ (Negative) H 07/16/23 03:21 Urine Glucose (UA) Norm (Normal) 07/16/23 03:21 Urine Ketones Negative (Negative) 07/16/23 03:21 Urine Blood Neg (Negative) 07/16/23 03:21 Urine Nitrate Negative (Negative) 07/16/23 03:21 Urine Bilirubin Neg (Negative) 07/16/23 03:21 Urine Urobilinogen Neg mg/dL (Negative) 07/16/23 03:21 Ur Leukocyte Esterase Negative (Negative) 07/16/23 03:21 Urine RBC 0-4 /hpf (0-2) H 07/16/23 03:21 Urine WBC 0-4 /hpf (0-5) H 07/16/23 03:21 Ur Squamous Epith Cells 5-10 /hpf (0-5) H 07/16/23 03:21 Amorphous Sediment Trace /hpf 07/16/23 03:21 Urine Bacteria Trace /hpf (NONE) 07/16/23 03:21 Hyaline Casts 0-4 /lpf H 07/16/23 03:21 Coarse Granular Casts 0-4 /lpf H 07/16/23 03:21 Urine Mucus 1+ /hpf 07/16/23 03:21 MRSA (PCR) Not detected (NOT DETECTED) 07/16/23 08:40 Vitals Last Vital Signs Temp 97.7 F 07/21/23 07:04 Pulse 71 07/21/23 07:48 Resp 16 07/21/23 07:43 BP 166/76 07/21/23 07:46 Pulse Ox 85 L 07/21/23 09:36 O2 Del Method Nasal Cannula 07/21/23 07:39 O2 Flow Rate 3 07/21/23 09:36 Discharge Plan Discharge Patient Disposition: Xfer Other Condition: Stable Prescriptions: New isosorbide mononitrate 30 mg Tablet Extended Release 24 Hr 30 mg PO DAILY Qty: 30 0RF losartan 50 mg Tablet 50 mg PO DAILY 30 Days Qty: 30 0RF Santyl 250 unit/gram Ointment 1 applic topical DAILY Qty: 90 0RF prednisone 20 mg Tablet 60 mg PO DAILY 4 Days Qty: 4 0RF Rx Instructions: 60 mg daily x 5 days hydroxyzine pamoate 25 mg Capsule 25 mg PO QID PRN (Reason: Anxiety) Qty: 30 0RF Continued furosemide 40 mg Tablet 40 mg PO QAM atorvastatin 80 mg tablet 80 mg PO BEDTIME carvedilol 25 mg Tablet 12.5 mg PO BID Rx Instructions: must administer with a meal/food Cleocin HCl 300 mg Capsule 300 mg PO TID clopidogrel 75 mg Tablet 75 mg PO DAILY acetaminophen 500 mg Tablet 1,000 mg PO QID PRN (Reason: Pain) nitroglycerin 0.4 mg Tablet, Sublingual 0.4 mg SUBLINGUAL Q5M PRN (Reason: Chest Pain) Rx Instructions: do not exceed 3 doses per episode albuterol sulfate 90 mcg/actuation Hfa Aerosol Inhaler 1 inh INHALATION QID PRN (Reason: COPD) metformin 500 mg Tablet Extended Release 24 Hr 1,000 mg PO DAILY cholecalciferol (vitamin D3) 25 mcg (1,000 unit) Tablet 25 mcg PO DAILY tiotropium bromide 2.5 mcg/actuation Mist 2 puff INHALATION DAILY Eliquis 5 mg Tablet 5 mg PO BID trazodone 100 mg Tablet 100 mg PO DAILY Qty: 30 0RF Discontinued lisinopril 20 mg Tablet 10 mg PO DAILY Discharge Orders: Discharge Order (Routine); Ordered 07/21/23 Ordered By: Maegan Jenkins Other Ambulatory Orders: DME: Oxygen (Order) Location: None Selected Ordered By: Maegan Jenkins Basic Metabolic Panel (Routine) Timeframe: 1 Week Facility: [facility] - Location: Lab - Main Lab Ordered By: Maegan Jenkins Referrals: MTM- Medicaid Transportation [Other] (You will need to call this number 24hrs in advance to your appointments, to arrange a ride for them to take you to your appointments & to take you back home. ) Lona Hou, [place] [Nurse Practitioner] - 2 weeks (Lona Hou's Office has your information and will be calling you to schedule a follow up appointment. You can also call them if you have any questions or concerns. Thank you.) [facility], [Staff Physician] - 1 week (Please call the wound care clinic on Sunday at [phone] to schedule a follow up appointment. Thank you.) Discharge Diet: Diabetic Discharge Activity: Resume usual activity Patient Instructions: Prednisone (By mouth) (predniSONE Intensol, Prednicot, Deltasone, Rosy), Hydroxyzine (By mouth) (Vistaril), Losartan (By mouth) (Cozaar), Isosorbide Mononitrate (By mouth) (Imdur, Imdur ER, Ismo), Collagenase (On the skin) (Santyl), Heart Failure (DC), CHF Stoplight, Opioid Safety Activity Restrictions/Additional Instructions: You can go to the homeless longterm in [place]. You have been approved for 60 days there. If you wish to go, you need to speak to Veronica at [phone]. Discharge Attestations Time Spent in Discharge Care*: greater than 30 min Time Spent in Smoking Cessation: 3 to 10 minutes Quality Metrics Clinical Quality Measures [ No reported AMI, CVA or VTE this stay] Coding Level of Care Code 06500 Diagnoses Atherosclerotic heart disease of [place] coronary artery with other forms of angina pectoris I25.118 Diabetes mellitus type 2 in nonobese E11.9 MONIQUE (acute kidney injury) N17.9 Persistent atrial fibrillation I48.19 Atrial fibrillation type: persistent (not longstanding) Status post below-knee amputation of left lower extremity Z89.512 Other cardiomyopathy I42.8 Cardiomyopathy type: other Acute systolic CHF (congestive heart failure) I50.21 COPD (chronic obstructive pulmonary disease) J44.9
[2023-07-21 11:47] LABS: Glucose Point of Care 232 mg/dL (70-110)
--- NOTE | 2023-07-21 13:47 | PC.NURSE ---
Patient provided discharge information. Patient verbalized understanding however he stated, I have been evicted my home this week and now I am being evicted from the hospital . Patient taken by personal wheelchair to [facility] with [facility].
--- NOTE | 2023-07-21 14:08 | PC.NURSE ---
New medications called to [place], [place].
== END 2023-07-21 14:09 | disposition home or self-care (01) | DRG 193 ==
LOC: ER 01:17 → CSU 03:32
PROVIDERS: Internal Medicine; Admitting Provider Internal Medicine; Emergency Provider Emergency Medicine; PCP Family Medicine; Visit Provider Student in an Organized Health Care Education/Training Program
DX: J18.9 Pneumonia, unspecified organism (principal); I50.33 Acute on chronic diastolic (congestive) heart failure; J96.01 Acute respiratory failure with hypoxia; I13.0 Hypertensive heart and chronic kidney disease with heart failure and stage 1 through stage 4 chronic kidney disease, or unspecified chronic kidney disease; J44.1 Chronic obstructive pulmonary disease with (acute) exacerbation; J44.0 Chronic obstructive pulmonary disease with (acute) lower respiratory infection; I48.19 Other persistent atrial fibrillation; Z59.00 Homelessness unspecified; N17.9 Acute kidney failure, unspecified; I42.8 Other cardiomyopathies; N18.30 Chronic kidney disease, stage 3 unspecified; E11.22 Type 2 diabetes mellitus with diabetic chronic kidney disease; E11.42 Type 2 diabetes mellitus with diabetic polyneuropathy; E11.51 Type 2 diabetes mellitus with diabetic peripheral angiopathy without gangrene; I25.10 Atherosclerotic heart disease of native coronary artery without angina pectoris; E11.621 Type 2 diabetes mellitus with foot ulcer; L97.512 Non-pressure chronic ulcer of other part of right foot with fat layer exposed; E78.5 Hyperlipidemia, unspecified; F25.0 Schizoaffective disorder, bipolar type; F15.11 Other stimulant abuse, in remission; G47.33 Obstructive sleep apnea (adult) (pediatric); T87.81 Dehiscence of amputation stump; Z79.01 Long term (current) use of anticoagulants; Z79.84 Long term (current) use of oral hypoglycemic drugs; Z79.02 Long term (current) use of antithrombotics/antiplatelets; Z89.512 Acquired absence of left leg below knee; Z86.718 Personal history of other venous thrombosis and embolism; Z91.128 Patient's intentional underdosing of medication regimen for other reason; I25.2 Old myocardial infarction; Z86.19 Personal history of other infectious and parasitic diseases
CPT/HCPCS: 36415; 36416; 71045; 71046; 71250; 73552; 73600; 73700; 78452; 80048; 80053; 80069; 81001; 82962; 83036; 83605; 83735; 83880; 84145; 84443; 84484; 85025; 85610; 85651; 85730; 86140; 87040; 87070; 87205; 87641; 93005; 93017; 93306; 93922; 93971; 94640; 94664; 94760; 96365; 96367; 96372; 96375; 96376; 97161; 99285; A9500; J0280; J0456; J0696; J1170; J1650; J1815; J1940; J2405; J2785; J3010; J3490; J7050; J7512; J7626